=== PATIENT | female | born 1960 | race Caucasian/White ===

== ENCOUNTER 2016-09-16 19:42 | Observation (INO) | payer OTHER ==
[~2016-09-16] VITALS: Ht 162.6 cm; Wt 80.3 kg
[~2016-09-16 19:42] MED LIST: ADVIN25/60 INH; ALBUAER19 INH; FLUO40CA8 PO; MULT-506 PO; RANI150T3 PO; TEMA30CA4 PO
[2016-09-16] MEDS ORDERED: SODIUM CHLORIDE 0.9% 1000ML 1,000 ML IV STA (20:51)
[2016-09-16] MEDS ORDERED: NITROGLYCERIN OINT 2% 1GM PACKET EXT STA (20:51)
--- NOTE | 2016-09-16 21:02 | EMERGENCY ROOM VISIT NOTE ---
History Report prepared by Abdirashid: Dash Presley Under the Supervision of: Dr. Ronen Pablo M.D. First contact with patient: 20:46 Chief Complaint: CHEST PAIN Stated Complaint: CHEST PAIN Nursing Triage Summary: cp since this am seen at [facility] and sent here. History of Present Illness The patient is a 56 year old female with COPD who presents to the Emergency Room with complaints of constant chest pain beginning ten hours prior to arrival. She currently rates her discomfort as a 5/10 in severity. The patient associates shortness of breath, intermittent numbness in her arms and hands at night, and chest pain that radiates to her back and shoulder with today's symptoms. She states her shortness of breath worsens with exertion. The patient states she was seen at [facility] this morning and was referred to the ED for further evaluation. It is noted the patient had a stress test performed in 2007, but it was unrevealing and suboptimal. The patient states nothing makes her chest pain worse or better. She denies a history of a heart attack. The patient denies nausea and diaphoresis. 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 Review of Systems See HPI for pertinent positives & negatives. A total of 10 systems reviewed and were otherwise negative. Past Medical & Surgical Medical Problems: (1) Depression Family History FH: heart disease Social History Smoking Status: Current Every Day Smoker Marital Status: Occupation Status: unemployed Current/Historical Medications Scheduled Fluoxetine (Prozac), 40 MG PO QAM Fluticasone Prop/Salmeterol (Advair Diskus 250/50 60 Dose), 1 PUFF INH BID Multivitamin (Multivitamin), 1 TAB PO QAM Ranitidine Hcl (Zantac), 150 MG PO BID Temazepam (Restoril), 30 MG PO HS Scheduled PRN Albuterol (Ventolin Hfa), 2 PUFFS INH QID PRN for Wheezing Allergies Coded Allergies: No Known Allergies (Unverified , 09/16/16) Physical Exam Vital Signs Date Time Temp Pulse Resp B/P Pulse Ox O2 Delivery O2 Flow Rate FiO2 09/16/16 21:42 71 18 98 Room Air 09/16/16 21:40 71 09/16/16 21:00 Room Air 09/16/16 20:00 37.1 85 18 154/96 94 Room Air Physical Exam GENERAL: Patient is in no acute distress. HEENT: No acute trauma, normocephalic atraumatic, mucous membranes moist, no nasal congestion, no scleral icterus. NECK: No stridor, no adenopathy, no meningismus, trachea is midline. LUNGS: Decreased breath sounds bilaterally. No wheezing or rhonchi. HEART: Without murmurs gallops or rubs, regular rate and rhythm. CHEST: Nontender chest wall. ABDOMEN: Soft, nontender, bowel sounds positive, no hernias, no peritonitis. EXTREMITIES: No cyanosis or edema, full range of motion of all the joints without pain or difficulty, no signs for acute trauma. NEUROLOGIC: Oriented x 3, no acute motor or sensory deficits, no focal weakness. SKIN: No rash, no jaundice, no diaphoresis. Medical Decision & Procedures ER Provider Diagnostic Interpretation: X-ray results as stated below per interpretation by me and the radiologist: CHEST ONE VIEW PORTABLE CLINICAL HISTORY: Chest pain. COMPARISON STUDY: Chest radiograph May 02, 2016. FINDINGS: No pneumothorax or pleural effusion is identified. Cardiac size is normal. Mediastinal contours are normal. There is no evidence of pulmonary edema. No consolidation is identified. IMPRESSION: No acute cardiopulmonary findings. Electronically signed by: Tevin Kimble M.D. 09/16/2016 9:02 PM Laboratory Results 09/16/16 20:57 09/16/16 20:57 Test 09/16/16 20:57 Red Blood Count 5.06 M/uL (4.2-5.4) Mean Corpuscular Volume 88.9 fL (80-100) Mean Corpuscular Hemoglobin 31.4 pg (25-34) Mean Corpuscular Hemoglobin Concent 35.3 g/dl (32-36) RDW Standard Deviation 40.7 fL (36.4-46.3) RDW Coefficient of Variation 12.6 % (11.5-14.5) Mean Platelet Volume 8.9 fL (7.4-10.4) Prothrombin Time 10.5 SECONDS (9.0-12.0) Prothromb Time International Ratio 1.0 (0.9-1.1) Activated Partial Thromboplast Time 25.4 SECONDS (21.0-31.0) Partial Thromboplastin Ratio 1.0 Anion Gap 10.0 mmol/L (3-11) Est Creatinine Clear Calc Drug Dose 67.9 ml/min Estimated GFR () 77.2 Estimated GFR (Non- 66.6 BUN/Creatinine Ratio 20.1 (10-20) Calcium Level 8.4 mg/dl (8.5-10.1) Total Bilirubin 0.6 mg/dl (0.2-1) Aspartate Amino Transf (AST/SGOT) 22 U/L (15-37) Alanine Aminotransferase (ALT/SGPT) 21 U/L (12-78) Alkaline Phosphatase 94 U/L (45-117) Total Creatine Kinase 131 U/L (26-192) Creatine Kinase MB 1.2 ng/ml (0.5-3.6) Creatine Kinase MB Ratio 0.9 (0-3.0) Troponin I < 0.015 ng/ml (0-0.045) Total Protein 6.9 gm/dl (6.4-8.2) Albumin 3.5 gm/dl (3.4-5.0) Globulin 3.4 gm/dl (2.5-4.0) Albumin/Globulin Ratio 1.0 (0.9-2) Laboratory results reviewed by me. Medications Administered Medications (Trade) Dose Ordered Sig/Samson Route Start Time Stop Time Status Last Admin Dose Admin Sodium Chloride (Nss 1000ml) 1,000 ml @ 200 mls/hr Q5H STAT IV 09/16/16 20:51 09/17/16 01:50 09/16/16 20:51 200 MLS/HR Nitroglycerin (Nitroglycerin 2% Oint) 1 inch NOW STAT EXT 09/16/16 20:51 09/16/16 20:52 DC 09/16/16 20:51 1 INCH ECG Indication: chest pain Rate (beats per minute): 69 Rhythm: normal sinus Findings: nonspecific-ST abn, no acute ischemic change, other (old septal infarct) ED Course 2047: The patient was evaluated in room C1B. A complete history and physical exam was performed. 2050: Ordered Nitroglycerin 1 inch EXT, Sodium Chloride 1,000 ml @ 200 mls/hr IV. 2132: Reevaluated the patient and updated her at this time. 2139: I spoke to Scott Jones (Hospitalist) about the patient's case, and he will follow the patient for further evaluation. 2144: Reevaluated the patient at this time and updated her on the results. Medical Decision The differential diagnoses include but are not limited to: angina, CO, cardiac ischemia, PE, pneumonia, pneumothorax, aortic dissection, musculoskeletal pain. There is no leukocytosis or worrisome anemia. No significant electrolyte abnormality, kidney failure or hepatitis. There is no coagulopathy. Chest film shows no pneumonia, mediastinal widening or pneumothorax. EKG shows a normal sinus rhythm with an old septal infarct, no acute ischemia. Cardiac enzyme testing times one is not suggestive of acute cardiac injury. The patient had already received oral aspirin prior to arrival. Here, she received nitroglycerin paste. She feels markedly improved. The patient has multiple cardiac risk factors. She presents with chest pain and shortness of breath with radiation of pain to her left shoulder. She has had improvement with nitroglycerin. Further cardiac workup is warranted. I spoke with the patient and case management. The on-call hospitalist was consulted. Consults Time Called: 2134 Consulting Physician: Scott Jones (Hospitalist) Returned Call: 2139 I spoke to Scott Jones (Hospitalist) about the patient's case, and he will follow the patient for further evaluation. Impression Primary Impression: Precordial chest pain Additional Impression: SOB (shortness of breath) Scribe Attestation The scribe's documentation has been prepared under my direction and personally reviewed by me in its entirety. I confirm that the note above accurately reflects all work, treatment, procedures, and medical decision making performed by me. Departure Information Dispostion Being Evaluated By Hospitalist (Scott Jones (Hospitalist)) Referrals David Allen M.D. (PCP) Problem Qualifiers
[2016-09-16] MEDS ORDERED: PRVHFAIN INH (21:09)
[2016-09-16 21:15] LABS: MEAN CELL VOLUME 88.9 fL (80-100); MEAN CORPUSCULAR HEMOGLOBIN 31.4 pg (25-34); MEAN CORPUSCULAR HGB CONC 35.3 g/dl (32-36); MEAN PLATELET VOLUME 8.9 fL (7.4-10.4); PLATELET COUNT 207 K/uL (130-400); RED BLOOD COUNT 5.06 M/uL (4.2-5.4)
[2016-09-16 21:26] LABS: ALT/SGPT 21 U/L (12-78); BLOOD UREA NITROGEN 19 mg/dl (7-18); BUN/CREATININE RATIO 20.1 (10-20); CALCIUM 8.4 mg/dl (8.5-10.1); CARBON DIOXIDE 26 mmol/L (21-32); CHLORIDE 107 mmol/L (98-107); CREATININE 0.96 mg/dl (0.60-1.20); GLUCOSE 82 mg/dl (70-99); POTASSIUM 3.6 mmol/L (3.5-5.1); SODIUM 143 mmol/L (136-145)
[2016-09-16 21:30] LABS: PROTHROMBIN TIME (PATIENT) 10.5 SECONDS (9.0-12.0)
[2016-09-16 21:31] LABS: ALKALINE PHOSPHATASE 94 U/L (45-117); AST/SGOT 22 U/L (15-37); CKMB/CK RATIO 0.9 (0-3.0)
[2016-09-16] MEDS ORDERED: ACETAMINOPHEN 325 MG TAB PO PRN (22:00)
[2016-09-16] MEDS ORDERED: ALBUTEROL HFA 8 GM INHALER INH PRN (22:00)
[2016-09-16] MEDS ORDERED: ALUMINUM/MAGNESIUM/SIMETH (MAALOX MAX) 30 ML UDC PO PRN (22:00)
[2016-09-16] MEDS ORDERED: TEMAZEPAM 15 MG CAP PO SCH (22:00)
[2016-09-16] MEDS ORDERED: ONDANSETRON INJ 2 MG/ML 2 ML VIAL IV PRN (22:00)
[2016-09-16] MEDS ORDERED: MAGNESIUM HYDROXIDE SUSP 30 ML UDC PO PRN (22:00)
[2016-09-16] MEDS ORDERED: NITROGLYCERIN 0.4 MG SL PER TAB CHARGE SL PRN (22:00)
[2016-09-16] MEDS ORDERED: OPTIRAY 320 IV PRN (22:15)
--- NOTE | 2016-09-16 23:48 | HISTORY & PHYSICAL EXAMINATION ---
DATE OF ADMISSION: 09/16/2016 CHIEF COMPLAINT: Chest pain. HISTORY OF PRESENT ILLNESS: This is a 56-year-old female with past medical history significant for COPD, depression and history of tobacco abuse who presents with chest pain. The patient says since several weeks, she is having tinglings in her both the hands and legs and she generally does not follow with her family doctor regularly, but she has an appointment next Thursday, for her tingliness, but today in the morning, she developed chest pain, 6/10 in severity, radiating to the back , sharp pains associated with some shortness of breath, dizziness and nausea, no sweating. She went to the urgent care and she was sent to the ER. She is on nitro patch. The pain is better, but she still has some mild pain. Hemodynamically stable. Denies any abdominal pain. Appetite is okay. Normal bowel and bladder movements. FAMILY HISTORY: The patient does not know any family history of blood clots. Significant for father had CAD and CABG and diabetes. Mother had diabetes. Father had throat cancer. ALLERGIES: No known drug allergies. PAST MEDICAL HISTORY: As mentioned above. PAST SURGICAL HISTORY: For kidney stones, cholecystectomy. MEDICATIONS: The patient is on albuterol 2 puffs inhalation q.i.d. p.r.n., fluoxetine 40 mg p.o. q.a.m., Advair Diskus 250/50 one puff inhalation b.i.d., multivitamin 1 tablet p.o. daily, Zantac 150 mg p.o. b.i.d., temazepam 30 mg p.o. at bedtime. SOCIAL HISTORY: Smokes half pack a day for several years. REVIEW OF SYMPTOMS: As per HPI. Rest of the review of symptoms negative. PHYSICAL EXAMINATION: GENERAL: The patient is of moderate build, not in distress. VITAL SIGNS: Temperature 37.1, pulse 71, respiratory rate 18, blood pressure 154/96, oxygen 94% room air. HEENT: No pallor, no icterus. Pupils equal, round, and reactive to light. NECK: No JVD, no neck masses, no carotid bruits. CARDIOVASCULAR: S1, S2 heard, regular rate and rhythm, no murmur, no gallop. RESPIRATORY: Clear to auscultation bilaterally. No wheezing, no crackles. ABDOMEN: Soft, bowel sounds present, nontender, no distention. CENTRAL NERVOUS SYSTEM: Cranial nerves II-XII grossly intact. Nonfocal. EXTREMITIES: No edema, no erythema. LABORATORIES: Sodium 143, potassium 3.6, chloride 107, bicarb 26, BUN 19, creatinine 0.9, serum glucose 82, calcium 8.4, total bilirubin 0.6, AST 22, ALT 21, alkaline phosphatase 94, total creatine kinase 131, troponin I less than 0.015. WBC 6.3, hemoglobin 15.9, hematocrit 45, platelets 207. PT 10.5, INR 1, PTT 25.4. Chest x-ray: No acute cardiopulmonary findings seen. EKG: Normal sinus rhythm with rate of 69, no acute ST changes seen. ASSESSMENT AND PLAN: This is a 56-year-old female who presents with chest pain. 1. Chest pain. Risk factors age and family history and smoking history. Initial workup is negative. We will observe on the tele floor. Serial cardiac enzymes, echocardiogram. We will check a fasting lipid profile and consult cardiology in a.m. for possible stress test. 2. History of bilateral hand tenderness and lower extremity numbness. We will follow hemoglobin A1c levels and vitamin B12 levels. The patient has outpatient followup with her family doctor consider cervical x-ray. 3. Chronic obstructive pulmonary disease. Continue home inhalers, currently stable. 4. Tobacco abuse. Continue counseling. 5. Deep vein thrombosis prophylaxis, SCDs and TEDs. 6. Disposition: Observation on tele floor. Expect to discharge home and follow up with family doctor. JOANN
[2016-09-17] MEDS ORDERED: IV FLUIDS COMPLETED PRN (00:15)
[2016-09-17 06:07] LABS: BASO % 0.6 %; BASO ABS # 0.03 K/uL (0-0.2); COMPLETE YES; EOS % 3.6 %; HEMATOCRIT 41.9 % (37-47); IG% 0.2 %; LYMPH % 32.6 %; LYMPH ABS # 1.53 K/uL (1.2-3.4); MEAN CELL VOLUME 92.3 fL (80-100); MEAN CORPUSCULAR HEMOGLOBIN 31.3 pg (25-34); MEAN CORPUSCULAR HGB CONC 33.9 g/dl (32-36); MEAN PLATELET VOLUME 9.4 fL (7.4-10.4); MONO % 8.1 %; NEUT % 54.9 %; PLATELET COUNT 180 K/uL (130-400); RED BLOOD COUNT 4.54 M/uL (4.2-5.4)
[2016-09-17 06:38] LABS: BLOOD UREA NITROGEN 18 mg/dl (7-18); BUN/CREATININE RATIO 19.9 (10-20); CARBON DIOXIDE 27 mmol/L (21-32); CHLORIDE 109 mmol/L (98-107); GLUCOSE 88 mg/dl (70-99); MAGNESIUM 1.8 mg/dl (1.8-2.4); POTASSIUM 3.4 mmol/L (3.5-5.1); SODIUM 144 mmol/L (136-145)
[2016-09-17 06:44] LABS: CHOLESTEROL 181 mg/dl (0-200); CHOLESTEROL/HDL RATIO 4.2; CKMB/CK RATIO 2.3 (0-3.0); HDL CHOLESTEROL 43 mg/dl; LDL CHOLESTEROL CALCULATED 99 mg/dl; TRIGLYCERIDES 197 mg/dl (0-150); VERY LOW DENSITY LIPOPROT CALC 39 mg/dl
[2016-09-17 07:17] VITALS: BP 117/71; PULSE 76; TEMP 36.5; O2SAT 94; Ht 162.6 cm; Wt 80.3 kg
[2016-09-17 07:19] LABS: ESTIMATED AVERAGE GLUCOSE 105 mg/dl; HA1C FLAG Normal (Normal)
--- NOTE | 2016-09-17 07:46 | DIAGNOSTIC IMAGING REPORT ---
CT ANGIOGRAM OF THE CHEST CLINICAL HISTORY: Atypical chest pain. COMPARISON STUDY: Chest x-ray dated 09/16/16. TECHNIQUE: Following the IV administration of 100 cc of Optiray 320, CT angiogram of the chest was performed from the upper abdomen to the thoracic inlet utilizing the pulmonary embolus protocol. Images are reviewed in the axial, sagittal, and coronal planes. 3-D MIPS images are created and assessed. IV contrast was administered without complication. The examination is degraded by respiratory motion artifact. CT DOSE: 395.22 mGy.cm FINDINGS: Thyroid: Imaged portions of the thyroid gland are normal in size and attenuation. Thoracic aorta: The thoracic aorta is normal in caliber and demonstrates standard 3-vessel arch anatomy. Pulmonary vasculature: The pulmonary trunk is normal in caliber. There are no filling defects identified in main, lobar, or segmental pulmonary branches to suggest pulmonary embolus. Heart: The heart is normal in size and configuration, and without pericardial effusion. There are scattered coronary artery calcifications. Lungs and pleural spaces: Evaluation of the lung parenchyma is degraded by respiratory motion artifact. There is advanced emphysema. No airspace consolidation or pleural effusion is identified. A fat-containing Bochdalek hernia is noted at the right lung base. There is an 8 mm irregular nodule in the right upper lobe seen on image #[id number]. A 7 mm irregular nodule stent the right apex on image #[id number]. Foci of linear scarring versus atelectasis are present at the lung bases. The trachea and central airways are clear. Mediastinum: There is no mediastinal lymphadenopathy. Antonieta: Clear. Axillae: There is no axillary lymphadenopathy. Upper abdomen: There is a tiny hiatal hernia. Partially visualized upper abdominal viscera is otherwise within normal limits. Skeletal structures: The skeletal structures appear osteopenic. No lytic or blastic bony lesions are seen. IMPRESSION: 1. There is no evidence of pulmonary embolus in the main, lobar, or segmental pulmonary arteries. 2. Advanced emphysema. 3. There is no airspace consolidation or pleural effusion. 4. There are 2 irregular pulmonary nodules in the right upper lobe measuring up to 8 mm. These are pathologically indeterminant but concerning based on the irregular morphology. A 3 month follow-up examination is recommended. Electronically signed by: Ronen Conway M.D. 09/17/2016 7:44 AM Dictated Date/Time: 09/17/2016 7:38 AM
[2016-09-17] MEDS ORDERED: RANITIDINE HCL 150 MG TAB PO SCH (09:00)
[2016-09-17] MEDS ORDERED: INFLUENZA ADMINISTRATION CHARGE ONE (09:00)
[2016-09-17] MEDS ORDERED: MULTIVITAMIN TAB PO SCH (09:00)
[2016-09-17] MEDS ORDERED: FLUTICASONE/SALMETEROL 250/50 (ADVAIR) 14 PUFF/1 INHALER INH SCH (09:00)
[2016-09-17] MEDS ORDERED: FLUOXETINE HCL 20 MG CAP PO SCH (09:00)
[2016-09-17] MEDS ORDERED: INFLUENZA VIRUS QUAD VACCINE 0.5 ML SYR IM. ONE (09:00)
[2016-09-17 10:42] VITALS: BP 104/66; PULSE 72; TEMP 36.4; O2SAT 93
[2016-09-17] MEDS ORDERED: POTASSIUM CHLR 10 MEQ / WTR 10 MEQ in PREMIXED WATER 100 ML IV ONE (12:00)
--- NOTE | 2016-09-17 13:42 | CARDIOLOGY CONSULTATION ---
DATE OF CONSULTATION: 09/17/2016 HISTORY OF PRESENT ILLNESS: Monisha Hammond is a 56-year-old female seen in cardiology consultation per the request of Dr. Clark for the evaluation of chest discomfort. The patient states that she has a history of mild COPD. She is a long time cigarette smoker and smokes 1 pack of cigarettes per day. She notes that she has had recent tingling in her hands and feet over the last few weeks. Recently, she has noted increased shortness of breath perhaps over the last 5 days that she figured that this was due to her COPD. Yesterday while watching television, she developed 6/10 left-sided chest discomfort that radiated to her back at rest. The pain persisted for hours and then she ultimately presented to the Emergency Department. She had an EKG on arrival and again this morning both of which revealed normal sinus rhythm with no significant ST changes. Currently, she is seen on the telemetry unit and was in no acute distress. PAST MEDICAL HISTORY: 1. COPD. 2. Depression. 3. Ongoing cigarette smoking. PAST SURGICAL HISTORY: Notable for intervention for kidney stones and cholecystectomy. FAMILY HISTORY: Father had multiple prior myocardial infarctions as well as coronary artery bypass grafting and in his 70s. She has a brother who had a myocardial infarction at age 62. SOCIAL HISTORY: She continues to smoke 1 pack of cigarettes per day for which she told me. COMPREHENSIVE REVIEW OF SYSTEMS: A 10-point review of systems was reviewed and is negative with the exception of that noted above. HOME MEDICATIONS: 1. Albuterol. 2. Fluoxetine. 3. Advair. 4. Multivitamin. 5. Zantac. 6. Temazepam at bedtime. PHYSICAL EXAMINATION: VITAL SIGNS: Temperature 36.4, heart rate 72, blood pressure 104/66. GENERAL APPEARANCE: Awake and oriented x3, in no acute distress. HEENT: Extraocular muscles were intact. Pupils are equal and reactive to light. NECK: No bruits or cervical lymphadenopathy. CARDIOVASCULAR: Regular rate and rhythm. No murmurs, rubs or gallops. ABDOMEN: Positive bowel sounds. Soft, nontender, nondistended. EXTREMITIES: No clubbing, cyanosis or edema. NEUROLOGIC: No focal deficits. PSYCHIATRIC: Appropriate affect and insight. DIAGNOSTIC DATA: EKG performed on 09/16/2016 at 2003 hours revealed normal sinus rhythm at 69 beats per minute, possible age undetermined septal infarction based on poor R-wave progression in leads V1 and V2 with no significant ST changes. Repeat tracing this morning was negative. Troponin was negative with 2 negative troponins noted on the chart 1 at 2056 last night and again at 5:27 a.m. CPK and MB measurements were also negative. Cholesterol panel: Triglycerides mildly elevated at 197, LDL 99 mg/dL. FINAL IMPRESSION: A 56-year-old female: 1. Chest discomfort somewhat atypical for angina having occurred over several hours at rest. A CT of the chest has been performed in the Emergency Department revealed no evidence of pulmonary embolism in the visualized portions of the pulmonary arteries. Scattered coronary artery calcifications were noted on the CT with no pericardial effusion. The thoracic aorta was normal in caliber and demonstrates standard 3-vessel arch anatomy. Two incidental irregular pulmonary nodules in the right upper lobe were noted measuring up to 8 mm. DISCUSSION AND RECOMMENDATIONS: Although the patient's symptoms are atypical, she certainly has cardiac risk factors including a strong family history of ischemic heart disease and she is an ongoing cigarette smoker. The patient is not able to exercise sufficiently on the treadmill and therefore she will undergo dobutamine stress echocardiogram. Further recommendations will be forthcoming after the test. JOANN
[2016-09-17 14:22] LABS: CKMB/CK RATIO 1.5 (0-3.0)
[2016-09-17] MEDS ORDERED: DOBUTamine HCL 12.5 MG/ML 20 ML VIAL ONE (14:31)
[2016-09-17] MEDS ORDERED: METOPROLOL TARTRATE 1 MG/ML VIAL ONE (14:31)
[2016-09-17] MEDS ORDERED: ATROPINE SULFATE 0.1 MG/ML 5ML SYR ONE (14:31)
[2016-09-17] MEDS ORDERED: PERFLUTREN LIPID MICROSPHERE (DEFINITY) IV ONE (15:35)
[2016-09-17 16:08] VITALS: BP 125/88; PULSE 83; TEMP 36.7; O2SAT 91
--- NOTE | 2016-09-17 17:12 | DOBUTAMINE ECHO ---
*NOTICE TO RECEIVING DEMOCRAT AGENCY This information is strictly Confidential and protected under [place] law. [place] law prohibits you from making any further disclosure of this information unless further disclosure is expressly permitted by the written consent of the person to whom it pertains or is authorized by law. A general authorization for the release of medical or other information is not sufficient for this purpose. Hospital accepts no responsibility if the information is made available to any other person, INCLUDING THE PATIENT. Interpretation Summary * Name: JAZMYN FONTANEZ Study Date: 09/17/2016 02:19 PM BP: 124/85 mmHg * Patient Location: [facility]\S\N278\S\1 HR: 72 * : 1960 (M/d/yyyy) Gender: Female Height: 64 in * Age: 56 yrs Ethnicity: CA Weight: 177 lb * Ordering Physician: Torsten Mobley * Referring Physician: Self, Referred * Performed By: Radha Davalos RDCS * * Reason For Study: CHEST PAIN * BSA: 1.9 m2 * History: CHEST PAIN * STRESS STUDY: Normal pharmacologic stress echocardiogram. No echocardiographic or ECG evidence of myocardial ischemia having achieved heart rate adequate for diagnostic purposes. * -- Conclusions -- * STRESS STUDY: Normal pharmacologic stress echocardiogram. No echocardiographic or ECG evidence of myocardial ischemia having achieved heart rate adequate for diagnostic purposes. Procedure Details * DOBUTAMINE ECHO, CPT#39662 * A contrast injection of Definity was performed to improve assessment of LV function. * Contrast was injected into an intravenous site in the left arm. * One vial of Definity ultrasound contrast was diluted in normal saline to a total volume of 10 ml. A total of '4' ml of solution was administered during imaging. * Lot # [id number] of Definity utilized for procedure. * Expiration date 1 SEP 20. * The attending nurse who injected the contrast agent was JOSH CONNORS RN. Left Ventricle * The left ventricle is normal in size. * There is normal left ventricular wall thickness. * Ejection Fraction = 55-60%. * Left ventricular systolic function is normal. * The left ventricular wall motion is normal at rest. * The left ventricular ejection fraction increases normally with stress. The left ventricular end-systolic cavity size reduces post-stress (normal response). The left ventricular wall motion with stress is normal. Right Ventricle * The right ventricle is normal in size and function. Atria * The left atrial size is normal. * Right atrial size is normal. * No ASD detected; PFO is not assessed. Mitral Valve * The mitral valve is normal. * There is no mitral valve stenosis. * Significant mitral regurgitation is absent. Tricuspid Valve * The tricuspid valve is normal. * There is no tricuspid stenosis. * Significant tricuspid regurgitation is absent. Aortic Valve * The aortic valve is trileaflet. * Aortic stenosis is absent. * There is no significant aortic regurgitation. Pulmonic Valve * The pulmonary valve is not well seen, but the Doppler examination is normal without significant regurgitation or stenosis. Great Vessels * The aortic root and proximal ascending aorta are normal sized. Pericardium * There is no pericardial effusion. Stress Parameters * Baseline ECG was essentially normal. No symptoms were noted. * The stress ECG response was normal * Stress ECG: No ST changes. No arrhythmias. * The stress portion of this study was personally supervised by the undersigned interpreting physician. * Rest heart rate was '72' BPM. * Rest blood pressure was '124/85' * Maximum heart rate achieved was 150 bpm. * Maximum heart rate was 90 % of maximum age-predicted heart rate. * Maximum blood pressure was '162/71' * Maximum Dobutamine infusion rate was '40' mcg/kg/min. * A total of .5 mg of intravenous Atropine was used to supplement Dobutamine for heart rate response. * Dobutamine infusion was terminated due to achieving target heart rate * A total of 10 mg of IV Metoprolol was administered to reverse Dobutamine-induced tachycardia. MMode 2D Measurements and Calculations IVSd 0.93 cm IVSs 1.3 cm LVIDd 4.6 cm LVIDs 3.3 cm LVPWd 0.75 cm LVPWs 1.3 cm IVS/LVPW 1.2 FS 27.9 % EDV(Teich) 95.8 ml ESV(Teich) 43.9 ml EF(Teich) 54.2 % EDV(cubed) 95.4 ml ESV(cubed) 35.7 ml EF(cubed) 62.5 % % IVS thick 35.4 % % LVPW thick 73.5 % LV mass(C)d 124.3 grams LV mass(C)dI 66.9 grams/m\S\2 LV mass(C)s 137.8 grams LV mass(C)sI 74.2 grams/m\S\2 SV(Teich) 51.9 ml SI(Teich) 27.9 ml/m\S\2 SV(cubed) 59.7 ml SI(cubed) 32.1 ml/m\S\2 Ao root diam 3.2 cm Ao root area 7.8 cm\S\2 LA dimension 2.1 cm LA/Ao 0.67 LVAd ap4 23.6 cm\S\2 LVLd ap4 7.0 cm EDV(MOD-sp4) 65.0 ml EDV(sp4-el) 67.9 ml LVAs ap4 14.7 cm\S\2 LVLs ap4 6.2 cm ESV(MOD-sp4) 30.2 ml ESV(sp4-el) 29.7 ml EF(MOD-sp4) 53.5 % EF(sp4-el) 56.2 % LVAd ap2 25.2 cm\S\2 LVLd ap2 7.8 cm EDV(MOD-sp2) 67.1 ml EDV(sp2-el) 69.0 ml LVAs ap2 14.2 cm\S\2 LVLs ap2 6.3 cm ESV(MOD-sp2) 27.5 ml ESV(sp2-el) 26.9 ml EF(MOD-sp2) 59.0 % EF(sp2-el) 60.9 % LVLd %diff 10.8 % EDV(MOD-bp) 70.2 ml LVLs %diff 1.9 % ESV(MOD-bp) 29.0 ml EF(MOD-bp) 58.7 % SV(MOD-sp4) 34.8 ml SI(MOD-sp4) 18.7 ml/m\S\2 SV(MOD-sp2) 39.5 ml SI(MOD-sp2) 21.3 ml/m\S\2 SV(MOD-bp) 41.2 ml SI(MOD-bp) 22.2 ml/m\S\2 SV(sp4-el) 38.2 ml SI(sp4-el) 20.5 ml/m\S\2 SV(sp2-el) 42.0 ml SI(sp2-el) 22.6 ml/m\S\2 Doppler Measurements and Calculations MV E max suzan 52.4 cm/sec MV A max suzan 68.4 cm/sec MV E/A 0.77 MV dec time 0.30 sec Ao V2 max 112.9 cm/sec Ao max PG 5.1 mmHg Ao max PG (full) 0.38 mmHg LV V1 max PG 4.7 mmHg LV V1 max 108.7 cm/sec
--- NOTE | 2016-09-17 18:41 | Progress Note ---
Subjective Date of Service: Sep 17, 2016. Subjective Pt evaluation today including: conversation w/ patient, physical exam, lab review, review of studies, review of inpatient medication list Saw/examined the patient in room 278 States that her pain was around the left chest wall Pain has since subsided No shortness of breath Review of Systems Respiratory: No cough, No dyspnea at rest, No dyspnea on exertion, No hemoptysis, No shortness of breath, No sputum, No wheezing Cardiac: No PND, No chest pain (resolved), No edema, No orthopnea, No palpitations Abdomen: No diarrhea, No nausea, No pain, No vomiting Musculoskeletal: No joint pain Female : No dysuria, No urinary frequency Heme: No abnormal bleeding/bruising Medications Current Inpatient Medications Medications (Trade) Dose Ordered Sig/Samson Route Start Time Stop Time Status Last Admin Dose Admin Acetaminophen (Tylenol Tab) 650 mg Q4H PRN PO 09/16/16 22:00 10/16/16 21:59 Al Hydrox/Mg Hydrox/Simethicone (Maalox Max Susp) 15 ml Q4H PRN PO 09/16/16 22:00 10/16/16 21:59 Magnesium Hydroxide (Milk Of Magnesia Susp) 30 ml Q12H PRN PO 09/16/16 22:00 10/16/16 21:59 Ondansetron HCl (Zofran Inj) 4 mg Q6H PRN IV 09/16/16 22:00 10/16/16 21:59 Nitroglycerin (Nitrostat Tab) 0.4 mg UD PRN SL 09/16/16 22:00 10/16/16 21:59 Albuterol (Ventolin Hfa Inhaler) 2 puffs QID PRN INH 09/16/16 22:00 10/16/16 21:59 Fluoxetine HCl (Prozac Cap) 40 mg QAM PO 09/17/16 09:00 10/17/16 08:59 09/17/16 07:44 40 MG Salmeterol Xinafoate/ Fluticasone (Advair Diskus 250/50 Inh) 1 puff BID INH 09/17/16 09:00 10/17/16 08:59 09/17/16 07:43 1 PUFF Multivitamins (Multivitamin Tab) 1 tab QAM PO 09/17/16 09:00 10/17/16 08:59 2/15/17 07:43 1 TAB Ranitidine HCl (zANTac TAB) 150 mg BID PO 09/17/16 09:00 10/17/16 08:59 09/17/16 07:43 150 MG Temazepam (Restoril Cap) 30 mg HS PO 09/16/16 22:00 10/16/16 21:59 09/16/16 22:00 30 MG Ioversol (Optiray 320) 100 ml UD PRN IV 09/16/16 22:15 09/20/16 22:14 Miscellaneous (Iv Fluids Completed) 1 ea PRN PRN N/A 09/17/16 00:15 09/17/17 00:14 Objective Vital Signs Date Time Temp Pulse Resp B/P Pulse Ox O2 Delivery O2 Flow Rate FiO2 09/17/16 16:08 36.7 83 18 125/88 91 Room Air 09/17/16 16:00 Room Air 09/17/16 12:00 Room Air 09/17/16 10:42 36.4 72 18 104/66 93 Room Air 09/17/16 07:17 36.5 76 16 117/71 94 Room Air 09/17/16 07:12 75 09/17/16 04:56 78 16 104/76 90 Room Air 09/17/16 02:39 79 16 99/64 92 Room Air 09/17/16 00:47 79 18 141/78 99 Room Air 09/17/16 00:17 76 24 09/16/16 22:47 77 17 09/16/16 22:17 69 23 147/81 99 Room Air 09/16/16 21:47 75 12 09/16/16 21:42 71 18 98 Room Air 09/16/16 21:40 71 09/16/16 21:00 Room Air 09/16/16 20:00 37.1 85 18 154/96 94 Room Air Physical Exam General Appearance: no apparent distress Respiratory/Chest: chest non-tender, lungs clear, normal breath sounds, no respiratory distress, no accessory muscle use Cardiovascular: regular rate, rhythm, no edema, no gallop, no JVD, no murmur Abdomen: normal bowel sounds, non tender, soft, no organomegaly, no pulsatile mass Extremities: normal range of motion, non-tender, normal inspection, no pedal edema, no calf tenderness 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, no motor/sensory deficits, alert, normal mood/affect, oriented x 3 Skin: normal color Lymphatic: no adenopathy Laboratory Results Last 24 Hours Test 09/16/16 20:57 09/17/16 05:26 09/17/16 13:46 White Blood Count 6.30 K/uL 4.70 K/uL Red Blood Count 5.06 M/uL 4.54 M/uL Hemoglobin 15.9 g/dL 14.2 g/dL Hematocrit 45.0 % 41.9 % Mean Corpuscular Volume 88.9 fL 92.3 fL Mean Corpuscular Hemoglobin 31.4 pg 31.3 pg Mean Corpuscular Hemoglobin Concent 35.3 g/dl 33.9 g/dl RDW Standard Deviation 40.7 fL 43.5 fL RDW Coefficient of Variation 12.6 % 12.9 % Platelet Count 207 K/uL 180 K/uL Mean Platelet Volume 8.9 fL 9.4 fL Prothrombin Time 10.5 SECONDS Prothromb Time International Ratio 1.0 Activated Partial Thromboplast Time 25.4 SECONDS Partial Thromboplastin Ratio 1.0 Sodium Level 143 mmol/L 144 mmol/L Potassium Level 3.6 mmol/L 3.4 mmol/L Chloride Level 107 mmol/L 109 mmol/L Carbon Dioxide Level 26 mmol/L 27 mmol/L Anion Gap 10.0 mmol/L 8.0 mmol/L Blood Urea Nitrogen 19 mg/dl 18 mg/dl Creatinine 0.96 mg/dl 0.90 mg/dl Est Creatinine Clear Calc Drug Dose 67.9 ml/min 72.4 ml/min Estimated GFR () 77.2 83.4 Estimated GFR (Non- 66.6 72.0 BUN/Creatinine Ratio 20.1 19.9 Random Glucose 82 mg/dl 88 mg/dl Calcium Level 8.4 mg/dl 8.0 mg/dl Total Bilirubin 0.6 mg/dl Aspartate Amino Transf (AST/SGOT) 22 U/L Alanine Aminotransferase (ALT/SGPT) 21 U/L Alkaline Phosphatase 94 U/L Total Creatine Kinase 131 U/L 90 U/L 94 U/L Creatine Kinase MB 1.2 ng/ml 2.1 ng/ml 1.4 ng/ml Creatine Kinase MB Ratio 0.9 2.3 1.5 Troponin I < 0.015 ng/ml < 0.015 ng/ml < 0.015 ng/ml Total Protein 6.9 gm/dl Albumin 3.5 gm/dl Globulin 3.4 gm/dl Albumin/Globulin Ratio 1.0 Neutrophils (%) (Auto) 54.9 % Lymphocytes (%) (Auto) 32.6 % Monocytes (%) (Auto) 8.1 % Eosinophils (%) (Auto) 3.6 % Basophils (%) (Auto) 0.6 % Neutrophils # (Auto) 2.58 K/uL Lymphocytes # (Auto) 1.53 K/uL Monocytes # (Auto) 0.38 K/uL Eosinophils # (Auto) 0.17 K/uL Basophils # (Auto) 0.03 K/uL Immature Granulocyte % (Auto) 0.2 % Immature Granulocyte # (Auto) 0.01 K/uL Estimated Average Glucose 105 mg/dl Hemoglobin A1c 5.3 % Magnesium Level 1.8 mg/dl Triglycerides Level 197 mg/dl Cholesterol Level 181 mg/dl HDL Cholesterol 43 mg/dl LDL Cholesterol, Calculated 99 mg/dl VLDL Cholesterol, Calculated 39 mg/dl Cholesterol/HDL Ratio 4.2 Vitamin B12 Level 283 pg/mL Hepatitis C Antibody Screen NEG Assessment and Plan This is a 56 year old female with PMH of tobacco use disorder, COPD, depression , GERD presented with atypical chest pain Atypical Chest Pain, r/o ACS patient presented with left chest wall pain risk factors include family history and tobacco use disorder EKG with no significant ST-T wave changes cardiac enzymes negative thus far plan for dobutamine stress echo today Tobacco Use Disorder counseled patient on smoking cessation smokes about 1PPD She will speak with primary care physician about methods to stop smoking Depression controlled continue home medications DVT ppx SCDs FULL CODE
[2016-09-17] MEDS ORDERED: OMEP20TA PO (18:43)
[2016-09-17] MEDS ORDERED: VTMB12 PO (18:43)
--- NOTE | 2016-09-17 18:46 | Discharge Instructions ---
Discharge Instructions Admission Reason for Admission: Precordial Chest Pain Discharge Discharge Diagnosis / Problem: Atypical Chest Pain, ACS ruled out Discharge Goals Goal(s): Decrease discomfort, Improve function Activity Recommendations Activity Limitations: resume your previous activity . Instructions / Follow-Up Instructions / Follow-Up Please follow-up with your primary care physician You will be started on vitamin B12 tabs - PCP should recheck B12 levels Take Prilosec over the counter for reflux symptoms Current Hospital Diet Patient's current hospital diet: Regular Diet Discharge Diet Recommended Diet: Regular Diet Pending Studies Studies pending at discharge: no Laboratory Results Hemoglobin A1c Test 09/17/16 05:26 Range/Units Estimated Average Glucose 105 mg/dl Hemoglobin A1c 5.3 4.5-5.6 % Lipid Panel Test 09/17/16 05:26 Range/Units Triglycerides Level 197 H 0-150 mg/dl Cholesterol Level 181 0-200 mg/dl HDL Cholesterol 43 mg/dl Cholesterol/HDL Ratio 4.2 LDL Cholesterol, Calculated 99 mg/dl Medical Emergencies . Who to Call and When: Medical Emergencies: If at any time you feel your situation is an emergency, please call 911 immediately. . Non-Emergent Contact Non-Emergency issues call your: Primary Care Provider . . "Provider Documentation" section prepared by Kandace Stanford. VTE Core Measure Inpt VTE Proph given/why not?: SCD's
--- NOTE | 2016-09-17 18:48 | Discharge Summary ---
Discharge Summary Admission Date: Sep 16, 2016 at 22:10 Discharge Date: Sep 17, 2016 Discharge Disposition: Home Principal Diagnosis: Atypical Chest Pain, negative stress test, likely GERD Medication Reconciliation New Medications: Omeprazole (Omeprazole) 20 Mg Tab 1 TAB PO DAILY for 90 Days, #90 TAB 1 Refill Cyanocobalamin (Vitamin B-12) 500 Mcg Tab 1000 MCG PO QAM for 30 Days, #60 TAB Continued Medications: Albuterol (Ventolin Hfa) 60 Puffs/5400 Mcg Aers 2 PUFFS INH QID PRN for Wheezing Fluoxetine (Prozac) 40 Mg Cap 40 MG PO QAM, CAP Fluticasone Prop/Salmeterol (Advair Diskus 250/50 60 Dose) 1 Ea Aerp 1 PUFF INH BID, INHALER Multivitamin (Multivitamin) Tab 1 TAB PO QAM, TAB Ranitidine Hcl (Zantac) 150 Mg Tab 150 MG PO BID, TAB Temazepam (Restoril) 30 Mg Cap 30 MG PO HS, CAP Admission Information HPI (per Admitting provider): DATE OF ADMISSION: 09/16/2016 CHIEF COMPLAINT: Chest pain. HISTORY OF PRESENT ILLNESS: This is a 56-year-old female with past medical history significant for COPD, depression and history of tobacco abuse who presents with chest pain. The patient says since several weeks, she is having tinglings in her both the hands and legs and she generally does not follow with her family doctor regularly, but she has an appointment next Thursday, for her tingliness, but today in the morning, she developed chest pain, 6/10 in severity, radiating to the back , sharp pains associated with some shortness of breath, dizziness and nausea, no sweating. She went to the urgent care and she was sent to the ER. She is on nitro patch. The pain is better, but she still has some mild pain. Hemodynamically stable. Denies any abdominal pain. Appetite is okay. Normal bowel and bladder movements. FAMILY HISTORY: The patient does not know any family history of blood clots. Significant for father had CAD and CABG and diabetes. Mother had diabetes. Father had throat cancer. ALLERGIES: No known drug allergies. PAST MEDICAL HISTORY: As mentioned above. PAST SURGICAL HISTORY: For kidney stones, cholecystectomy. MEDICATIONS: The patient is on albuterol 2 puffs inhalation q.i.d. p.r.n., fluoxetine 40 mg p.o. q.a.m., Advair Diskus 250/50 one puff inhalation b.i.d., multivitamin 1 tablet p.o. daily, Zantac 150 mg p.o. b.i.d., temazepam 30 mg p.o. at bedtime. SOCIAL HISTORY: Smokes half pack a day for several years. REVIEW OF SYMPTOMS: As per HPI. Rest of the review of symptoms negative. PHYSICAL EXAMINATION: GENERAL: The patient is of moderate build, not in distress. VITAL SIGNS: Temperature 37.1, pulse 71, respiratory rate 18, blood pressure 154/96, oxygen 94% room air. HEENT: No pallor, no icterus. Pupils equal, round, and reactive to light. NECK: No JVD, no neck masses, no carotid bruits. CARDIOVASCULAR: S1, S2 heard, regular rate and rhythm, no murmur, no gallop. RESPIRATORY: Clear to auscultation bilaterally. No wheezing, no crackles. ABDOMEN: Soft, bowel sounds present, nontender, no distention. CENTRAL NERVOUS SYSTEM: Cranial nerves II-XII grossly intact. Nonfocal. EXTREMITIES: No edema, no erythema. LABORATORIES: Sodium 143, potassium 3.6, chloride 107, bicarb 26, BUN 19, creatinine 0.9, serum glucose 82, calcium 8.4, total bilirubin 0.6, AST 22, ALT 21, alkaline phosphatase 94, total creatine kinase 131, troponin I less than 0.015. WBC 6.3, hemoglobin 15.9, hematocrit 45, platelets 207. PT 10.5, INR 1, PTT 25.4. Chest x-ray: No acute cardiopulmonary findings seen. EKG: Normal sinus rhythm with rate of 69, no acute ST changes seen. ASSESSMENT AND PLAN: This is a 56-year-old female who presents with chest pain. 1. Chest pain. Risk factors age and family history and smoking history. Initial workup is negative. We will observe on the tele floor. Serial cardiac enzymes, echocardiogram. We will check a fasting lipid profile and consult cardiology in a.m. for possible stress test. 2. History of bilateral hand tenderness and lower extremity numbness. We will follow hemoglobin A1c levels and vitamin B12 levels. The patient has outpatient followup with her family doctor consider cervical x-ray. 3. Chronic obstructive pulmonary disease. Continue home inhalers, currently stable. 4. Tobacco abuse. Continue counseling. 5. Deep vein thrombosis prophylaxis, SCDs and TEDs. 6. Disposition: Observation on tele floor. Expect to discharge home and follow up with family doctor. Hospital Course This is a 56 year old female with PMH of tobacco use disorder, COPD, depression , GERD presented with atypical chest pain Atypical Chest Pain, r/o ACS patient presented with left chest wall pain risk factors include family history and tobacco use disorder EKG with no significant ST-T wave changes cardiac enzymes negative thus far plan for dobutamine stress echo today Tobacco Use Disorder counseled patient on smoking cessation smokes about 1PPD She will speak with primary care physician about methods to stop smoking Depression controlled continue home medications DVT ppx SCDs FULL CODE Total time spent on discharge = 25 minutes This includes examination of the patient, discharge planning, medication reconciliation, and communication with other providers. Discharge Instructions Please follow-up with your primary care physician You will be started on vitamin B12 tabs - PCP should recheck B12 levels Take Prilosec over the counter for reflux symptoms
[2016-09-17 19:24] VITALS: BP 125/88; PULSE 83; TEMP 36.7; O2SAT 91
[2016-09-18] MEDS ORDERED: CYANOCOBALAMIN 500 MCG TAB (VIT B-12) PO SCH (09:00)
== END 2016-09-17 19:51 | disposition home or self-care (01) ==
LOC: ENRESERVDT → ENRESERVTM → C.EDB 19:44 → C.EDINP 22:10 → C.MED 09-17 10:24
PROVIDERS: ADMIT Internal Medicine; ATTEND Family Medicine
DX: R07.2 Precordial pain (principal); R06.02 Shortness of breath; F32.9 Major depressive disorder, single episode, unspecified; F17.210 Nicotine dependence, cigarettes, uncomplicated; J44.9 Chronic obstructive pulmonary disease, unspecified; K21.9 Gastro-esophageal reflux disease without esophagitis; Z82.49 Family history of ischemic heart disease and other diseases of the circulatory system

== ENCOUNTER → 2016-10-03 | Outpatient (CLI) | payer OTHER ==
[~2016-10-03] MED LIST changes: -ALBUAER19 INH; +OMEP20TA PO; +PRVHFAIN INH; +VTMB12 PO
--- NOTE | 2016-10-03 13:47 | DIAGNOSTIC IMAGING REPORT ---
C-SPINE ROUTINE 4 OR 5 VIEWS CLINICAL HISTORY: Neck pain COMPARISON STUDY: No previous studies for comparison. FINDINGS: There is reversal the normal cervical lordosis. There are multilevel degenerative changes present with disc space narrowing and anterior osteophyte formation. No fractures are visualized. No destructive lesions are evident on conventional radiographic imaging IMPRESSION: Slight reversal of the normal cervical lordosis. Multilevel degenerative change. No fractures or destructive lesions are visualized Electronically signed by: Aguila Carbajal M.D. 10/03/2016 1:46 PM Dictated Date/Time: 10/03/2016 1:46 PM
== END | disposition home or self-care (01) ==
LOC: C.RAD 12:54
DX: M54.9 Dorsalgia, unspecified (principal)

== ENCOUNTER → 2016-10-08 | Outpatient (CLI) | payer OTHER | END | disposition home or self-care (01) | LOC: C.PAPS 08:48 | PROVIDERS: ATTEND Obstetrics & Gynecology | DX: Z12.4 Encounter for screening for malignant neoplasm of cervix (principal); Z87.42 Personal history of other diseases of the female genital tract ==

== ENCOUNTER → 2017-01-07 | Outpatient (CLI) | payer OTHER ==
--- NOTE | 2017-01-07 13:14 | MAMMOGRAPHY REPORT ---
BILATERAL DIGITAL SCREENING MAMMOGRAM TOMOSYNTHESIS WITH CAD: 01/07/2017 CLINICAL HISTORY: Routine screening. Patient has no complaints. TECHNIQUE: Breast tomosynthesis in addition to standard 2D mammography was performed. Current study was also evaluated with a Computer Aided Detection (CAD) system. COMPARISON: Comparison is made to exams dated: 12/30/2013 mammogram, 12/29/2012 mammogram, 09/02/2011 m ammogram - [facility], 12/02/2007, and 08/15/2002 mammogram - [facility] nter. BREAST COMPOSITION: There are scattered areas of fibroglandular density in both breasts. FINDINGS: No suspicious masses, calcifications, or areas of architectural distortion are noted in ei ther breast. There has been no significant interval change compared to prior exams. IMPRESSION: ACR BI-RADS CATEGORY 1: NEGATIVE There is no mammographic evidence of malignancy. A 1 year screening mammogram is recommended. The pa tient will receive written notification of the results. Approximately 10% of breast cancers are not detected with mammography. A negative mammographic report should not delay biopsy if a clinically suggestive mass is present. Kanchan Ling M.D. /:01/07/2017 12:08:38 Logistics Clerk: María CAMP,Senia, M, [facility] letter sent: Normal 1/2 BI-RADS Code: ACR BI-RADS Category 1: Negative
== END | disposition home or self-care (01) ==
LOC: C.MAMM 10:17
DX: Z12.31 Encounter for screening mammogram for malignant neoplasm of breast (principal)

== ENCOUNTER → 2017-03-17 | Outpatient (CLI) | payer OTHER ==
--- NOTE | 2017-03-17 10:31 | DIAGNOSTIC IMAGING REPORT ---
CT SCAN OF THE CHEST WITHOUT IV CONTRAST CLINICAL HISTORY: Pulmonary nodule. COMPARISON STUDY: Chest CT dated 09/16/2016. TECHNIQUE: CT scan of the thorax was performed from the thoracic inlet to the upper abdomen. Images are reviewed in the axial, sagittal, and coronal planes. IV contrast was not administered for this examination. A dose lowering technique was utilized adhering to the principles of ALARA. CT DOSE: 439.30 mGycm FINDINGS: Thyroid: Imaged portions of the thyroid gland are normal in size and attenuation. Thoracic aorta: The thoracic aorta is normal in caliber and demonstrates standard 3-vessel arch anatomy. Heart: The heart is normal in size and without pericardial effusion. There are coronary artery calcifications. Lungs and pleural spaces: There is advanced emphysema. No airspace consolidation or pleural effusion is identified. A fat-containing Bochdalek hernia is noted at the right lung base. There is an 8 mm irregular nodule in the right upper lobe seen on image #104 . A 7 mm irregular nodule is seen at the right apex on image #56. No new pulmonary lesions are identified. A calcification in the right lower lobe seen on image were #153 is new from previous. Foci of linear scarring versus atelectasis are present at the lung bases. The trachea and central airways are clear. Mediastinum: There is no mediastinal lymphadenopathy. Antonieta: Not well assessed without IV contrast. Axillae: There is no axillary lymphadenopathy. Upper abdomen: There is a tiny hiatal hernia. Cholecystectomy clips are noted. A punctate nonobstructing calculus is noted in the right kidney. Skeletal structures: The skeletal structures are osteopenic. Arthritic change is present in the thoracic spine and shoulders. No lytic or blastic bony lesions are seen. IMPRESSION: 1. Advanced emphysema. 2. There is no airspace consolidation or pleural effusion. 3. There is unchanged appearance of 2 irregular pulmonary nodules in the right upper lobe as compared to 09/16/2016. These measure up to 8 mm and are pathologically indeterminant. Continued follow-up is recommended. 4. No new pulmonary nodule is seen. Please refer to below summary of Fleischner criteria recommendations for follow-up of incidental CT nodules (Deidre Fischer, Guidelines for management of small pulmonary nodules detected on CT scans: A statement from the Fleischner Society, Radiology 237: [phone].) SOLID NODULES Solitary nodule size: <6 mm * low risk patients: no follow-up needed * high risk patients: optional CT at 12 months Solitary nodule size: 6-8 mm * low risk patients: follow-up at 6-12 months, then consider further follow-up at 18-24 months * high risk patients: initial follow-up CT at 6-12 months and then at 18-24 months if no change Solitary nodule size: >8 mm * either low or high risk patients - consider follow-up CT at 3 months, and/or CT-PET, and/or biopsy Multiple nodules size: <6 mm * low risk patients: no routine follow-up * high risk patients: optional CT at 12 months Multiple nodules size: 6-8 mm * low risk patients: follow-up at 3-6 months, then consider further follow-up at 18-24 months * high risk patients: follow-up at 3-6 months, then at 18-24 months if no change Multiple nodules size: >8 mm * low risk patients: follow-up at 3-6 months, then consider further follow-up at 18-24 months * high risk patients: follow-up at 3-6 months, then at 18-24 months if no change Note: newly detected indeterminate nodule in persons 35 years of age or older. * low risk patients: minimal or absent history of smoking and/or other known risk factors * high risk patients: history of smoking or of other known risk factors (e.g. first degree relative with lung cancer, or exposure to asbestos, radon, uranium) * if a nodule up to 8 mm is partly solid or is ground glass further follow-up is required after 24 months to exclude possible slow growing adenocarcinoma (MICHELLE) SUBSOLID NODULES Solitary pure ground-glass nodule * nodule size <6 mm - no CT follow-up required * nodule size >=6 mm - follow-up CT at 6-12 months, then every 2 years until 5 years Solitary part-solid nodule * nodule size <6 mm - no CT follow-up required * nodule size >=6 mm - follow-up CT at 3-6 months. If unchanged, and solid component remains <6 mm, then annual follow-up for 5 years Multiple subsolid nodules * nodule size <6 mm - follow-up CT at 3-6 months, consider further follow-up at 2 and 4 years if stable * nodule size >=6 mm - follow-up CT at 3-6 months, subsequent management based on the most suspicious nodule(s) Electronically signed by: Ronen Conway M.D. 03/17/2017 10:30 AM Dictated Date/Time: 03/17/2017 10:12 AM
== END | disposition home or self-care (01) ==
LOC: C.CTS 09:42
PROVIDERS: ATTEND Internal Medicine Pulmonary Disease
DX: R91.1 Solitary pulmonary nodule (principal); J43.9 Emphysema, unspecified; R91.8 Other nonspecific abnormal finding of lung field

== ENCOUNTER → 2017-09-07 | Outpatient (CLI) | payer OTHER | END | disposition home or self-care (01) | LOC: C.PAPS 09:44 | PROVIDERS: ATTEND Obstetrics & Gynecology | DX: Z87.898 Personal history of other specified conditions (principal) ==

== ENCOUNTER → 2017-12-03 | Outpatient (CLI) | payer OTHER ==
[~2017-12-03] MED LIST changes: +CLON0.5T3 PO; +FLUT115A INH; +FLUT50SP45 NAE; +LEVO25TA5 PO; +NICO14DI9 TOP; +RANI300C PO; +SPRIN/30 INH
--- NOTE | 2017-12-03 11:05 | DIAGNOSTIC IMAGING REPORT ---
CT OF THE CHEST WITHOUT IV CONTRAST CLINICAL HISTORY: Follow-up right lung nodule. COMPARISON STUDY: Chest CTs September 16, 2016 and March 17, 2017. CT DOSE: 290.11 mGy.cm TECHNIQUE: Axial images of the chest were obtained without IV contrast. Images were reviewed in the axial, sagittal, and coronal planes. IV contrast was not administered for this examination. A dose lowering technique was utilized adhering to the principles of ALARA. FINDINGS: No enlarged axillary, mediastinal or hilar lymph nodes are present. The size the heart is normal. There is no pericardial effusion. Moderate coronary artery calcification is noted. There is moderate emphysema. No consolidation to suggest pneumonia is present. A tubular subpleural calcified density within the right lower lobe is benign. An 8 mm irregular nodule within the right upper lobe on image 103 of 326 is unchanged since initial chest CT of September 18, 2016. This remains indeterminate. A 7 mm irregular nodule within the right upper lobe shown on image 51 is also unchanged. No new nodules are present. No pneumothorax or pleural effusion is present. Central airways are patent. The gallbladder surgically absent. Upper abdomen is unremarkable on this unenhanced exam. IMPRESSION: 1. No change in 2 irregular pulmonary nodules within right upper lobe since initial chest CT of September 16, 2016. These nodules remain indeterminate. A chest CT in 6 months to ensure stability is recommended. 2. Moderate emphysema. 3. Moderate coronary artery calcification. Electronically signed by: Tevin Kimble M.D. 12/03/2017 11:03 AM Dictated Date/Time: 12/03/2017 10:53 AM
== END | disposition home or self-care (01) ==
LOC: C.CTS 10:36
PROVIDERS: ATTEND Internal Medicine Pulmonary Disease
DX: R91.1 Solitary pulmonary nodule (principal); J43.9 Emphysema, unspecified; I25.10 Atherosclerotic heart disease of native coronary artery without angina pectoris

== ENCOUNTER → 2017-12-17 | Day surgery (SDC) | payer OTHER ==
[2017-12-03 13:26] VITALS: BMI 27.0
[~2017-12-17] VITALS: Ht 160 cm; Wt 70.5 kg
[~2017-12-17] MED LIST changes: -ADVIN25/60 INH; +LIDOCAINE HCL 2% 2 ML VIAL (20MG/ML) ONE; -MULT-506 PO; +PROPOFOL IV EMULSION 10 MG/ML 20 ML VIAL ONE; -RANI150T3 PO; +SODIUM CHLORIDE 0.9% 500ML 500 ML IV ONE; -TEMA30CA4 PO; -VTMB12 PO
--- NOTE | 2017-12-17 12:44 | Endo History and Physical ---
History & Physical Date of Service: December 17, 2017. Chief Complaint: Screening Referring Physician: Kelly Wilson History of Present Illness 57 yo CF who presents for screening colonoscopy. Past Surgical History Hx Cardiac Surgery: No Hx Internal Defibrillator: No Hx Pacemaker: No Hx Abdominal Surgery: Yes (Cholesystectomy) Hx Post-Op Nausea and Vomiting: No Hx Cancer Surgery: No Hx Thoracic Surgery: No Hx Orthopedic: No Hx Urinary Tract Surgery: Yes (Kidney Stones ) Family History Esophogeal CA Social History Smoking Status: Current Every Day Smoker Hx Substance Use: No Hx Alcohol Use: No Allergies Coded Allergies: No Known Allergies (Unverified , 12/03/17) Current Medications Reported Home Medications Medications Dose Route/Sig Max Daily Dose Days Date Category Spiriva Handihaler (Tiotropium [place]) 30 Puff/540 Mcg Aerp 1 Cap INH DAILY 30 12/03/17 Reported Levothyroxine Sodium 25 Mcg Tab 1 Tab PO DAILY 30 12/03/17 Reported Allergy Nasal [place] 24 Ho (Fluticasone Propionate (Nasal)) 50 Mcg/Act Spr 2 [place] IRA DAILY 12/03/17 Reported Nicotine 14 Mg/24 Hr Dis 1 Patch TOP DAILY 28 12/03/17 Reported Advair Hfa 115/21 Mcg (Fluticasone-Salmeterol 115/21 Mcg) 1 Aer Aer 2 Puff INH BID 12/03/17 Reported Klonopin (Clonazepam) 0.5 Mg Tab 1 Tab PO BID PRN 30 12/03/17 Reported Ranitidine Hcl 300 Mg Cap 1 Cap PO DAILY 30 12/03/17 Reported Omeprazole 20 Mg Tab 1 Tab PO DAILY 90 09/17/16 Rx Ventolin Hfa (Albuterol) 60 Puffs/5400 Mcg Aers 2 Puffs INH QID PRN 09/16/16 Reported Prozac (Fluoxetine HCl) 40 Mg Cap 40 Mg PO QAM 12/17/15 Reported Vital Signs Weight (Kilograms): 70.45 Height (Feet): 5 Height (Inches): 3 Physical Exam General Appearance: WD/WN, no apparent distress Respiratory/Chest: Auscultation: breath sounds normal Cardiovascular: Heart Auscultation: RRR Abdomen: Bowel Sounds: normal Inspection & Palpation: soft, non-distended, no tenderness, guarding & rebound Assessment and Plan Assessment: 57 yo CF who presents for screening colonoscopy. Plan: Proceed with colonoscopy.
[2017-12-17 12:47] VITALS: Ht 160 cm; Wt 70.5 kg
--- NOTE | 2017-12-17 13:56 | Discharge Instructions ---
Endoscopy Patient Instructions Date / Procedure(s) Performed December 17, 2017. Colonoscopy Allergy Information Coded Allergies: No Known Allergies (Verified , 12/17/17) Discharge Date / Findings December 17, 2017. Ascending colon polyp Diverticulosis Internal hemorrhoids Medication Instructions OK to resume all medications today as prescribed Reported Home Medications Medications Dose Route/Sig Max Daily Dose Days Date Category Spiriva Handihaler (Tiotropium [place]) 30 Puff/540 Mcg Aerp 1 Cap INH DAILY 30 12/03/17 Reported Levothyroxine Sodium 25 Mcg Tab 1 Tab PO DAILY 30 12/03/17 Reported Allergy Nasal [place] 24 Ho (Fluticasone Propionate (Nasal)) 50 Mcg/Act Spr 2 [place] IRA DAILY 12/03/17 Reported Nicotine 14 Mg/24 Hr Dis 1 Patch TOP DAILY 28 12/03/17 Reported Advair Hfa 115/21 Mcg (Fluticasone-Salmeterol 115/21 Mcg) 1 Aer Aer 2 Puff INH BID 12/03/17 Reported Klonopin (Clonazepam) 0.5 Mg Tab 1 Tab PO BID PRN 30 12/03/17 Reported Ranitidine Hcl 300 Mg Cap 1 Cap PO DAILY 30 12/03/17 Reported Omeprazole 20 Mg Tab 1 Tab PO DAILY 90 09/17/16 Rx Ventolin Hfa (Albuterol) 60 Puffs/5400 Mcg Aers 2 Puffs INH QID PRN 09/16/16 Reported Prozac (Fluoxetine HCl) 40 Mg Cap 40 Mg PO QAM 12/17/15 Reported Provider Instructions Activity Restrictions - No exercising or heavy lifting for 24 hours. - Do not drink alcohol the day of the procedure. - Do not drive a car or operate machinery until the day after the procedure. - Do not make any important decisions or sign important papers in 24 hours after the procedure. Following Day: - Return to full activity which may include returning to work/school. Diet Start your diet with liquids and light foods (jello, soup, juice, toast). Then eat your usual diet if not nauseated. Treatment For Common After Affects For mild abdominal pain, bloating, or excessive gas: - Rest - Eat lightly - Lie on right side Follow-Up Information Follow-up with [facility] as scheduled Anesthesia Information What You Should Know You have had a procedure that required some medicine to reduce anxiety and discomfort. This treatment is called moderate sedation. After receiving the treatment, you may be sleepy, but you will be able to breathe on your own. The effects of the treatment may last for several hours. Follow these instructions along with Activity/Diet recommendations noted above: * Do NOT do anything where dizziness or clumsiness would be dangerous. * Rest quietly at home today, then you can be up and about tomorrow. * Have a responsible person stay with you the rest of today. * You may have had an I.V. today. If so, you may take the dressing off later today. Recommendations Call your doctor if: * Trouble breathing * Continuous vomiting for more than 24 hours * Temperature above 101 degrees * Severe abdominal pain or bloating * Pain not relieved by pain medicine ordered * There is increased drainage or redness from any incision * A large amount of rectal bleeding greater than 2-3 tablespoons. (If you had a polyp/s removed or have hemorrhoids, a small amount of blood - from the rectum is to be expected.) * You have any unanswered questions or concerns. IN THE EVENT OF A SERIOUS EMERGENCY, GO TO THE NEAREST EMERGENCY ROOM Your discharge instructions were prepared by provider Juan Villasenor. Patient Instructions Signature Page Monisha Hammond Patient (or Guardian) Signature/Date: I have read and understand the instructions given to me by my caregivers. Caregiver/RN/Doctor Signature/Date: The above-named patient and/or guardian has received patient instructions on this date. + Original Patient Signature Page (only) stays with chart. Please make copy for patient.
--- NOTE | 2017-12-17 14:01 | GI REPORT ---
Patient Name: Monisha Hammond Procedure Date: 12/17/2017 1:15 PM Date of : 1960 Admit Type: Outpatient Age: 57 Gender: Female Attending MD: Juan Villasenor DO Procedure: Colonoscopy Providers: Juan Villasenor DO Referring MD: MAYA Kelin Indications: Screening for colorectal malignant neoplasm Medicines: Monitored Anesthesia Care Complications: No immediate complications. Estimated Blood Loss: Estimated blood loss: none. Procedure: Pre-Anesthesia Assessment: - Prior to the procedure, a History and Physical was performed, and patient medications and allergies were reviewed. The patient's tolerance of previous anesthesia was also reviewed. The risks and benefits of the procedure and the sedation options and risks were discussed with the patient. All questions were answered, and informed consent was obtained. Prior Anticoagulants: The patient has taken no previous anticoagulant or antiplatelet agents. ASA Grade Assessment: III - A patient with severe systemic disease. After reviewing the risks and benefits, the patient was deemed in satisfactory condition to undergo the procedure. After I obtained informed consent, the scope was passed under direct vision. Throughout the procedure, the patient's blood pressure, pulse, and oxygen saturations were monitored continuously. The Scope was introduced through the anus and advanced to the terminal ileum. The colonoscopy was performed without difficulty. The patient tolerated the procedure well. The quality of the bowel preparation was good. The terminal ileum, ileocecal valve, appendiceal orifice, and rectum were photographed. Findings: The perianal and digital rectal examinations were normal. A 8 mm polyp was found in the ascending colon. The polyp was sessile. The polyp was removed with a hot snare. Resection and retrieval were complete. Multiple small-mouthed diverticula were found in the sigmoid colon. Non-bleeding internal hemorrhoids were found during retroflexion. The hemorrhoids were small. Impression: - One 8 mm polyp in the ascending colon, removed with a hot snare. Resected and retrieved. - Diverticulosis in the sigmoid colon. - Non-bleeding internal hemorrhoids. Recommendation: - Resume previous diet. - Continue present medications. - Repeat colonoscopy for surveillance based on pathology results. - Return to primary care physician as previously scheduled. Juan Villasenor DO 12/17/2017 2:01:36 PM This report has been signed electronically. Note Initiated On: 12/17/2017 1:15 PM Number of Addenda: 0 I attest to the content of the Intraoperative Record and orders documented therein, exceptions below {[id number]}
--- NOTE | 2017-12-17 14:05 | Anesthesiology Progress Note ---
Anesthesia Post Op Note Date & Time December 17, 2017 at 14:05 Vital Signs Pain Intensity: 0 Vital Signs Past 12 Hours Date Time Temp Pulse Resp B/P (MAP) Pulse Ox O2 Delivery O2 Flow Rate FiO2 12/17/17 13:57 88 18 112/77 (89) 96 Room Air 12/17/17 12:54 37.0 80 18 124/88 (100) 92 Room Air Notes Mental Status: alert / awake / arousable, participated in evaluation Pt Amnestic to Procedure: Yes Nausea / Vomiting: adequately controlled Pain: adequately controlled Airway Patency, RR, SpO2: stable & adequate BP & HR: stable & adequate Hydration State: stable & adequate Anesthetic Complications: no major complications apparent
[2017-12-17 14:27] VITALS: BP 122/86; PULSE 76; O2SAT 94
== END | disposition home or self-care (01) ==
LOC: C.GI 12:19
PROVIDERS: ATTEND Internal Medicine
DX: Z12.11 Encounter for screening for malignant neoplasm of colon (principal); D12.2 Benign neoplasm of ascending colon; K57.30 Diverticulosis of large intestine without perforation or abscess without bleeding; K64.8 Other hemorrhoids; F17.200 Nicotine dependence, unspecified, uncomplicated; J44.9 Chronic obstructive pulmonary disease, unspecified; E78.5 Hyperlipidemia, unspecified; K21.9 Gastro-esophageal reflux disease without esophagitis; M19.90 Unspecified osteoarthritis, unspecified site; E03.9 Hypothyroidism, unspecified; N18.9 Chronic kidney disease, unspecified; F41.9 Anxiety disorder, unspecified; F32.9 Major depressive disorder, single episode, unspecified; Z90.49 Acquired absence of other specified parts of digestive tract; Z87.442 Personal history of urinary calculi

== ENCOUNTER 2022-03-21 04:27 | Inpatient (IN) ==
[2022-03-21] MEDS ORDERED: ONDANSETRON INJ 2 MG/ML 2 ML VIAL ONE (04:56)
[2022-03-21] MEDS ORDERED: ALBUT/IPRATROP 3MG/0.5MG NEB 3 ML VIAL INH STA (05:02)
[2022-03-21 05:11] LABS: Basophils # (auto) 0.06 K/uL (0-0.2); Basophils % (auto) 0.4 %; Eosinophils # (auto) 0.08 K/uL (0-0.50); Eosinophils % (auto) 0.6 %; Hematocrit (blood only) 54.5 % (34.1-44.9); Hemoglobin 17.8 g/dl (12.0-16.0); Immature Granulocytes # (auto) 0.09 K/uL (0.00-0.02); Immature Granulocytes % (auto) 0.6 %; Lymphocytes # (auto) 1.78 K/uL (1.2-3.4); Lymphocytes % (auto) 12.7 %; Mean Corpuscular Hemoglobin 31.2 pg (25.0-34.0); Mean Corpuscular Hgb Conc 32.7 g/dL (32.0-36.0); Mean Corpuscular Volume 95.4 fL (80.0-100.0); Mean Platelet Volume 8.8 fL (9.4-12.3); Monocytes # (auto) 1.27 K/uL (0.24-0.82); Monocytes % (auto) 9.1 %; Neutrophils # (auto) 10.75 K/uL (1.4-6.5); Neutrophils % (auto) 76.6 %; Platelet Count 230 K/uL (130-400); RDW Coefficient of Variation 13.5 % (11.5-14.5); RDW Standard Deviation 47.7 fL (36.4-46.3); Red Blood Count 5.71 M/uL (3.93-5.22); White Blood Count 14.03 K/ul (4.8-10.8)
[2022-03-21 05:37] LABS: Alanine Aminotransferase 51 U/L (7-52); Albumin Globulin Ratio 1.5 (0.9-2); Albumin Level 4.2 gm/dl (3.4-5.0); Alkaline Phosphatase 79 U/L (34-104); Anion Gap 10 (3-11); Aspartate Aminotransferase 29 U/L (13-39); BUN Creatinine Ratio 37.7 (10-20); Bilirubin,Total 1.1 mg/dl (0.2-1.0); Blood Urea Nitrogen 29 mg/dl (6-23); Calcium 8.6 mg/dl (8.5-10.1); Carbon Dioxide 25 mmol/L (21-32); Chloride 106 mmol/L (98-107); Est GFR (African American) 97.3 ml/min; Est GFR (Non-African American) 83.9 ml/min; Globulin 2.8 gm/dl (2.5-4.0); Glucose 159 mg/dl (70-99(Fasting)); Potassium 4.1 mmol/L (3.5-5.1); Sodium 141 mmol/L (136-145)
[2022-03-21 05:38] LABS: Troponin I High Sensitivity 3.9 pg/ml (0-14)
--- NOTE | 2022-03-21 06:20 | History & Physical Report ---
Date of Service March 21, 2022 Assessment & Plan (1) Acute on chronic respiratory failure with hypoxia and hypercapnia: Plan: Being placed on BiPAP in the ED ABG ordered and pending Give methylprednisolone 125 mg IV now, then 40 mg IV every 8 hours Guaifenesin extended release 1200 mg p.o. twice daily Duonebs every 4 hours while awake and every 2 hours when necessary. Azithromycin 500 mg IV daily Famotidine 20 mg IV every 12 hours Zofran 4 mg IV every 6 hours as needed COVID-19 testing pending (2) Smokes less than 1/2 pack per day: Plan: Cessation counseling (3) COPD (chronic obstructive pulmonary disease) with chronic bronchitis: Plan: Exacerbation is main cause of acute respiratory failure (4) Personal history of nicotine dependence: Plan: Cessation counseling (5) Hypothyroidism: Plan: Continue levothyroxine 25 mcg daily (6) GERD (gastroesophageal reflux disease): Plan: Change omeprazole to famotidine IV (7) Depression: Plan: Continue fluoxetine (8) Dyslipidemia: Plan: Check a fasting lipid panel On no treatment at this time (9) Hyperglycemia: Plan: Glucose 159 on admission, and will be expected to worsen on IV methylprednisolone Check hemoglobin A1c Placed on Accu-Cheks before meals and at bedtime with NovoLog coverage per scale History of Present Illness Chief Complaint: The patient presents to the emergency department with complaint of waking up acutely short of breath. She has had her chronic cough, which has become more productive, and has worsened over the past few days. Primary Care Provider: Kelly Wilson The patient is a 61-year-old female with a past medical history including severe COPD, aspiration, nicotine dependence, multiple pulmonary nodules, kidney stones, anxiety, hypothyroidism, GERD, diverticulosis, internal hemorrhoids, dyslipidemia and depression. Patient presents to the emergency department after waking up from sleep acutely short of breath, and with a worsening of her usual cough. She denies any recent travels or sick exposures. She has had the COVID- 19 vaccine, and has not had COVID-19 infection. She does continue to smoke 1/2 pack/day Allergies Allergy/AdvReac Type Severity Reaction Status Date / Time No Known Allergies Allergy Verified 10/11/21 13:20 Home Medications Medication Instructions Recorded Confirmed Type fluoxetine 40 mg capsule 40 mg PO QAM #0 caps 12/17/15 10/11/21 History fluticasone propionate 50 2 spray intranasal DAILY PRN 12/03/17 10/11/21 History mcg/actuation nasal Allergy Symptoms ##0 spray,suspension (24 Hour Allergy Relief) levothyroxine 25 mcg tablet 25 mcg PO QAM 30 days #30 tabs 12/03/17 10/11/21 History clonazepam 0.5 mg tablet 0.5 mg PO BID PRN Anxiety 09/25/18 10/11/21 History oxybutynin chloride 5 mg 5 mg PO QPM 09/25/18 10/11/21 History tablet,extended release 24 hr mecobalamin (vitamin B12) 10,000 mcg IM 04/17/20 10/11/21 History mcg solution for injection nystatin 100,000 unit/mL oral 100,000 unit PO TID 2 weeks #42 mL 06/15/20 10/11/21 Rx suspension Flutter Valve #1 ea 02/21/21 10/11/21 Rx albuterol sulfate 2.5 mg/3 mL 2.5 mg (3 mL) inhalation QID PRN 06/24/21 10/11/21 Rx (0.083 %) solution for nebulization SHORT OF BREATH #360 mL omeprazole 20 mg capsule,delayed 20 mg PO BID #180 caps 07/09/21 10/11/21 Rx release fluticasone fur. 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 COPD, severe Depression Diverticulosis Dyslipidemia Encounter for pre-operative examination Encounter for routine gynecological examination with Papanicolaou smear of cervix GERD (gastroesophageal reflux disease) History of peptic ulcer History of varicella Hx of juvenile rheumatoid arthritis Hypothyroidism Internal hemorrhoids Kidney stone on left side Kidney stones Left ureteral calculus Multiple pulmonary nodules Oral candidiasis Osteoarthritis Personal history of nicotine dependence Personal history of nicotine dependence Pulmonary emphysema Pulmonary nodule, right Smokes less than 1/2 pack per day Tubular adenoma of colon Surgical History H/O tubal ligation History of colonoscopy History of cystoscopy History of dilatation and curettage History of lithotripsy History of tonsillectomy and adenoidectomy History of tooth extraction Hx of cholecystectomy S/P tooth extraction Status post cystoscopy with ureteral stent placement Family History Mother Family history of diabetes mellitus Alzheimer disease Diabetes Father Family history of diabetes mellitus Family history of esophageal cancer Brother Family history of diabetes mellitus Sister Family history of diabetes mellitus Family/Other Family history of diabetes mellitus nephew Other No family history of adverse response to anesthesia Social History Smoking Status: Current every day smoker Second Hand Exposure: No; Hx Alcohol Use: No Hx Substance Use: No Preferred Language: Uzbek Communication Ability: Effective Visual Impairment: No Limitations Ham Doctor Required: No Beliefs That Will Affect Care: None Current Living Situation: Spouse Current Living Situation Comment: Lives with daughter and her family Feels Safe at Home: Yes Assistive Devices: Denture - Upper, Glasses and Nebulizer Review of Systems Review of Systems: The patient denies chest pain, palpitations, lower extremity swelling, sore throat, fevers, chills, sweats, nausea, vomiting, diarrhea , constipation, abdominal pain, pelvic pain, blood in urine or stool, dysuria, urinary frequency or urgency, lightheadedness, dizziness, headache, memory loss, loss of consciousness, rash, abnormal bruising or bleeding, imbalance, focal or generalized weakness, numbness or tingling in arms or legs, generalized arthralgias or myalgias, back or neck pain, or night sweats. The review of systems is otherwise negative other than for that already noted above, and at least 10 systems have been reviewed. Physical Exam Physical Exam: The patient is awake, alert and oriented 3, well developed and well nourished, normocephalic and atraumatic, lying in bed and in mild acute respiratory distress, improving as BiPAP is adjusted in the ED HEENT--PERRL, EOMI, mucous membranes and oropharynx dry. Neck--supple. No JVD. No bruits. Thyroid normal, trachea midline, no adenopathy. Heart--normal S1 and S2. No murmurs, rubs or gallops. Lungs--wheezes bilaterally. Mild respiratory distress. No accessory muscle use. Abdomen--normal bowel sounds and soft. Nontender. Nondistended. Extremities--no cyanosis or clubbing. No edema. Dermatologic--normal skin turgor, normal color, no abnormal lymph nodes, no rash. Neurologic--cranial nerves II through XII grossly intact. Rheumatologic--normal range of motion. Psychiatric--normal affect. Results & Data Results & Data ([facility]) Vital Signs (Past 12 Hours) Vital Signs Temp Pulse Pulse Resp BP Pulse Ox O2 Del Method 03/21/22 05:03 91 BiPAP 03/21/22 05:02 92 BiPAP 03/21/22 05:15 91 H 21 91 BiPAP 03/21/22 05:11 95 H 21 91 03/21/22 04:33 90 26 H 93 03/21/22 04:31 37.0 C 90 30 H 175/100 H 93 BiPAP FiO2 03/21/22 05:03 03/21/22 05:02 03/21/22 05:15 24 03/21/22 05:11 24 03/21/22 04:33 24 03/21/22 04:31 Laboratory Results Laboratory Results WBC 14.03 K/ul (4.8-10.8) H 03/21/22 04:50 RBC 5.71 M/uL (3.93-5.22) H 03/21/22 04:50 Hgb 17.8 g/dl (12.0-16.0) H 03/21/22 04:50 Hct 54.5 % (34.1-44.9) H 03/21/22 04:50 MCV 95.4 fL (80.0-100.0) 03/21/22 04:50 MCH 31.2 pg (25.0-34.0) 03/21/22 04:50 MCHC 32.7 g/dL (32.0-36.0) 03/21/22 04:50 RDW Std Deviation 47.7 fL (36.4-46.3) H 03/21/22 04:50 RDW Coeff of Nona 13.5 % (11.5-14.5) 03/21/22 04:50 Plt Count 230 K/uL (130-400) 03/21/22 04:50 MPV 8.8 fL (9.4-12.3) L 03/21/22 04:50 Immature Gran % (Auto) 0.6 % 03/21/22 04:50 Neut % (Auto) 76.6 % 03/21/22 04:50 Lymph % (Auto) 12.7 % 03/21/22 04:50 Gray % (Auto) 9.1 % 03/21/22 04:50 Eos % (Auto) 0.6 % 03/21/22 04:50 Baso % (Auto) 0.4 % 03/21/22 04:50 Neut # (Auto) 10.75 K/uL (1.4-6.5) H 03/21/22 04:50 Lymph # (Auto) 1.78 K/uL (1.2-3.4) 03/21/22 04:50 Gray # (Auto) 1.27 K/uL (0.24-0.82) H 03/21/22 04:50 Eos # (Auto) 0.08 K/uL (0-0.50) 03/21/22 04:50 Baso # (Auto) 0.06 K/uL (0-0.2) 03/21/22 04:50 Immature Gran # (Auto) 0.09 K/uL (0.00-0.02) H 03/21/22 04:50 ABG pH 7.28 (7.35-7.45) L 03/21/22 06:02 ABG pCO2 68 mmHg (35-46) H 03/21/22 06:02 ABG pO2 152 mmHg (80-95) H 03/21/22 06:02 ABG HCO3 32 mmol/L (19-24) H 03/21/22 06:02 ABG O2 Saturation > 100.0 % (90-95) H 03/21/22 06:02 ABG Base Excess 3.2 mEq/L (-9-1.8) H 03/21/22 06:02 Tae Test Pos (Pos) 03/21/22 06:02 Oxygen Given 24% FI02 03/21/22 06:02 Sodium 141 mmol/L (136-145) 03/21/22 04:50 Potassium 4.1 mmol/L (3.5-5.1) 03/21/22 04:50 Chloride 106 mmol/L (98-107) 03/21/22 04:50 Carbon Dioxide 25 mmol/L (21-32) 03/21/22 04:50 Anion Gap 10 (3-11) 03/21/22 04:50 BUN 29 mg/dl (6-23) H 03/21/22 04:50 Creatinine 0.77 mg/dl (0.6-1.2) 03/21/22 04:50 Est Cr Clr Drug Dosing Not Reportable 03/21/22 04:50 Est GFR ( Amer) 97.3 ml/min 03/21/22 04:50 Est GFR (Non-Af Amer) 83.9 ml/min 03/21/22 04:50 BUN/Creatinine Ratio 37.7 (10-20) H 03/21/22 04:50 Glucose 159 mg/dl (70-99(Fasting)) H 03/21/22 04:50 Calcium 8.6 mg/dl (8.5-10.1) 03/21/22 04:50 Total Bilirubin 1.1 mg/dl (0.2-1.0) H 03/21/22 04:50 AST 29 U/L (13-39) 03/21/22 04:50 ALT 51 U/L (7-52) 03/21/22 04:50 Alkaline Phosphatase 79 U/L (34-104) 03/21/22 04:50 Troponin I High Sens 3.9 pg/ml (0-14) 03/21/22 04:50 Total Protein 7.0 gm/dl (6.0-8.3) 03/21/22 04:50 Albumin 4.2 gm/dl (3.4-5.0) 03/21/22 04:50 Globulin 2.8 gm/dl (2.5-4.0) 03/21/22 04:50 Albumin/Globulin Ratio 1.5 (0.9-2) 03/21/22 04:50 Code Status & VTE Plan Code Status Full code VTE Prophylaxis Plan VTE Prophylaxis will be ordered: Yes PG Care Time/CCT Total # of Minutes Spent Total Time Spent with Patient: Total time spent is greater than 50% in coordination of care (as documented) at patient's floor/unit and/or counseling patient: Coding Level of Care Code 73347 Initial Inpt Care Lvl 3 Diagnoses Acute on chronic respiratory failure with hypoxia and hypercapnia J96.21; J96.22 Smokes less than 1/2 pack per day F17.210 COPD (chronic obstructive pulmonary disease) with chronic bronchitis J44.9 Personal history of nicotine dependence Z87.891 Hypothyroidism E03.9 GERD (gastroesophageal reflux disease) K21.9 Depression F32.9 Dyslipidemia E78.5 Hyperglycemia R73.9
[2022-03-21 06:21] LABS: Base Excess ABG 3.2 mEq/L (-9-1.8); HCO3 ABG 32 mmol/L (19-24); Oxygen Saturation ABG > 100.0 % (90-95); PCO2 ABG 68 mmHg (35-46); PO2 ABG 152 mmHg (80-95); pH ABG 7.28 (7.35-7.45)
[2022-03-21 06:22] LABS: Allen Test Pos (Pos)
--- NOTE | 2022-03-21 06:41 | XRay Report ---
XR chest 1V portable HISTORY: 61 years-old Female Dyspnea acute shortness of breath COMPARISON: Chest CT 10/24/2021, chest radiograph 05/26/2018 TECHNIQUE: AP view of the chest FINDINGS: Cardiac silhouette is enlarged. Emphysema with chronic interstitial coarsening. Chronic blunting of t he costophrenic angles. No pneumothorax, large pleural effusion, overt pulmonary edema or lobar airsp alexia consolidation. Degenerative changes of the shoulders and spine. IMPRESSION: Emphysema without acute process. ACT 112: Negative or not required by law. The above report was generated using voice recognition software. It may contain grammatical, syntax o r spelling errors. Electronically signed by: Morales Medina M.D. 03/21/2022 6:40 AM
[2022-03-21] MEDS ORDERED: ACETAMINOPHEN 1000 MG/100 ML IV IV STA (08:53)
--- NOTE | 2022-03-21 08:59 | Emergency Department Note ---
Impression & Plan Acute exacerbation of chronic obstructive pulmonary [facility] Provider Note NAME: JAZMYN FONTANEZ AGE: 61 SEX: F ARRIVES VIA: Ambulance INFORMANT: Patient and EMS ED PROVIDER(S): Jaki Lay DO CHIEF COMPLAINT: Shortness of breath PLAN: [facility] Condition: Guarded MEDICAL DECISION MAKING: This is a 61-year-old female patient who presents to the emergency department from the [facility] with severe shortness of breath. EMS placed the patient on CPAP to maintain O2 saturations greater than 90%. She was switched over to BiPAP. In the emergency department and received an hour-long DuoNeb treatment. This did seem to improve her breathing. Chest x-ray showed no evidence of pulmonary infiltrate or consolidation. She received IV Solu-Medrol by EMS. COVID testing was negative. [facility] and [facility] will evaluate for further management. The patient complained of a headache and was given Toradol. Triage Nursing notes reviewed and agree with them. Additional history obtained from EMS Prior medical records reviewed Vital Signs: reviewed and remarkable for hypoxia and hypertension Differential diagnosis: Pneumonia Bronchitis COPD exacerbation ER treatment provided: BiPAP therapy IV Toradol Diagnostics interpreted by me: ECG: Normal sinus rhythm at a rate of [address] segment elevation or signs of ischemia. QTC is prolonged at 490 ms Cardiac Monitoring: Sinus tachycardia at 103 Laboratory studies: See below Imaging studies: As per my interpretation Portable chest x-ray: Emphysematous changes with no acute pulmonary infiltrate or consolidation HPI: 61/F arrives for evaluation of shortness of breath. Patient has a history of COPD and has been experiencing intermittent episodes of chest pain for the past 2 weeks. She has been at the [facility] all day today and was feeling hot and short of breath she described to EMS. Tonight while trying to sleep, her shortness of breath became much more severe. Her only complaint for me was nausea. ROS: See above HPI for pertinent positives & negatives. A total of 10 systems reviewed and were otherwise negative. PAST MEDICAL HISTORY:See Below PAST SURGICAL HISTORY:See Below FAMILY HISTORY:See Below SOCIAL HISTORY:See Below HOME MEDICATIONS:See list ALLERGIES:None VITALS:See Below PHYSICAL EXAMINATION: HEENT: Head - normocephalic and atraumatic. Pupils are equal, round, and reactive to light. Extraocular eye muscles are intact, and sclera are anicteric. Nose - moist nasal mucosa without discharge. Mouth - moist buccal mucosa. Oropharynx is nonerythematous and there is no tonsillar exudate or edema noted. Neck: Supple; no JVD or cervical lymphadenopathy Heart: Regular rate and rhythm. There is a normal S1 and S2 with no murmurs, clicks, or gallops appreciated. Lungs: Inspiratory and expiratory wheezing Abdomen: Soft, completely nontender, nondistended, with good bowel sounds. There are no palpable pulsatile masses or hepatosplenomegaly. There is no guarding, rigidity, or rebound noted. Extremities: No evidence of cyanosis, clubbing, or edema. There are easily palpable peripheral pulses. Skin: warm and dry with good turgor and no rashes. ED COURSE: Times/Reassessments: 0450: The patient was evaluated in room A 12. A complete history and physical was performed The patient was transitioned from CPAP to BiPAP upon arrival here in the emergency department. Laboratory studies were drawn as above. An order was placed for continuous cardiac monitoring. Patient was in a sinus tachycardia at a rate of 103. A portable chest x-ray was performed as described above. She was placed on an hour-long DuoNeb treatment for the significant wheezing. Patient complained of a headache and was given IV Toradol. I discussed the case with the [facility] Hospitalist and they will evaluate for further management. Jaki Lay DO Past Med/Surg History Medical History Abnormal Pap smear of cervix Acute UTI Anxiety Calculus of kidney and ureter COPD (chronic obstructive pulmonary disease) COPD (chronic obstructive pulmonary disease) with chronic bronchitis COPD (chronic obstructive pulmonary disease) with chronic bronchitis COPD, severe Depression Diverticulosis Dyslipidemia Encounter for pre-operative examination Encounter for routine gynecological examination with Papanicolaou smear of cervix GERD (gastroesophageal reflux disease) History of peptic ulcer History of varicella Hx of juvenile rheumatoid arthritis Hypothyroidism Internal hemorrhoids Kidney stone on left side Kidney stones Left ureteral calculus Multiple pulmonary nodules Oral candidiasis Osteoarthritis Personal history of nicotine dependence Personal history of nicotine dependence Pulmonary emphysema Pulmonary nodule, right Smokes less than 1/2 pack per day Tubular adenoma of colon Surgical History H/O tubal ligation History of colonoscopy History of cystoscopy History of dilatation and curettage History of lithotripsy History of tonsillectomy and adenoidectomy History of tooth extraction Hx of cholecystectomy S/P tooth extraction Status post cystoscopy with ureteral stent placement Family History Mother Family history of diabetes mellitus Alzheimer disease Diabetes Father Family history of diabetes mellitus Family history of esophageal cancer Brother Family history of diabetes mellitus Sister Family history of diabetes mellitus Family/Other Family history of diabetes mellitus nephew Other No family history of adverse response to anesthesia Social History Smoking Status: Current every day smoker Second Hand Exposure: Yes; Do You Dip or Chew Tobacco: No; Tobacco Cessation Education Requested by Patient: No Hx Alcohol Use: No Hx Substance Use: No Preferred Language: Romanian Communication Ability: Effective Visual Impairment: No 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 Beliefs That Will Affect Care: None Current Living Situation: Spouse Current Living Situation Comment: Lives with daughter and her family Other Information That Helps Us Care for You: No Feels Safe at Home: Yes Safety Concerns: Feels Safe At This Time Assistive Devices: Denture - Upper and Glasses Allergies Allergies Allergy/AdvReac Type Severity Reaction Status Date / Time No Known Allergies Allergy Verified 10/11/21 13:20 Home Meds Home Medications Medication Instructions Recorded Confirmed fluoxetine 40 mg capsule 40 mg PO QAM #0 caps 12/17/15 10/11/21 fluticasone propionate 50 2 spray intranasal DAILY PRN 12/03/17 10/11/21 mcg/actuation nasal Allergy Symptoms ##0 spray,suspension (24 Hour Allergy Relief) levothyroxine 25 mcg tablet 25 mcg PO QAM 30 days #30 tabs 12/03/17 10/11/21 clonazepam 0.5 mg tablet 0.5 mg PO BID PRN Anxiety 09/25/18 10/11/21 oxybutynin chloride 5 mg 5 mg PO QPM 09/25/18 10/11/21 tablet,extended release 24 hr mecobalamin (vitamin B12) 10,000 mcg IM 04/17/20 10/11/21 mcg solution for injection Previous Rx's Medication Instructions Recorded nystatin 100,000 unit/mL oral 100,000 unit PO TID 2 weeks #42 mL 06/15/20 suspension Flutter Valve #1 ea 02/21/21 albuterol sulfate 2.5 mg/3 mL 2.5 mg (3 mL) inhalation QID PRN 06/24/21 (0.083 %) solution for nebulization SHORT OF BREATH #360 mL omeprazole 20 mg capsule,delayed 20 mg PO BID #180 caps 07/09/21 release fluticasone fur. 100 mcg-umeclid 1 inh inhalation DAILY #60 ea 11/29/21 62.5 mcg-vilant 25 mcg inhalat.powder (Trelegy Ellipta) albuterol sulfate 90 mcg/actuation 2 puff inhalation Q4H PRN 01/21/22 aerosol inhaler (Ventolin HFA) Shortness Of Breath Or Wheezing #18 grams Results & Data (ED) Vital Signs Vital Signs - 24 hr 03/21/22 04:31 03/21/22 04:33 03/21/22 05:11 Temperature 37.0 C Temperature Source Oral Pulse Rate 90 90 95 H Pulse Rate [Apical] Pulse Rate from SpO2 Sensor Respiratory Rate 30 H 26 H 21 Respiratory Effort / Characteristics Spontaneous Short of Breath Spontaneous Short of Breath Respiratory Depth Deep Respiratory Pattern Tachypnea Regular Blood Pressure 175/100 H Blood Pressure Mean 125 Pulse Oximetry 93 93 91 Oxygen Delivery Method BiPAP Fraction of Inspired Oxygen 24 24 Sepsis Recent Fever Within 48 Hours No Sepsis New/Unexplained Change in Mental Status No Sepsis Action Taken by Nursing No Action Required 03/21/22 05:15 03/21/22 05:02 03/21/22 05:02 Temperature Temperature Source Pulse Rate Pulse Rate [Apical] 91 H Pulse Rate from SpO2 Sensor Respiratory Rate 21 Respiratory Effort / Characteristics Spontaneous Short of Breath Non-Labored Respiratory Depth Normal Respiratory Pattern Blood Pressure Blood Pressure Mean Pulse Oximetry 91 92 Oxygen Delivery Method BiPAP BiPAP Fraction of Inspired Oxygen 24 Sepsis Recent Fever Within 48 Hours Sepsis New/Unexplained Change in Mental Status Sepsis Action Taken by Nursing 03/21/22 05:03 03/21/22 04:39 03/21/22 04:40 Temperature Temperature Source Pulse Rate 93 H Pulse Rate [Apical] Pulse Rate from SpO2 Sensor 94 H Respiratory Rate 23 Respiratory Effort / Characteristics Respiratory Depth Respiratory Pattern Blood Pressure 175/100 H Blood Pressure Mean 125 Pulse Oximetry 91 91 Oxygen Delivery Method BiPAP Fraction of Inspired Oxygen Sepsis Recent Fever Within 48 Hours Sepsis New/Unexplained Change in Mental Status Sepsis Action Taken by Nursing 03/21/22 04:40 03/21/22 04:50 03/21/22 05:00 Temperature Temperature Source Pulse Rate 92 H 94 H 92 H Pulse Rate [Apical] Pulse Rate from SpO2 Sensor 93 H 94 H 92 H Respiratory Rate 20 20 24 Respiratory Effort / Characteristics Respiratory Depth Respiratory Pattern Blood Pressure Blood Pressure Mean Pulse Oximetry 90 91 92 Oxygen Delivery Method Fraction of Inspired Oxygen Sepsis Recent Fever Within 48 Hours Sepsis New/Unexplained Change in Mental Status Sepsis Action Taken by Nursing 03/21/22 05:10 03/21/22 05:20 03/21/22 05:30 Temperature Temperature Source Pulse Rate 95 H 90 97 H Pulse Rate [Apical] Pulse Rate from SpO2 Sensor 94 H 91 H 98 H Respiratory Rate 17 33 H 30 H Respiratory Effort / Characteristics Respiratory Depth Respiratory Pattern Blood Pressure Blood Pressure Mean Pulse Oximetry 91 98 98 Oxygen Delivery Method Fraction of Inspired Oxygen Sepsis Recent Fever Within 48 Hours Sepsis New/Unexplained Change in Mental Status Sepsis Action Taken by Nursing 03/21/22 05:40 03/21/22 05:50 03/21/22 06:00 Temperature Temperature Source Pulse Rate 104 H 101 H 105 H Pulse Rate [Apical] Pulse Rate from SpO2 Sensor 104 H 101 H 105 H Respiratory Rate 26 H 23 30 H Respiratory Effort / Characteristics Respiratory Depth Respiratory Pattern Blood Pressure Blood Pressure Mean Pulse Oximetry 97 96 98 Oxygen Delivery Method Fraction of Inspired Oxygen Sepsis Recent Fever Within 48 Hours Sepsis New/Unexplained Change in Mental Status Sepsis Action Taken by Nursing 03/21/22 06:10 Temperature Temperature Source Pulse Rate 105 H Pulse Rate [Apical] Pulse Rate from SpO2 Sensor 105 H Respiratory Rate 29 H Respiratory Effort / Characteristics Respiratory Depth Respiratory Pattern Blood Pressure Blood Pressure Mean Pulse Oximetry 93 Oxygen Delivery Method Fraction of Inspired Oxygen Sepsis Recent Fever Within 48 Hours Sepsis New/Unexplained Change in Mental Status Sepsis Action Taken by Nursing Laboratory Data Result diagrams: 03/21/22 04:50 03/21/22 04:50 Lab Results 03/21/22 03/21/22 03/21/22 Range/Units 04:50 04:50 05:43 WBC 14.03 H (4.8-10.8) K/ul RBC 5.71 H (3.93-5.22) M/uL Hgb 17.8 H (12.0-16.0) g/dl Hct 54.5 H (34.1-44.9) % MCV 95.4 (80.0-100.0) fL MCH 31.2 (25.0-34.0) pg MCHC 32.7 (32.0-36.0) g/dL RDW Std Deviation 47.7 H (36.4-46.3) fL RDW Coeff of Nona 13.5 (11.5-14.5) % Plt Count 230 (130-400) K/uL MPV 8.8 L (9.4-12.3) fL Immature Gran % (Auto) 0.6 % Neut % (Auto) 76.6 % Lymph % (Auto) 12.7 % Clarke % (Auto) 9.1 % Eos % (Auto) 0.6 % Baso % (Auto) 0.4 % Neut # (Auto) 10.75 H (1.4-6.5) K/uL Lymph # (Auto) 1.78 (1.2-3.4) K/uL Clarke # (Auto) 1.27 H (0.24-0.82) K/uL Eos # (Auto) 0.08 (0-0.50) K/uL Baso # (Auto) 0.06 (0-0.2) K/uL Immature Gran # (Auto) 0.09 H (0.00-0.02) K/uL ABG pH (7.35-7.45) ABG pCO2 (35-46) mmHg ABG pO2 (80-95) mmHg ABG HCO3 (19-24) mmol/L ABG O2 Saturation (90-95) % ABG Base Excess (-9-1.8) mEq/L Tae Test (Pos) Oxygen Given Sodium 141 (136-145) mmol/L Potassium 4.1 (3.5-5.1) mmol/L Chloride 106 (98-107) mmol/L Carbon Dioxide 25 (21-32) mmol/L Anion Gap 10 (3-11) BUN 29 H (6-23) mg/dl Creatinine 0.77 (0.6-1.2) mg/dl Est Cr Clr Drug Dosing Not Reportable Est GFR ( Amer) 97.3 ml/min Est GFR (Non-Af Amer) 83.9 ml/min BUN/Creatinine Ratio 37.7 H (10-20) Glucose 159 H (70-99(Fasting)) mg/dl Calcium 8.6 (8.5-10.1) mg/dl Total Bilirubin 1.1 H (0.2-1.0) mg/dl AST 29 (13-39) U/L ALT 51 (7-52) U/L Alkaline Phosphatase 79 (34-104) U/L Troponin I High Sens 3.9 (0-14) pg/ml Total Protein 7.0 (6.0-8.3) gm/dl Albumin 4.2 (3.4-5.0) gm/dl Globulin 2.8 (2.5-4.0) gm/dl Albumin/Globulin Ratio 1.5 (0.9-2) SARS-CoV-2 (PCR) NEGATIVE (Negative) 03/21/22 Range/Units 06:02 WBC (4.8-10.8) K/ul RBC (3.93-5.22) M/uL Hgb (12.0-16.0) g/dl Hct (34.1-44.9) % MCV (80.0-100.0) fL MCH (25.0-34.0) pg MCHC (32.0-36.0) g/dL RDW Std Deviation (36.4-46.3) fL RDW Coeff of Nona (11.5-14.5) % Plt Count (130-400) K/uL MPV (9.4-12.3) fL Immature Gran % (Auto) % Neut % (Auto) % Lymph % (Auto) % Clarke % (Auto) % Eos % (Auto) % Baso % (Auto) % Neut # (Auto) (1.4-6.5) K/uL Lymph # (Auto) (1.2-3.4) K/uL Clarke # (Auto) (0.24-0.82) K/uL Eos # (Auto) (0-0.50) K/uL Baso # (Auto) (0-0.2) K/uL Immature Gran # (Auto) (0.00-0.02) K/uL ABG pH 7.28 L (7.35-7.45) ABG pCO2 68 H (35-46) mmHg ABG pO2 152 H (80-95) mmHg ABG HCO3 32 H (19-24) mmol/L ABG O2 Saturation > 100.0 H (90-95) % ABG Base Excess 3.2 H (-9-1.8) mEq/L Tae Test Pos (Pos) Oxygen Given 24% FI02 Sodium (136-145) mmol/L Potassium (3.5-5.1) mmol/L Chloride (98-107) mmol/L Carbon Dioxide (21-32) mmol/L Anion Gap (3-11) BUN (6-23) mg/dl Creatinine (0.6-1.2) mg/dl Est Cr Clr Drug Dosing Est GFR ( Amer) ml/min Est GFR (Non-Af Amer) ml/min BUN/Creatinine Ratio (10-20) Glucose (70-99(Fasting)) mg/dl Calcium (8.5-10.1) mg/dl Total Bilirubin (0.2-1.0) mg/dl AST (13-39) U/L ALT (7-52) U/L Alkaline Phosphatase (34-104) U/L Troponin I High Sens (0-14) pg/ml Total Protein (6.0-8.3) gm/dl Albumin (3.4-5.0) gm/dl Globulin (2.5-4.0) gm/dl Albumin/Globulin Ratio (0.9-2) SARS-CoV-2 (PCR) (Negative) Administered Medications Acetaminophen (Acetaminophen 325 Mg Tab) 650 mg PO Q4H PRN PRN Reason: Pain or Fever Stop: 04/20/22 10:36 Last Admin: 03/21/22 14:34 Dose: 650 mg Documented By: JOSE Albuterol (Albut/Ipratrop 3mg/0.5mg Neb 3 Ml Vial) 3 ml NEB QIDR UBALDO; Protocol Stop: 04/20/22 10:36 Last Admin: 03/21/22 14:58 Dose: 3 ml Documented By: Admin: 03/21/22 11:37 Dose: Not Given Documented By: Admin: 03/21/22 11:37 Dose: 3 ml Documented By: MARTHA Enoxaparin Sodium (Enoxaparin Inj 40 Mg/0.4 Ml Syr) 40 mg SQ Q24H [facility] Stop: 04/20/22 10:36 Last Admin: 03/21/22 12:28 Dose: 40 mg Documented By: TODD Fluoxetine HCl (Fluoxetine Hcl 20 Mg Cap) 40 mg PO QAM UBALDO Stop: 04/20/22 10:36 Last Admin: 03/21/22 12:29 Dose: 40 mg Documented By: TODD Guaifenesin (Guaifenesin 600 Mg Tabcr) 1,200 mg PO Q12 UBALDO Stop: 04/20/22 10:36 Last Admin: 03/21/22 12:29 Dose: 1,200 mg Documented By: TODD Azithromycin 500 mg/ Dextrose 255 mls @ 125 mls/hr IV DAILY UBALDO Stop: 03/28/22 10:36 Last Infusion: 03/21/22 14:35 Dose: 0 mls/hr Documented By: Admin: 03/21/22 12:29 Dose: 125 mls/hr Documented By: TODD Insulin Aspart (Insulin Aspart Per Unit) 0 units SC ACHS UBALDO Stop: 04/20/22 10:36 Last Admin: 03/21/22 12:20 Dose: Not Given Documented By: Admin: 03/21/22 12:20 Dose: Not Given Documented By: TODD Discontinued Medications Acetaminophen (Acetaminophen 1000 Mg/100 Ml Iv) 1,000 mg IV NOW STA Stop: 03/21/22 08:54 Last Admin: 03/21/22 08:57 Dose: 1,000 mg Documented By: TODD Albuterol (Albut/Ipratrop 3mg/0.5mg Neb 3 Ml Vial) 12 ml INH ONE STA Stop: 03/21/22 05:03 Last Admin: 03/21/22 05:09 Dose: 12 ml Documented By: AB Methylprednisolone (Methylprednisolone 125 Mg/2 Ml Vial) 125 mg IV NOW STA Stop: 03/21/22 10:38 Last Admin: 03/21/22 12:29 Dose: 125 mg Documented By: TODD Ondansetron HCl (Ondansetron Inj 2 Mg/Ml 2 Ml Vial) Confirm Administered Dose 4 mg .ROUTE .STK-MED ONE Stop: 03/21/22 04:57 Last Admin: 03/21/22 04:59 Dose: 4 mg Documented By: RAFAT Imaging Data Radiologist's Impression: Chest X-Ray 03/21/22 05:02 XR chest 1V portable HISTORY: 61 years-old Female Dyspnea acute shortness of breath COMPARISON: Chest CT 10/24/2021, chest radiograph 05/26/2018 TECHNIQUE: AP view of the chest FINDINGS: Cardiac silhouette is enlarged. Emphysema with chronic interstitial coarsening. Chronic blunting of the costophrenic angles. No pneumothorax, large pleural effusion, overt pulmonary edema or lobar airspace consolidation. Degenerative changes of the shoulders and spine. IMPRESSION: Emphysema without acute process. ACT 112: Negative or not required by law. The above report was generated using voice recognition software. It may contain grammatical, syntax or spelling errors. Electronically signed by: Morales Medina M.D. 03/21/2022 6:40 AM Discharge Plan Visit Data Chief Complaint: Shortness of Breath/Dyspnea ED Provider: Jaki Lay Discharge Problem: Acute exacerbation of chronic obstructive pulmonary disease Patient Disposition: Admitted As Inpatient Discharge Instructions Interventions: ED Discharge Assessment Last Done: 03/21/22 10:37
--- NOTE | 2022-03-21 10:35 | Electrocardiogram Report ---
Test Reason : Blood Pressure : / mmHG Vent. Rate : 095 BPM Atrial Rate : 095 BPM P-R Int : 138 ms QRS Dur : 078 ms QT Int : 390 ms P-R-T Axes : 062 049 045 degrees QTc Int : 490 ms Poor data quality, interpretation may be adversely affected Normal sinus rhythm Low voltage QRS Prolonged QT Abnormal ECG When compared with ECG of 25-SEP-2018 20:30, Criteria for Septal infarct are no longer Present Confirmed by Asher Crockett ([id number]) on 03/21/2022 10:34:44 AM Referred By: REFERRED SELF Confirmed By:Asher Crockett
[2022-03-21] MEDS ORDERED: DEXTROSE 50% 50 ML SYRINGE IV PRN (10:37)
[2022-03-21] MEDS ORDERED: GLUCAGON FOR INJ 1 MG VIAL SQ PRN (10:37)
[2022-03-21] MEDS ORDERED: methylPREDNISolone 125 MG/2 ML VIAL IV STA (10:37)
[2022-03-21] MEDS ORDERED: GLUCOSE 10 TAB/TUBE PO PRN (10:37)
[2022-03-21] MEDS ORDERED: GLUCOSE 40% GEL 15 GM TUBE PO PRN (10:37)
[2022-03-21] MEDS ORDERED: CARBOHYDRATES FOR HYPOGLYCEMIA PO PRN (10:37)
[2022-03-21] MEDS: ALBUT/IPRATROP 3MG/0.5MG NEB 3 ML VIAL NEB SCH ×4 (11:37→19:32)
[2022-03-21] MEDS: INSULIN ASPART PER UNIT SC SCH ×3 (12:20→21:36)
[2022-03-21] MEDS: ENOXAPARIN INJ 40 MG/0.4 ML SYR SQ SCH (12:28)
[2022-03-21] MEDS: guaiFENesin 600 MG TABCR PO SCH ×2 (12:29→21:40)
[2022-03-21] MEDS: FLUoxetine HCL 20 MG CAP PO SCH (12:29)
[2022-03-21] MEDS: AZITHROMYCIN 500 MG in DEXTROSE 5% 250 ML IV SCH (12:29)
[2022-03-21] MEDS: ACETAMINOPHEN 325 MG TAB PO PRN ×2 (14:34→21:39)
[2022-03-21 14:57] LABS: Appearance Urine Clear (Clear); Bacteria Urine Automated Negative (Negative); Bilirubin Urine Negative (Negative); Blood Urine Negative (Negative); Color Urine Yellow; Epithelial Cell Urine Auto 20-30 /lpf (0-5); Glucose Urine UA Negative (Negative); Ketones Urine Negative (Negative); Leukocyte Esterase Urine Negative (Negative); Nitrite Urine Negative (Negative); Protein Urine 1+ (Negative); RBC Urine Automated 0-4 /hpf (0-4); Specific Gravity Urine 1.022 (1.000-1.030); Urobilinogen Urine Negative (Negative)
--- NOTE | 2022-03-21 18:55 | Communication Note ---
Date of Service: March 21, 2022 Seen in follow-up from early a.m. admission. Breathing much better. Off of BiPAP. Eating. On nasal cannula. She notes that she does not normally use oxygen. She does still smoke, but knows she really has to quit. She wonders if the heat and humidity got to hershe has been predominantly inside an air conditioning all summer (and notes whenever she does go outside she starts to feel wheezy) but, the last few days, she was staying at a tent at [facility]. Vitals noted, in general she is awake and alert pleasant no distress. HEENT normocephalic atraumatic mucous membranes moist. Lungs show diminished air entry throughout but better than expected, may be minimal wheezing no rhonchi no rales good effort. Osteopathic shows bilateral mid thoracic paraspinals high tone, decreased range of motionbalanced ligamentous tension and direct myofascialimproved some. COPD exacerbationsteroids, Zithromax, supportive care, timeshe is improving. Otherwise as per admission
[2022-03-21] MEDS: methylPREDNISolone 40 MG in SYRINGE 0 ML IV SCH (19:42)
[2022-03-21] MEDS: OXYBUTYNIN CHLORIDE XL 5 MG TABCR PO SCH (22:31)
[2022-03-22] MEDS: methylPREDNISolone 40 MG in SYRINGE 0 ML IV SCH ×3 (03:13→19:12)
[2022-03-22] MEDS: LEVOTHYROXINE SODIUM 25 MCG TABLET PO SCH (05:44)
[2022-03-22] MEDS: ALBUT/IPRATROP 3MG/0.5MG NEB 3 ML VIAL NEB SCH ×5 (07:16→19:17)
[2022-03-22 08:18] LABS: Estimated Average Glucose 114 mg/dl; Hemoglobin A1C 5.6 % (4.5-5.6)
[2022-03-22] MEDS: INSULIN ASPART PER UNIT SC SCH ×4 (08:52→20:58)
[2022-03-22] MEDS: ENOXAPARIN INJ 40 MG/0.4 ML SYR SQ SCH (08:53)
[2022-03-22] MEDS: FLUoxetine HCL 20 MG CAP PO SCH (08:53)
[2022-03-22] MEDS: guaiFENesin 600 MG TABCR PO SCH ×2 (08:53→20:57)
[2022-03-22] MEDS: AZITHROMYCIN 500 MG in DEXTROSE 5% 250 ML IV SCH (08:59)
[2022-03-22] MEDS: ONDANSETRON INJ 2 MG/ML 2 ML VIAL IV PRN (12:29)
[2022-03-22] MEDS ORDERED: FAMOTIDINE 40 MG TABLET PO ONE (12:33)
[2022-03-22] MEDS ORDERED: ALUMINUM/MAGNESIUM SUSP 30 ML UDC PO STA (12:33)
[2022-03-22] MEDS: ACETAMINOPHEN 325 MG TAB PO PRN (17:13)
--- NOTE | 2022-03-22 19:15 | Hospitalist Progress Note ---
Date of Service March 22, 2022 Assessment & Plan (1) Acute on chronic respiratory failure with hypoxia and hypercapnia: Plan: Due to COPD exacerbationcontinue steroids, azithromycin, nebulizers, supportive care. See yesterday's discussion almost certainly due to heat/humidity while camping at [facility]. Overall does seem to be improved, but her dyspnea on exertion is still intolerable. (2) Smokes less than 1/2 pack per day: Plan: Cessation counseling ongoing (3) COPD (chronic obstructive pulmonary disease) with chronic bronchitis: Plan: Manage as above, encourage smoke cessation, continue inhalers (4) Personal history of nicotine dependence: Plan: Cessation counseling (5) Hypothyroidism: Plan: Continue levothyroxine 25 mcg daily (6) GERD (gastroesophageal reflux disease): Plan: Change omeprazole to famotidine IV (7) Depression: Plan: Continue fluoxetine (8) Dyslipidemia: Plan: Outpatient follow-up (9) Hyperglycemia: Plan: Likely stress/steroid response, as her A1c is only 5.6% Plan DVT prophylaxisLovenox Dispositionanticipate home, she will probably need home O2 at discharge, but we need to see more improvement with her dyspnea on exertion first Admission and Anticipated Discharge Date Admission Date: March 21, 2022 Subjective Overall better than whenever she first came in, but whenever she got up to go to the bathroom she got extremely dyspneic and it took about a half an hour for her to recover. No change in her cough, no new fevers chills or sweats. No other new symptoms at alljust very severe dyspnea on exertion. Review of Systems Review of Systems: All systems reviewed & are unremarkable except as noted in HPI & below Physical Exam Physical Exam: In general she is awake and alert pleasant but very fatigued no distress. HEENT normocephalic atraumatic mucous membranes moist. Lungs are markedly diminished throughout even worse than yesterday. Maybe faint wheeze but she is not moving much air. Cardio is distant and regular. MSK/osteopathic structural exam shows her left greater than right T-spine paraspinals to be high tone decreased range of motiondirect myofascialimproved some. Neuro shows no focal deficits. Results & Data Results & Data ([facility]) Vital Signs (Past 12 Hours) Vital Signs Temp Pulse Pulse Resp BP Pulse Ox O2 Del Method 03/22/22 17:13 98.2 F 108 H 18 159/100 H 96 Nasal Cannula 03/22/22 15:33 107 H 03/22/22 14:23 97 H 18 95 Nasal Cannula 03/22/22 12:22 97.9 F 107 H 18 158/92 H 94 Nasal Cannula 03/22/22 10:37 103 H 18 96 Nasal Cannula 03/22/22 10:28 89 03/22/22 10:24 Nasal Cannula 03/22/22 08:38 101 H 18 95 Nasal Cannula 03/22/22 07:30 97.7 F 90 18 155/93 H 97 Nebulizer 03/22/22 07:16 91 H 18 95 Nasal Cannula O2 Flow Rate 03/22/22 17:13 03/22/22 15:33 03/22/22 14:23 3 03/22/22 12:22 3 03/22/22 10:37 4 03/22/22 10:28 03/22/22 10:24 4 03/22/22 08:38 4 03/22/22 07:30 03/22/22 07:16 2 PG Care Time/CCT Total # of Minutes Spent Total Time Spent with Patient: Total time spent is greater than 50% in coordination of care (as documented) at patient's floor/unit and/or counseling patient: Coding Level of Care Code 50360 Subseq Hosp Care Lvl 3 Diagnoses Acute on chronic respiratory failure with hypoxia and hypercapnia J96.21; J96.22 Smokes less than 1/2 pack per day F17.210 COPD (chronic obstructive pulmonary disease) with chronic bronchitis J44.9 Personal history of nicotine dependence Z87.891 Hypothyroidism E03.9 GERD (gastroesophageal reflux disease) K21.9 Depression F32.9 Dyslipidemia E78.5 Hyperglycemia R73.9
[2022-03-22] MEDS ORDERED: POLYETHYLENE (MIRALAX) 17 GM PACK PO PRN (19:58)
[2022-03-22] MEDS: OXYBUTYNIN CHLORIDE XL 5 MG TABCR PO SCH (20:57)
[2022-03-23] MEDS: methylPREDNISolone 40 MG in SYRINGE 0 ML IV SCH (03:13)
[2022-03-23] MEDS: LEVOTHYROXINE SODIUM 25 MCG TABLET PO SCH (05:31)
[2022-03-23] MEDS: ALBUT/IPRATROP 3MG/0.5MG NEB 3 ML VIAL NEB SCH ×4 (07:20→19:35)
--- NOTE | 2022-03-23 07:23 | Electrocardiogram Report ---
Test Reason : Blood Pressure : / mmHG Vent. Rate : 103 BPM Atrial Rate : 103 BPM P-R Int : 150 ms QRS Dur : 064 ms QT Int : 360 ms P-R-T Axes : 081 071 037 degrees QTc Int : 471 ms Poor data quality, interpretation may be adversely affected Sinus tachycardia Low voltage QRS Nonspecific ST and T wave abnormality Abnormal ECG When compared with ECG of 21-MAR-2022 04:53, No significant change was found Confirmed by Lamin Ryder ([id number]) on 03/23/2022 7:22:41 AM Referred By: REFERRED SELF Confirmed By:Lamin Ryder
[2022-03-23] MEDS: ENOXAPARIN INJ 40 MG/0.4 ML SYR SQ SCH (08:30)
[2022-03-23] MEDS: FLUoxetine HCL 20 MG CAP PO SCH (08:31)
[2022-03-23] MEDS: guaiFENesin 600 MG TABCR PO SCH ×2 (08:31→20:36)
[2022-03-23] MEDS: AZITHROMYCIN 500 MG in DEXTROSE 5% 250 ML IV SCH (08:32)
[2022-03-23] MEDS: INSULIN ASPART PER UNIT SC SCH ×4 (08:33→20:24)
[2022-03-23] MEDS: methylPREDNISolone 60 MG in SYRINGE 0 ML IV SCH ×2 (10:30→17:50)
--- NOTE | 2022-03-23 18:12 | Hospitalist Progress Note ---
Date of Service March 23, 2022 Assessment & Plan (1) Acute on chronic respiratory failure with hypoxia and hypercapnia: Plan: Due to COPD exacerbationcontinue steroids (increase to 60 since not really changing), azithromycin, nebulizers, supportive care. See 03/21 discussion almost certainly due to heat/humidity while camping at [facility]. waiting for further improvement in [place] - continue current care outside of small escalation in steroids (2) Smokes less than 1/2 pack per day: Plan: Cessation counseling ongoingshe notes she is quitting smoking (3) COPD (chronic obstructive pulmonary disease) with chronic bronchitis: Plan: Manage as above, encourage smoke cessation, continue inhalers (4) Personal history of nicotine dependence: Plan: Cessation counseling (5) Hypothyroidism: Plan: Continue levothyroxine 25 mcg daily (6) GERD (gastroesophageal reflux disease): (7) Depression: Plan: Continue fluoxetine (8) Dyslipidemia: Plan: Outpatient follow-up (9) Hyperglycemia: Plan: Likely stress/steroid response, as her A1c is only 5.6% Plan DVT prophylaxisLovenox Dispositionanticipate home once dyspnea on exertion is better, she will probably need home O2 at discharge, but we need to see more improvement with her dyspnea on exertion first Admission and Anticipated Discharge Date Admission Date: March 21, 2022 Subjective Still feeling about the same as yesterday. Notes that at rest she is feeling ok ay she slept generally okaynotes that cool air helps quite a bit. She notes however, whenever she gets up to go to the bathroom, she still feels pretty significant dyspnea on exertionand it takes about a half an hour to recover. No other new/different symptoms. Review of Systems Review of Systems: All systems reviewed & are unremarkable except as noted in HPI & below Physical Exam Physical Exam: In general she is awake and alert pleasant no distress. HEENT normocephalic atraumatic mucous membranes moist. Breathing unlabored lungs are diminished a little bit better air entry than yesterday no wheeze but still quite diminished no accessory muscle use good effort. Skin shows no rashes no pallor or icterus. Cardio somewhat distant no rubs murmurs or gallops. Neuro without focal deficits. Results & Data Results & Data ([facility]) Vital Signs (Past 12 Hours) Vital Signs Temp Pulse Pulse Resp BP BP Pulse Ox 03/23/22 16:29 109 H 03/23/22 15:47 98.4 F 104 H 18 135/85 87 L 03/23/22 14:21 92 H 20 90 03/23/22 11:29 68 18 94 03/23/22 11:26 98.1 F 83 16 136/87 94 03/23/22 07:37 98.2 F 85 16 154/92 H 90 03/23/22 07:29 83 03/23/22 07:25 03/23/22 07:20 88 22 94 O2 Del Method O2 Flow Rate 03/23/22 16:29 03/23/22 15:47 Nasal Cannula 1 03/23/22 14:21 Nasal Cannula 1 03/23/22 11:29 Nasal Cannula 1 03/23/22 11:26 Room Air 03/23/22 07:37 Room Air 03/23/22 07:29 03/23/22 07:25 Nasal Cannula 2 03/23/22 07:20 Nasal Cannula 2 PG Care Time/CCT Total # of Minutes Spent Total Time Spent with Patient: Total time spent is greater than 50% in coordination of care (as documented) at patient's floor/unit and/or counseling patient: Coding Level of Care Code 65437 Subseq Hosp Care Lvl 3 Diagnoses Acute on chronic respiratory failure with hypoxia and hypercapnia J96.21; J96.22 Smokes less than 1/2 pack per day F17.210 COPD (chronic obstructive pulmonary disease) with chronic bronchitis J44.9 Personal history of nicotine dependence Z87.891 Hypothyroidism E03.9 GERD (gastroesophageal reflux disease) K21.9 Depression F32.9 Dyslipidemia E78.5 Hyperglycemia R73.9
--- NOTE | 2022-03-23 18:12 | Billing Data ---
Date of Service March 23, 2022 Coding Level of Care Code 78482 Subseq Hosp Care Lvl 3
[2022-03-23] MEDS: ACETAMINOPHEN 325 MG TAB PO PRN (20:35)
[2022-03-23] MEDS: OXYBUTYNIN CHLORIDE XL 5 MG TABCR PO SCH (20:37)
[2022-03-24] MEDS: methylPREDNISolone 60 MG in SYRINGE 0 ML IV SCH ×2 (02:57→10:30)
[2022-03-24] MEDS: LEVOTHYROXINE SODIUM 25 MCG TABLET PO SCH (06:21)
[2022-03-24] MEDS: ALBUT/IPRATROP 3MG/0.5MG NEB 3 ML VIAL NEB SCH ×4 (06:56→19:19)
[2022-03-24] MEDS: INSULIN ASPART PER UNIT SC SCH ×4 (08:28→20:38)
[2022-03-24] MEDS: ENOXAPARIN INJ 40 MG/0.4 ML SYR SQ SCH (08:37)
[2022-03-24] MEDS: guaiFENesin 600 MG TABCR PO SCH ×2 (08:38→19:35)
[2022-03-24] MEDS: FLUoxetine HCL 20 MG CAP PO SCH (08:38)
[2022-03-24] MEDS: AZITHROMYCIN 500 MG in DEXTROSE 5% 250 ML IV SCH (08:40)
--- NOTE | 2022-03-24 11:21 | Hospitalist Progress Note ---
Date of Service March 24, 2022 Assessment & Plan (1) Acute on chronic respiratory failure with hypoxia and hypercapnia: Plan: Due to COPD exacerbation. Due to dust/heat/humidity while camping at [facility]. - Continue steroids - Continue standing and PRN DuoNebs - Continue azithromycin and guaifenacin - Consulted pulm today as she has had no improvement so far. Seen directly after a DuoNeb treatment, and she reports no improvement from this. (2) Smokes less than 1/2 pack per day: Plan: Cessation counseling ongoing she notes she is quitting smoking. (3) COPD (chronic obstructive pulmonary disease) with chronic bronchitis: Plan: Manage as above (4) Hypothyroidism: Plan: No TSH in system. - Continue levothyroxine 25 mcg daily - TSH in AM (5) GERD (gastroesophageal reflux disease): Plan: - Maalox and Tums PRN (6) Depression: Plan: - Continue fluoxetine (7) Hyperglycemia: Plan: Likely stress/steroid response, as her A1c is only 5.6%. - Sliding scale insulin Plan DVT prophylaxis Lovenox Admission and Anticipated Discharge Date Admission Date: March 21, 2022 Subjective No change today. No improvement in shortness of breath. Not coughing much and not producing any significant sputum. Reports no fevers/chills, chest pain, abdominal pain, nausea, or vomiting. Physical Exam Constitutional: WD/WN, vitals as above Eyes: EOM intact bilaterally; no conjunctival abnormality ENMT: external ear and nose normal, oropharynx normal Neck: trachea midline, no thyromegaly normal visual inspection Respiratory: + labored breathing, + uses accessory muscles, + tachypneic, + prolonged expiratory phase and + pursed lip breathing; no respiratory distress and + not able to speak in complete sentence Auscultation: + diminished lung sounds, + wheezes and + abnormal I/E ratio Cardiovascular: RRR, no murmur, no edema Gastrointestinal (Abdomen): Inspection/Auscultation: abdomen normal to inspection; abdomen not distended Musculoskeletal: no cyanosis or clubbing, extremities motor strength 5/5 Skin: no rashes, warm and dry Neurologic: moves all extremities and awake Psychiatric: Orientation: alert, oriented to person and cooperative Results & Data Results & Data ([facility]) Vital Signs (Past 12 Hours) Vital Signs Temp Pulse Pulse Pulse Resp BP BP 03/24/22 10:55 83 20 03/24/22 08:05 36.6 C 91 H 22 159/99 H 03/24/22 07:38 83 03/24/22 06:56 84 16 03/24/22 04:20 36.6 C 87 20 164/82 H 03/23/22 23:52 93 H Pulse Ox O2 Del Method O2 Flow Rate 03/24/22 10:55 95 Nasal Cannula 2 03/24/22 08:05 93 Nasal Cannula 4 03/24/22 07:38 03/24/22 06:56 95 Nasal Cannula 2 03/24/22 04:20 90 Nasal Cannula 3 03/23/22 23:52 PG Care Time/CCT Total # of Minutes Spent Total Time Spent with Patient: Total time spent is greater than 50% in coordination of care (as documented) at patient's floor/unit and/or counseling patient: Coding Level of Care Code 88234 Subseq Hosp Care Lvl 3 Diagnoses Acute on chronic respiratory failure with hypoxia and hypercapnia J96.21; J96.22 Smokes less than 1/2 pack per day F17.210 COPD (chronic obstructive pulmonary disease) with chronic bronchitis J44.9 Hypothyroidism E03.9 GERD (gastroesophageal reflux disease) K21.9 Depression F32.9 Hyperglycemia R73.9
[2022-03-24 11:34] LABS: Base Excess VBG 13.5 mEq/L; HCO3 VBG 42 mmol/L; Oxygen Saturation VBG 92.1 %; PCO2 VBG 67 mmHg (38-50); PO2 VBG 56 mmHg
[2022-03-24 11:35] LABS: Hematocrit (blood only) 54.3 % (34.1-44.9); Hemoglobin 17.5 g/dl (12.0-16.0); Mean Corpuscular Hemoglobin 30.9 pg (25.0-34.0); Mean Corpuscular Hgb Conc 32.2 g/dL (32.0-36.0); Mean Corpuscular Volume 95.8 fL (80.0-100.0); Mean Platelet Volume 8.7 fL (9.4-12.3); Platelet Count 214 K/uL (130-400); RDW Coefficient of Variation 13.1 % (11.5-14.5); RDW Standard Deviation 46.8 fL (36.4-46.3); Red Blood Count 5.67 M/uL (3.93-5.22); White Blood Count 17.72 K/ul (4.8-10.8)
[2022-03-24 11:59] LABS: BUN Creatinine Ratio 46.6 (10-20); Calcium 8.8 mg/dl (8.5-10.1); Est GFR (African American) 103.8 ml/min; Est GFR (Non-African American) 89.5 ml/min; Magnesium 2.1 mg/dl (1.7-2.4); Potassium 4.5 mmol/L (3.5-5.1)
--- NOTE | 2022-03-24 13:34 | Pulmonary Consultation ---
Date of Consultation March 24, 2022 Assessment & Plan (1) Acute exacerbation of chronic obstructive pulmonary disease: (2) Acute on chronic respiratory failure with hypoxia and hypercapnia: (3) COPD (chronic obstructive pulmonary disease) with chronic bronchitis: (4) Personal history of nicotine dependence: (5) Multiple pulmonary nodules: Plan Chest x-ray 03/21/2022 personally reviewed: Portable film, bilateral costophrenic angles are blunted, increased cardiac silhouette, no clear lung infiltrate appreciated CT chest 10/24/2021 personally reviewed: Severe centrilobular and paraseptal emphysema appreciated bilaterally Right upper lobe 6 mm pulmonary nodule along with 8 mm pulmonary nodule, right middle lobe peripheral opacity, right lower lobe peripheral granuloma No mediastinal lymphadenopathy PFT 02/27/2022 personally reviewed: Very severe COPD with emphysema, significant bronchodilator response, air trapping, very severe decrease in DLCO FVC 1.44 L 46%, FEV1 0.51 L 21%, FEV1/FVC 36%, RV to 40%, TLC 130%, RV/TLC 185%, DLCO 22% -- Acute COPD exacerbation Very severe COPD Procalcitonin negative COVID-19 PCR negative On Trelegy inhaler at home. Patient's QTC is 471. She would not be a good candidate for chronic azithromycin therapy Roflumilast could be added prior to discharge 250 MCG for 4 weeks followed by 500 MCG on a daily basis Consideration for endobronchial valve and lung transplant should be made if the patient is willing to quit I did go over regarding the same with the patient and she will try her best to quit. --Acute hypercapnic hypoxic respiratory failure Secondary to COPD exacerbation Plan as above -- Current smoker Importance of quitting explained the patient in depth Patient is willing to quit --Multiple pulmonary nodules Have been stable Continue with screening CAT scan Plan: Continue with steroids, add Anoro inhaler to be used on a daily basis. On discharge continue with Trelegy which she is at home Add Roflumilast prior to discharge I will start the patient on Mucomyst nebulized along with flutter valve. Okay to go down on Solu-Medrol to 40 mg every 8 Repeat ABG today. Patient might benefit from trilogy machine at home Case was discussed with CASSY Bocanegra Please note the above document was generated using voice recognition software. It may contain grammatical, syntax or spelling errors.Any formal questions or concerns about the content, text or information contained within the body of this dictation should be directly addressed to the provider for clarification. History of Present Illness Attending Physician: Tam Mijares MD History of Present Illness 61-year-old female presented to the hospital with shortness of breath Past medical history: COPD on chronic oxygen, multiple pulm nodules, anxiety, hypothyroidism Pulmonary consulted as patient was not responding to steroids. Patient was following up with Kun Hargrove as an outpatient. She was seen by Ronen Diaz on 10/11/2021. Previous records and images personally reviewed At the time of examination patient was saturating 97% with heart rate of 97 on 3 L nasal cannula. I went down to 1 L. Patient states she is feeling better compared to when she came to the hospital. She actually went to the [facility] on Thursday and stayed over there overnight since then she was having issues with breathing She did complain of cough and she was not able to bring up any phlegm. Denies any hemoptysis. No night sweats, no unintentional weight loss. No headache, no blurry vision. Denies any fever or chills. Social history: [id number] smoking history, active smoker Allergies Allergy/AdvReac Type Severity Reaction Status Date / Time No Known Allergies Allergy Verified 10/11/21 13:20 Home Medications Medication Instructions Recorded Confirmed Type fluoxetine 40 mg capsule 40 mg PO QAM #0 caps 12/17/15 10/11/21 History fluticasone propionate 50 2 spray intranasal DAILY PRN 12/03/17 10/11/21 History mcg/actuation nasal Allergy Symptoms ##0 spray,suspension (24 Hour Allergy Relief) levothyroxine 25 mcg tablet 25 mcg PO QAM 30 days #30 tabs 12/03/17 10/11/21 History clonazepam 0.5 mg tablet 0.5 mg PO BID PRN Anxiety 09/25/18 10/11/21 History oxybutynin chloride 5 mg 5 mg PO QPM 09/25/18 10/11/21 History tablet,extended release 24 hr mecobalamin (vitamin B12) 10,000 mcg IM 04/17/20 10/11/21 History mcg solution for injection nystatin 100,000 unit/mL oral 100,000 unit PO TID 2 weeks #42 mL 06/15/20 10/11/21 Rx suspension Flutter Valve #1 ea 02/21/21 10/11/21 Rx albuterol sulfate 2.5 mg/3 mL 2.5 mg (3 mL) inhalation QID PRN 06/24/21 10/11/21 Rx (0.083 %) solution for nebulization SHORT OF BREATH #360 mL omeprazole 20 mg capsule,delayed 20 mg PO BID #180 caps 07/09/21 10/11/21 Rx release fluticasone fur. 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 COPD, severe Depression Diverticulosis Dyslipidemia Encounter for pre-operative examination Encounter for routine gynecological examination with Papanicolaou smear of cervix GERD (gastroesophageal reflux disease) History of peptic ulcer History of varicella Hx of juvenile rheumatoid arthritis Hypothyroidism Internal hemorrhoids Kidney stone on left side Kidney stones Left ureteral calculus Multiple pulmonary nodules Oral candidiasis Osteoarthritis Personal history of nicotine dependence Personal history of nicotine dependence Pulmonary emphysema Pulmonary nodule, right Smokes less than 1/2 pack per day Tubular adenoma of colon Surgical History H/O tubal ligation History of colonoscopy History of cystoscopy History of dilatation and curettage History of lithotripsy History of tonsillectomy and adenoidectomy History of tooth extraction Hx of cholecystectomy S/P tooth extraction Status post cystoscopy with ureteral stent placement Family History Mother Family history of diabetes mellitus Alzheimer disease Diabetes Father Family history of diabetes mellitus Family history of esophageal cancer Brother Family history of diabetes mellitus Sister Family history of diabetes mellitus Family/Other Family history of diabetes mellitus nephew Other No family history of adverse response to anesthesia Social History Smoking Status: Current every day smoker Second Hand Exposure: Yes; Hx Alcohol Use: No Hx Substance Use: No Preferred Language: Kosovan Communication Ability: Effective Visual Impairment: No Limitations Glass Glazier Required: No Beliefs That Will Affect Care: None marital status: Current Living Situation: Spouse Current Living Situation Comment: Lives with daughter and her family How many Children do You have: 3 Feels Safe at Home: Yes Assistive Devices: Nebulizer Review of Systems Review of Systems: All systems reviewed & are unremarkable except as noted in HPI & below Physical Exam Physical Exam: Constitutional: No acute distress HEENT: EOMI, PERRLA Respiratory system: Decreased air entry bilaterally, no crackles, no rhonchi, mild expiratory wheeze bilaterally CVS: S1-S2 positive, no murmurs or gallops Abdomen: Soft, nontender, nondistended, positive bowel sounds x4 Extremities: +2 pulses bilaterally radialis/ dorsalis pedis, no cyanosis, no edema Neuro: Awake alert oriented x3 Psych: Normal mood and affect G/U: No Perez Skin: no rashes, warm and dry Lymphatic: no cervical or axillary lymphadenopathy Results & Data Results & Data ([facility]) Vital Signs (Past 12 Hours) Vital Signs Temp Pulse Pulse Pulse Resp BP BP 03/24/22 11:48 36.7 C 99 H 22 167/106 H 03/24/22 10:55 83 20 03/24/22 08:05 36.6 C 91 H 22 159/99 H 03/24/22 07:38 83 03/24/22 06:56 84 16 03/24/22 04:20 36.6 C 87 20 164/82 H Pulse Ox O2 Del Method O2 Flow Rate 03/24/22 11:48 93 Nasal Cannula 3 03/24/22 10:55 95 Nasal Cannula 2 03/24/22 08:05 93 Nasal Cannula 4 03/24/22 07:38 03/24/22 06:56 95 Nasal Cannula 2 03/24/22 04:20 90 Nasal Cannula 3 Laboratory Results 03/24/22 11:20 03/24/22 11:20 PG Care Time/CCT Total # of Minutes Spent Total Time Spent with Patient: Total time spent is greater than 50% in coordination of care (as documented) at patient's floor/unit and/or counseling patient: [place] [address] Inpt Consult Level 5 Patient Type New Diagnoses Acute exacerbation of chronic obstructive pulmonary disease J44.1 Acute on chronic respiratory failure with hypoxia and hypercapnia J96.21; J96.22 COPD (chronic obstructive pulmonary disease) with chronic bronchitis J44.9 Personal history of nicotine dependence Z87.891 Multiple pulmonary nodules R91.8
[2022-03-24] MEDS: UMECLIDINIUM/VILANTEROL 62.5/25MCG 7 PUFFS/INHALER INH SCH (14:33)
[2022-03-24] MEDS ORDERED: ACETYLCYSTEINE 20% INHAL SOLN 4ML ***DISPENSED BY RESP. INH SCH (16:00)
[2022-03-24 16:06] LABS: Base Excess ABG 10.8 mEq/L (-9-1.8); HCO3 ABG 38 mmol/L (19-24); Oxygen Saturation ABG 99.4 % (90-95); PCO2 ABG 58 mmHg (35-46); PO2 ABG 99 mmHg (80-95); pH ABG 7.42 (7.35-7.45)
[2022-03-24 16:07] LABS: Allen Test Pos (Pos)
[2022-03-24] MEDS: ONDANSETRON INJ 2 MG/ML 2 ML VIAL IV PRN (17:16)
[2022-03-24] MEDS: ALUMINUM/MAGNESIUM/SIMETH (MAALOX MAX) 30 ML UDC PO PRN (17:36)
[2022-03-24] MEDS: methylPREDNISolone 40 MG in SYRINGE 0 ML IV SCH (17:40)
[2022-03-24] MEDS: ACETYLCYSTEINE 20% INHAL SOLN 4ML ***DISPENSED BY RESP. INH SCH (19:19)
[2022-03-24] MEDS: clonazePAM 0.5 MG TAB PO PRN (19:35)
[2022-03-24] MEDS: OXYBUTYNIN CHLORIDE XL 5 MG TABCR PO SCH (19:35)
[2022-03-25] MEDS: methylPREDNISolone 40 MG in SYRINGE 0 ML IV SCH ×3 (01:37→20:11)
[2022-03-25] MEDS: ACETAMINOPHEN 325 MG TAB PO PRN (04:45)
[2022-03-25] MEDS: LEVOTHYROXINE SODIUM 25 MCG TABLET PO SCH (04:46)
[2022-03-25] MEDS: ACETYLCYSTEINE 20% INHAL SOLN 4ML ***DISPENSED BY RESP. INH SCH ×2 (07:21→19:26)
[2022-03-25] MEDS: ALBUT/IPRATROP 3MG/0.5MG NEB 3 ML VIAL NEB SCH ×4 (07:21→19:26)
[2022-03-25] MEDS: ALUMINUM/MAGNESIUM/SIMETH (MAALOX MAX) 30 ML UDC PO PRN (07:56)
[2022-03-25 07:57] LABS: Hematocrit (blood only) 53.1 % (34.1-44.9); Hemoglobin 17.3 g/dl (12.0-16.0); Mean Corpuscular Hemoglobin 31.4 pg (25.0-34.0); Mean Corpuscular Hgb Conc 32.6 g/dL (32.0-36.0); Mean Corpuscular Volume 96.4 fL (80.0-100.0); Mean Platelet Volume 9.3 fL (9.4-12.3); Platelet Count 222 K/uL (130-400); RDW Standard Deviation 46.6 fL (36.4-46.3); Red Blood Count 5.51 M/uL (3.93-5.22); White Blood Count 13.43 K/ul (4.8-10.8)
[2022-03-25 08:19] LABS: BUN Creatinine Ratio 51.9 (10-20); Calcium 8.8 mg/dl (8.5-10.1); Creatinine Clr Calc Pharmacy 67.1 ml/min; Est GFR (African American) 91.5 ml/min; Est GFR (Non-African American) 78.9 ml/min; Magnesium 2.4 mg/dl (1.7-2.4); Potassium 4.8 mmol/L (3.5-5.1)
[2022-03-25] MEDS: INSULIN ASPART PER UNIT SC SCH ×4 (08:29→20:12)
[2022-03-25] MEDS: AZITHROMYCIN 500 MG in DEXTROSE 5% 250 ML IV SCH (08:31)
[2022-03-25] MEDS: FLUoxetine HCL 20 MG CAP PO SCH (08:32)
[2022-03-25] MEDS: guaiFENesin 600 MG TABCR PO SCH ×2 (08:32→20:10)
[2022-03-25] MEDS: UMECLIDINIUM/VILANTEROL 62.5/25MCG 7 PUFFS/INHALER INH SCH (08:33)
--- NOTE | 2022-03-25 08:36 | Pulmonology Progress Note ---
Date of Service March 25, 2022 Assessment & Plan (1) Acute exacerbation of chronic obstructive pulmonary disease: (2) Acute on chronic respiratory failure with hypoxia and hypercapnia: (3) COPD (chronic obstructive pulmonary disease) with chronic bronchitis: (4) Personal history of nicotine dependence: (5) Multiple pulmonary nodules: Plan Chest x-ray 03/21/2022 personally reviewed: Portable film, bilateral costophrenic angles are blunted, increased cardiac silhouette, no clear lung infiltrate appreciated CT chest 10/24/2021 personally reviewed: Severe centrilobular and paraseptal emphysema appreciated bilaterally Right upper lobe 6 mm pulmonary nodule along with 8 mm pulmonary nodule, right middle lobe peripheral opacity, right lower lobe peripheral granuloma No mediastinal lymphadenopathy PFT 02/27/2022 personally reviewed: Very severe COPD with emphysema, significant bronchodilator response, air trapping, very severe decrease in DLCO FVC 1.44 L 46%, FEV1 0.51 L 21%, FEV1/FVC 36%, RV to 40%, TLC 130%, RV/TLC 185%, DLCO 22% ABG 03/21/2022: 7.28/68/152 on 24% FiO2 --> 03/24/2022: 7.42/58/99 on 1 L oxygen -- Acute COPD exacerbation Very severe COPD Procalcitonin negative COVID-19 PCR negative On Trelegy inhaler at home. Patient's QTC is 471. She would not be a good candidate for chronic azithromycin therapy Roflumilast could be added prior to discharge 250 MCG for 4 weeks followed by 500 MCG on a daily basis Consideration for endobronchial valve and lung transplant should be made if the patient is willing to quit I did go over regarding the same with the patient and she will try her best to quit. --Acute hypercapnic hypoxic respiratory failure Secondary to COPD exacerbation Plan as above -- Current smoker Importance of quitting explained the patient in depth Patient is willing to quit --Multiple pulmonary nodules Have been stable Continue with screening CAT scan Plan: Patient does not qualify for trilogy machine. However outpatient polysomnography would be recommended for the patient Decree Solu-Medrol to 40 mg every 12. Starting tomorrow can transition to p.o. prednisone 40 mg for 3 days followed by 20 mg for 3 days and then stop. Add Roflumilast prior to discharge Please note the above document was generated using voice recognition software. It may contain grammatical, syntax or spelling errors.Any formal questions or concerns about the content, text or information contained within the body of this dictation should be directly addressed to the provider for clarification. Admission and Anticipated Discharge Date Admission Date: March 21, 2022 Subjective Patient seen and examined at bedside. No acute distress, no depressions overnight. Patient states she is feeling better compared to yesterday. She is able to cough up phlegm with the help of the flutter valve Denies any chest pain Chest tightness is improved No hemoptysis Fair appetite No nausea or vomiting Patient was saturating 97% on 3 L nasal cannula. I went down to 1 L. Review of Systems Review of Systems: All systems reviewed & are unremarkable except as noted in Subjective Physical Exam Physical Exam: Constitutional: No acute distress HEENT: EOMI, PERRLA Respiratory system: Decreased air entry bilaterally, no crackles, no rhonchi, no wheeze CVS: S1-S2 positive, no murmurs or gallops Abdomen: Soft, nontender, nondistended, positive bowel sounds x4 Extremities: +2 pulses bilaterally radialis/ dorsalis pedis, no cyanosis, no edema Neuro: Awake alert oriented x3 Psych: Normal mood and affect G/U: No Perez Skin: no rashes, warm and dry Lymphatic: no cervical or axillary lymphadenopathy Results & Data Results & Data ([facility]) Vital Signs (Past 12 Hours) Vital Signs Temp Pulse Pulse Pulse Resp BP Pulse Ox 03/25/22 07:22 98 H 14 97 03/25/22 07:16 36.5 C 86 19 145/90 H 95 03/25/22 07:05 88 03/24/22 23:00 93 H 03/25/22 01:45 36.8 C 88 22 138/82 96 03/24/22 23:00 94 H 16 95 O2 Del Method O2 Flow Rate 03/25/22 07:22 Nasal Cannula 3 03/25/22 07:16 Nasal Cannula 3 03/25/22 07:05 03/24/22 23:00 03/25/22 01:45 Nasal Cannula 2 03/24/22 23:00 Nasal Cannula 3 Laboratory Results 03/25/22 07:22 03/25/22 07:22 PG Care Time/CCT Total # of Minutes Spent Total Time Spent with Patient: Total time spent is greater than 50% in coordination of care (as documented) at patient's floor/unit and/or counseling patient: Coding Level of Care Code 41088 Subseq Hosp Care Lvl 2 Diagnoses Acute exacerbation of chronic obstructive pulmonary disease J44.1 Acute on chronic respiratory failure with hypoxia and hypercapnia J96.21; J96.22 COPD (chronic obstructive pulmonary disease) with chronic bronchitis J44.9 Personal history of nicotine dependence Z87.891 Multiple pulmonary nodules R91.8
[2022-03-25] MEDS: ENOXAPARIN INJ 40 MG/0.4 ML SYR SQ SCH (09:43)
--- NOTE | 2022-03-25 11:56 | Hospitalist Progress Note ---
Date of Service March 25, 2022 Assessment & Plan (1) Acute on chronic respiratory failure with hypoxia and hypercapnia: Plan: Due to COPD exacerbation. Due to dust/heat/humidity while camping at [facility]. - Continue steroids - Continue standing and PRN DuoNebs - Continue azithromycin and guaifenesin - Consulted pulm on 03/24 for continued poor air movement. Added Anoro and Mucomyst. Improving today. (2) Smokes less than 1/2 pack per day: Plan: Cessation counseling ongoing she notes she is quitting smoking. (3) COPD (chronic obstructive pulmonary disease) with chronic bronchitis: Plan: Manage as above (4) Hypothyroidism: Plan: TSH was 1.345 this admission. - Continue levothyroxine 25 mcg daily (5) GERD (gastroesophageal reflux disease): Plan: - Maalox and Tums PRN (6) Depression: Plan: - Continue fluoxetine (7) Hyperglycemia: Plan: Likely stress/steroid response, as her A1c is only 5.6%. - Sliding scale insulin - BSs have been 140-170 in last 24 hours. Plan DVT prophylaxis Lovenox Admission and Anticipated Discharge Date Admission Date: March 21, 2022 Subjective Some improvement today. Better air movement. With adjustments, she feels that she is bringing up a bit more sputum which is making her breath easier. Reports no fevers/chills, chest pain, abdominal pain, nausea, or vomiting. Physical Exam Constitutional: WD/WN, vitals as above Eyes: EOM intact bilaterally; no conjunctival abnormality ENMT: external ear and nose normal, oropharynx normal Neck: trachea midline, no thyromegaly normal visual inspection Respiratory: + labored breathing, + uses accessory muscles, + tachypneic, + prolonged expiratory phase and + pursed lip breathing; no respiratory distress and + not able to speak in complete sentence Auscultation: + diminished lung sounds, + wheezes and + abnormal I/E ratio Cardiovascular: RRR, no murmur, no edema Gastrointestinal (Abdomen): Inspection/Auscultation: abdomen normal to inspection; abdomen not distended Musculoskeletal: no cyanosis or clubbing, extremities motor strength 5/5 Skin: no rashes, warm and dry Neurologic: moves all extremities and awake Psychiatric: Orientation: alert, oriented to person and cooperative Results & Data Results & Data ([facility]) Vital Signs (Past 12 Hours) Vital Signs Temp Pulse Pulse Pulse Resp BP BP 03/25/22 11:13 96 H 15 03/25/22 10:56 36.8 C 94 H 19 149/94 H 03/25/22 08:00 03/25/22 07:22 98 H 14 03/25/22 07:16 36.5 C 86 19 145/90 H 03/25/22 07:05 88 03/25/22 01:45 36.8 C 88 22 138/82 Pulse Ox O2 Del Method O2 Flow Rate FiO2 03/25/22 11:13 92 Nasal Cannula 3 03/25/22 10:56 94 Nasal Cannula 3 03/25/22 08:00 Nasal Cannula 2.5 03/25/22 07:22 97 Nasal Cannula 3 03/25/22 07:16 95 Nasal Cannula 3 03/25/22 07:05 03/25/22 01:45 96 Nasal Cannula 2 PG Care Time/CCT Total # of Minutes Spent Total Time Spent with Patient: Total time spent is greater than 50% in coordination of care (as documented) at patient's floor/unit and/or counseling patient: Coding Level of Care Code 45614 Subseq Hosp Care Lvl 2 Diagnoses Acute on chronic respiratory failure with hypoxia and hypercapnia J96.21; J96.22 Smokes less than 1/2 pack per day F17.210 COPD (chronic obstructive pulmonary disease) with chronic bronchitis J44.9 Hypothyroidism E03.9 GERD (gastroesophageal reflux disease) K21.9 Depression F32.9 Hyperglycemia R73.9
[2022-03-25] MEDS: FAMOTIDINE 20 MG TAB PO PRN (13:48)
[2022-03-25] MEDS: OXYBUTYNIN CHLORIDE XL 5 MG TABCR PO SCH (20:11)
[2022-03-25] MEDS: clonazePAM 0.5 MG TAB PO PRN (20:12)
[2022-03-26] MEDS: LEVOTHYROXINE SODIUM 25 MCG TABLET PO SCH (06:24)
[2022-03-26] MEDS: ALBUT/IPRATROP 3MG/0.5MG NEB 3 ML VIAL NEB SCH ×3 (07:06→22:15)
[2022-03-26] MEDS: ACETYLCYSTEINE 20% INHAL SOLN 4ML ***DISPENSED BY RESP. INH SCH (07:06)
[2022-03-26] MEDS: INSULIN ASPART PER UNIT SC SCH ×4 (07:53→23:51)
[2022-03-26] MEDS: FLUoxetine HCL 20 MG CAP PO SCH (08:08)
[2022-03-26] MEDS: guaiFENesin 600 MG TABCR PO SCH ×2 (08:08→21:02)
[2022-03-26] MEDS: UMECLIDINIUM/VILANTEROL 62.5/25MCG 7 PUFFS/INHALER INH SCH (08:09)
[2022-03-26] MEDS: methylPREDNISolone 40 MG in SYRINGE 0 ML IV SCH (08:09)
[2022-03-26] MEDS: FAMOTIDINE 20 MG TAB PO PRN ×2 (08:09→22:09)
[2022-03-26] MEDS: AZITHROMYCIN 500 MG in DEXTROSE 5% 250 ML IV SCH (08:12)
--- NOTE | 2022-03-26 08:29 | Pulmonology Progress Note ---
Date of Service March 26, 2022 Assessment & Plan (1) Acute exacerbation of chronic obstructive pulmonary disease: (2) Acute on chronic respiratory failure with hypoxia and hypercapnia: (3) COPD (chronic obstructive pulmonary disease) with chronic bronchitis: (4) Personal history of nicotine dependence: (5) Multiple pulmonary nodules: Plan Chest x-ray 03/21/2022 personally reviewed: Portable film, bilateral costophrenic angles are blunted, increased cardiac silhouette, no clear lung infiltrate appreciated CT chest 10/24/2021 personally reviewed: Severe centrilobular and paraseptal emphysema appreciated bilaterally Right upper lobe 6 mm pulmonary nodule along with 8 mm pulmonary nodule, right middle lobe peripheral opacity, right lower lobe peripheral granuloma No mediastinal lymphadenopathy PFT 02/27/2022 personally reviewed: Very severe COPD with emphysema, significant bronchodilator response, air trapping, very severe decrease in DLCO FVC 1.44 L 46%, FEV1 0.51 L 21%, FEV1/FVC 36%, RV to 40%, TLC 130%, RV/TLC 185%, DLCO 22% ABG 03/21/2022: 7.28/68/152 on 24% FiO2 --> 03/24/2022: 7.42/58/99 on 1 L oxygen -- Acute COPD exacerbation Very severe COPD On Trelegy At home Procalcitonin negative COVID-19 PCR negative On Trelegy inhaler at home. Patient's QTC is 471. She would not be a good candidate for chronic azithromycin therapy Roflumilast could be added prior to discharge 250 MCG for 4 weeks followed by 500 MCG on a daily basis Consideration for endobronchial valve and lung transplant should be made if the patient is willing to quit I did go over regarding the same with the patient and she will try her best to quit. --Acute hypercapnic hypoxic respiratory failure Secondary to COPD exacerbation Plan as above -- Current smoker Importance of quitting explained the patient in depth Patient is willing to quit --Multiple pulmonary nodules Have been stable Continue with screening CAT scan Plan: Okay to transition Solu-Medrol to prednisone. Continue with Mucomyst and flutter valve Add Roflumilast prior to discharge Changing inhaler back to Trelegy on discharge Please note the above document was generated using voice recognition software. It may contain grammatical, syntax or spelling errors.Any formal questions or concerns about the content, text or information contained within the body of this dictation should be directly addressed to the provider for clarification. Admission and Anticipated Discharge Date Admission Date: March 21, 2022 Subjective Patient seen and examined at bedside. No acute distress, no adverse events overnight. Overall she is feeling better Shortness of breath is improved Still complains of mild chest tightness. Has been using the flutter valve No chest pain. No nausea vomiting Fair appetite Review of Systems Review of Systems: All systems reviewed & are unremarkable except as noted in Subjective Physical Exam Physical Exam: Constitutional: No acute distress HEENT: EOMI, PERRLA Respiratory system: Decreased air entry bilaterally, no crackles, no rhonchi, no wheeze CVS: S1-S2 positive, no murmurs or gallops Abdomen: Soft, nontender, nondistended, positive bowel sounds x4 Extremities: +2 pulses bilaterally radialis/ dorsalis pedis, no cyanosis, no edema Neuro: Awake alert oriented x3 Psych: Normal mood and affect G/U: No Perez Skin: no rashes, warm and dry Lymphatic: no cervical or axillary lymphadenopathy Results & Data Results & Data ([facility]) Vital Signs (Past 12 Hours) Vital Signs Temp Pulse Pulse Resp BP BP Pulse Ox 03/26/22 07:32 03/26/22 06:06 88 03/26/22 07:12 36.7 C 90 20 155/99 H 94 03/26/22 07:06 94 H 20 80 L 03/26/22 03:30 36.5 C 82 18 132/79 93 03/25/22 23:00 93 H 03/25/22 23:49 36.8 C 88 18 136/80 92 O2 Del Method O2 Flow Rate 03/26/22 07:32 Nasal Cannula 2 03/26/22 06:06 03/26/22 07:12 Nasal Cannula 03/26/22 07:06 Room Air 03/26/22 03:30 Nasal Cannula 2 03/25/22 23:00 03/25/22 23:49 Nasal Cannula 2 Laboratory Results 03/25/22 07:22 03/25/22 07:22 PG Care Time/CCT Total # of Minutes Spent Total Time Spent with Patient: Total time spent is greater than 50% in coordination of care (as documented) at patient's floor/unit and/or counseling patient: Coding Level of Care Code 00785 Subseq Hosp Care Lvl 2 Diagnoses Acute exacerbation of chronic obstructive pulmonary disease J44.1 Acute on chronic respiratory failure with hypoxia and hypercapnia J96.21; J96.22 COPD (chronic obstructive pulmonary disease) with chronic bronchitis J44.9 Personal history of nicotine dependence Z87.891 Multiple pulmonary nodules R91.8
[2022-03-26] MEDS: ENOXAPARIN INJ 40 MG/0.4 ML SYR SQ SCH (10:24)
--- NOTE | 2022-03-26 13:09 | Hospitalist Progress Note ---
Date of Service March 26, 2022 Assessment & Plan (1) Acute on chronic respiratory failure with hypoxia and hypercapnia: Plan: Due to COPD exacerbation. Due to dust/heat/humidity while camping at [facility]. - Continue steroids - Continue standing and PRN DuoNebs - Continue azithromycin and guaifenesin - Consulted pulm on 03/24 for continued poor air movement. Added Anoro and Mucomyst, but does not want Mucomyst. Will add roflumilast. Transition to prednisone. (2) Smokes less than 1/2 pack per day: Plan: Cessation counseling ongoing she notes she is quitting smoking. (3) COPD (chronic obstructive pulmonary disease) with chronic bronchitis: Plan: Manage as above (4) Hypothyroidism: Plan: TSH was 1.345 this admission. - Continue levothyroxine 25 mcg daily (5) GERD (gastroesophageal reflux disease): Plan: - Maalox and famotidine PRN (6) Depression: Plan: - Continue fluoxetine (7) Hyperglycemia: Plan: Likely stress/steroid response, as her A1c is only 5.6%. - Sliding scale insulin - BSs have been 140-170 in last 24 hours. Plan DVT prophylaxis Lovenox Admission and Anticipated Discharge Date Admission Date: March 21, 2022 Subjective Doing better today. Slept well. Shortness of breath is improving. No wheezing. Exercise capacity has improved though. Physical Exam Constitutional: WD/WN, vitals as above Eyes: EOM intact bilaterally; no conjunctival abnormality ENMT: external ear and nose normal, oropharynx normal Neck: trachea midline, no thyromegaly normal visual inspection Respiratory: + labored breathing, able to speak in complete sentences, + prolonged expiratory phase and + pursed lip breathing; no respiratory distress Auscultation: + diminished lung sounds; no wheezes Cardiovascular: RRR, no murmur, no edema Gastrointestinal (Abdomen): Inspection/Auscultation: abdomen normal to inspection; abdomen not distended Musculoskeletal: no cyanosis or clubbing, extremities motor strength 5/5 Skin: no rashes, warm and dry Neurologic: moves all extremities and awake Psychiatric: Orientation: alert, oriented to person and cooperative Results & Data Results & Data ([facility]) Vital Signs (Past 12 Hours) Vital Signs Temp Pulse Pulse Resp BP BP Pulse Ox 03/26/22 11:18 36.7 C 97 H 18 144/91 H 90 03/26/22 07:32 03/26/22 06:06 88 03/26/22 07:12 36.7 C 90 20 155/99 H 94 03/26/22 07:06 94 H 20 80 L 03/26/22 03:30 36.5 C 82 18 132/79 93 O2 Del Method O2 Flow Rate 03/26/22 11:18 Nasal Cannula 4 03/26/22 07:32 Nasal Cannula 2 03/26/22 06:06 03/26/22 07:12 Nasal Cannula 03/26/22 07:06 Room Air 03/26/22 03:30 Nasal Cannula 2 PG Care Time/CCT Total # of Minutes Spent Total Time Spent with Patient: Total time spent is greater than 50% in coordination of care (as documented) at patient's floor/unit and/or counseling patient: Coding Level of Care Code 75842 Subseq Hosp Care Lvl 2 Diagnoses Acute on chronic respiratory failure with hypoxia and hypercapnia J96.21; J96.22 Smokes less than 1/2 pack per day F17.210 COPD (chronic obstructive pulmonary disease) with chronic bronchitis J44.9 Hypothyroidism E03.9 GERD (gastroesophageal reflux disease) K21.9 Depression F32.9 Hyperglycemia R73.9
[2022-03-26] MEDS: ALUMINUM/MAGNESIUM/SIMETH (MAALOX MAX) 30 ML UDC PO PRN (21:02)
[2022-03-26] MEDS: OXYBUTYNIN CHLORIDE XL 5 MG TABCR PO SCH (21:02)
[2022-03-26] MEDS: clonazePAM 0.5 MG TAB PO PRN (21:03)
[2022-03-27] MEDS: FAMOTIDINE 20 MG TAB PO PRN (06:21)
[2022-03-27] MEDS: LEVOTHYROXINE SODIUM 25 MCG TABLET PO SCH (06:21)
[2022-03-27] MEDS: ALBUT/IPRATROP 3MG/0.5MG NEB 3 ML VIAL NEB SCH ×3 (07:12→22:23)
[2022-03-27 07:43] LABS: Hematocrit (blood only) 54.9 % (34.1-44.9); Hemoglobin 17.9 g/dl (12.0-16.0); Mean Corpuscular Hemoglobin 31.3 pg (25.0-34.0); Mean Corpuscular Hgb Conc 32.6 g/dL (32.0-36.0); Mean Platelet Volume 9.1 fL (9.4-12.3); Platelet Count 199 K/uL (130-400); RDW Coefficient of Variation 12.8 % (11.5-14.5); Red Blood Count 5.72 M/uL (3.93-5.22); White Blood Count 14.98 K/ul (4.8-10.8)
--- NOTE | 2022-03-27 07:48 | Pulmonology Progress Note ---
Date of Service March 27, 2022 Assessment & Plan (1) Acute exacerbation of chronic obstructive pulmonary disease: (2) Acute on chronic respiratory failure with hypoxia and hypercapnia: (3) COPD (chronic obstructive pulmonary disease) with chronic bronchitis: (4) Personal history of nicotine dependence: (5) Multiple pulmonary nodules: Plan Chest x-ray 03/21/2022 personally reviewed: Portable film, bilateral costophrenic angles are blunted, increased cardiac silhouette, no clear lung infiltrate appreciated CT chest 10/24/2021 personally reviewed: Severe centrilobular and paraseptal emphysema appreciated bilaterally Right upper lobe 6 mm pulmonary nodule along with 8 mm pulmonary nodule, right middle lobe peripheral opacity, right lower lobe peripheral granuloma No mediastinal lymphadenopathy PFT 02/27/2022 personally reviewed: Very severe COPD with emphysema, significant bronchodilator response, air trapping, very severe decrease in DLCO FVC 1.44 L 46%, FEV1 0.51 L 21%, FEV1/FVC 36%, RV to 40%, TLC 130%, RV/TLC 185%, DLCO 22% ABG 03/21/2022: 7.28/68/152 on 24% FiO2 --> 03/24/2022: 7.42/58/99 on 1 L oxygen -- Acute COPD exacerbation Very severe COPD On Trelegy At home Procalcitonin negative COVID-19 PCR negative On Trelegy inhaler at home. Patient's QTC is 471. She would not be a good candidate for chronic azithromycin therapy Roflumilast could be added prior to discharge 250 MCG for 4 weeks followed by 500 MCG on a daily basis Consideration for endobronchial valve and lung transplant should be made if the patient is willing to quit I did go over regarding the same with the patient and she will try her best to quit. --Acute hypercapnic hypoxic respiratory failure Secondary to COPD exacerbation Plan as above -- Current smoker Importance of quitting explained the patient in depth Patient is willing to quit --Multiple pulmonary nodules Have been stable Continue with screening CAT scan Plan: Given that the patient feels worse today and will order an ABG and give another 40 mg of Solu-Medrol on top of prednisone which she is getting Continue with flutter valve. Patient unable to tolerate Mucomyst if the ABG shows more hypercapnia then she might be a candidate for trilogy machine. Patient was started on Roflumilast 500 MCG. I will change to 250 MCG as some people are not able to tolerated causing severe nausea and vomiting. If they are able to tolerated for 4 weeks then it can be increased to 400 MCG Changing inhaler back to Trelegy on discharge Again reiterate keep the O2 saturation between 88-92%, do not over oxygenate the patient Case was discussed with RN Please note the above document was generated using voice recognition software. It may contain grammatical, syntax or spelling errors.Any formal questions or concerns about the content, text or information contained within the body of this dictation should be directly addressed to the provider for clarification. Admission and Anticipated Discharge Date Admission Date: March 21, 2022 Subjective Patient seen and examined at bedside. Patient was complaining of more shortness of breath since late last night. She was saturating 99% on 3 L nasal cannula at time of examination Heart rate was in the 100. Denies any chest pain. Has been using flutter valve and is able to bring up the phlegm Mild nausea, no vomiting Poor appetite Review of Systems Review of Systems: All systems reviewed & are unremarkable except as noted in Subjective Physical Exam Physical Exam: Constitutional: No acute distress HEENT: EOMI, PERRLA Respiratory system: Decreased air entry bilaterally, no crackles, no rhonchi, no wheeze CVS: S1-S2 positive, no murmurs or gallops Abdomen: Soft, nontender, nondistended, positive bowel sounds x4 Extremities: +2 pulses bilaterally radialis/ dorsalis pedis, no cyanosis, no edema Neuro: Awake alert oriented x3 Psych: Normal mood and affect G/U: No Perez Skin: no rashes, warm and dry Lymphatic: no cervical or axillary lymphadenopathy Results & Data Results & Data ([facility]) Vital Signs (Past 12 Hours) Vital Signs Temp Pulse Pulse Resp BP BP Pulse Ox 03/27/22 07:28 03/27/22 07:16 36.6 C 88 21 150/92 H 90 03/27/22 07:12 90 18 90 03/27/22 02:59 36.8 C 87 20 135/86 91 03/27/22 00:03 03/26/22 22:48 36.2 C L 91 H 18 131/94 94 03/26/22 22:15 94 H 18 92 08/24/22 19:54 36.3 C L 95 H 20 149/101 H 90 O2 Del Method O2 Flow Rate 03/27/22 07:28 Nasal Cannula 2 03/27/22 07:16 Nasal Cannula 2 03/27/22 07:12 Nasal Cannula 2 03/27/22 02:59 Nasal Cannula 2.0 03/27/22 00:03 Nasal Cannula 03/26/22 22:48 Nasal Cannula 2 03/26/22 22:15 Nasal Cannula 2 03/26/22 19:54 Nasal Cannula 2 Laboratory Results 03/27/22 07:01 PG Care Time/CCT Total # of Minutes Spent Total Time Spent with Patient: Total time spent is greater than 50% in coordination of care (as documented) at patient's floor/unit and/or counseling patient: Coding Level of Care Code 88154 Subseq Hosp Care Lvl 3 Diagnoses Acute exacerbation of chronic obstructive pulmonary disease J44.1 Acute on chronic respiratory failure with hypoxia and hypercapnia J96.21; J96.22 COPD (chronic obstructive pulmonary disease) with chronic bronchitis J44.9 Personal history of nicotine dependence Z87.891 Multiple pulmonary nodules R91.8
[2022-03-27] MEDS: FLUoxetine HCL 20 MG CAP PO SCH (08:03)
[2022-03-27] MEDS: guaiFENesin 600 MG TABCR PO SCH ×2 (08:03→21:05)
[2022-03-27] MEDS: UMECLIDINIUM/VILANTEROL 62.5/25MCG 7 PUFFS/INHALER INH SCH (08:04)
[2022-03-27] MEDS: ENOXAPARIN INJ 40 MG/0.4 ML SYR SQ SCH (08:04)
[2022-03-27 08:09] LABS: BUN Creatinine Ratio 48.7 (10-20); Calcium 8.7 mg/dl (8.5-10.1); Creatinine Clr Calc Pharmacy 70.6 ml/min; Est GFR (African American) 98.8 ml/min; Est GFR (Non-African American) 85.3 ml/min; Magnesium 2.2 mg/dl (1.7-2.4); Potassium 4.1 mmol/L (3.5-5.1)
[2022-03-27] MEDS ORDERED: ROFLUMILAST 500 MCG TAB PO SCH (09:00)
[2022-03-27] MEDS ORDERED: predniSONE 10 MG TABLET PO SCH (09:00)
[2022-03-27] MEDS: INSULIN ASPART PER UNIT SC SCH ×4 (09:18→23:25)
[2022-03-27 09:29] LABS: Base Excess ABG 13.9 mEq/L (-9-1.8); HCO3 ABG 41 mmol/L (19-24); Oxygen Saturation ABG 85.1 % (90-95); PCO2 ABG 62 mmHg (35-46); PO2 ABG 51 mmHg (80-95); pH ABG 7.43 (7.35-7.45)
[2022-03-27] MEDS ORDERED: methylPREDNISolone 40 MG in SYRINGE 0 ML IV ONE (09:30)
[2022-03-27 09:53] LABS: Allen Test Pos (Pos)
[2022-03-27] MEDS ORDERED: SODIUM CHLORIDE 0.9% 500 ML IV SCH (13:30)
[2022-03-27] MEDS ORDERED: OPTIRAY 300 500mL IV ONE (14:00)
--- NOTE | 2022-03-27 14:22 | CT Scan Report ---
CT angio chest PE protocol CLINICAL HISTORY: PE TECHNIQUE: Multidetector row helical CT of the chest was performed with angiographic protocol. Schaefer l and sagittal reformations were obtained. Coronal and sagittal MIPS were obtained from the axial evaristo a set and were submitted for review. Automated dose lowering techniques and/or adjustment according to patient size were utilized for this exam. CT DOSE: 674.10 mGy.cm Comparison: Comparison is made to low-dose CT chest 10/24/2021 FINDINGS: Exam is highly limited by patient motion. Radiodensity in the peripheral right lower lobe superior se gment is favored to represent postsurgical changes. Lungs and pleura: Diffuse centrilobular emphysema is seen most prominent in the upper lobes. Minimal atelectasis versus scarring is noted in the lung bases. A few pulmonary nodules are stable from prior exam measuring up to 8 right upper lobe (series 4 image 239). Heart and pericardium: Heart size is normal. No pericardial effusion. Vessels: Evaluation for pulmonary embolism is limited due to patient motion. No evidence of central, lobar, or segmental embolus. Mediastinum and monica: Unremarkable. Chest wall and lower neck: Unremarkable. Abdomen: Patient is status post cholecystectomy. Bones: Degenerative changes in the thoracic spine. IMPRESSION: No evidence of pulmonary embolism or other acute abnormality. ACT 112: Negative or not required by law. Electronically signed by: Vinnie Mcduffie M.D. 03/27/2022 2:21 PM
[2022-03-27] MEDS ORDERED: ALBUT/IPRATROP 3MG/0.5MG NEB 3 ML VIAL NEB PRN (15:09)
--- NOTE | 2022-03-27 16:40 | Hospitalist Progress Note ---
Date of Service March 27, 2022 Assessment & Plan (1) Acute on chronic respiratory failure with hypoxia and hypercapnia: Plan: Due to COPD exacerbation. Due to dust/heat/humidity while camping at [facility]. - Continue steroids - Continue standing and PRN DuoNebs - Continue azithromycin and guaifenesin - Consulted pulm on 03/24 for continued poor air movement. Added Anoro and Mucomyst, but does not want Mucomyst. Added roflumilast on 03/26. Transitioned to prednisone on 03/27, but she had significant respiratory distress and required BiPap. -> CTA chest negative for PE and pneumonia. Seen by pulm and returned to Solu- Medrol BID. (2) Smokes less than 1/2 pack per day: Plan: Cessation counseling ongoing she notes she is quitting smoking. (3) COPD (chronic obstructive pulmonary disease) with chronic bronchitis: Plan: Manage as above (4) Hypothyroidism: Plan: TSH was 1.345 this admission. - Continue levothyroxine 25 mcg daily (5) GERD (gastroesophageal reflux disease): Plan: - Maalox and famotidine PRN (6) Depression: Plan: - Continue fluoxetine (7) Hyperglycemia: Plan: Likely stress/steroid response, as her A1c is only 5.6%. - Sliding scale insulin - BSs have been 80-180 in last 24 hours. Plan DVT prophylaxis Lovenox Admission and Anticipated Discharge Date Admission Date: March 21, 2022 Subjective Seen in afternoon and substantially worse today. On BiPap per RT for work of breathing. She does not answer many questions due to her BiPap and respiratory distress. Review of Systems Review of Systems: Other (Unable to obtain due to BiPap and respiratory distress) Physical Exam Constitutional: WD/WN, vitals as above + acute distress Eyes: EOM intact bilaterally; no conjunctival abnormality ENMT: external ear and nose normal, oropharynx normal Neck: trachea midline, no thyromegaly normal visual inspection Respiratory: + uses accessory muscles, + tachypneic, + prolonged expiratory phase and + pursed lip breathing; no respiratory distress and + not able to speak in complete sentence Auscultation: + diminished lung sounds, + wheezes and + abnormal I/E ratio Cardiovascular: RRR, no murmur, no edema Gastrointestinal (Abdomen): Inspection/Auscultation: abdomen normal to inspection; abdomen not distended Musculoskeletal: no cyanosis or clubbing, extremities motor strength 5/5 Skin: no rashes, warm and dry Neurologic: moves all extremities and awake Psychiatric: Orientation: alert, oriented to person and cooperative Results & Data Results & Data ([facility]) Vital Signs (Past 12 Hours) Vital Signs Temp Pulse Pulse Pulse Resp BP BP 03/27/22 15:49 113 H 03/27/22 15:37 36.3 C L 72 24 156/110 H 03/27/22 14:13 90 22 03/27/22 14:13 90 22 03/27/22 12:39 22 03/27/22 11:12 36.8 C 99 H 22 136/88 03/27/22 07:28 03/27/22 07:16 36.6 C 88 21 150/92 H 03/27/22 07:12 90 18 Pulse Ox O2 Del Method O2 Flow Rate FiO2 03/27/22 15:49 03/27/22 15:37 93 BiPAP 03/27/22 14:13 92 30 03/27/22 14:13 92 BiPAP 30 03/27/22 12:39 94 2 03/27/22 11:12 91 Nasal Cannula 1 03/27/22 07:28 Nasal Cannula 2 03/27/22 07:16 90 Nasal Cannula 2 03/27/22 07:12 90 Nasal Cannula 2 PG Care Time/CCT Total # of Minutes Spent Total Time Spent with Patient: Total time spent is greater than 50% in coordination of care (as documented) at patient's floor/unit and/or counseling patient: Coding Level of Care Code 62657 Subseq Hosp Care Lvl 3 Diagnoses Acute on chronic respiratory failure with hypoxia and hypercapnia J96.21; J96.22 Smokes less than 1/2 pack per day F17.210 COPD (chronic obstructive pulmonary disease) with chronic bronchitis J44.9 Hypothyroidism E03.9 GERD (gastroesophageal reflux disease) K21.9 Depression F32.9 Hyperglycemia R73.9
[2022-03-27 17:54] LABS: iSTAT Allen Test Pass; iSTAT Art Bld Gas pCO2 Correct 63 mmHg (35-46); iSTAT Art Bld Gas pH Corrected 7.347 (7.35-7.45); iSTAT Arterial Blood Gas HCO3 35 meg/L (19-24); iSTAT Arterial Blood Gas pCO2 63 mmHg (35-46); iSTAT Arterial Blood Gas pH 7.35 (7.35-7.45); iSTAT Arterial Blood Gas pO2 61 mmHg (80-95); iSTAT Arterial Blood Gas pO2 C 61; iSTAT Carbon Dioxide 37 mmol/L (24-31); iSTAT FiO2 30 %; iSTAT Hematocrit 55 % (37-47); iSTAT Hemoglobin 18.7 g/dl (12.0-16.0); iSTAT Potassium 4.9 mmol/L (3.3-5.0); iSTAT Site R Radial; iSTAT Sodium 139 mmol/L (135-144)
[2022-03-27] MEDS ORDERED: ETOMIDATE 2 MG/ML 20 ML VIAL IV ONE (18:20)
[2022-03-27] MEDS ORDERED: ROCURONIUM BROMIDE 10 MG/ML 5 ML VIAL IV ONE (18:20)
[2022-03-27] MEDS ORDERED: LIDOCAINE 2% 20 MG/ML 5 ML SYR IV ONE (18:21)
[2022-03-27] MEDS ORDERED: PROPOFOL IV EMULSION 10 MG/ML 100 ML VIAL IV ONE (18:30)
[2022-03-27] MEDS ORDERED: fentaNYL citrate 2,500 MCG/250 ML BAG IV ONE (18:32)
--- NOTE | 2022-03-27 18:44 | Communication Note ---
Date of Service: March 27, 2022 Pulmonary addendum: During the day patient started to complain of worsening shortness of breath. Patient was put on BiPAP but because of her issues with anxiety she was not able to tolerate well. She did get clonazepam multiple times that did help her with BiPAP Initial ABG in the morning showed a pH of 7.43 with PCO2 of 62 ABG was repeated in the evening which showed a pH of 7.35 and PCO2 of 63. Patient did have a CTA chest done today but did not show any pulmonary embolism. No consolidation, no mucous plugging Patient respiratory was in the low 30s. She was getting diaphoretic. She was made aware that she might need intubation she was agreeable to the plan. Patient was intubated for ventilatory failure Patient was intubated and connected to a ventilator We will repeat ABG in 30 minutes CBC, CMP as well as lactate has been ordered. I think patient pH of 7.35 will probably be from lactic acidosis from her being very tachypneic. Follow-up chest x-ray. Dr. Mijares was at bedside. He is going to help call the family and make them aware. I have personally spent 40 minutes of critical care time in the direct management of this patient. This is a life/limb threatening event. This includes time spent evaluating patient, direct bedside care, chart review, placing orders, interpretation of diagnostic studies, discussion with consultants, patient, and family members, as well as other required patient management activities. This time is exclusive of all separately billable procedures, and teaching time and separate from and in addition to any other critical care service time. Please note the above document was generated using voice recognition software. It may contain grammatical, syntax or spelling errors. Coding Level of Care Code Critical Care 1st 30-74 mins Time Spent (min) 40
[2022-03-27] MEDS: propofoL 1,000 MG/100 ML VIAL IV SCH (18:45)
--- NOTE | 2022-03-27 18:51 | Procedure Note ---
Procedure Note Date of Service March 27, 2022 Note INTUBATION PROCEDURE NOTE: Attending: Dr Emy Webster MD Patient was evaluated and plan to intubate was made for ventilatory failure. Sedative agent used: Etomidate 20 mg, 100 mg lidocaine Paralysis agent used: 30 mg rocuronium Emergent consent was implied given patients rapidly declining clinical status and need for airway protection. Patient did verbally give consent to intubation The patient was prepared in the appropriate fashion. The patient was easily pre-oxygenated by using [id number] ventilation. With help of CMAC grade 2 vocal cords were visualized and 7.5 [place] ETT was introduced on first attempt to 23 cm at the lip. The stylette was removed and balloon was inflated with 10mL of air. Appropriate Colorimetric change was appreciated for at least 10 breaths. Bilateral chest rise and breath sounds were appreciated without air sounds in the epigastrium. Patient tolerated the procedure well and there were no immediate complications. Chest Xray to follow for confirming placement. Coding CPT Codes Resuscitation - Resuscitation: [id number] Endotracheal Intubation, emergency ([id number]) [facility] Procedure Codes (Charges) Resuscitation Resuscitation: 06678 Endotracheal Intubation, emergency
[2022-03-27] MEDS ORDERED: ALBUT/IPRATROP 3MG/0.5MG NEB 3 ML VIAL NEB SCH (19:00)
[2022-03-27] MEDS ORDERED: Nursing to Pharmacy Communication SCH ×2 (19:15→20:45)
--- NOTE | 2022-03-27 19:20 | XRay Report ---
SINGLE VIEW CHEST CLINICAL HISTORY: Intubation. FINDINGS: 3 AP, portable, upright chest radiographs are compared to study dated 03/21/2022 and correla luis with chest CT dated 03/27/2022. The examination is degraded by portable technique and patient rota tion. An enteric tube has been placed. The tip projects below the diaphragm and is not visualized. An endotracheal tube has been placed. The tip projects approximately 4.5 cm above the deidra. The cardi omediastinal silhouette is unremarkable noting atherosclerotic calcification of the thoracic aorta. E mphysema and chronic interstitial thickening is similar to previous. There are scattered calcified gr anulomas. Scarring/atelectasis is noted at the lung bases. No airspace consolidation or large pleural effusion is identified. No pneumothorax is seen. The skeletal structures are osteopenic. The bony th orax is grossly intact. IMPRESSION: 1. Endotracheal and enteric tubes have been placed as above. 2. Emphysematous change with no acute cardiopulmonary abnormality identified. ACT 112: Negative or not required by law. Electronically signed by: Ronen Conway M.D. 03/27/2022 7:19 PM
[2022-03-27 19:30] LABS: Hematocrit (blood only) 52.9 % (34.1-44.9); Mean Corpuscular Hgb Conc 32.1 g/dL (32.0-36.0); Mean Corpuscular Volume 96.5 fL (80.0-100.0); Mean Platelet Volume 9.1 fL (9.4-12.3); Platelet Count 198 K/uL (130-400); RDW Coefficient of Variation 12.7 % (11.5-14.5); RDW Standard Deviation 45.7 fL (36.4-46.3); Red Blood Count 5.48 M/uL (3.93-5.22); White Blood Count 14.37 K/ul (4.8-10.8)
[2022-03-27] MEDS ORDERED: STAT IV Infusion **Titration per Protocol STA (19:33)
[2022-03-27] MEDS ORDERED: PROPOFOL BOLUS FROM BAG IV PRN (19:33)
[2022-03-27] MEDS ORDERED: fentaNYL citrate 2,500 MCG/250 ML BAG IV SCH (19:45)
[2022-03-27 19:50] LABS: Albumin Globulin Ratio 1.8 (0.9-2); Albumin Level 3.8 gm/dl (3.4-5.0); BUN Creatinine Ratio 51.9 (10-20); Basophils # (auto) 0.01 K/uL (0-0.2); Basophils % (auto) 0.1 %; Bilirubin,Total 1.5 mg/dl (0.2-1.0); Creatinine Clr Calc Pharmacy 69.7 ml/min; Est GFR (African American) 97.3 ml/min; Est GFR (Non-African American) 83.9 ml/min; Globulin 2.1 gm/dl (2.5-4.0); Immature Granulocytes # (auto) 0.04 K/uL (0.00-0.02); Immature Granulocytes % (auto) 0.3 %; Lymphocytes # (auto) 0.29 K/uL (1.2-3.4); Magnesium 2.1 mg/dl (1.7-2.4); Monocytes # (auto) 0.44 K/uL (0.24-0.82); Monocytes % (auto) 3.1 %; Neutrophils # (auto) 13.59 K/uL (1.4-6.5); Neutrophils % (auto) 94.5 %; Phosphorus 4.5 mg/dl (2.5-4.9); Potassium 4.7 mmol/L (3.5-5.1); Total Protein 5.9 gm/dl (6.0-8.3)
[2022-03-27 19:52] LABS: iSTAT Allen Test Pass; iSTAT Art Bld Gas pCO2 Correct 63 mmHg (35-46); iSTAT Art Bld Gas pH Corrected 7.343 (7.35-7.45); iSTAT Arterial Blood Gas HCO3 34 meg/L (19-24); iSTAT Arterial Blood Gas pCO2 64 mmHg (35-46); iSTAT Arterial Blood Gas pH 7.34 (7.35-7.45); iSTAT Arterial Blood Gas pO2 128 mmHg (80-95); iSTAT Arterial Blood Gas pO2 C 126; iSTAT Carbon Dioxide 36 mmol/L (24-31); iSTAT FiO2 50 %; iSTAT Hematocrit 52 % (37-47); iSTAT Hemoglobin 17.7 g/dl (12.0-16.0); iSTAT Potassium 4.8 mmol/L (3.3-5.0); iSTAT Site L Radial; iSTAT Sodium 140 mmol/L (135-144)
[2022-03-27] MEDS: methylPREDNISolone 40 MG in SYRINGE 0 ML IV SCH (21:07)
[2022-03-28] MEDS: propofoL 1,000 MG/100 ML VIAL IV SCH ×5 (00:36→18:11)
[2022-03-28] MEDS ORDERED: NORMOSOL-R 250 ML IV ONE (01:37)
[2022-03-28] MEDS ORDERED: NORMOSOL-R 1,000 ML IV SCH ×3 (01:45→17:15)
[2022-03-28] MEDS: ALBUT/IPRATROP 3MG/0.5MG NEB 3 ML VIAL NEB SCH ×6 (03:31→22:50)
[2022-03-28 05:09] LABS: iSTAT Art Bld Gas pCO2 Correct 59 mmHg (35-46); iSTAT Art Bld Gas pH Corrected 7.366 (7.35-7.45); iSTAT Arterial Blood Gas HCO3 33 meg/L (19-24); iSTAT Arterial Blood Gas pCO2 58 mmHg (35-46); iSTAT Arterial Blood Gas pH 7.37 (7.35-7.45); iSTAT Arterial Blood Gas pO2 64 mmHg (80-95); iSTAT Arterial Blood Gas pO2 C 66; iSTAT Carbon Dioxide 35 mmol/L (24-31); iSTAT FiO2 40 %; iSTAT Hematocrit 50 % (37-47); iSTAT Potassium 4.9 mmol/L (3.3-5.0); iSTAT Site R Brachial; iSTAT Sodium 138 mmol/L (135-144)
[2022-03-28 05:15] LABS: Hematocrit (blood only) 51.5 % (34.1-44.9); Hemoglobin 16.9 g/dl (12.0-16.0); Mean Corpuscular Hemoglobin 31.5 pg (25.0-34.0); Mean Corpuscular Hgb Conc 32.8 g/dL (32.0-36.0); Mean Corpuscular Volume 95.9 fL (80.0-100.0); Mean Platelet Volume 9.3 fL (9.4-12.3); Platelet Count 192 K/uL (130-400); RDW Coefficient of Variation 12.8 % (11.5-14.5); RDW Standard Deviation 45.7 fL (36.4-46.3); Red Blood Count 5.37 M/uL (3.93-5.22); White Blood Count 15.55 K/ul (4.8-10.8)
[2022-03-28 05:38] LABS: Calcium 8.5 mg/dl (8.5-10.1); Creatinine Clr Calc Pharmacy 76.1 ml/min; Est GFR (African American) 107.3 ml/min; Est GFR (Non-African American) 92.6 ml/min; Magnesium 2.3 mg/dl (1.7-2.4); Phosphorus 4.1 mg/dl (2.5-4.9); Potassium 4.8 mmol/L (3.5-5.1)
[2022-03-28] MEDS: INSULIN ASPART PER UNIT SC SCH ×3 (06:10→18:08)
[2022-03-28] MEDS: LEVOTHYROXINE SODIUM 25 MCG TABLET PO SCH (06:11)
--- NOTE | 2022-03-28 07:52 | Critical Care Progress Note ---
Date of Service March 28, 2022 Assessment & Plan (1) Acute exacerbation of chronic obstructive pulmonary disease: (2) Acute on chronic respiratory failure with hypoxia and hypercapnia: (3) COPD (chronic obstructive pulmonary disease) with chronic bronchitis: (4) Personal history of nicotine dependence: (5) Multiple pulmonary nodules: Plan Chest x-ray 03/21/2022 personally reviewed: Portable film, bilateral costophrenic angles are blunted, increased cardiac silhouette, no clear lung infiltrate appreciated CT chest 10/24/2021 personally reviewed: Severe centrilobular and paraseptal emphysema appreciated bilaterally Right upper lobe 6 mm pulmonary nodule along with 8 mm pulmonary nodule, right middle lobe peripheral opacity, right lower lobe peripheral granuloma No mediastinal lymphadenopathy PFT 02/27/2022 personally reviewed: Very severe COPD with emphysema, significant bronchodilator response, air trapping, very severe decrease in DLCO FVC 1.44 L 46%, FEV1 0.51 L 21%, FEV1/FVC 36%, RV to 40%, TLC 130%, RV/TLC 185%, DLCO 22% ABG 03/21/2022: 7.28/68/152 on 24% FiO2 --> 03/24/2022: 7.42/58/99 on 1 L oxygen -- VDRF Likely secondary to acute COPD exacerbation Intubated 03/27/2022 Continue with ventilatory support Keep RASS -1 Daily sedation holidays and SBT's Very severe COPD On Trelegy At home Procalcitonin negative COVID-19 PCR negative On Trelegy inhaler at home. Patient's QTC is 471. She would not be a good candidate for chronic azithromycin therapy Roflumilast could be added prior to discharge 250 MCG for 4 weeks followed by 500 MCG on a daily basis Consideration for endobronchial valve and lung transplant should be made if the patient is willing to quit I did go over regarding the same with the patient and she will try her best to quit. --Acute hypercapnic hypoxic respiratory failure Secondary to COPD exacerbation Plan as above -- Current smoker Importance of quitting explained the patient in depth Patient is willing to quit --Multiple pulmonary nodules Have been stable Continue with screening CAT scan --Prophylaxis VTE: Lovenox GI: Protonix Lines: Peripheral Diet: Tube feeds Plan: In/out: -204, urine output 1435 ABG 7.37/58/64 on PEEP of 5, 40% Chest x-ray does not show any pulmonary infiltrate. I went down on the fentanyl and propofol. Continue with intubation for another 24 hours. Will give 125 mill per hour of Normosol for 1 bag Start tube feeds I have personally spent 36 minutes of critical care time in the direct management of this patient. This is a life/limb threatening event. This includes time spent evaluating patient, direct bedside care, chart review, placing orders, interpretation of diagnostic studies, discussion with consultants, patient, and family members, as well as other required patient management activities. This time is exclusive of all separately billable procedures, and teaching time and separate from and in addition to any other critical care service time. Please note the above document was generated using voice recognition software. It may contain grammatical, syntax or spelling errors. Admission and Anticipated Discharge Date Admission Date: March 21, 2022 Subjective Patient seen and examined at bedside. No acute distress, no adverse events overnight. Patient was on 30 of propofol 100 of fentanyl at the time of examination RASS was -2, she did open her eyes, followed simple commands Denied any headache, no chest pain Review of Systems Review of Systems: All systems reviewed & are unremarkable except as noted in Subjective and Unobtainable due to endotracheal tube Physical Exam Physical Exam: Constitutional: No acute distress HEENT: EOMI, positive ETT Respiratory system: Decreased air entry bilaterally, no crackles, no rhonchi, no wheeze CVS: S1-S2 positive, no murmurs or gallops Abdomen: Soft, nontender, nondistended, positive bowel sounds x4 Extremities: +2 pulses bilaterally radialis/ dorsalis pedis, no cyanosis, no edema Neuro: Sedated, following simple commands Psych: Unable to assess G/U: Positive Perez Skin: no rashes, warm and dry Lymphatic: no cervical or axillary lymphadenopathy Results & Data Results & [facility] ([facility]) Vital Signs (Past 12 Hours) Vital Signs Temp Pulse Pulse Pulse Resp BP Pulse Ox 03/28/22 04:15 37.4 C 107 H 19 03/28/22 04:15 106/87 03/28/22 04:00 37.4 C 107 H 22 93 03/28/22 04:00 104/86 03/28/22 03:45 37.3 C 102 H 19 93 03/28/22 03:45 101/83 03/28/22 03:30 37.3 C 97 H 19 92 03/28/22 03:30 107/82 03/28/22 03:15 37.3 C 96 H 19 92 03/28/22 03:15 108/79 03/28/22 03:00 37.3 C 98 H 19 93 03/28/22 03:00 102/77 03/28/22 02:45 37.3 C 97 H 19 93 03/28/22 02:45 108/82 03/28/22 02:30 37.3 C 98 H 19 93 03/28/22 02:30 96/75 L 03/28/22 02:15 37.3 C 97 H 19 93 03/28/22 02:15 102/80 03/28/22 02:00 37.3 C 98 H 19 93 03/28/22 02:00 104/78 03/28/22 01:45 99/76 L 03/28/22 01:45 37.3 C 97 H 19 93 03/28/22 01:45 99/76 L 03/28/22 01:30 37.3 C 100 H 19 03/28/22 01:30 100/78 03/28/22 01:15 37.3 C 101 H 19 03/28/22 01:15 103/80 03/28/22 01:00 37.3 C 100 H 19 03/28/22 01:00 103/79 03/28/22 00:45 37.3 C 102 H 19 03/28/22 00:45 108/81 03/28/22 04:00 03/28/22 03:31 99 H 94 03/28/22 03:02 97 H 22 94 03/28/22 00:30 37.3 C 101 H 19 03/28/22 00:30 97/78 L 03/28/22 00:15 103/79 03/28/22 00:15 37.2 C 100 H 19 03/28/22 00:00 37.2 C 102 H 19 03/28/22 00:00 108/77 03/27/22 23:45 37.2 C 101 H 19 03/27/22 23:45 105/75 03/27/22 23:30 37.2 C 102 H 19 03/27/22 23:30 101/76 03/27/22 23:15 37.2 C 102 H 19 03/27/22 23:15 105/81 03/27/22 23:00 37.2 C 103 H 19 03/27/22 23:00 105/81 03/27/22 22:45 104/83 03/27/22 22:45 37.2 C 103 H 19 03/27/22 22:30 37.1 C 102 H 19 03/27/22 22:30 110/89 03/27/22 22:15 115/88 03/27/22 22:15 37.2 C 100 H 19 03/27/22 22:00 37.2 C 100 H 18 03/27/22 22:00 119/89 03/27/22 21:45 116/93 03/27/22 21:45 37.2 C 100 H 18 03/27/22 21:30 37.2 C 100 H 18 03/27/22 21:30 128/95 03/27/22 21:15 134/97 03/27/22 21:15 37.3 C 101 H 18 03/28/22 00:00 03/27/22 23:29 103 H 03/27/22 22:38 101 H 22 96 03/27/22 22:38 101 H 22 44 L 03/27/22 22:07 03/27/22 21:00 37.3 C 102 H 18 03/27/22 21:00 142/98 H 03/27/22 20:45 153/109 H 03/27/22 20:45 37.3 C 103 H 22 03/27/22 20:30 37.3 C 105 H 22 03/27/22 20:30 157/118 H 03/27/22 20:15 153/115 H 03/27/22 20:15 37.4 C 103 H 22 03/27/22 20:00 37.4 C 101 H 22 03/27/22 20:00 165/116 H 03/27/22 19:57 37.4 C 104 H 22 92 03/27/22 19:57 170/120 H 03/27/22 21:26 121 H 03/27/22 20:00 O2 Del Method FiO2 03/28/22 04:15 03/28/22 04:15 03/28/22 04:00 03/28/22 04:00 03/28/22 03:45 03/28/22 03:45 03/28/22 03:30 03/28/22 03:30 03/28/22 03:15 03/28/22 03:15 03/28/22 03:00 03/28/22 03:00 03/28/22 02:45 03/28/22 02:45 03/28/22 02:30 03/28/22 02:30 03/28/22 02:15 03/28/22 02:15 03/28/22 02:00 03/28/22 02:00 03/28/22 01:45 03/28/22 01:45 03/28/22 01:45 03/28/22 01:30 03/28/22 01:30 03/28/22 01:15 03/28/22 01:15 03/28/22 01:00 03/28/22 01:00 03/28/22 00:45 03/28/22 00:45 03/28/22 04:00 40 03/28/22 03:31 Mechanical Vent 40 03/28/22 03:02 40 03/28/22 00:30 03/28/22 00:30 03/28/22 00:15 03/28/22 00:15 03/28/22 00:00 03/28/22 00:00 03/27/22 23:45 03/27/22 23:45 03/27/22 23:30 03/27/22 23:30 03/27/22 23:15 03/27/22 23:15 03/27/22 23:00 03/27/22 23:00 03/27/22 22:45 03/27/22 22:45 03/27/22 22:30 03/27/22 22:30 03/27/22 22:15 03/27/22 22:15 03/27/22 22:00 03/27/22 22:00 03/27/22 21:45 03/27/22 21:45 03/27/22 21:30 03/27/22 21:30 03/27/22 21:15 03/27/22 21:15 03/28/22 00:00 40 03/27/22 23:29 03/27/22 22:38 40 03/27/22 22:38 Mechanical Vent 08/25/22 22:07 Mechanical Vent 40 03/27/22 21:00 03/27/22 21:00 03/27/22 20:45 03/27/22 20:45 03/27/22 20:30 03/27/22 20:30 03/27/22 20:15 03/27/22 20:15 03/27/22 20:00 03/27/22 20:00 03/27/22 19:57 03/27/22 19:57 03/27/22 21:26 03/27/22 20:00 40 Laboratory Results 03/28/22 04:36 03/28/22 04:36 Coding Level of Care Code Critical Care 1st 30-74 mins Diagnoses Acute exacerbation of chronic obstructive pulmonary disease J44.1 Acute on chronic respiratory failure with hypoxia and hypercapnia J96.21; J96.22 COPD (chronic obstructive pulmonary disease) with chronic bronchitis J44.9 Personal history of nicotine dependence Z87.891 Multiple pulmonary nodules R91.8 Time Spent (min) 36
--- NOTE | 2022-03-28 08:55 | XRay Report ---
XR chest 1V portable HISTORY: Resp failure COMPARISON: Chest 03/27/2022. FINDINGS: Endotracheal tube terminates 2 cm from the deidra. The nasogastric tube terminates below th e diaphragm. The tip is not included on this study. No pneumothorax. No significant pleural effusions . A few bibasilar linear densities favor subsegmental atelectasis. Otherwise, no new focal lung conso lidations to suggest pneumonia. Emphysema. The heart is normal in size. Calcified granuloma within th e right midlung zone. IMPRESSION: 1. Satisfactory support line placement. 2. Emphysema and bibasilar subsegmental atelectasis again noted. ACT 112: Negative or not required by law. Electronically signed by: Gerson Toth M.D. 03/28/2022 8:54 AM
[2022-03-28] MEDS ORDERED: ROFLUMILAST 500 MCG TAB PO SCH (09:00)
[2022-03-28] MEDS: UMECLIDINIUM/VILANTEROL 62.5/25MCG 7 PUFFS/INHALER INH SCH (09:21)
[2022-03-28] MEDS: FLUoxetine HCL 20 MG CAP PO SCH (10:38)
[2022-03-28] MEDS: methylPREDNISolone 40 MG in SYRINGE 0 ML IV SCH ×2 (10:44→19:53)
[2022-03-28] MEDS: PANTOprazole 40 MG in SYRINGE 0 ML IV SCH (10:45)
[2022-03-28] MEDS ORDERED: IMPACT LIQD 1.0 CAL 1,000 ML BAG OG SCH (10:45)
[2022-03-28] MEDS: ENOXAPARIN INJ 40 MG/0.4 ML SYR SQ SCH (10:45)
[2022-03-28] MEDS: TUBE FEEDING WATER FLUSH OG SCH ×3 (12:31→19:53)
--- NOTE | 2022-03-28 17:22 | Hospitalist Progress Note ---
Date of Service March 28, 2022 Assessment & Plan (1) Acute on chronic respiratory failure with hypoxia and hypercapnia: Plan: Due to COPD exacerbation. Due to dust/heat/humidity while camping at [facility]. - Continue steroids - Continue standing and PRN DuoNebs - Continue azithromycin and guaifenesin - Consulted pulm on 03/24 for continued poor air movement. Added Anoro and Mucomyst, but does not want Mucomyst. Added roflumilast on 03/26. Transitioned to prednisone on 03/27, but she had significant respiratory distress and required BiPap. -> CTA chest negative for PE and pneumonia. Seen by pulm and returned to Solu- Medrol BID. Patient is currently intubated 03/28. (2) Smokes less than 1/2 pack per day: Plan: Cessation counseling ongoing she notes she is quitting smoking. (3) COPD (chronic obstructive pulmonary disease) with chronic bronchitis: Plan: Manage as above (4) Hypothyroidism: Plan: TSH was 1.345 this admission. - Continue levothyroxine 25 mcg daily (5) GERD (gastroesophageal reflux disease): Plan: - Maalox and famotidine PRN (6) Depression: Plan: - Continue fluoxetine (7) Hyperglycemia: Plan: Likely stress/steroid response, as her A1c is only 5.6%. - Sliding scale insulin - BSs have been 80-180 in last 24 hours. Plan DVT prophylaxis Lovenox Admission and Anticipated Discharge Date Admission Date: March 21, 2022 Subjective Patient is intubated and sedated. Review of Systems Review of Systems: Unobtainable due to cognitive status Physical Exam Physical Exam: Constitutional: intubated and sedated HEENT: EET placed Lung: decreased breathsounds Heart: Normal S1, S2 Abd: soft, nontender, nondistended Extremity: normal pulses. Psych: unable to assess Results & Data Results & Data ([facility]) Vital Signs (Past 12 Hours) Vital Signs Temp Pulse Resp BP Pulse Ox FiO2 03/28/22 15:41 105 H 18 92 35 03/28/22 13:45 37.6 C H 106 H 12 92 03/28/22 13:45 129/99 03/28/22 13:30 37.5 C 106 H 18 92 03/28/22 13:30 120/88 03/28/22 13:15 37.6 C H 107 H 18 92 03/28/22 13:15 127/86 03/28/22 13:00 37.5 C 107 H 18 92 03/28/22 13:00 125/93 03/28/22 12:45 37.5 C 105 H 18 92 03/28/22 12:45 119/88 03/28/22 12:30 37.5 C 106 H 18 92 03/28/22 12:30 136/87 03/28/22 12:21 37.4 C 107 H 18 92 03/28/22 12:21 141/101 H 03/28/22 12:15 140/110 H 03/28/22 12:15 37.4 C 108 H 18 91 03/28/22 12:00 37.4 C 107 H 20 90 03/28/22 12:00 146/106 H 03/28/22 11:45 37.4 C 110 H 19 91 03/28/22 11:45 163/114 H 03/28/22 11:30 151/106 H 03/28/22 11:30 37.5 C 108 H 18 91 03/28/22 11:30 151/106 H 03/28/22 11:15 37.4 C 109 H 18 92 03/28/22 11:15 152/111 H 03/28/22 11:00 37.4 C 108 H 18 91 03/28/22 11:00 150/103 H 03/28/22 10:45 37.4 C 109 H 18 91 03/28/22 10:45 154/113 H 03/28/22 10:30 37.4 C 109 H 18 91 03/28/22 10:30 148/109 H 03/28/22 10:15 37.3 C 107 H 18 91 03/28/22 10:15 152/108 H 03/28/22 10:00 37.4 C 107 H 18 03/28/22 10:00 148/99 H 03/28/22 09:45 168/103 H 03/28/22 09:45 37.4 C 108 H 18 91 03/28/22 09:30 37.3 C 107 H 18 90 03/28/22 09:30 133/98 03/28/22 09:27 142/107 H 03/28/22 09:27 37.3 C 106 H 18 03/28/22 09:17 37.4 C 110 H 19 03/28/22 09:17 160/106 H 03/28/22 09:15 37.4 C 110 H 18 91 03/28/22 09:15 151/109 H 03/28/22 09:00 37.5 C 110 H 18 89 L 03/28/22 09:00 147/98 H 03/28/22 08:45 37.5 C 110 H 18 90 03/28/22 08:45 131/94 03/28/22 08:30 37.5 C 108 H 18 91 03/28/22 12:00 35 03/28/22 13:49 105 H 18 92 35 03/28/22 10:00 108 H 18 91 35 03/28/22 07:05 107 H 22 94 40 03/28/22 08:00 40 03/28/22 08:00 107 H PG Care Time/CCT Total # of Minutes Spent Total Time Spent with Patient: Total time spent is greater than 50% in coordination of care (as documented) at patient's floor/unit and/or counseling patient: Coding Level of Care Code 23098 Subseq Hosp Care Lvl 2 Diagnoses Acute on chronic respiratory failure with hypoxia and hypercapnia J96.21; J96.22 Smokes less than 1/2 pack per day F17.210 COPD (chronic obstructive pulmonary disease) with chronic bronchitis J44.9 Hypothyroidism E03.9 GERD (gastroesophageal reflux disease) K21.9 Depression F32.9 Hyperglycemia R73.9
[2022-03-28] MEDS: ACETAMINOPHEN 325 MG TAB PO PRN (17:24)
[2022-03-28] MEDS: SENNOSIDES 8.8 MG/5 ML UDC PO SCH (19:52)
[2022-03-28] MEDS: DOCUSATE SODIUM SYRUP 100 MG/10 ML UDC GT SCH (19:52)
[2022-03-28] MEDS: NYSTATIN SUSP 500,000 U/5 ML UDC PO SCH (22:15)
[2022-03-29] MEDS: INSULIN ASPART PER UNIT SC SCH ×4 (00:05→17:09)
[2022-03-29] MEDS: TUBE FEEDING WATER FLUSH OG SCH ×5 (00:21→12:17)
[2022-03-29] MEDS: ALBUT/IPRATROP 3MG/0.5MG NEB 3 ML VIAL NEB SCH ×5 (03:10→22:50)
[2022-03-29 03:28] LABS: iSTAT Allen Test Pass; iSTAT Arterial Blood Gas HCO3 37 meg/L (19-24); iSTAT Arterial Blood Gas pCO2 61 mmHg (35-46); iSTAT Arterial Blood Gas pH 7.39 (7.35-7.45); iSTAT Arterial Blood Gas pO2 61 mmHg (80-95); iSTAT Carbon Dioxide 38 mmol/L (24-31); iSTAT FiO2 35 %; iSTAT Site R Radial
[2022-03-29 05:26] LABS: Magnesium 2.1 mg/dl (1.7-2.4); Phosphorus 2.4 mg/dl (2.5-4.9)
[2022-03-29] MEDS: LEVOTHYROXINE SODIUM 25 MCG TABLET PO SCH (06:26)
[2022-03-29] MEDS: MULTI VIT W/MINERALS LIQUID 15 ML UDP PO SCH (07:25)
[2022-03-29] MEDS: SENNOSIDES 8.8 MG/5 ML UDC PO SCH ×2 (07:25→20:34)
[2022-03-29] MEDS: FLUoxetine HCL 20 MG/5 ML 120ML BTL GT SCH (07:25)
[2022-03-29] MEDS: methylPREDNISolone 40 MG in SYRINGE 0 ML IV SCH ×2 (07:26→20:34)
[2022-03-29] MEDS: DOCUSATE SODIUM SYRUP 100 MG/10 ML UDC GT SCH ×2 (07:26→20:34)
[2022-03-29 07:46] LABS: Basophils # (auto) 0.01 K/uL (0-0.2); Basophils % (auto) 0.1 %; Eosinophils # (auto) 0.01 K/uL (0-0.50); Eosinophils % (auto) 0.1 %; Hematocrit (blood only) 47.6 % (34.1-44.9); Hemoglobin 15.5 g/dl (12.0-16.0); Immature Granulocytes % (auto) 6.1 %; Lymphocytes # (auto) 0.31 K/uL (1.2-3.4); Lymphocytes % (auto) 1.9 %; Mean Corpuscular Hemoglobin 31.6 pg (25.0-34.0); Mean Corpuscular Hgb Conc 32.6 g/dL (32.0-36.0); Mean Corpuscular Volume 96.9 fL (80.0-100.0); Mean Platelet Volume 10.1 fL (9.4-12.3); Monocytes # (auto) 0.83 K/uL (0.24-0.82); Neutrophils # (auto) 14.29 K/uL (1.4-6.5); Neutrophils % (auto) 86.8 %; Platelet Count 176 K/uL (130-400); RDW Standard Deviation 46.9 fL (36.4-46.3); Red Blood Count 4.91 M/uL (3.93-5.22); White Blood Count 16.45 K/ul (4.8-10.8)
[2022-03-29 07:57] LABS: Anion Gap 8 (3-11); BUN Creatinine Ratio 55.2 (10-20); Blood Urea Nitrogen 37 mg/dl (6-23); Calcium 8.1 mg/dl (8.5-10.1); Carbon Dioxide 31 mmol/L (21-32); Chloride 101 mmol/L (98-107); Creatinine Clr Calc Pharmacy 80.1 ml/min; Est GFR (African American) 110.7 ml/min; Est GFR (Non-African American) 95.5 ml/min; Glucose 193 mg/dl (70-99(Fasting)); Sodium 140 mmol/L (136-145)
--- NOTE | 2022-03-29 08:09 | Critical Care Progress Note ---
Date of Service March 29, 2022 Assessment & Plan (1) Acute exacerbation of chronic obstructive pulmonary disease: (2) Acute on chronic respiratory failure with hypoxia and hypercapnia: (3) COPD (chronic obstructive pulmonary disease) with chronic bronchitis: (4) Personal history of nicotine dependence: (5) Multiple pulmonary nodules: Plan Chest x-ray 03/21/2022 personally reviewed: Portable film, bilateral costophrenic angles are blunted, increased cardiac silhouette, no clear lung infiltrate appreciated CT chest 10/24/2021 personally reviewed: Severe centrilobular and paraseptal emphysema appreciated bilaterally Right upper lobe 6 mm pulmonary nodule along with 8 mm pulmonary nodule, right middle lobe peripheral opacity, right lower lobe peripheral granuloma No mediastinal lymphadenopathy PFT 02/27/2022 personally reviewed: Very severe COPD with emphysema, significant bronchodilator response, air trapping, very severe decrease in DLCO FVC 1.44 L 46%, FEV1 0.51 L 21%, FEV1/FVC 36%, RV to 40%, TLC 130%, RV/TLC 185%, DLCO 22% ABG 03/21/2022: 7.28/68/152 on 24% FiO2 --> 03/24/2022: 7.42/58/99 on 1 L oxygen -- VDRF Likely secondary to acute COPD exacerbation Intubated 03/27/2022 Continue with ventilatory support Keep RASS -1 Daily sedation holidays and SBT's Very severe COPD On Trelegy At home Procalcitonin negative COVID-19 PCR negative On Trelegy inhaler at home. Patient's QTC is 471. She would not be a good candidate for chronic azithromycin therapy Roflumilast could be added prior to discharge 250 MCG for 4 weeks followed by 500 MCG on a daily basis Consideration for endobronchial valve and lung transplant should be made if the patient is willing to quit I did go over regarding the same with the patient and she will try her best to quit. --Acute hypercapnic hypoxic respiratory failure Secondary to COPD exacerbation Plan as above --Hypertension Blood pressure medication on hold --Hypothyroidism On levothyroxine --Anxiety/depression On fluoxetine and clonazepam as needed -- Current smoker Importance of quitting explained the patient in depth Patient is willing to quit --Multiple pulmonary nodules Have been stable Continue with screening CAT scan --Prophylaxis VTE: Lovenox GI: Protonix Lines: Peripheral Diet: Tube feeds Plan: In/out: +1.9 L, urine output 1400 mL ABG 7.39/61/61 on PEEP of 5, 35% Trial of extubation today Replace phosphorus with sodium phosphate. I have personally spent 37 minutes of critical care time in the direct management of this patient. This is a life/limb threatening event. This includes time spent evaluating patient, direct bedside care, chart review, placing orders, interpretation of diagnostic studies, discussion with consultants, patient, and family members, as well as other required patient management activities. This time is exclusive of all separately billable procedures, and teaching time and separate from and in addition to any other critical care service time. Please note the above document was generated using voice recognition software. It may contain grammatical, syntax or spelling errors. Admission and Anticipated Discharge Date Admission Date: March 21, 2022 Subjective Patient seen and examined at bedside. No acute distress, no dressings overnight Patient was on pressure support 3/5 at the time of examination She was getting tidal volumes of 500 respiratory rate of 16 She was off sedation Denies any headache, no nausea vomiting No chest pain Review of Systems Review of Systems: All systems reviewed & are unremarkable except as noted in Subjective Physical Exam Physical Exam: Constitutional: No acute distress HEENT: EOMI, positive ETT Respiratory system: Decreased air entry bilaterally, no crackles, no rhonchi, no wheeze CVS: S1-S2 positive, no murmurs or gallops Abdomen: Soft, nontender, nondistended, positive bowel sounds x4 Extremities: +2 pulses bilaterally radialis/ dorsalis pedis, no cyanosis, no edema Neuro: Awake alert, following simple commands Psych: Normal mood and affect G/U: Positive Perez Skin: no rashes, warm and dry Lymphatic: no cervical or axillary lymphadenopathy Results & Data Results & Data ([facility]) Vital Signs (Past 12 Hours) Vital Signs Temp Pulse Pulse Resp BP Pulse Ox O2 Del Method 03/29/22 07:42 107 H 26 H 93 03/29/22 07:02 98 H 19 94 Mechanical Vent 03/29/22 07:00 98 H 19 94 03/29/22 06:15 37.4 C 97 H 18 94 03/29/22 06:15 148/97 H 03/29/22 06:00 37.4 C 99 H 18 96 03/29/22 06:00 121/81 03/29/22 05:45 130/81 03/29/22 05:45 37.4 C 98 H 18 96 03/29/22 05:30 37.4 C 100 H 18 96 03/29/22 05:30 109/80 03/29/22 05:15 121/82 03/29/22 05:15 37.4 C 101 H 18 96 03/29/22 05:00 37.5 C 101 H 18 95 03/29/22 05:00 120/78 03/29/22 04:45 37.5 C 104 H 18 95 03/29/22 04:45 108/85 03/29/22 04:30 37.5 C 103 H 18 93 03/29/22 04:30 126/79 03/29/22 04:15 37.5 C 104 H 18 93 03/29/22 04:15 118/79 03/29/22 04:00 37.5 C 104 H 16 93 03/29/22 04:00 118/78 03/29/22 03:45 120/84 03/29/22 03:45 37.5 C 104 H 18 93 03/29/22 03:30 37.6 C H 103 H 18 94 03/29/22 03:30 110/82 03/29/22 03:15 37.6 C H 105 H 18 97 03/29/22 03:15 130/82 03/29/22 03:00 37.5 C 100 H 17 93 03/29/22 03:00 116/76 03/29/22 02:45 101/81 03/29/22 02:45 37.6 C H 100 H 18 93 03/29/22 02:30 110/72 03/29/22 02:30 37.6 C H 101 H 18 93 03/29/22 02:15 37.6 C H 105 H 17 93 03/29/22 02:15 116/78 03/29/22 02:00 37.6 C H 105 H 17 94 03/29/22 02:00 122/80 03/29/22 01:45 37.6 C H 107 H 17 93 03/29/22 01:45 118/74 03/29/22 01:30 37.6 C H 108 H 18 93 03/29/22 01:30 127/77 08/27/22 01:15 37.6 C H 110 H 17 93 03/29/22 01:15 117/95 03/29/22 01:00 37.6 C H 111 H 18 93 03/29/22 01:00 129/89 03/29/22 00:45 37.6 C H 112 H 17 92 03/29/22 00:45 125/88 03/29/22 00:30 37.6 C H 113 H 17 93 03/29/22 00:30 129/88 03/29/22 00:15 37.6 C H 112 H 17 93 03/29/22 00:15 129/88 03/29/22 04:00 03/29/22 03:48 101 H 18 94 03/29/22 03:48 101 H 18 94 Mechanical Vent 03/28/22 23:45 150/95 H 03/28/22 23:45 37.6 C H 112 H 18 93 03/28/22 23:30 37.6 C H 112 H 18 92 03/28/22 23:30 143/100 H 03/28/22 23:15 37.6 C H 109 H 18 93 03/28/22 23:15 147/99 H 03/28/22 23:00 37.6 C H 102 H 18 92 03/28/22 23:00 143/115 H 03/28/22 22:45 37.6 C H 99 H 18 93 03/28/22 22:45 120/89 03/28/22 22:30 37.6 C H 98 H 18 93 03/28/22 22:30 132/90 03/28/22 22:15 37.6 C H 98 H 18 93 03/28/22 22:15 130/90 03/28/22 22:00 37.5 C 98 H 18 93 03/28/22 22:00 131/93 03/28/22 21:45 37.5 C 99 H 18 93 03/28/22 21:45 126/90 03/28/22 21:30 37.5 C 100 H 18 93 03/28/22 21:30 127/91 03/28/22 21:15 124/91 03/28/22 21:15 37.5 C 100 H 18 93 03/28/22 21:00 37.5 C 100 H 18 93 03/28/22 21:00 139/100 03/28/22 20:45 37.5 C 101 H 18 92 03/28/22 20:45 131/99 03/28/22 20:30 136/97 03/28/22 20:30 37.5 C 100 H 18 93 03/28/22 20:15 137/99 03/28/22 20:15 37.5 C 101 H 18 93 03/29/22 00:00 03/29/22 00:00 113 H 03/28/22 23:18 99 H 18 93 03/28/22 23:18 99 H 18 93 Mechanical Vent FiO2 03/29/22 07:42 35 03/29/22 07:02 35 03/29/22 07:00 35 03/29/22 06:15 03/29/22 06:15 03/29/22 06:00 03/29/22 06:00 03/29/22 05:45 03/29/22 05:45 03/29/22 05:30 03/29/22 05:30 03/29/22 05:15 03/29/22 05:15 03/29/22 05:00 03/29/22 05:00 03/29/22 04:45 03/29/22 04:45 03/29/22 04:30 03/29/22 04:30 03/29/22 04:15 03/29/22 04:15 03/29/22 04:00 03/29/22 04:00 03/29/22 03:45 03/29/22 03:45 03/29/22 03:30 03/29/22 03:30 03/29/22 03:15 03/29/22 03:15 03/29/22 03:00 03/29/22 03:00 03/29/22 02:45 03/29/22 02:45 03/29/22 02:30 03/29/22 02:30 03/29/22 02:15 03/29/22 02:15 03/29/22 02:00 03/29/22 02:00 03/29/22 01:45 03/29/22 01:45 03/29/22 01:30 03/29/22 01:30 03/29/22 01:15 03/29/22 01:15 03/29/22 01:00 03/29/22 01:00 03/29/22 00:45 03/29/22 00:45 03/29/22 00:30 03/29/22 00:30 03/29/22 00:15 03/29/22 00:15 03/29/22 04:00 35 03/29/22 03:48 35 03/29/22 03:48 03/28/22 23:45 03/28/22 23:45 03/28/22 23:30 03/28/22 23:30 03/28/22 23:15 03/28/22 23:15 03/28/22 23:00 03/28/22 23:00 03/28/22 22:45 03/28/22 22:45 03/28/22 22:30 03/28/22 22:30 03/28/22 22:15 03/28/22 22:15 03/28/22 22:00 03/28/22 22:00 03/28/22 21:45 03/28/22 21:45 03/28/22 21:30 03/28/22 21:30 03/28/22 21:15 03/28/22 21:15 03/28/22 21:00 03/28/22 21:00 03/28/22 20:45 03/28/22 20:45 03/28/22 20:30 03/28/22 20:30 03/28/22 20:15 03/28/22 20:15 03/29/22 00:00 35 03/29/22 00:00 03/28/22 23:18 35 03/28/22 23:18 35 Laboratory Results 03/29/22 04:40 03/29/22 04:37 Coding Level of Care Code Critical Care 1st 30-74 mins Diagnoses Acute exacerbation of chronic obstructive pulmonary disease J44.1 Acute on chronic respiratory failure with hypoxia and hypercapnia J96.21; J96.22 COPD (chronic obstructive pulmonary disease) with chronic bronchitis J44.9 Personal history of nicotine dependence Z87.891 Multiple pulmonary nodules R91.8 Time Spent (min) 37
[2022-03-29] MEDS ORDERED: SODIUM PHOSPHATE 3 MMOL/1 ML INFUSION IV STA (09:43)
[2022-03-29] MEDS: ENOXAPARIN INJ 40 MG/0.4 ML SYR SQ SCH (10:11)
[2022-03-29] MEDS: PANTOprazole 40 MG in SYRINGE 0 ML IV SCH (10:11)
[2022-03-29] MEDS ORDERED: SODIUM PHOSPHATE 15 MMOL in SODIUM CHLORIDE 0.9% 250 ML IV ONE (10:15)
[2022-03-29] MEDS: propofoL 1,000 MG/100 ML VIAL IV SCH (12:16)
[2022-03-29] MEDS ORDERED: ACETAMINOPHEN 1,000 MG/100 ML VIAL IV PRN (12:38)
[2022-03-29] MEDS: NYSTATIN SUSP 500,000 U/5 ML UDC PO SCH ×2 (13:52→20:34)
[2022-03-29] MEDS: FAMOTIDINE 20 MG TAB PO PRN (18:38)
--- NOTE | 2022-03-29 21:34 | Hospitalist Progress Note ---
Date of Service March 29, 2022 Assessment & Plan (1) Acute on chronic respiratory failure with hypoxia and hypercapnia: Plan: Due to COPD exacerbation. Due to dust/heat/humidity while camping at [facility]. - Continue steroids - Continue standing and PRN DuoNebs - Continue azithromycin and guaifenesin - Consulted pulm on 03/24 for continued poor air movement. Added Anoro and Mucomyst, but does not want Mucomyst. Added roflumilast on 03/26. Transitioned to prednisone on 03/27, but she had significant respiratory distress and required BiPap. -> CTA chest negative for PE and pneumonia. Seen by pulm and returned to Solu- Medrol BID. Patient is currently intubated 03/28. Plan is to do weaning trial and extubate this AM 03/29 continue IV steroids. (2) Smokes less than 1/2 pack per day: Plan: Cessation counseling ongoing she notes she is quitting smoking. (3) COPD (chronic obstructive pulmonary disease) with chronic bronchitis: Plan: Manage as above (4) Hypothyroidism: Plan: TSH was 1.345 this admission. - Continue levothyroxine 25 mcg daily (5) GERD (gastroesophageal reflux disease): Plan: - Maalox and famotidine PRN (6) Depression: Plan: - Continue fluoxetine (7) Hyperglycemia: Plan: Likely stress/steroid response, as her A1c is only 5.6%. - Sliding scale insulin - BSs have been 80-180 in last 24 hours. Plan DVT prophylaxis Lovenox Admission and Anticipated Discharge Date Admission Date: March 21, 2022 Subjective 61 yo female remains intubated. Review of Systems Review of Systems: Unobtainable due to endotracheal tube Physical Exam Physical Exam: Constitutional: intubated and sedated HEENT: EET placed Lung: decreased breathsounds Heart: Normal S1, S2 Abd: soft, nontender, nondistended Extremity: normal pulses. Psych: unable to assess Results & Data Results & Data ([facility]) Vital Signs (Past 12 Hours) Vital Signs Temp Pulse Pulse Resp BP Pulse Ox O2 Del Method 03/29/22 20:00 37.6 C H 88 18 95 03/29/22 20:00 129/78 03/29/22 19:30 37.6 C H 88 14 94 03/29/22 19:30 114/85 03/29/22 19:00 37.6 C H 90 14 94 03/29/22 19:00 128/77 03/29/22 20:00 Nasal Cannula 03/29/22 19:14 89 18 96 Nasal Cannula 03/29/22 18:00 37.6 C H 90 15 93 03/29/22 18:00 133/81 03/29/22 17:30 37.6 C H 85 14 94 03/29/22 17:30 110/71 03/29/22 17:00 37.6 C H 92 H 12 94 03/29/22 17:00 120/78 03/29/22 16:30 37.6 C H 90 12 94 03/29/22 16:30 108/69 03/29/22 16:00 37.6 C H 97 H 16 93 03/29/22 16:00 105/71 03/29/22 15:31 37.6 C H 93 H 16 93 03/29/22 15:31 102/79 03/29/22 15:00 37.5 C 94 H 11 L 93 03/29/22 15:00 105/67 03/29/22 14:30 37.5 C 97 H 11 L 92 03/29/22 14:30 101/70 03/29/22 16:00 101 H 03/29/22 15:14 97 H 17 92 Nasal Cannula 03/29/22 14:00 37.5 C 101 H 13 93 03/29/22 14:00 112/72 03/29/22 13:30 37.5 C 102 H 19 95 03/29/22 13:30 127/84 03/29/22 13:00 37.5 C 104 H 17 94 03/29/22 13:00 128/92 03/29/22 12:30 37.4 C 108 H 15 93 03/29/22 12:30 152/94 H 03/29/22 12:00 37.4 C 109 H 16 94 03/29/22 12:00 149/106 H 03/29/22 11:30 37.4 C 107 H 17 93 03/29/22 11:30 129/104 H 03/29/22 11:00 37.4 C 102 H 14 94 03/29/22 11:00 133/95 03/29/22 10:30 37.4 C 100 H 15 93 03/29/22 10:30 131/95 03/29/22 10:00 37.4 C 100 H 16 93 03/29/22 10:00 138/99 03/29/22 14:25 94 Nasal Cannula 03/29/22 11:05 102 H 24 94 03/29/22 11:04 102 H 24 94 BiPAP O2 Flow Rate FiO2 03/29/22 20:00 03/29/22 20:00 03/29/22 19:30 03/29/22 19:30 03/29/22 19:00 03/29/22 19:00 03/29/22 20:00 2 03/29/22 19:14 2 03/29/22 18:00 03/29/22 18:00 03/29/22 17:30 03/29/22 17:30 03/29/22 17:00 03/29/22 17:00 03/29/22 16:30 03/29/22 16:30 03/29/22 16:00 03/29/22 16:00 03/29/22 15:31 03/29/22 15:31 03/29/22 15:00 03/29/22 15:00 03/29/22 14:30 03/29/22 14:30 03/29/22 16:00 03/29/22 15:14 2 03/29/22 14:00 03/29/22 14:00 03/29/22 13:30 03/29/22 13:30 03/29/22 13:00 03/29/22 13:00 03/29/22 12:30 03/29/22 12:30 03/29/22 12:00 03/29/22 12:00 03/29/22 11:30 03/29/22 11:30 03/29/22 11:00 03/29/22 11:00 03/29/22 10:30 03/29/22 10:30 03/29/22 10:00 03/29/22 10:00 03/29/22 14:25 3 03/29/22 11:05 35 03/29/22 11:04 35 PG Care Time/CCT Total # of Minutes Spent Total Time Spent with Patient: Total time spent is greater than 50% in coordination of care (as documented) at patient's floor/unit and/or counseling patient: Coding Level of Care Code 68629 Subseq Hosp Care Lvl 2 Diagnoses Acute on chronic respiratory failure with hypoxia and hypercapnia J96.21; J96.22 Smokes less than 1/2 pack per day F17.210 COPD (chronic obstructive pulmonary disease) with chronic bronchitis J44.9 Hypothyroidism E03.9 GERD (gastroesophageal reflux disease) K21.9 Depression F32.9 Hyperglycemia R73.9
[2022-03-29] MEDS: clonazePAM 0.5 MG TAB PO PRN (22:08)
[2022-03-30] MEDS: INSULIN ASPART PER UNIT SC SCH ×4 (00:27→17:13)
[2022-03-30] MEDS: propofoL 1,000 MG/100 ML VIAL IV SCH (01:05)
[2022-03-30 05:36] LABS: BUN Creatinine Ratio 47.2 (10-20); Calcium 8.1 mg/dl (8.5-10.1); Creatinine Clr Calc Pharmacy 101.3 ml/min; Est GFR (African American) 119.6 ml/min; Est GFR (Non-African American) 103.2 ml/min; Magnesium 1.8 mg/dl (1.7-2.4); Phosphorus 2.7 mg/dl (2.5-4.9); Potassium 4.2 mmol/L (3.5-5.1)
[2022-03-30 05:38] LABS: Hematocrit (blood only) 42.9 % (34.1-44.9); Hemoglobin 14.3 g/dl (12.0-16.0); Mean Corpuscular Hemoglobin 31.8 pg (25.0-34.0); Mean Corpuscular Hgb Conc 33.3 g/dL (32.0-36.0); Mean Corpuscular Volume 95.3 fL (80.0-100.0); Mean Platelet Volume 9.6 fL (9.4-12.3); Platelet Count 149 K/uL (130-400); RDW Coefficient of Variation 12.9 % (11.5-14.5); RDW Standard Deviation 45.3 fL (36.4-46.3); White Blood Count 12.39 K/ul (4.8-10.8)
[2022-03-30 06:24] LABS: Basophils # (auto) 0.01 K/uL (0-0.2); Basophils % (auto) 0.1 %; Immature Granulocytes # (auto) 0.08 K/uL (0.00-0.02); Immature Granulocytes % (auto) 0.6 %; Lymphocytes # (auto) 0.37 K/uL (1.2-3.4); Monocytes # (auto) 0.53 K/uL (0.24-0.82); Monocytes % (auto) 4.3 %
[2022-03-30] MEDS: FAMOTIDINE 20 MG TAB PO PRN ×2 (06:34→16:22)
[2022-03-30] MEDS: LEVOTHYROXINE SODIUM 25 MCG TABLET PO SCH (06:34)
[2022-03-30] MEDS: ALBUT/IPRATROP 3MG/0.5MG NEB 3 ML VIAL NEB SCH ×5 (06:55→19:38)
[2022-03-30] MEDS ORDERED: MAGNESIUM SULFATE / D5W 1 GM/100 ML BAG IV ONE (07:05)
--- NOTE | 2022-03-30 08:25 | Pulmonology Progress Note ---
Date of Service March 30, 2022 Assessment & Plan (1) Acute exacerbation of chronic obstructive pulmonary disease: (2) Acute on chronic respiratory failure with hypoxia and hypercapnia: (3) COPD (chronic obstructive pulmonary disease) with chronic bronchitis: (4) Personal history of nicotine dependence: (5) Multiple pulmonary nodules: Plan Chest x-ray 03/21/2022 personally reviewed: Portable film, bilateral costophrenic angles are blunted, increased cardiac silhouette, no clear lung infiltrate appreciated CT chest 10/24/2021 personally reviewed: Severe centrilobular and paraseptal emphysema appreciated bilaterally Right upper lobe 6 mm pulmonary nodule along with 8 mm pulmonary nodule, right middle lobe peripheral opacity, right lower lobe peripheral granuloma No mediastinal lymphadenopathy PFT 02/27/2022 personally reviewed: Very severe COPD with emphysema, significant bronchodilator response, air trapping, very severe decrease in DLCO FVC 1.44 L 46%, FEV1 0.51 L 21%, FEV1/FVC 36%, RV to 40%, TLC 130%, RV/TLC 185%, DLCO 22% ABG 03/21/2022: 7.28/68/152 on 24% FiO2 --> 03/24/2022: 7.42/58/99 on 1 L oxygen -- S/p VDRF Likely secondary to acute COPD exacerbation Intubated 03/27/2022, extubated 03/29/2020 Very severe COPD On Trelegy At home Procalcitonin negative COVID-19 PCR negative On Trelegy inhaler at home. Patient's QTC is 471. She would not be a good candidate for chronic azithromycin therapy Roflumilast could be added prior to discharge 250 MCG for 4 weeks followed by 500 MCG on a daily basis Consideration for endobronchial valve and lung transplant should be made if the patient is willing to quit I did go over regarding the same with the patient and she will try her best to quit. --Acute hypercapnic hypoxic respiratory failure Secondary to COPD exacerbation Plan as above -- Current smoker Importance of quitting explained the patient in depth Patient is willing to quit --Multiple pulmonary nodules Have been stable Continue with screening CAT scan --Prophylaxis VTE: Lovenox GI: Protonix Lines: Peripheral Diet: Cardiac Plan: In/out: -2.9 L, urine output 3475 Patient will benefit from a trilogy machine at home. We will get social work involved Decreased Solu-Medrol 40 mg once a day Due to chronic respiratory failure consequent to COPD, patient now requires a noninvasive home ventilator. Bilevel therapy with and without a rate would be ineffective as patient requires a volume targeted mode. Ventilation is required to decrease work of breathing and improve pulmonary status. Interruption of ventilator support would lead to decline of health status. NIMV settings should be AVAPS-AE; Breath rate: auto; Inspiratory time:auto; Sigh: off; Tidal Volume: 350-450, PS min: 4-10 PS max: 12-20; EPAP min: 6-10; EPAP max: 10-16; AVAPS rate: 14 during sleep and as needed Case discussed with Dr Santana Please note the above document was generated using voice recognition software. It may contain grammatical, syntax or spelling errors.Any formal questions or concerns about the content, text or information contained within the body of this dictation should be directly addressed to the provider for clarification. Admission and Anticipated Discharge Date Admission Date: March 21, 2022 Subjective Patient seen and examined at bedside. No acute distress, no adverse events overnight. Patient is BiPAP overnight Denies any chest pain, shortness of breath is improved No headache, no nausea, no vomiting Fair appetite. Review of Systems Review of Systems: All systems reviewed & are unremarkable except as noted in Subjective Physical Exam Physical Exam: Constitutional: No acute distress HEENT: EOMI, PERRLA Respiratory system: Decreased air entry bilaterally, no crackles, no rhonchi, no wheeze CVS: S1-S2 positive, no murmurs or gallops Abdomen: Soft, nontender, nondistended, positive bowel sounds x4 Extremities: +2 pulses bilaterally radialis/ dorsalis pedis, no cyanosis, no edema Neuro: Awake alert oriented x3 Psych: Normal mood and affect G/U: Positive Perez Skin: no rashes, warm and dry Lymphatic: no cervical or axillary lymphadenopathy Results & Data Results & [facility] ([facility]) Vital Signs (Past 12 Hours) Vital Signs Temp Pulse Pulse Resp BP Pulse Ox O2 Del Method 03/30/22 07:55 89 03/30/22 07:16 Room Air 03/30/22 06:57 83 18 98 Nasal Cannula 03/30/22 06:30 132/81 03/30/22 06:30 37.2 C 83 19 96 03/30/22 06:00 37.3 C 80 13 91 03/30/22 06:00 104/76 03/30/22 05:30 37.3 C 85 14 91 03/30/22 05:30 129/75 03/30/22 05:00 37.3 C 82 16 92 03/30/22 05:00 137/82 03/30/22 04:30 37.3 C 82 14 92 03/30/22 04:30 121/77 03/30/22 04:00 37.3 C 83 20 92 03/30/22 04:00 106/73 03/30/22 03:30 123/84 03/30/22 03:30 37.3 C 83 23 93 03/30/22 03:00 37.4 C 81 16 93 03/30/22 03:00 114/84 03/30/22 02:30 116/73 03/30/22 02:30 37.5 C 82 19 94 03/30/22 02:00 37.5 C 86 18 93 03/30/22 02:00 118/77 03/30/22 01:30 37.5 C 81 14 92 03/30/22 01:30 98/69 L 03/30/22 01:00 37.5 C 84 28 H 92 03/30/22 01:00 96/73 L 03/30/22 00:30 127/76 03/30/22 00:30 37.4 C 89 18 94 03/30/22 00:00 37.5 C 88 18 93 03/30/22 00:00 109/74 03/29/22 23:30 37.5 C 89 15 95 03/29/22 23:30 105/79 03/29/22 23:00 37.5 C 89 17 98 03/29/22 23:00 148/92 H 03/29/22 22:30 37.5 C 87 18 94 03/29/22 22:30 130/79 03/29/22 22:00 37.7 C H 88 13 95 03/29/22 22:00 130/75 03/29/22 21:30 37.6 C H 87 16 94 03/29/22 21:30 131/76 03/29/22 21:00 37.6 C H 88 15 93 03/29/22 21:00 135/80 03/29/22 20:30 37.5 C 89 13 94 03/29/22 20:30 116/78 03/30/22 00:00 85 03/29/22 23:36 87 18 96 BiPAP 03/29/22 23:33 87 26 H 96 O2 Flow Rate FiO2 03/30/22 07:55 03/30/22 07:16 03/30/22 06:57 2 03/30/22 06:30 03/30/22 06:30 03/30/22 06:00 03/30/22 06:00 03/30/22 05:30 03/30/22 05:30 03/30/22 05:00 03/30/22 05:00 03/30/22 04:30 03/30/22 04:30 03/30/22 04:00 03/30/22 04:00 03/30/22 03:30 03/30/22 03:30 03/30/22 03:00 03/30/22 03:00 03/30/22 02:30 03/30/22 02:30 03/30/22 02:00 03/30/22 02:00 03/30/22 01:30 03/30/22 01:30 03/30/22 01:00 03/30/22 01:00 03/30/22 00:30 03/30/22 00:30 03/30/22 00:00 03/30/22 00:00 03/29/22 23:30 03/29/22 23:30 03/29/22 23:00 03/29/22 23:00 03/29/22 22:30 03/29/22 22:30 03/29/22 22:00 03/29/22 22:00 03/29/22 21:30 03/29/22 21:30 03/29/22 21:00 03/29/22 21:00 03/29/22 20:30 03/29/22 20:30 03/30/22 00:00 03/29/22 23:36 35 03/29/22 23:33 35 Laboratory Results 03/30/22 04:46 03/30/22 04:46 PG Care Time/CCT Total # of Minutes Spent Total Time Spent with Patient: Total time spent is greater than 50% in coordination of care (as documented) at patient's floor/unit and/or counseling patient: Coding Level of Care Code 92449 Subseq Hosp Care Lvl 3 Diagnoses Acute exacerbation of chronic obstructive pulmonary disease J44.1 Acute on chronic respiratory failure with hypoxia and hypercapnia J96.21; J96.22 COPD (chronic obstructive pulmonary disease) with chronic bronchitis J44.9 Personal history of nicotine dependence Z87.891 Multiple pulmonary nodules R91.8
[2022-03-30] MEDS: NYSTATIN SUSP 500,000 U/5 ML UDC PO SCH ×3 (08:53→20:40)
[2022-03-30] MEDS: FLUoxetine HCL 20 MG/5 ML 120ML BTL GT SCH (08:53)
[2022-03-30] MEDS: methylPREDNISolone 40 MG in SYRINGE 0 ML IV SCH (08:53)
[2022-03-30] MEDS: MULTI VIT W/MINERALS LIQUID 15 ML UDP PO SCH (09:07)
[2022-03-30] MEDS: DOCUSATE SODIUM SYRUP 100 MG/10 ML UDC GT SCH ×2 (09:08→20:40)
[2022-03-30] MEDS: SENNOSIDES 8.8 MG/5 ML UDC PO SCH ×2 (09:08→20:40)
[2022-03-30] MEDS: PANTOprazole 40 MG in SYRINGE 0 ML IV SCH (11:00)
[2022-03-30] MEDS: ENOXAPARIN INJ 40 MG/0.4 ML SYR SQ SCH (11:20)
[2022-03-30] MEDS: clonazePAM 0.5 MG TAB PO PRN (18:23)
[2022-03-30] MEDS: guaiFENesin 600 MG TABCR PO SCH (20:38)
--- NOTE | 2022-03-30 21:27 | Hospitalist Progress Note ---
Date of Service March 30, 2022 Assessment & Plan (1) Acute on chronic respiratory failure with hypoxia and hypercapnia: Plan: Due to COPD exacerbation. Due to dust/heat/humidity while camping at [facility]. - Continue steroids - Continue standing and PRN DuoNebs - Continue azithromycin and guaifenesin - Consulted pulm on 03/24 for continued poor air movement. Added Anoro and Mucomyst, but does not want Mucomyst. Added roflumilast on 03/26. Transitioned to prednisone on 03/27, but she had significant respiratory distress and required BiPap. -> CTA chest negative for PE and pneumonia. Seen by pulm and returned to Solu- Medrol BID. Patient is currently intubated 03/28. Plan is to do weaning trial and extubate this AM 03/29 continue IV steroids. On 03/30 Patient is comfortobale on nasal cannula. will be downgraded out of the unit. will need trelergy machine. will monitor. (2) Smokes less than 1/2 pack per day: Plan: Cessation counseling ongoing she notes she is quitting smoking. (3) COPD (chronic obstructive pulmonary disease) with chronic bronchitis: Plan: Manage as above (4) Hypothyroidism: Plan: TSH was 1.345 this admission. - Continue levothyroxine 25 mcg daily (5) GERD (gastroesophageal reflux disease): Plan: - Maalox and famotidine PRN (6) Depression: Plan: - Continue fluoxetine (7) Hyperglycemia: Plan: Likely stress/steroid response, as her A1c is only 5.6%. - Sliding scale insulin - BSs have been 80-180 in last 24 hours. Plan DVT prophylaxis Lovenox Admission and Anticipated Discharge Date Admission Date: March 21, 2022 Subjective 61 yo female reports feeling better. Patient reports breathing well. She has no new complaints. Review of Systems Review of Systems: All systems reviewed & are unremarkable except as noted in HPI & below Physical Exam Physical Exam: Constitutional: WD/WN, vitals as above Eyes: EOM intact bilaterally; no conjunctival abnormality ENMT: external ear and nose normal, oropharynx normal Neck: trachea midline, no thyromegaly normal visual inspection Respiratory: + labored breathing, + uses accessory muscles, + tachypneic, + prolonged expiratory phase and + pursed lip breathing; no respiratory distress and + not able to speak in complete sentence Auscultation: + diminished lung sounds, + wheezes and + abnormal I/E ratio Cardiovascular: RRR, no murmur, no edema Gastrointestinal (Abdomen): Inspection/Auscultation: abdomen normal to inspection; abdomen not distended Musculoskeletal: no cyanosis or clubbing, extremities motor strength 5/5 Skin: no rashes, warm and dry Neurologic: moves all extremities and awake Psychiatric: Orientation: alert, oriented to person and cooperative Results & Data Results & Data ([facility]) Vital Signs (Past 12 Hours) Vital Signs Temp Pulse Pulse Resp BP BP Pulse Ox 03/30/22 19:26 36.4 C L 78 20 116/79 97 03/30/22 19:42 70 14 93 03/30/22 19:17 81 03/30/22 19:04 82 3 L 03/30/22 18:50 37.0 C 03/30/22 18:40 37.0 C 81 15 99 03/30/22 18:30 37.0 C 85 14 98 03/30/22 18:30 124/80 03/30/22 18:20 37.1 C 88 15 98 03/30/22 18:10 37.1 C 93 H 18 95 03/30/22 18:00 37.1 C 90 12 97 03/30/22 18:00 139/79 03/30/22 17:50 37.1 C 88 11 L 97 03/30/22 17:40 37.1 C 89 13 96 03/30/22 17:30 37.1 C 87 18 97 03/30/22 17:30 109/74 03/30/22 17:20 37.0 C 85 13 97 03/30/22 17:10 37.1 C 91 H 13 96 03/30/22 17:00 37.1 C 97 H 14 98 03/30/22 17:00 101/73 03/30/22 16:50 37.1 C 95 H 18 97 03/30/22 16:40 37.1 C 97 H 21 97 03/30/22 16:30 37.1 C 99 H 22 95 03/30/22 16:30 142/90 H 03/30/22 16:20 37.1 C 84 14 95 03/30/22 16:10 37.2 C 101 H 14 98 03/30/22 16:00 37.2 C 91 H 25 H 97 03/30/22 16:00 129/82 03/30/22 15:50 37.3 C 94 H 18 97 03/30/22 15:40 37.3 C 93 H 19 98 03/30/22 15:30 37.3 C 92 H 16 100 03/30/22 15:30 126/85 03/30/22 15:20 37.3 C 94 H 22 80 L 03/30/22 15:10 37.3 C 83 15 97 03/30/22 15:00 37.3 C 85 21 98 03/30/22 15:00 123/89 03/30/22 14:50 37.3 C 83 12 98 03/30/22 14:40 37.2 C 86 13 99 03/30/22 14:30 37.2 C 86 15 98 03/30/22 14:30 119/82 03/30/22 14:20 37.2 C 85 15 100 03/30/22 14:10 37.2 C 91 H 23 97 03/30/22 14:00 37.2 C 90 26 H 99 03/30/22 14:00 125/87 03/30/22 13:50 37.2 C 89 18 90 03/30/22 16:00 91 H 03/30/22 15:27 95 H 20 93 03/30/22 13:40 37.1 C 93 H 21 85 L 03/30/22 13:30 37.2 C 91 H 18 92 03/30/22 13:30 143/95 H 03/30/22 13:20 37.2 C 95 H 20 92 03/30/22 13:10 37.2 C 88 22 93 03/30/22 13:00 37.2 C 90 21 93 03/30/22 13:00 123/82 03/30/22 12:50 37.2 C 89 17 96 03/30/22 12:40 37.2 C 93 H 22 81 L 03/30/22 12:30 37.2 C 97 H 23 81 L 03/30/22 12:30 122/80 03/30/22 12:20 37.2 C 95 H 21 03/30/22 12:10 37.2 C 94 H 15 98 03/30/22 12:01 37.2 C 92 H 24 95 03/30/22 12:01 139/55 L 03/30/22 12:00 37.2 C 92 H 17 95 03/30/22 11:50 37.2 C 101 H 17 96 03/30/22 11:40 37.2 C 106 H 25 H 97 03/30/22 11:31 37.2 C 101 H 20 96 03/30/22 11:31 143/117 H 03/30/22 11:30 37.2 C 99 H 19 97 03/30/22 11:20 37.3 C 89 17 03/30/22 11:10 37.3 C 83 16 03/30/22 11:00 37.2 C 86 16 95 03/30/22 11:00 117/95 03/30/22 12:35 03/30/22 11:11 88 18 95 03/30/22 10:50 37.2 C 93 H 28 H 03/30/22 10:40 37.1 C 90 14 95 03/30/22 10:30 37.1 C 89 17 87 L 03/30/22 10:30 157/98 H 03/30/22 10:20 37.1 C 83 16 92 03/30/22 10:10 37.0 C 83 19 90 03/30/22 10:00 37.0 C 84 14 89 L 03/30/22 10:00 141/111 H 03/30/22 09:50 36.9 C 82 16 91 03/30/22 09:40 37.0 C 83 14 88 L 03/30/22 09:30 37.0 C 85 12 90 03/30/22 09:30 149/88 H Pulse Ox Pulse Ox Pulse Ox O2 Del Method O2 Flow Rate O2 Flow Rate O2 Flow Rate 03/30/22 19:26 Nasal Cannula 2 03/30/22 19:42 Nasal Cannula 2 03/30/22 19:17 03/30/22 19:04 03/30/22 18:50 03/30/22 18:40 03/30/22 18:30 03/30/22 18:30 03/30/22 18:20 03/30/22 18:10 03/30/22 18:00 03/30/22 18:00 03/30/22 17:50 03/30/22 17:40 03/30/22 17:30 03/30/22 17:30 03/30/22 17:20 03/30/22 17:10 03/30/22 17:00 03/30/22 17:00 03/30/22 16:50 03/30/22 16:40 03/30/22 16:30 03/30/22 16:30 03/30/22 16:20 03/30/22 16:10 03/30/22 16:00 03/30/22 16:00 03/30/22 15:50 03/30/22 15:40 03/30/22 15:30 03/30/22 15:30 03/30/22 15:20 03/30/22 15:10 03/30/22 15:00 03/30/22 15:00 03/30/22 14:50 03/30/22 14:40 03/30/22 14:30 03/30/22 14:30 03/30/22 14:20 03/30/22 14:10 03/30/22 14:00 03/30/22 14:00 03/30/22 13:50 03/30/22 16:00 03/30/22 15:27 Nasal Cannula 3 03/30/22 13:40 03/30/22 13:30 03/30/22 13:30 03/30/22 13:20 03/30/22 13:10 03/30/22 13:00 03/30/22 13:00 03/30/22 12:50 03/30/22 12:40 03/30/22 12:30 03/30/22 12:30 03/30/22 12:20 03/30/22 12:10 03/30/22 12:01 03/30/22 12:01 03/30/22 12:00 03/30/22 11:50 03/30/22 11:40 03/30/22 11:31 03/30/22 11:31 03/30/22 11:30 03/30/22 11:20 03/30/22 11:10 03/30/22 11:00 03/30/22 11:00 03/30/22 12:35 86 L 90 89 L 2.5 2.5 03/30/22 11:11 Nasal Cannula 2 03/30/22 10:50 03/30/22 10:40 03/30/22 10:30 03/30/22 10:30 03/30/22 10:20 03/30/22 10:10 03/30/22 10:00 03/30/22 10:00 03/30/22 09:50 03/30/22 09:40 03/30/22 09:30 03/30/22 09:30 O2 Flow Rate 03/30/22 19:26 03/30/22 19:42 03/30/22 19:17 03/30/22 19:04 03/30/22 18:50 03/30/22 18:40 03/30/22 18:30 03/30/22 18:30 03/30/22 18:20 03/30/22 18:10 03/30/22 18:00 03/30/22 18:00 03/30/22 17:50 03/30/22 17:40 03/30/22 17:30 03/30/22 17:30 03/30/22 17:20 03/30/22 17:10 03/30/22 17:00 03/30/22 17:00 03/30/22 16:50 03/30/22 16:40 03/30/22 16:30 03/30/22 16:30 03/30/22 16:20 03/30/22 16:10 03/30/22 16:00 03/30/22 16:00 03/30/22 15:50 03/30/22 15:40 03/30/22 15:30 03/30/22 15:30 03/30/22 15:20 03/30/22 15:10 03/30/22 15:00 03/30/22 15:00 03/30/22 14:50 03/30/22 14:40 03/30/22 14:30 03/30/22 14:30 03/30/22 14:20 03/30/22 14:10 03/30/22 14:00 03/30/22 14:00 03/30/22 13:50 03/30/22 16:00 03/30/22 15:27 03/30/22 13:40 03/30/22 13:30 03/30/22 13:30 03/30/22 13:20 03/30/22 13:10 03/30/22 13:00 03/30/22 13:00 03/30/22 12:50 03/30/22 12:40 03/30/22 12:30 03/30/22 12:30 03/30/22 12:20 03/30/22 12:10 03/30/22 12:01 03/30/22 12:01 03/30/22 12:00 03/30/22 11:50 03/30/22 11:40 03/30/22 11:31 03/30/22 11:31 03/30/22 11:30 03/30/22 11:20 03/30/22 11:10 03/30/22 11:00 03/30/22 11:00 03/30/22 12:35 2.5 03/30/22 11:11 03/30/22 10:50 03/30/22 10:40 03/30/22 10:30 03/30/22 10:30 03/30/22 10:20 03/30/22 10:10 03/30/22 10:00 03/30/22 10:00 03/30/22 09:50 03/30/22 09:40 03/30/22 09:30 03/30/22 09:30 PG Care Time/CCT Total # of Minutes Spent Total Time Spent with Patient: Total time spent is greater than 50% in coordination of care (as documented) at patient's floor/unit and/or counseling patient: Coding Level of Care Code 21635 Subseq Hosp Care Lvl 3 Diagnoses Acute on chronic respiratory failure with hypoxia and hypercapnia J96.21; J96.22 Smokes less than 1/2 pack per day F17.210 COPD (chronic obstructive pulmonary disease) with chronic bronchitis J44.9 Hypothyroidism E03.9 GERD (gastroesophageal reflux disease) K21.9 Depression F32.9 Hyperglycemia R73.9
[2022-03-31] MEDS: LEVOTHYROXINE SODIUM 25 MCG TABLET PO SCH (05:30)
[2022-03-31] MEDS: MULTI VIT W/MINERALS LIQUID 15 ML UDP PO SCH (08:14)
[2022-03-31] MEDS: NYSTATIN SUSP 500,000 U/5 ML UDC PO SCH ×3 (08:14→20:06)
[2022-03-31] MEDS: UMECLIDINIUM/VILANTEROL 62.5/25MCG 7 PUFFS/INHALER INH SCH ×2 (08:14→11:37)
[2022-03-31] MEDS: FLUoxetine HCL 20 MG/5 ML 120ML BTL GT SCH (08:14)
[2022-03-31] MEDS: SENNOSIDES 8.8 MG/5 ML UDC PO SCH (08:15)
[2022-03-31] MEDS: FAMOTIDINE 20 MG TAB PO PRN ×2 (08:15→17:30)
[2022-03-31] MEDS: DOCUSATE SODIUM SYRUP 100 MG/10 ML UDC GT SCH (08:15)
[2022-03-31] MEDS: guaiFENesin 600 MG TABCR PO SCH ×2 (08:15→20:06)
[2022-03-31] MEDS ORDERED: methylPREDNISolone 40 MG in SYRINGE 0 ML IV SCH (09:00)
[2022-03-31] MEDS ORDERED: Nursing to Pharmacy Communication SCH (09:45)
[2022-03-31 10:01] LABS: Hematocrit (blood only) 45.9 % (34.1-44.9); Hemoglobin 15.2 g/dl (12.0-16.0); Mean Corpuscular Hemoglobin 31.5 pg (25.0-34.0); Mean Corpuscular Hgb Conc 33.1 g/dL (32.0-36.0); Mean Corpuscular Volume 95.2 fL (80.0-100.0); Mean Platelet Volume 9.8 fL (9.4-12.3); Platelet Count 166 K/uL (130-400); RDW Coefficient of Variation 12.9 % (11.5-14.5); RDW Standard Deviation 45.9 fL (36.4-46.3); Red Blood Count 4.82 M/uL (3.93-5.22); White Blood Count 12.02 K/ul (4.8-10.8)
--- NOTE | 2022-03-31 10:20 | Pulmonology Progress Note ---
Date of Service March 31, 2022 Assessment & Plan (1) Acute exacerbation of chronic obstructive pulmonary disease: (2) Acute on chronic respiratory failure with hypoxia and hypercapnia: (3) COPD (chronic obstructive pulmonary disease) with chronic bronchitis: (4) Personal history of nicotine dependence: (5) Multiple pulmonary nodules: Plan Impression: 61-year-old female with advanced COPD intubated due to hypoxemic and hypercarbic respiratory failure. She is now been extubated and transferred to the floor and is progressing clinically. Recommendations: 1. COPD with chronic hypercarbic respiratory failure: Not bronchospastic currently. Can transition off of parenteral steroids to p.o. prednisone 20 mg a day for 4 days and then discontinue. Continue as needed DuoNebs. Currently on Incruse. Was on Trelegy as an outpatient. We will transition her to Anoro plus Arnuity, the patient can go back on her Trelegy when she goes home. 2. Tobacco abuse: Smoking cessation recommended. 3. Hypoxemic respiratory failure: Secondary to above. Continue to wean oxygen as tolerated. Patient will likely need to be assessed for supplemental oxygen prior to discharge. Would target oxygen saturation 88% or greater. Out of bed to chair as tolerated. Increase activity as tolerated. 4. Pulmonary nodules: These can be followed up in the outpatient setting. Been stable over 3 months of time and measure less than 8 mm. Will continue to follow with you. Admission and Anticipated Discharge Date Admission Date: March 21, 2022 Subjective Patient seen and examined. EMR reviewed. Discussed with off going pulmonologi . The patient is seen sitting up eating breakfast. She states her breathing is better. She is coughing a little bit. She is not exposed back draining much phlegm. She does not report any wheezing or chest tightness. She overall feels improved. She does not use oxygen at home at baseline Review of Systems Review of Systems: All systems reviewed & are unremarkable except as noted in Subjective Physical Exam Constitutional: WD/WN, vitals as above Neck: trachea midline, no thyromegaly Respiratory: normal respiratory effort, lungs clear to auscultation Cardiovascular: RRR, no murmur, no edema Gastrointestinal (Abdomen): normal bowel sounds, soft, nontender, no hepatosplenomegaly Musculoskeletal: Extremities: extremities normal to inspection Skin: no rashes, warm and dry Neurologic: Nonfocal exam Lymphatic: no cervical lymphadenopathy Results & Data Results & Data ([facility]) Vital Signs (Past 12 Hours) Vital Signs Temp Pulse Pulse Resp BP BP Pulse Ox 03/31/22 09:47 03/31/22 08:00 78 03/31/22 07:55 36.4 C L 75 19 138/86 93 03/31/22 05:32 03/31/22 03:51 36.4 C L 80 20 132/79 96 03/30/22 22:17 79 03/30/22 23:48 36.6 C 80 20 114/78 94 03/30/22 23:39 O2 Del Method O2 Flow Rate 03/31/22 09:47 Nasal Cannula, BiPAP 2 03/31/22 08:00 03/31/22 07:55 Nasal Cannula 2 03/31/22 05:32 Nasal Cannula 2 03/31/22 03:51 2 03/30/22 22:17 03/30/22 23:48 03/30/22 23:39 Nasal Cannula 2 Laboratory Results 03/31/22 09:39 Diagnostic Findings No new imaging PG Care Time/CCT Total # of Minutes Spent Total Time Spent with Patient: Total time spent is greater than 50% in coordination of care (as documented) at patient's floor/unit and/or counseling patient: Coding Level of Care Code 34278 Subseq Hosp Care Lvl 3 Diagnoses Acute exacerbation of chronic obstructive pulmonary disease J44.1 Acute on chronic respiratory failure with hypoxia and hypercapnia J96.21; J96.22 COPD (chronic obstructive pulmonary disease) with chronic bronchitis J44.9 Personal history of nicotine dependence Z87.891 Multiple pulmonary nodules R91.8
[2022-03-31 10:22] LABS: BUN Creatinine Ratio 40.6 (10-20); Calcium 8.6 mg/dl (8.5-10.1); Est GFR (African American) 112.4 ml/min; Potassium 3.8 mmol/L (3.5-5.1)
[2022-03-31] MEDS: ENOXAPARIN INJ 40 MG/0.4 ML SYR SQ SCH (11:37)
[2022-03-31] MEDS: FLUTICASONE FUROATE 100MCG 14 PUFFS/INHALER INH SCH (11:37)
[2022-03-31] MEDS: PANTOprazole 40 MG TAB PO SCH (11:37)
[2022-03-31] MEDS: predniSONE 20 MG TAB PO SCH (11:37)
[2022-03-31] MEDS: clonazePAM 0.5 MG TAB PO PRN (16:26)
[2022-03-31] MEDS: DOCUSATE SODIUM 100 MG CAP PO SCH (20:05)
[2022-03-31] MEDS: SENNA 8.6 MG TAB PO SCH (20:06)
[2022-03-31] MEDS ORDERED: SENNA 8.6 MG TAB PO SCH (21:00)
--- NOTE | 2022-03-31 21:14 | Hospitalist Progress Note ---
Date of Service March 31, 2022 Assessment & Plan (1) Acute on chronic respiratory failure with hypoxia and hypercapnia: Plan: Due to COPD exacerbation. Due to dust/heat/humidity while camping at [facility]. - Continue steroids - Continue standing and PRN DuoNebs - Continue azithromycin and guaifenesin - Consulted pulm on 03/24 for continued poor air movement. Added Anoro and Mucomyst, but does not want Mucomyst. Added roflumilast on 03/26. Transitioned to prednisone on 03/27, but she had significant respiratory distress and required BiPap. -> CTA chest negative for PE and pneumonia. Seen by pulm and returned to Solu- Medrol BID. Patient is currently intubated 03/28. Plan is to do weaning trial and extubate this AM 03/29 continue IV steroids. On 03/30 Patient is comfortable on nasal cannula. will be downgraded out of the unit. may need trilogy machine. will monitor. On 03/31 Patient reports doing better, continue on current meds. appreciate input from pul (2) Smokes less than 1/2 pack per day: Plan: Cessation counseling ongoing she notes she is quitting smoking. (3) COPD (chronic obstructive pulmonary disease) with chronic bronchitis: Plan: Manage as above (4) Hypothyroidism: Plan: TSH was 1.345 this admission. - Continue levothyroxine 25 mcg daily (5) GERD (gastroesophageal reflux disease): Plan: - Maalox and famotidine PRN (6) Depression: Plan: - Continue fluoxetine (7) Hyperglycemia: Plan: Likely stress/steroid response, as her A1c is only 5.6%. - Sliding scale insulin - BSs have been 80-180 in last 24 hours. Plan DVT prophylaxis Lovenox Admission and Anticipated Discharge Date Admission Date: March 21, 2022 Subjective 61 yo female reports feeling better. She continues to require nasal cannula supplementation. She reports not being at her baseline but she is getting closer. Review of Systems Review of Systems: All systems reviewed & are unremarkable except as noted in HPI & below Physical Exam Physical Exam: Constitutional: WD/WN, vitals as above Eyes: EOM intact bilaterally; no conjunctival abnormality ENMT: external ear and nose normal, oropharynx normal Neck: trachea midline, no thyromegaly normal visual inspection Respiratory: no longer using accessory muscles to breath, decreased breath sounds. Cardiovascular: RRR, no murmur, no edema Gastrointestinal (Abdomen): Inspection/Auscultation: abdomen normal to inspection; abdomen not distended Musculoskeletal: no cyanosis or clubbing, extremities motor strength 5/5 Skin: no rashes, warm and dry Neurologic: moves all extremities and awake Psychiatric: Orientation: alert, oriented to person and cooperative Results & Data Results & Data ([facility]) Vital Signs (Past 12 Hours) Vital Signs Temp Pulse Pulse Resp BP Pulse Ox O2 Del Method 03/31/22 18:48 36.6 C 82 18 124/82 95 Nasal Cannula 03/31/22 16:00 80 03/31/22 15:20 36.8 C 89 18 110/78 94 Nasal Cannula 03/31/22 11:43 36.5 C 81 19 136/87 93 Nasal Cannula 03/31/22 09:47 Nasal Cannula, BiPAP O2 Flow Rate 03/31/22 18:48 2 03/31/22 16:00 03/31/22 15:20 2 03/31/22 11:43 2 03/31/22 09:47 2 PG Care Time/CCT Total # of Minutes Spent Total Time Spent with Patient: Total time spent is greater than 50% in coordination of care (as documented) at patient's floor/unit and/or counseling patient: Coding Level of Care Code 71498 Subseq Hosp Care Lvl 2 Diagnoses Acute on chronic respiratory failure with hypoxia and hypercapnia J96.21; J96.22 Smokes less than 1/2 pack per day F17.210 COPD (chronic obstructive pulmonary disease) with chronic bronchitis J44.9 Hypothyroidism E03.9 GERD (gastroesophageal reflux disease) K21.9 Depression F32.9 Hyperglycemia R73.9
[2022-04-01] MEDS: clonazePAM 0.5 MG TAB PO PRN ×3 (00:02→20:31)
[2022-04-01] MEDS: LEVOTHYROXINE SODIUM 25 MCG TABLET PO SCH (05:57)
--- NOTE | 2022-04-01 07:59 | Pulmonology Progress Note ---
Date of Service April 01, 2022 Assessment & Plan (1) Acute exacerbation of chronic obstructive pulmonary disease: (2) Acute on chronic respiratory failure with hypoxia and hypercapnia: (3) COPD (chronic obstructive pulmonary disease) with chronic bronchitis: (4) Personal history of nicotine dependence: (5) Multiple pulmonary nodules: Plan Impression: 61-year-old female with advanced COPD intubated due to hypoxemic and hypercarbic respiratory failure. She is responding appropriately and appears to to be significantly clinically improved. Recommendations: 1. COPD with chronic hypercarbic respiratory failure: Not bronchospastic currently. Complete 3 more days of prednisone twice daily 20 mg then discontinue. Continue as needed DuoNebs. Currently on Incruse. Was on Trelegy as an outpatient. We will continue her on Anoro plus Arnuity, the patient can go back on her Trelegy when she goes home. Pulmonary rehab might be a consideration as an outpatient. I advised the patient that given her hypercarbic respiratory failure, nightly noninvasive positive pressure v entilation may offer her a significant clinical benefit. She expressed understanding and is willing to try to use it on a nightly basis. Form has been signed with case management to get the patient set up at home. 2. Tobacco abuse: Smoking cessation recommended. 3. Hypoxemic respiratory failure: Secondary to above. Continue to wean oxygen as tolerated. Patient will likely need to be assessed for supplemental oxygen prior to discharge. Would target oxygen saturation 88% or greater. Out of bed to chair as tolerated. Increase activity as tolerated. 4. Pulmonary nodules: These can be followed up in the outpatient setting. Been stable over 3 months of time and measure less than 8 mm. Patient appears to be approaching discharge. Once her oxygen prescription is finalized, she may be dismissed from the hospital and follow-up in the outpatient setting with Dr. Webster. Please call if ?s Admission and Anticipated Discharge Date Admission Date: March 21, 2022 Subjective Patient seen and examined. She is awake and alert. She is conversant. No respiratory distress. Oxygen has been weaned down to 2 L nasal cannula. She is coughing less. She feels markedly better. She declined positive airway pressure last night as she felt her breathing had improved to the point that she no longer required it Review of Systems Review of Systems: All systems reviewed & are unremarkable except as noted in Subjective Physical Exam Constitutional: WD/WN, vitals as above Neck: trachea midline, no thyromegaly Respiratory: normal respiratory effort, lungs clear to auscultation Cardiovascular: RRR, no murmur, no edema Gastrointestinal (Abdomen): normal bowel sounds, soft, nontender, no hepatosplenomegaly Musculoskeletal: Extremities: extremities normal to inspection Skin: no rashes, warm and dry Lymphatic: no cervical lymphadenopathy Results & Data Results & Data ([facility]) Vital Signs (Past 12 Hours) Vital Signs Temp Pulse Pulse Resp BP BP Pulse Ox 04/01/22 06:31 36.4 C L 80 20 124/80 95 04/01/22 04:15 36.3 C L 74 18 115/78 96 04/01/22 00:05 79 03/31/22 23:48 36.3 C L 84 20 101/76 97 03/31/22 22:55 O2 Del Method O2 Flow Rate 04/01/22 06:31 2 04/01/22 04:15 2 04/01/22 00:05 03/31/22 23:48 2 03/31/22 22:55 Nasal Cannula 2 Laboratory Results 03/31/22 09:39 03/31/22 09:39 Diagnostic Findings No new imaging PG Care Time/CCT Total # of Minutes Spent Total Time Spent with Patient: Total time spent is greater than 50% in coordination of care (as documented) at patient's floor/unit and/or counseling patient: Coding Level of Care Code 38450 Subseq Hosp Care Lvl 2 Diagnoses Acute exacerbation of chronic obstructive pulmonary disease J44.1 Acute on chronic respiratory failure with hypoxia and hypercapnia J96.21; J96.22 COPD (chronic obstructive pulmonary disease) with chronic bronchitis J44.9 Personal history of nicotine dependence Z87.891 Multiple pulmonary nodules R91.8
[2022-04-01] MEDS: NYSTATIN SUSP 500,000 U/5 ML UDC PO SCH ×3 (08:21→20:30)
[2022-04-01] MEDS: FAMOTIDINE 20 MG TAB PO PRN (08:21)
[2022-04-01] MEDS: FLUTICASONE FUROATE 100MCG 14 PUFFS/INHALER INH SCH (08:22)
[2022-04-01] MEDS: CEROVITE ADV FORMULA TAB PO SCH (08:22)
[2022-04-01] MEDS: guaiFENesin 600 MG TABCR PO SCH ×2 (08:22→20:30)
[2022-04-01] MEDS: UMECLIDINIUM/VILANTEROL 62.5/25MCG 7 PUFFS/INHALER INH SCH (08:22)
[2022-04-01] MEDS: DOCUSATE SODIUM 100 MG CAP PO SCH ×2 (08:22→20:29)
[2022-04-01] MEDS: predniSONE 20 MG TAB PO SCH (08:22)
[2022-04-01] MEDS: FLUoxetine HCL 20 MG CAP PO SCH (08:23)
[2022-04-01] MEDS: SENNA 8.6 MG TAB PO SCH ×2 (08:23→20:29)
[2022-04-01] MEDS: ENOXAPARIN INJ 40 MG/0.4 ML SYR SQ SCH (11:16)
[2022-04-01] MEDS: PANTOprazole 40 MG TAB PO SCH (11:16)
--- NOTE | 2022-04-01 18:35 | Hospitalist Progress Note ---
Date of Service April 01, 2022 Assessment & Plan (1) Acute on chronic respiratory failure with hypoxia and hypercapnia: Plan: Due to COPD exacerbation. Due to dust/heat/humidity while camping at [facility]. - Continue steroids - Continue standing and PRN DuoNebs - Continue azithromycin and guaifenesin - Consulted pulm on 03/24 for continued poor air movement. Added Anoro and Mucomyst, but does not want Mucomyst. Added roflumilast on 03/26. Transitioned to prednisone on 03/27, but she had significant respiratory distress and required BiPap. -> CTA chest negative for PE and pneumonia. Seen by pulm and returned to Solu- Medrol BID. Patient is currently intubated 03/28. Plan is to do weaning trial and extubate this AM 03/29 continue IV steroids. On 03/30 Patient is comfortable on nasal cannula. will be downgraded out of the unit. may need trilogy machine. will monitor. On 03/31 Patient reports doing better, continue on current meds. appreciate input from pul 04/01 Patient is getting close to discharge, will continue current meds awaiting trilogy machine. Anticipate discharge on 04/01 (2) Smokes less than 1/2 pack per day: Plan: Cessation counseling ongoing she notes she is quitting smoking. (3) COPD (chronic obstructive pulmonary disease) with chronic bronchitis: Plan: Manage as above (4) Hypothyroidism: Plan: TSH was 1.345 this admission. - Continue levothyroxine 25 mcg daily (5) GERD (gastroesophageal reflux disease): Plan: - Maalox and famotidine PRN (6) Depression: Plan: - Continue fluoxetine (7) Hyperglycemia: Plan: Likely stress/steroid response, as her A1c is only 5.6%. - Sliding scale insulin - BSs have been 80-180 in last 24 hours. Plan DVT prophylaxis Lovenox Admission and Anticipated Discharge Date Admission Date: March 21, 2022 Subjective Patient reports breathing better. She states she is comfortable, coughing less, able to have a conversation. Review of Systems Review of Systems: All systems reviewed & are unremarkable except as noted in HPI & below Physical Exam Physical Exam: Constitutional: WD/WN, vitals as above Eyes: EOM intact bilaterally; no conjunctival abnormality ENMT: external ear and nose normal, oropharynx normal Neck: trachea midline, no thyromegaly normal visual inspection Respiratory: no longer using accessory muscles to breath, decreased breath sounds. Cardiovascular: RRR, no murmur, no edema Gastrointestinal (Abdomen): Inspection/Auscultation: abdomen normal to inspection; abdomen not distended Musculoskeletal: no cyanosis or clubbing, extremities motor strength 5/5 Skin: no rashes, warm and dry Neurologic: moves all extremities and awake Psychiatric: Orientation: alert, oriented to person and cooperative Results & Data Results & Data ([facility]) Vital Signs (Past 12 Hours) Vital Signs Temp Pulse Pulse Resp BP Pulse Ox O2 Del Method 04/01/22 16:00 75 04/01/22 15:24 36.5 C 80 16 116/79 98 Nasal Cannula 04/01/22 11:46 93 Nasal Cannula 04/01/22 11:46 86 L Room Air 04/01/22 11:46 92 Room Air 04/01/22 11:23 Nasal Cannula, BiPAP 04/01/22 11:12 36.3 C L 73 18 122/77 96 Nasal Cannula 04/01/22 08:00 75 04/01/22 06:31 36.4 C L 80 20 124/80 95 O2 Flow Rate 04/01/22 16:00 04/01/22 15:24 2 04/01/22 11:46 2 04/01/22 11:46 04/01/22 11:46 04/01/22 11:23 2 04/01/22 11:12 2 04/01/22 08:00 04/01/22 06:31 2 PG Care Time/CCT Total # of Minutes Spent Total Time Spent with Patient: Total time spent is greater than 50% in coordination of care (as documented) at patient's floor/unit and/or counseling patient: Coding Level of Care Code 40089 Subseq Hosp Care Lvl 2 Diagnoses Acute on chronic respiratory failure with hypoxia and hypercapnia J96.21; J96.22 Smokes less than 1/2 pack per day F17.210 COPD (chronic obstructive pulmonary disease) with chronic bronchitis J44.9 Hypothyroidism E03.9 GERD (gastroesophageal reflux disease) K21.9 Depression F32.9 Hyperglycemia R73.9
[2022-04-02] MEDS: LEVOTHYROXINE SODIUM 25 MCG TABLET PO SCH (05:54)
[2022-04-02 06:49] LABS: Hemoglobin 14.9 g/dl (12.0-16.0); Mean Corpuscular Hemoglobin 31.4 pg (25.0-34.0); Mean Corpuscular Hgb Conc 33.9 g/dL (32.0-36.0); Mean Corpuscular Volume 92.6 fL (80.0-100.0); Mean Platelet Volume 9.2 fL (9.4-12.3); Platelet Count 166 K/uL (130-400); RDW Coefficient of Variation 12.6 % (11.5-14.5); Red Blood Count 4.75 M/uL (3.93-5.22); White Blood Count 9.77 K/ul (4.8-10.8)
[2022-04-02 07:35] LABS: BUN Creatinine Ratio 32.3 (10-20); Calcium 8.1 mg/dl (8.5-10.1); Creatinine Clr Calc Pharmacy 87.1 ml/min; Est GFR (African American) 113.6 ml/min; Potassium 3.2 mmol/L (3.5-5.1)
[2022-04-02] MEDS: guaiFENesin 600 MG TABCR PO SCH ×2 (08:15→20:52)
[2022-04-02] MEDS: NYSTATIN SUSP 500,000 U/5 ML UDC PO SCH ×3 (08:15→20:53)
[2022-04-02] MEDS: FLUTICASONE FUROATE 100MCG 14 PUFFS/INHALER INH SCH (08:15)
[2022-04-02] MEDS: UMECLIDINIUM/VILANTEROL 62.5/25MCG 7 PUFFS/INHALER INH SCH (08:15)
[2022-04-02] MEDS: SENNA 8.6 MG TAB PO SCH ×2 (08:15→20:52)
[2022-04-02] MEDS: CEROVITE ADV FORMULA TAB PO SCH (08:15)
[2022-04-02] MEDS: predniSONE 20 MG TAB PO SCH (08:15)
[2022-04-02] MEDS: DOCUSATE SODIUM 100 MG CAP PO SCH ×2 (08:16→20:51)
[2022-04-02] MEDS: FLUoxetine HCL 20 MG CAP PO SCH (08:16)
[2022-04-02] MEDS: ENOXAPARIN INJ 40 MG/0.4 ML SYR SQ SCH (10:10)
[2022-04-02] MEDS: PANTOprazole 40 MG TAB PO SCH (10:10)
[2022-04-02] MEDS: clonazePAM 0.5 MG TAB PO PRN (16:32)
--- NOTE | 2022-04-02 22:46 | Hospitalist Progress Note ---
Date of Service April 02, 2022 Assessment & Plan (1) Acute on chronic respiratory failure with hypoxia and hypercapnia: Plan: Due to COPD exacerbation. Due to dust/heat/humidity while camping at [facility]. - Continue steroids - Continue standing and PRN DuoNebs - Continue azithromycin and guaifenesin - Consulted pulm on 03/24 for continued poor air movement. Added Anoro and Mucomyst, but does not want Mucomyst. Added roflumilast on 03/26. Transitioned to prednisone on 03/27, but she had significant respiratory distress and required BiPap. -> CTA chest negative for PE and pneumonia. Seen by pulm and returned to Solu- Medrol BID. Patient is currently intubated 03/28. Plan is to do weaning trial and extubate this AM 03/29 continue IV steroids. On 03/30 Patient is comfortable on nasal cannula. will be downgraded out of the unit. may need trilogy machine. will monitor. On 03/31 Patient reports doing better, continue on current meds. appreciate input from pul 04/01 Patient is getting close to discharge, will continue current meds awaiting trilogy machine. 04/02 trilogy machine approved. will titrate machine and see how patient tolerates it overnight will need to be discharged on trelegy. 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 (2) Smokes less than 1/2 pack per day: Plan: Cessation counseling ongoing she notes she is quitting smoking. (3) COPD (chronic obstructive pulmonary disease) with chronic bronchitis: Plan: Manage as above (4) Hypothyroidism: Plan: TSH was 1.345 this admission. - Continue levothyroxine 25 mcg daily (5) GERD (gastroesophageal reflux disease): Plan: - Maalox and famotidine PRN (6) Depression: Plan: - Continue fluoxetine (7) Hyperglycemia: Plan: Likely stress/steroid response, as her A1c is only 5.6%. - Sliding scale insulin - BSs have been 80-180 in last 24 hours. Plan DVT prophylaxis Lovenox Admission and Anticipated Discharge Date Admission Date: March 21, 2022 Subjective Patient reports doing well. Review of Systems Review of Systems: All systems reviewed & are unremarkable except as noted in HPI & below Physical Exam Physical Exam: Constitutional: WD/WN, vitals as above Eyes: EOM intact bilaterally; no conjunctival abnormality ENMT: external ear and nose normal, oropharynx normal Neck: trachea midline, no thyromegaly normal visual inspection Respiratory: no longer using accessory muscles to breath, decreased breath sounds. Cardiovascular: RRR, no murmur, no edema Gastrointestinal (Abdomen): Inspection/Auscultation: abdomen normal to inspection; abdomen not distended Musculoskeletal: no cyanosis or clubbing, extremities motor strength 5/5 Skin: no rashes, warm and dry Neurologic: moves all extremities and awake Psychiatric: Orientation: alert, oriented to person and cooperative Results & Data Results & Data ([facility]) Vital Signs (Past 12 Hours) Vital Signs Temp Pulse Resp BP BP Pulse Ox O2 Del Method 04/02/22 20:46 Nasal Cannula 04/02/22 20:09 96 Room Air 04/02/22 19:24 36.3 C L 86 20 99/67 L 96 Nasal Cannula 04/02/22 15:45 Nasal Cannula 04/02/22 15:32 36.7 C 79 18 102/70 96 Nasal Cannula O2 Flow Rate 04/02/22 20:46 2 04/02/22 20:09 04/02/22 19:24 2 04/02/22 15:45 2 04/02/22 15:32 2 PG Care Time/CCT Total # of Minutes Spent Total Time Spent with Patient: Total time spent is greater than 50% in coordination of care (as documented) at patient's floor/unit and/or counseling patient: Coding Level of Care Code 54623 Subseq Hosp Care Lvl 2 Diagnoses Acute on chronic respiratory failure with hypoxia and hypercapnia J96.21; J96.22 Smokes less than 1/2 pack per day F17.210 COPD (chronic obstructive pulmonary disease) with chronic bronchitis J44.9 Hypothyroidism E03.9 GERD (gastroesophageal reflux disease) K21.9 Depression F32.9 Hyperglycemia R73.9 Time Spent (min) 25
[2022-04-03] MEDS: LEVOTHYROXINE SODIUM 25 MCG TABLET PO SCH (05:35)
[2022-04-03 06:50] LABS: Hematocrit (blood only) 43.5 % (34.1-44.9); Hemoglobin 14.8 g/dl (12.0-16.0); Mean Corpuscular Hemoglobin 31.1 pg (25.0-34.0); Mean Corpuscular Volume 91.4 fL (80.0-100.0); Mean Platelet Volume 9.2 fL (9.4-12.3); Platelet Count 182 K/uL (130-400); RDW Coefficient of Variation 12.5 % (11.5-14.5); RDW Standard Deviation 41.9 fL (36.4-46.3); Red Blood Count 4.76 M/uL (3.93-5.22); White Blood Count 9.71 K/ul (4.8-10.8)
[2022-04-03 07:21] LABS: BUN Creatinine Ratio 28.3 (10-20); Calcium 8.1 mg/dl (8.5-10.1); Creatinine Clr Calc Pharmacy 88.1 ml/min; Est GFR (African American) 114.8 ml/min; Est GFR (Non-African American) 99.1 ml/min; Potassium 3.4 mmol/L (3.5-5.1)
[2022-04-03] MEDS ORDERED: POTASSIUM CHLORIDE CRTAB 20 MEQ TABCR PO STA (08:27)
[2022-04-03] MEDS: DOCUSATE SODIUM 100 MG CAP PO SCH ×2 (08:53→09:09)
[2022-04-03] MEDS: UMECLIDINIUM/VILANTEROL 62.5/25MCG 7 PUFFS/INHALER INH SCH (08:54)
[2022-04-03] MEDS: FLUoxetine HCL 20 MG CAP PO SCH (08:54)
[2022-04-03] MEDS: CEROVITE ADV FORMULA TAB PO SCH (08:55)
[2022-04-03] MEDS: predniSONE 20 MG TAB PO SCH (08:56)
[2022-04-03] MEDS: NYSTATIN SUSP 500,000 U/5 ML UDC PO SCH ×2 (08:56→13:08)
[2022-04-03] MEDS: FLUTICASONE FUROATE 100MCG 14 PUFFS/INHALER INH SCH (08:56)
[2022-04-03] MEDS: guaiFENesin 600 MG TABCR PO SCH (08:56)
[2022-04-03] MEDS: SENNA 8.6 MG TAB PO SCH (09:09)
[2022-04-03] MEDS: ENOXAPARIN INJ 40 MG/0.4 ML SYR SQ SCH (09:14)
[2022-04-03] MEDS: PANTOprazole 40 MG TAB PO SCH (13:08)
--- NOTE | 2022-04-03 13:53 | Discharge Summary ---
Date of Service April 03, 2022 Admission HPI Per Admitting Provider The patient is a 61-year-old female with a past medical history including severe COPD, aspiration, nicotine dependence, multiple pulmonary nodules, kidney stones, anxiety, hypothyroidism, GERD, diverticulosis, internal hemorrhoids, dyslipidemia and depression. Patient presents to the emergency department after waking up from sleep acutely short of breath, and with a worsening of her usual cough. She denies any recent travels or sick exposures. She has had the COVID- 19 vaccine, and has not had COVID-19 infection. She does continue to smoke 1/2 pack/day Principal Diagnosis 1. Acute on chronic hypercapnic respiratory failure 2. AECOPD 3. Pulmonary nodules-stable Discharge Exam GENERAL: 61 yo Well-developed, well-nourished WF. NAD. LUNGS: Clear to auscultation bilaterally. No accessory muscle use. No W/R/R. CARDIOVASCULAR: Regular rate and rhythm. No M/G/R. No JVD. ABDOMEN: Soft, non-tender and non-distended. BS normoactive x 4 quad. EXTREMITIES: No edema. Non-tender. Peripheral pulses +2/4. NEUROLOGIC: A&O x3. Nonfocal PSYCHIATRIC: Cooperative. Appropriate mood and affect. SKIN: Warm, dry, intact. No rashes or lesions. Discharge Data Allergies Allergy/AdvReac Type Severity Reaction Status Date / Time No Known Allergies Allergy Verified 10/11/21 13:20 Consultations 03/21/22 05:46 ED Decision to Admit Stat 03/24/22 11:13 Consult Pulmonology Routine 03/27/22 18:04 Consult Field Marketing Director Routine Ordered Studies Chest X-Ray 03/21/22 05:02 XR chest 1V portable HISTORY: 61 years-old Female Dyspnea acute shortness of breath COMPARISON: Chest CT 10/24/2021, chest radiograph 05/26/2018 TECHNIQUE: AP view of the chest FINDINGS: Cardiac silhouette is enlarged. Emphysema with chronic interstitial coarsening. Chronic blunting of the costophrenic angles. No pneumothorax, large pleural effusion, overt pulmonary edema or lobar airspace consolidation. Degenerative changes of the shoulders and spine. IMPRESSION: Emphysema without acute process. ACT 112: Negative or not required by law. The above report was generated using voice recognition software. It may contain grammatical, syntax or spelling errors. Electronically signed by: Morales Medina M.D. 03/21/2022 6:40 AM Chest CTA 03/27/22 13:22 CT angio chest PE protocol CLINICAL HISTORY: PE TECHNIQUE: Multidetector row helical CT of the chest was performed with angiographic protocol. Coronal and sagittal reformations were obtained. Coronal and sagittal MIPS were obtained from the axial data set and were submitted for review. Automated dose lowering techniques and/or adjustment according to patient size were utilized for this exam. CT DOSE: 674.10 mGy.cm Comparison: Comparison is made to low-dose CT chest 10/24/2021 FINDINGS: Exam is highly limited by patient motion. Radiodensity in the peripheral right lower lobe superior segment is favored to represent postsurgical changes. Lungs and pleura: Diffuse centrilobular emphysema is seen most prominent in the upper lobes. Minimal atelectasis versus scarring is noted in the lung bases. A few pulmonary nodules are stable from prior exam measuring up to 8 right upper lobe (series 4 image 239). Heart and pericardium: Heart size is normal. No pericardial effusion. Vessels: Evaluation for pulmonary embolism is limited due to patient motion. No evidence of central, lobar, or segmental embolus. Mediastinum and monica: Unremarkable. Chest wall and lower neck: Unremarkable. Abdomen: Patient is status post cholecystectomy. Bones: Degenerative changes in the thoracic spine. IMPRESSION: No evidence of pulmonary embolism or other acute abnormality. ACT 112: Negative or not required by law. Electronically signed by: Vinnie Mcduffie M.D. 03/27/2022 2:21 PM Chest X-Ray 03/27/22 18:33 SINGLE VIEW CHEST CLINICAL HISTORY: Intubation. FINDINGS: 3 AP, portable, upright chest radiographs are compared to study dated 03/21/2022 and correlated with chest CT dated 03/27/2022. The examination is degraded by portable technique and patient rotation. An enteric tube has been placed. The tip projects below the diaphragm and is not visualized. An endotracheal tube has been placed. The tip projects approximately 4.5 cm above the deidra. The cardiomediastinal silhouette is unremarkable noting atherosclerotic calcification of the thoracic aorta. Emphysema and chronic interstitial thickening is similar to previous. There are scattered calcified granulomas. Scarring/atelectasis is noted at the lung bases. No airspace consolidation or large pleural effusion is identified. No pneumothorax is seen. The skeletal structures are osteopenic. The bony thorax is grossly intact. IMPRESSION: 1. Endotracheal and enteric tubes have been placed as above. 2. Emphysematous change with no acute cardiopulmonary abnormality identified. ACT 112: Negative or not required by law. Electronically signed by: Ronen Conway M.D. 03/27/2022 7:19 PM Chest X-Ray 03/28/22 07:00 XR chest 1V portable HISTORY: Resp failure COMPARISON: Chest 03/27/2022. FINDINGS: Endotracheal tube terminates 2 cm from the deidra. The nasogastric tube terminates below the diaphragm. The tip is not included on this study. No pneumothorax. No significant pleural effusions. A few bibasilar linear densities favor subsegmental atelectasis. Otherwise, no new focal lung consolidations to suggest pneumonia. Emphysema. The heart is normal in size. Calcified granuloma within the right midlung zone. IMPRESSION: 1. Satisfactory support line placement. 2. Emphysema and bibasilar subsegmental atelectasis again noted. ACT 112: Negative or not required by law. Electronically signed by: Gerson Toth M.D. 03/28/2022 8:54 AM Hospital Course (1) Acute on chronic respiratory failure with hypoxia and hypercapnia: Due to COPD exacerbation. Due to dust/heat/humidity while camping at [facility]. - Continue steroids - Continue standing and PRN DuoNebs - Continue azithromycin and guaifenesin - Consulted pulm on 03/24 for continued poor air movement. * Added Anoro and Mucomyst, but does not want Mucomyst. Added roflumilast on 03/26. Transitioned to prednisone on 03/27, but she had significant respiratory distress and required BiPAP. -> CTA chest negative for PE and pneumonia. Seen by pulm and returned to Solu- Medrol BID. Patient is currently intubated 03/28. Plan is to do weaning trial and extubate this AM 03/29 continue IV steroids. On 03/30 Patient is comfortable on nasal cannula. will be downgraded out of the unit. may need trilogy machine. will monitor. On 03/31 Patient reports doing better, continue on current meds. appreciate input from pul 04/01 Patient is getting close to discharge, will continue current meds awaiting trilogy machine. 04/02 trilogy machine approved. will titrate machine and see how patient tolerates it overnight will need to be discharged on trelegy. will need 2 step prior to discharge will pickle water pump operator patient. - patient doing well this morning, no complaints/concerns - apparently she fell asleep early last night and nursing did not apply the trilogy device, however, pt will take it home with her and use it - two step demonstrates need for 2L of NC O2 WITH AMBULATION ONLY, not needed at rest - advise f/u with pulmonology group - appt being set up prior to d/c - stop smoking - one more dose of Prednisone 20mg due on 04/04, rx sent to preferred pharmacy (2) Smokes less than 1/2 pack per day: Cessation counseling ongoing she notes she is quitting smoking. (3) COPD (chronic obstructive pulmonary disease) with chronic bronchitis: - Manage as above (4) Hypothyroidism: TSH was 1.345 this admission. - Continue levothyroxine 25 mcg daily (5) GERD (gastroesophageal reflux disease): - Maalox and famotidine PRN (6) Depression: - Continue fluoxetine (7) Hyperglycemia: Likely stress/steroid response, as her A1c is only 5.6%. - Sliding scale insulin - BSs have been 80-180 in last 24 hours. Plan Patient is medically and hemodynamically stable for discharge home. Home O2/portable O2 has been arranged by CM. Trilogy device to be used as directed. F/u with pulmonology and pcp. Above plan of care has been d/w Dr. Gipson who has also seen and evaluated and agrees with aforementioned. Total Time Total Time Spent Total Time Spent (In Minutes): >30 minutes Discharge Plan Discharge Items Patient Disposition: Home - Self-Care Reason For Visit: ACUTE RESP FAILURE W/ HYPOXIA AND HYPERCAPNEA Discharge Diagnosis: low oxygen levels/respiratory failure secondary to advanced lung disease Activity: Resume your previous activity Non-emergency contact: Primary Care Provider and Metal Treater Call non-emergency contact if: you have any medication questions and your symptoms worsen Follow-up/Referrals: Emy Webster MD [Physician] - 04/11/22 10:45 am Kelly Wilson CRNP [Primary Care Provider] - (PLEASE CALL YOUR PRIMARY CARE PROVIDER TO SCHEDULE A DISCHARGE FOLLOW-UP APPOINTMENT WITHIN 7-10 DAYS.) Diet: Regular Addtl Attending Provider Instructions: You were hospitalized due to an exacerbation of your chronic lung disease which required you to be on a ventilator for a few days. You have responded well to therapy including oxygen, steroids, and breathing treatments. You were transitioned to oral steroids and your last dose is due to be taken on 04/04/22. Prednisone has been sent to your pharmacy, 20mg strength. Please take this last dose tomorrow morning with food. Pulmonology has arranged for you to get the trilogy device that you will need to use at home at night while you are sleeping. It has been delivered to the hospital and you will take this device home with you. It is strongly advised that you stop smoking. You will need to follow up with pulmonology upon discharge from the hospital. An appointment is being made on your behalf. It is recommended that you follow up with your family doctor upon discharge from the hospital, please do so within 1 week. If you have any questions/concerns after you are discharged, you may call the nonemergency number listed on your discharge paperwork. In the event of a medical emergency, call 911. Pending Studies at Discharge: No Stand-Alone Forms: My [facility] Advanced Circulatory, Smoking Cessation Medications and DC Order Prescriptions: New prednisone 20 mg tablet 20 mg PO DAILY Qty: 1 0RF Rx Instructions: last dose on 04/04/22-take in morning with food Continued fluoxetine 40 mg Capsule 40 mg PO QAM Qty: 0 levothyroxine 25 mcg Tablet 25 mcg PO QAM 30 Days Qty: 30 fluticasone propionate [24 Hour Allergy Relief] 50 mcg/actuation [place],Suspension 2 spray INTRANASAL DAILY PRN (Reason: Allergy Symptoms) Qty: 0 nystatin 100,000 unit/mL suspension 100,000 unit PO TID 14 Days Qty: 42 0RF Rx Instructions: swish and spit albuterol sulfate 2.5 mg /3 mL (0.083 %) solution for nebulization 2.5 mg INHALATION QID PRN (Reason: SHORT OF BREATH) Qty: 360 5RF omeprazole 20 mg capsule,delayed release(DR/EC) 20 mg PO BID Qty: 180 3RF Trelegy Ellipta 100-62.5-25 mcg blister with device 1 inh inhalation DAILY Qty: 60 3RF albuterol sulfate [Ventolin HFA] 90 mcg/actuation HFA aerosol inhaler 2 puff INHALATION Q4H PRN (Reason: Shortness Of Breath Or Wheezing) Qty: 18 5RF (DME) Flutter Valve Device See Rx Instructions .Route Qty: 1 0RF Rx Instructions: Use multiple times a day. Lifetime need. [id number] [Trelegy Ellipta] 100-62.5-25 mcg blister with device 0RF mecobalamin (vitamin B12) 10,000 mcg recon soln IM clonazepam 0.5 mg tablet 0.5 mg PO BID PRN (Reason: Anxiety) oxybutynin chloride 5 mg tablet extended release 24hr 5 mg PO QPM Discharge Orders: Discharge Order (Routine); Ordered 04/03/22 Ordered By: Rita Becerril Admission Data Admit Date/Time: 03/21/22 06:19 Attending Provider: Epifanio Gipson Admit Provider: Jordan Lei Primary Care Provider: Kelly Wilson Other Providers: Emy Webster ; Jordan Lei Other Interventions: Discharge Summary Assessment (RN) Last Done: 04/03/22 13:48 Supervising Physician Co-Signing Physician Notes I personally examined the patient and verified all thurston points of history and exam, discussed case, and agree with decision making with Natan Becerril PAC Feeling better feeling up to home Vitals noted breathing unlabored COPD exacerbationfinally stable for home, things are set upas above. Coding Level of Care Code D/C DAY MANAGEMENT >30 MINS Diagnoses Acute on chronic respiratory failure with hypoxia and hypercapnia J96.21; J96.22 Smokes less than 1/2 pack per day F17.210 COPD (chronic obstructive pulmonary disease) with chronic bronchitis J44.9 Hypothyroidism E03.9 GERD (gastroesophageal reflux disease) K21.9 Depression F32.9 Hyperglycemia R73.9
== END 2022-04-03 17:57 | disposition home or self-care (01) | DRG 208 ==
LOC: ED 04:27 → EDINP 06:19 → SUATTDRO 06:19 → 2S 10:37 → 1E 03-27 17:58 → 2N 03-30 15:34

== ENCOUNTER 2023-07-29 03:06 | Inpatient (IN) ==
--- OUTSIDE RECORDS SUMMARY | 2023-07-29 03:12 | External Medical Summary | Summary of Care ---
Author Name Unknown Organization [facility] Address [address] [place] [address] Phone [phone] Care Team Providers Care Producer Name Role Phone Ritu Duenas MD Primary Care Provid er Reason for Visit * Reason Onset Date Comments Order Request 07/15/2023 EKG Encounter Details Date Type Department Care Team (Late st Contact Info) Description 07/15/2023 Telephone [facility] [address] [place] [address] Ritu Duenas MD [address] [place] [address] Order Request (EKG) Allergies No known active allergiesdocumented as of this encounter (statuses as of 07/16/2023) Medications Medication Sig Dispensed Refills Start Date End Date Status ALBUTEROL SULFATE HFA 108 MCG/ACT IN AERSIndications:COPD , severity to be determined (HCC) Use two puffs four times a day as needed 1 11 09/16/2007 Active FLUoxetine HCl 40 MG Capsule Take 1 Capsule by mouth in the morning. 0 04/18/2016 Active Trelegy Ellipta 100-62.5-25 MCG/ACT Aerosol Powder Breath Activated TAKE 1 PUFF BY MOUTH EVERY DAY 0 08/07/2022 Active Ipratropium-Albutero l 0.5-2.5 (3) MG/3ML Inhalation Solution (Duoneb) USE 1 VIAL VIA NUBULIZER EVERY 8 HOURS NEEDED FOR SHORTNESS OF BREATH OR WHEEZING 0 07/03/2022 Active Mirtazapine 15 MG Oral Tablet (Remeron) Take 1 Tablet by mouth at bedtime. 0 06/28/2022 Active clonazePAM 0.5 MG Oral Tablet (KlonoPIN) Take 1 Tablet by mouth 2 times a day as needed. 0 07/31/2022 Active Oxybutynin Chloride ER 10 MG Oral Tablet Extended Release 24 Hour (Ditropan XL)Indications:Urge incontinence of urine Take 1 Tablet by mouth in the morning. 90 Tablet 3 08/29/2022 Active Levothyroxine Sodium 25 MCG Oral Tablet (Levoxyl) Take 1 Tablet by mouth in the morning. 90 Tablet 3 09/19/2022 Active Cyanocobalamin 1000 MCG/ML Injection Solution (Cyanocobalamin)Tina cations:H/O non anemic vitamin B12 deficiency Inject 1,000 mcg as directed every 30 days. 3 mL 3 12/05/2022 Active Famotidine 40 MG Oral Tablet (Pepcid) TAKE 1 TABLET BY MOUTH EVERYDAY AT BEDTIME 90 Tablet 3 05/09/2023 Active Vitamin D (Ergocalciferol) 1.25 MG (11433 UT) Oral Capsule (Drisdol)Indications :Hypovitaminosis D TAKE 1 CAPSULE BY MOUTH ONE TIME PER WEEK 12 Capsule 1 06/08/2023 Active Magnesium 200 MG Oral Tablet Take 1 Tablet by mouth in the morning. 90 Tablet 3 06/30/2023 Active Rosuvastatin Calcium 5 MG Oral Tablet (Crestor) TAKE 1 TABLET BY MOUTH EVERYDAY AT BEDTIME 90 Tablet 3 07/13/2023 Active documented as of this encounter (statuses as of 07/16/2023) Active Problems Problem Noted Date Diagnosed Date H/O non anemic vitamin B12 deficiency 12/05/2022 Chronic hypoxemic respiratory failure 08/29/2022 Former smoker 08/29/2022 Acquired hypothyroidism 08/29/2022 H/O abnormal cervical Papanicolaou smear 023 H/O colonoscopy with polypectomy 08/29/2022 HTN, goal below 140/90 08/29/2022 Dyslipidemia, goal to be determined 11/03/2007 Calculus of kidney 05/30/2002 COPD, severity to be determined 05/30/2002 Tobacco use disorder 06/01/2000 Major depressive disorder 06/01/2000 Overview: ICD-10 update of inactive term DYSFUNCT EUSTACHIAN TUBE 06/01/2000 documented as of this encounter (statuses as of 07/16/2023) Immunizations Name Administration Dates Next Due Pneumococcal Conjugate Vaccine, 20-valent (Prevn ar20) 08/29/2022 Seasonal Influenza, PF, 6 M & above, IM , (FluLaval or Fluzone) 08/29/2022 TDAP (age 11 and older)(Adacel) 02/02/2008 documented as of this encounter Social History Tobacco Use Types Packs/Day Years Used Date Smoking Tobacco: Every Day Cigarettes 0.5 Alcohol Use Standard Drinks/Week Comments Yes 0 (1 standard drink = 0.6 oz pur e alcohol) rare Sex and Gender Information Value Date Recorded Sex Assigned at Not on file Gender Identity Not on file Sexual Orientation Not on file Job Start Date Occupation Industry Not on file Not on file Not on file documented as of this encounter Miscellaneous Notes * Telephone Encounter - Ritu Duenas MD - 07/16/2023 3:27 PM EST Please call to schedule, and then FAX EKG RESULT once completed to patient's regional trainer office for him to review. AG * Telephone Encounter - Meena Mercedes, BRIGITTE - 07/15/2023 2:43 PM EST An order was requested for this patient. Name of Requesting Provider: Ritu Duenas Order Requested: EKG Diagnosis/Reason for Request: today at pulmonary appt her oxygen level was down and asked if she ever had chest pain and her reply was yes. Consulting Sme would like her to have an EKG to make sure her heart is ok If order request is for Mammogram: Is the patient having any breast symptoms? N/A Is there a chance of ? N/A Has the patient had any breast problems in the past? NA What location AND department does the patient wish to have their order completed at? [facility] Fax Number, if applicable: Nancie ARELLANO Call Back Number: [phone] If the caller is not a current patient, please advise the patient to call their current PCP to havethe order's prior to being seen in our office. The patient was informed that our providers would not order anything (medication, labs, etc.) prior to being seen. documented in this encounter Plan of Treatment Upcoming Encounters Date Type Department Care Team (Late st Contact Info) Description 07/30/2023 9:30 AM EST Procedure Only Endoscopy, [facility] [address] [place] [address] Lisandra Prado DO [address] [place] [address] Scheduled Orders Name Type Priority Associated Diagnoses Orde r Schedule EKG EKG Routine Atypical chest pain Expected: 07/16/2023 (Approximate), Expi res: 08/16/2024 Health Maintenance Due Date Last Done Comments DISCUSS TOBACCO CESSATION (REFER TO SMARTSET #9491) 1960 COVID-19 Vaccine (#1) 1961 Depression Screening 1973 HIV Screening 1976 Alpha-1 Antitrypsin 1979 Hepatitis C Screening 1979 HPV/Co-Test 1991 Mammogram 08/19/2003 08/19/2002 Cologuard 2006 Fecal Occult Blood Test 2006 Sigmoidoscopy 2006 Cervical Cancer Screening 09/16/2010 Pap Smear 09/16/2010 09/16/2007, 09/03, 05/30/2002, Additional history exists Zoster Vaccines (1 of 2) 2011 DTaP,Tdap,and Td Vaccines (2 - Td or Tdap) 02/01/2018 02/02/2008 Influenza Vaccine (FLU shot) (#1) 2023 08/29/2022, 05/30/2002 GFR 08/29/2023 08/29/2022, 09/03, 05/30/2002, Additional history exists O2 ASSESSMENT COMPLETED IN PAST YEAR FOR COPD 08/29/2023 08/29/2022 TSH 08/29/2023 08/29/2022, 05/30/2002 Albumin/Creatinine Ratio 08/29/2025 08/29/2022 Diabetes Screening 08/29/2025 08/29/2022, 0 09/16/2007, 05/30/2002, Additional history exists Lipid Panel 08/29/2027 08/29/2022, 06/02/2008, 09/16/2007, Additional history exists Colonoscopy 12/18/2027 12/17/2017 Colorectal Cancer Screening 12/18/2027 Pneumococcal Vaccine: Pediatrics (0 to 5 Years) and At-Risk Patients (6 to 64 Years) Completed 08/29/2022, 09/26/2018, 05/30/2002 GARDASIL-HPV IMMUNIZATION SERIES Aged Out No longer eligible based on patient's age to complete this topic Hepatitis B Aged Out No longer eligi ble based on patient's age to complete this topic MENINGOCOCCAL (MENACTRA/MENVEO) Aged Out No longer eligible based on patient's age to complete this topic documented as of this encounter Medical Devices Not on filedocumented as of this encounter Visit Diagnoses Diagnosis Atypical chest pain- Primary Other chest pain documented in this encounter Care Teams Producer Relationship Specialty Start Date End Date Ritu Duenas MD [address] [place] [address] PCP - General Family Medicine 08/29/22 documented as of this encounter
--- OUTSIDE RECORDS SUMMARY | 2023-07-29 03:12 | External Medical Summary | Summary of Care ---
Author Name Unknown Organization [facility] Address [address] [place] [address] Phone [phone] Care Team Providers Care Erp Project Manager Name Role Phone Ritu Duenas MD Primary Care Provid er Reason for Visit * Reason Onset Date Comments Order Request 07/15/2023 EKG Encounter Details Date Type Department Care Team (Late st Contact Info) Description 07/15/2023 Telephone [facility] [address] [place] [address] Ritu Duenas MD [address] [place] [address] Order Request (EKG) Allergies No known active allergiesdocumented as of this encounter (statuses as of 07/17/2023) Medications Medication Sig Dispensed Refills Start Date [...] 05/09/2023 Active Vitamin D (Ergocalciferol) 1.25 MG (12049 UT) Oral Capsule (Drisdol)Indications :Hypovitaminosis D TAKE [...] as of this encounter (statuses as of 07/17/2023) Active Problems Problem Noted Date Diagnosed Date [...] as of this encounter (statuses as of 07/17/2023) Immunizations Name Administration Dates Next Due Pneumococcal Conjugate Vaccine, 20-valent (Prevn ar20) 08/29/2022 Pneumococcal Polysaccharide PPV23 (Pneumovax) Seasonal Influenza, PF, 6 M & above, IM , (FluLaval or Fluzone) 08/29/2022 Seasonal Influenza, Split, IIV3, With Preserve, Inj 05/30/2002 TDAP (age 11 and older)(Adacel) 02/02/2008 documented [...] encounter Miscellaneous Notes * Telephone Encounter - Paige Lindo LPN - 07/17/2023 12:18 PM EST Please assist pt with scheduling NV for EKG * Telephone Encounter - Ritu Duenas MD - 07/16/2023 3:27 PM EST Please call to schedule, and then FAX EKG RESULT once completed to patient's internal combustion engine assembler office for him to review. AG * Telephone Encounter - Meena Mercedes OSA - 07/15/2023 2:43 PM EST An order was requested for this patient. Name of Requesting Provider: Ritu Duenas Order Requested: EKG Diagnosis/Reason for Request: today at pulmonary appt her oxygen level was down and asked if she ever had chest pain and her reply was yes. Server Support Technician would like her to have an EKG [...] if applicable: Nancie ARELLANO Call Back Number: [phone] If the caller is not a current [...] 07/30/2023 9:30 AM EST Procedure Only Endoscopy, [facility] [address] [place] [place] [address] Lisandra Prado DO [address] [place] [address] Scheduled Orders Name Type Priority Associated Diagnoses Orde r Schedule EKG EKG Routine Atypical chest pain Expected: 07/16/2023 (Approximate), Expi res: 08/16/2024 Health Maintenance Due Date Last Done Comments DISCUSS TOBACCO CESSATION (REFER TO SMARTSET #3291) 1960 COVID-19 Vaccine (#1) 1961 Depression Screening [...] pain documented in this encounter Care Teams Erp Project Manager Relationship Specialty Start Date End Date Ritu uDenas MD [address] [place] [address] PCP - General Family Medicine 08/29/22 documented as of this encounter
[2023-07-29] MEDS ORDERED: SODIUM CHLORIDE 0.9% 500 ML IV STA (03:21)
[2023-07-29] MEDS ORDERED: ONDANSETRON INJ 2 MG/ML 2 ML VIAL IV STA (03:21)
[2023-07-29] MEDS ORDERED: KETOROLAC TROMETHAMINE 15 MG/ML VIAL IV STA (03:21)
[2023-07-29 03:57] LABS: Basophils # (auto) 0.03 K/uL (0.00-0.20); Basophils % (auto) 0.3 %; Eosinophils # (auto) 0.06 K/uL (0.00-0.50); Eosinophils % (auto) 0.6 %; Hematocrit (blood only) 47.9 % (37.0-47.0); Hemoglobin 15.3 g/dl (12.0-16.0); Immature Granulocytes # (auto) 0.04 K/uL (0.01-0.20); Immature Granulocytes % (auto) 0.4 %; Lymphocytes # (auto) 0.99 K/uL (1.20-3.40); Lymphocytes % (auto) 10.3 %; Mean Corpuscular Hemoglobin 30.2 pg (25.0-34.0); Mean Corpuscular Hgb Conc 31.9 g/dL (32.0-36.0); Mean Corpuscular Volume 94.5 fL (80.0-100.0); Mean Platelet Volume 8.9 fL (9.4-12.4); Monocytes # (auto) 0.44 K/uL (0.11-0.59); Monocytes % (auto) 4.6 %; Neutrophils # (auto) 8.06 K/uL (1.40-6.50); Neutrophils % (auto) 83.8 %; Platelet Count 185 K/uL (130-400); RDW Coefficient of Variation 12.3 % (11.5-14.5); RDW Standard Deviation 42.7 fL (36.4-46.3); Red Blood Count 5.07 M/uL (4.20-5.40); White Blood Count 9.62 K/ul (4.8-10.8)
[2023-07-29 04:12] LABS: Albumin Globulin Ratio 1.6 (0.9-2); Albumin Level 4.1 gm/dl (3.4-5.0); BUN Creatinine Ratio 13.7 (10-20); Bilirubin,Total 0.8 mg/dl (0.2-1.0); Calcium 8.8 mg/dl (8.6-10.3); Creatinine Clr Calc Pharmacy 47.8 ml/min; Est GFR (African American) 53.9 ml/min; Est GFR (Non-African American) 46.5 ml/min; Globulin 2.6 gm/dl (2.5-4.0); Potassium 4.2 mmol/L (3.5-5.1); Total Protein 6.7 gm/dl (6.0-8.3)
[2023-07-29 04:17] LABS: Troponin I High Sensitivity 4.2 pg/ml (0-14)
--- NOTE | 2023-07-29 04:33 | Emergency Department Note ---
Impression & Plan Hydronephrosis with renal and ureteral calculus obstruction, UTI (urinary tract infection) Admit to the [facility] ED Provider Note NAME: JAZMYN FONTANEZ AGE: 63 SEX: Female INFORMANT: Patient ED PROVIDER(S): Jaki Lay DO CHIEF COMPLAINT: Right flank pain PLAN: Disposition: Admit to the [facility] MEDICAL DECISION MAKING: This is a 63-year-old female patient who presents to the emergency department with a fairly sudden onset of right flank pain around 9 PM this evening. She took ibuprofen with only minimal relief. She then went on to develop a headache, nausea and dry heaves. Patient does have a history of kidney stones. Laboratory studies here in the ER revealed no leukocytosis or evidence of anemia. Renal function noted BUN of 17 and creatinine of 1.24. Glucose was 159. Upon arrival here in the ER, patient sat up describing significant nausea some chest discomfort and then vomited. A twelve-lead EKG was obtained and was normal. Troponin was negative. Patient went for CT scan of the abdomen/pelvis to evaluate for possible right- sided kidney stone. Care/management discussed with: systems project manager and [facility] Triage Nursing notes: Reviewed and agree with them. Vital Signs: reviewed and remarkable for hypertension Chronic Medical/Social Conditions affecting care: Longstanding history of kidney stones which have required surgical intervention Differential Diagnosis: Pyelonephritis, ureteral colic, obstructive uropathy, diverticulitis, appendicitis Diagnostics, independently interpreted by me: ECG: Normal sinus rhythm at a rate of [address] segment elevation or signs of ischemia. There is no ectopy. Cardiac Monitoring: Normal sinus rhythm at a rate of 74 Imaging studies: CT scan of the abdomen/pelvis: As per stat rad HPI: 63 year old Female arrives for evaluation of right flank pain. Patient developed right flank pain around 9 PM this evening and took some ibuprofen with only minimal relief of her discomfort. She then went on to develop a headache, nausea and dry heaves. The patient does have a history of kidney stones. PAST MEDICAL HISTORY: See Below, PAST SURGICAL HISTORY: See Below, SOCIAL HISTORY: See Below, HOME MEDICATIONS: See list ALLERGIES: None VITALS: See Below PHYSICAL EXAMINATION: HEENT: Head - normocephalic and atraumatic. Pupils are equal, round, and reactive to light. Extraocular eye muscles are intact, and sclera are anicteric. Nose - moist nasal mucosa without discharge. Mouth - moist buccal mucosa. Oropharynx is nonerythematous and there is no tonsillar exudate or edema noted. Neck: Supple; no cervical lymphadenopathy Heart: Regular rate and rhythm. There is a normal S1 and S2 with no murmurs, clicks, or gallops appreciated. Lungs: Clear to auscultation bilaterally with no wheezes, rales, or rhonchi. Abdomen: Soft, completely nontender, nondistended, with good bowel sounds. There are no palpable pulsatile masses or hepatosplenomegaly. There is no guarding, rigidity, or rebound noted. Extremities: No evidence of cyanosis, clubbing, or edema. There are easily palpable peripheral pulses. Skin: Pale warm and dry with good turgor and no rashes. Back: Mild right CVA tenderness Emergency department treatment: cardiac monitor, IV normal saline, IV Toradol, IV Zofran, IV morphine, IV Rocephin Emergency department course: The patient was evaluated in room B-5. A complete history and physical was performed. A urine specimen was obtained. An IV lock was initiated and labs were drawn as above. An order was placed for continuous cardiac monitoring. The patient was in a normal sinus rhythm at a rate of 74. Patient had an episode of increased right flank pain and associated chest pain. She sat up and became quite nauseated and vomited when she initially presented to the emergency department. A twelve-lead EKG was obtained as described above. Patient was medicated with IV Toradol and IV Zofran which gave her some relief of the discomfort in her right flank. Urinalysis revealed evidence of possible UTI with white blood cells, red blood cells and positive leukocyte esterase. The patient was treated with IV Rocephin. She went for CT scan of the abdomen/pelvis. Upon returning from radiology, the patient was having increased right flank pain. She was given a dose of IV morphine. I reviewed the results of the CT scan with the patient. I discussed the case with the [facility] Hospitalist. Past Med/Surg History Medical History MOULTON (dyspnea on exertion) Chest pain on exertion pt reports chest pain/sob on exertion x few weeks. pt reported this to pulmonology. per pt, pulm instructed pt to reach out to PCP for EKG. pt awaiting return call from PCP. Former smoker quit in 03/2022 On home oxygen therapy 2L O2 continuously COPD (chronic obstructive pulmonary disease) with chronic bronchitis daily and prn inh. Personal history of nicotine dependence Multiple pulmonary nodules COPD, severe Diverticulosis hx Internal hemorrhoids Pulmonary emphysema f/u dr. godinez, [facility] Tubular adenoma of colon hx History of varicella History of peptic ulcer Hx of juvenile rheumatoid arthritis Abnormal Pap smear of cervix ALEJANDRO favor dysplasia, HGSIL Osteoarthritis GERD (gastroesophageal reflux disease) Hypothyroidism Anxiety Kidney stones had them since she was 13 yrs old Dyslipidemia Depression with anxiety Surgical History S/P tooth extraction History of lithotripsy History of dilatation and curettage History of cystoscopy multiple History of colonoscopy History of tooth extraction full upper History of tonsillectomy and adenoidectomy Status post cystoscopy with ureteral stent placement 09/26/18 Hx of cholecystectomy H/O tubal ligation Family History Mother Family history of diabetes mellitus Alzheimer disease Diabetes Father Family history of diabetes mellitus Family history of esophageal cancer Brother Family history of diabetes mellitus Sister Family history of diabetes mellitus Family/Other Family history of diabetes mellitus nephew Other No family history of adverse response to anesthesia Social History Smoking Status: Never smoker Second Hand Exposure: Yes; Do You Dip or Chew Tobacco: No; Hx Alcohol Use: No Hx Substance Use: No Preferred Language: Venezuelan Communication Ability: Effective Visual Impairment: No Limitations Branch Administrator Required: No Beliefs That Will Affect Care: None marital status: Current Living Situation: Spouse Current Living Situation Comment: Lives with daughter and her family How many Children do You have: 3 Feels Safe at Home: Yes Assistive Devices: Denture - Upper, Denture - Lower and Oxygen - Continuous Allergies Allergies Allergy/AdvReac Type Severity Reaction Status Date / Time No Known Allergies Allergy Verified 07/20/23 15:21 Home Meds Home Medications Medication Instructions Recorded Confirmed fluoxetine 40 mg capsule 40 mg PO QAM #0 caps 12/17/15 07/20/23 fluticasone propionate 50 2 spray intranasal DAILY PRN 12/03/17 07/20/23 mcg/actuation nasal Allergy Symptoms ##0 spray,suspension (24 Hour Allergy Relief) levothyroxine 25 mcg tablet 25 mcg PO QAM 30 days #30 tabs 12/03/17 07/20/23 clonazepam 0.5 mg tablet 0.5 mg PO BID PRN Anxiety 09/25/18 07/20/23 mecobalamin (vitamin B12) 10,000 10,000 mcg IM Q30D 04/17/20 07/20/23 mcg solution for injection ergocalciferol (vitamin D2) 1,250 1,250 mcg PO Q7D 02/25/23 07/20/23 mcg (50,000 unit) capsule (Vitamin D2) famotidine 40 mg tablet 40 mg PO HS 02/25/23 07/20/23 magnesium 200 mg tablet 200 mg PO QAM 02/25/23 07/20/23 mirtazapine 30 mg tablet 30 mg PO HS 02/25/23 07/20/23 omeprazole 20 mg capsule,delayed 20 mg PO BID PRN gerd 02/25/23 07/20/23 release oxybutynin chloride 10 mg 10 mg PO QAM 02/25/23 07/20/23 tablet,extended release 24 hr rosuvastatin 5 mg tablet 5 mg PO HS 02/25/23 07/20/23 Previous Rx's Medication Instructions Recorded Flutter Valve #1 ea 02/21/21 Portable Oxygen #1 ea 04/11/22 ipratropium 0.5 mg-albuterol 3 mg 3 ml inhalation Q8H PRN shortness 11/05/22 (2.5 mg base)/3 mL nebulization of breath or wheezing #180 mL soln albuterol sulfate 90 mcg/actuation 2 puff inhalation Q4H PRN 07/15/23 aerosol inhaler (Ventolin HFA) Shortness Of Breath Or Wheezing #3 Inhalers fluticasone fur. 100 mcg-umeclid 1 inh inhalation QAM #60 ea 07/15/23 62.5 mcg-vilant 25 mcg inhalat.powder (Trelegy Ellipta) Results & Data (ED) Vital Signs Vital Signs - 24 hr 07/29/23 03:12 07/29/23 03:55 07/29/23 03:55 Pulse Rate 67 74 Pulse Rate [Right Finger] 74 Respiratory Rate 20 20 Blood Pressure 166/92 H Blood Pressure Mean 116 Blood Pressure Position Sitting Blood Pressure Position [Left Arm] Pulse Oximetry 97 97 Oxygen Delivery Method Nasal Cannula Nasal Cannula Oxygen Flow Rate 4 4 Sepsis Recent Fever Within 48 Hours No Sepsis New/Unexplained Change in Mental Status No Sepsis Action Taken by Nursing No Action Required 07/29/23 03:55 07/29/23 05:49 Pulse Rate 74 Pulse Rate [Right Finger] 73 Respiratory Rate 20 16 Blood Pressure Blood Pressure Mean Blood Pressure Position Blood Pressure Position [Left Arm] Lying Pulse Oximetry 97 4 L Oxygen Delivery Method Nasal Cannula Nasal Cannula Oxygen Flow Rate 4 Sepsis Recent Fever Within 48 Hours Sepsis New/Unexplained Change in Mental Status Sepsis Action Taken by Nursing Laboratory Data 07/29/23 03:30 07/29/23 03:30 Lab Results 07/29/23 07/29/23 Range/Units 03:30 04:46 WBC 9.62 (4.8-10.8) K/ul RBC 5.07 (4.20-5.40) M/uL Hgb 15.3 (12.0-16.0) g/dl Hct 47.9 H (37.0-47.0) % MCV 94.5 (80.0-100.0) fL MCH 30.2 (25.0-34.0) pg MCHC 31.9 L (32.0-36.0) g/dL RDW Std Deviation 42.7 (36.4-46.3) fL RDW Coeff of Nona 12.3 (11.5-14.5) % Plt Count 185 (130-400) K/uL MPV 8.9 L (9.4-12.4) fL Immature Gran % (Auto) 0.4 % Neut % (Auto) 83.8 % Lymph % (Auto) 10.3 % [place] % (Auto) 4.6 % Eos % (Auto) 0.6 % Baso % (Auto) 0.3 % Neut # (Auto) 8.06 H (1.40-6.50) K/uL Lymph # (Auto) 0.99 L (1.20-3.40) K/uL [place] # (Auto) 0.44 (0.11-0.59) K/uL Eos # (Auto) 0.06 (0.00-0.50) K/uL Baso # (Auto) 0.03 (0.00-0.20) K/uL Immature Gran # (Auto) 0.04 (0.01-0.20) K/uL Sodium 143 (136-145) mmol/L Potassium 4.2 (3.5-5.1) mmol/L Chloride 105 (98-107) mmol/L Carbon Dioxide 32 (21-32) mmol/L Anion Gap 6 (3-11) BUN 17 (6-23) mg/dl Creatinine 1.24 H (0.6-1.2) mg/dl Est Cr Clr Drug Dosing 47.8 ml/min Est GFR ( Amer) 53.9 ml/min Est GFR (Non-Af Amer) 46.5 ml/min BUN/Creatinine Ratio 13.7 (10-20) Glucose 159 H (70-99(Fasting)) mg/dl Calcium 8.8 (8.6-10.3) mg/dl Total Bilirubin 0.8 (0.2-1.0) mg/dl AST 23 (13-39) U/L ALT 20 (7-52) U/L Alkaline Phosphatase 104 (34-104) U/L Troponin I High Sens 4.2 (0-14) pg/ml Total Protein 6.7 (6.0-8.3) gm/dl Albumin 4.1 (3.4-5.0) gm/dl Globulin 2.6 (2.5-4.0) gm/dl Albumin/Globulin Ratio 1.6 (0.9-2) Lipase 11 (11-82) U/L Urine Color Yellow Urine Appearance Cloudy A (Clear) Urine pH 6.5 (4.5-7.5) Ur Specific [place] 1.018 (1.000-1.030) Urine Protein 1+ H (Negative) Urine Glucose (UA) Negative (Negative) Urine Ketones Negative (Negative) Urine Blood 3+ H (Negative) Urine Nitrite Negative (Negative) Urine Bilirubin Negative (Negative) Urine Urobilinogen Negative (Negative) Ur Leukocyte Esterase 2+ H (Negative) Urine WBC (Auto) 5-10 H (0-5) /hpf Urine RBC (Auto) >30 H (0-4) /hpf U Hyaline Cast (Auto) 1-5 (0-5) /lpf U Epithel Cells (Auto) 20-30 H (0-5) /lpf Urine Bacteria (Auto) Negative (Negative) Administered Medications Discontinued Medications Sodium Chloride (Nss) 500 mls @ 999 mls/hr IV .Q31M STA Stop: 07/29/23 03:51 Last Infusion: 07/29/23 04:37 Dose: Infused Documented By: Admin: 07/29/23 03:44 Dose: 999 mls/hr Documented By: ANSELMO Ceftriaxone Sodium (Rocephin) 1,000 mg in 50 mls @ 100 mls/hr IV NOW STA Stop: 07/29/23 05:52 Last Admin: 07/29/23 05:43 Dose: 100 mls/hr Documented By: ANSELMO Ketorolac Tromethamine (Ketorolac Tromethamine 15 Mg/Ml Vial) 30 mg IV NOW STA Stop: 07/29/23 03:22 Last Admin: 07/29/23 03:35 Dose: 30 mg Documented By: ANSELMO Morphine Sulfate (Morphine Sulfate 4 Mg/Ml 1 Ml Carp\Vial) 4 mg IV NOW STA Stop: 07/29/23 05:22 Last Admin: 07/29/23 05:31 Dose: 4 mg Documented By: ANSELMO Ondansetron HCl (Ondansetron Inj 2 Mg/Ml 2 Ml Vial) 4 mg IV NOW STA Stop: 07/29/23 03:22 Last Admin: 07/29/23 03:36 Dose: 4 mg Documented By: ANSELMO Imaging Data Radiologist's Impression: Abdomen/Pelvis CT 07/29/23 03:22 Exam(s): CT ABDOMEN + PELVIS Without Contrast EXAM: CT Abdomen and Pelvis Without Intravenous Contrast CLINICAL HISTORY: Reason for exam: eval right sided stone. TECHNIQUE: Axial computed tomography images of the abdomen and pelvis without intravenous contrast. CTDI is 26.58 mGy and DLP is 1123.93 mGy-cm. Automated exposure control was utilized for the study. A dose lowering technique was utilized adhering to the principles of ALARA. COMPARISON: No relevant prior studies available. FINDINGS: Limitations: Evaluation of the solid and hollow viscera limited due to lack of oral and IV contrast. Within this constraint: Lung bases: Emphysematous changes in the lower lobes of the lungs. No consolidation. Mediastinum: 2 cm hiatal hernia. ABDOMEN: Liver: Unremarkable. Gallbladder and bile ducts: Cholecystectomy. No ductal dilation. Pancreas: Unremarkable. No ductal dilation. Spleen: Unremarkable. No splenomegaly. Adrenals: Unremarkable. No mass. Kidneys and ureters: 8 mm stone in the proximal right ureter with severe associated hydronephrosis and prominent perinephric stranding. Stomach and bowel: Diverticulosis without evidence of diverticulitis. No obstruction. PELVIS: Appendix: No findings to suggest acute appendicitis. Bladder: Unremarkable. No stones. Reproductive: Unremarkable as visualized. ABDOMEN and PELVIS: Intraperitoneal space: No free air. No significant fluid collection. Bones/joints: Degenerative change at the L4 superior endplate. Alignment maintained. No acute fracture. Soft tissues: Small fat-containing umbilical hernia. Vasculature: Mild atherosclerosis. No abdominal aortic aneurysm. Lymph nodes: No enlarged lymph nodes. IMPRESSION: Evaluation of the solid and hollow viscera limited due to lack of oral and IV contrast. Within this constraint: 8 mm stone in the proximal right ureter with severe associated hydronephrosis and prominent perinephric stranding. Diverticulosis without evidence of diverticulitis. Electronically signed by: Fco Donahue M.D. 07/29/23 05:34 AM Discharge Plan Visit Data Chief Complaint: Flank Pain Stated Complaint: R Flank Pain, Back Pain ED Provider: Jaki Lay Discharge Problem: Hydronephrosis with renal and ureteral calculus obstruction, UTI (urinary tract infection) Forms Stand Alone Forms: Jovie Prescriptions Prescriptions: No Action fluoxetine 40 mg Capsule 40 mg PO QAM Qty: 0 levothyroxine 25 mcg Tablet 25 mcg PO QAM 30 Days Qty: 30 fluticasone propionate [24 Hour Allergy Relief] 50 mcg/actuation [employer],Suspension 2 spray INTRANASAL DAILY PRN (Reason: Allergy Symptoms) Qty: 0 ipratropium-albuterol 0.5 mg-3 mg(2.5 mg base)/3 mL solution for nebulization 3 ml inhalation Q8H PRN (Reason: shortness of breath or wheezing) Qty: 180 5RF (DME) Flutter Valve Device See Rx Instructions .Route Qty: 1 0RF Rx Instructions: Use multiple times a day. Lifetime need. (DME) Portable Oxygen Misc See Rx Instructions .MEDSUPPLY Qty: 1 0RF Rx Instructions: Oxygen 2 liters continuous via nasal cannula on exertion with portable concentrator. LIZZIE 99 mecobalamin (vitamin B12) 10,000 mcg recon soln 10,000 mcg IM Q30D albuterol sulfate [Ventolin HFA] 90 mcg/actuation HFA aerosol inhaler 2 puff INHALATION Q4H PRN (Reason: Shortness Of Breath Or Wheezing) Qty: 3 3RF Trelegy Ellipta 100-62.5-25 mcg blister with device 1 inh inhalation QAM Qty: 60 12RF clonazepam 0.5 mg tablet 0.5 mg PO BID PRN (Reason: Anxiety) oxybutynin chloride 10 mg tablet extended release 24hr 10 mg PO QAM famotidine 40 mg tablet 40 mg PO HS ergocalciferol (vitamin D2) [Vitamin D2] 1,250 mcg (50,000 unit) Capsule 1,250 mcg PO Q7D magnesium 200 mg Tablet 200 mg PO QAM rosuvastatin 5 mg Tablet 5 mg PO HS omeprazole 20 mg capsule,delayed release(DR/EC) 20 mg PO BID PRN (Reason: gerd) mirtazapine 30 mg tablet 30 mg PO HS Referrals Referrals: Ritu Duenas MD [Primary Care Provider] -
[2023-07-29 05:17] LABS: Appearance Urine Cloudy (Clear); Bacteria Urine Automated Negative (Negative); Bilirubin Urine Negative (Negative); Blood Urine 3+ (Negative); Color Urine Yellow; Epithelial Cell Urine Auto 20-30 /lpf (0-5); Glucose Urine UA Negative (Negative); Ketones Urine Negative (Negative); Leukocyte Esterase Urine 2+ (Negative); Nitrite Urine Negative (Negative); Protein Urine 1+ (Negative); RBC Urine Automated >30 /hpf (0-4); Specific Gravity Urine 1.018 (1.000-1.030); Urobilinogen Urine Negative (Negative); pH Urine 6.5 (4.5-7.5)
[2023-07-29] MEDS ORDERED: MoRPHine SULFATE 4 MG/ML 1 ML CARP\\VIAL IV STA (05:21)
[2023-07-29] MEDS ORDERED: cefTRIAXone SODIUM 1,000 MG/50 ML BAG IV STA (05:23)
--- NOTE | 2023-07-29 05:35 | CT Scan Report ---
Exam(s): CT ABDOMEN + PELVIS Without Contrast EXAM: CT Abdomen and Pelvis Without Intravenous Contrast CLINICAL HISTORY: Reason for exam: eval right sided stone. TECHNIQUE: Axial computed tomography images of the abdomen and pelvis without intravenous contrast. CTDI is 26.58 mGy and DLP is 1123.93 mGy-cm. Automated exposure control was utilized for the study. A dose lowering technique was utilized adhering to the principles of ALARA. COMPARISON: No relevant prior studies available. FINDINGS: Limitations: Evaluation of the solid and hollow viscera limited due to lack of oral and IV contrast. Within this constraint: Lung bases: Emphysematous changes in the lower lobes of the lungs. No consolidation. Mediastinum: 2 cm hiatal hernia. ABDOMEN: Liver: Unremarkable. Gallbladder and bile ducts: Cholecystectomy. No ductal dilation. Pancreas: Unremarkable. No ductal dilation. Spleen: Unremarkable. No splenomegaly. Adrenals: Unremarkable. No mass. Kidneys and ureters: 8 mm stone in the proximal right ureter with severe associated hydronephrosis and prominent perinephric stranding. Stomach and bowel: Diverticulosis without evidence of diverticulitis. No obstruction. PELVIS: Appendix: No findings to suggest acute appendicitis. Bladder: Unremarkable. No stones. Reproductive: Unremarkable as visualized. ABDOMEN and PELVIS: Intraperitoneal space: No free air. No significant fluid collection. Bones/joints: Degenerative change at the L4 superior endplate. Alignment maintained. No acute fracture. Soft tissues: Small fat-containing umbilical hernia. Vasculature: Mild atherosclerosis. No abdominal aortic aneurysm. Lymph nodes: No enlarged lymph nodes. IMPRESSION: Evaluation of the solid and hollow viscera limited due to lack of oral and IV contrast. Within this constraint: 8 mm stone in the proximal right ureter with severe associated hydronephrosis and prominent perinephric stranding. Diverticulosis without evidence of diverticulitis. Electronically signed by: Fco Donahue M.D. 07/29/23 05:34 AM
--- NOTE | 2023-07-29 06:20 | History & Physical Report ---
Date of Service July 29, 2023 Assessment & Plan (1) Renal colic on right side: Plan: 63-year-old female with past med history significant for chronic hypoxic respiratory failure on home oxygen hyperlipidemia, hypothyroidism, COPD, hypertension, history of calculus of kidney, history of depression, former smoker, presents with right flank pain. Associated with nausea and dry heaving. No burning micturition. No fevers. No headaches. Because of dry heaves he has some chest discomfort. Denies any shortness of breath. Currently resting comfortable and hemodynamically stable. Renal colic on right side 8 mm stone in the proximal right ureter with severe associated hydronephrosis and prominent perinephric stranding. N.p.o. IV fluids Pain control IV antibiotics. Rocephin Urology consult UTI [place] we will follow cultures Chronic hypoxic respiratory failure on home oxygen History of COPD Continue home inhalers depression and anxiety continue home meds DVTpx scds Disposition med/surg Full codse History of Present Illness Chief Complaint: Right renal colic Primary Care Provider: Ritu Duenas MD 63-year-old female with past med history significant for chronic hypoxic respiratory failure on home oxygen hyperlipidemia, hypothyroidism, COPD, hypertension, history of calculus of kidney, history of depression, former smoker, presents with right flank pain. Associated with nausea and dry heaving. No burning micturition. No fevers. No headaches. Because of dry heaves states she has some chest discomfort. Denies any shortness of breath. Currently resting comfortable and hemodynamically stable. Past medical history. As mentioned above Past surgical history. Ligation of oviducts. Laparoscopic cholecystectomy. Open removal of kidney stones left side at age 13 Social history. . As per epic smokes 0.5 packs a day. Alcohol rarely. Family history. Father had COPD. Paternal grandmother had breast cancer. Allergies Allergy/AdvReac Type Severity Reaction Status Date / Time No Known Allergies Allergy Verified 07/20/23 15:21 Home Medications Medication Instructions Recorded Confirmed Type fluoxetine 40 mg capsule (Prozac) 40 mg PO QAM #0 caps 12/17/15 07/29/23 History fluticasone propionate 50 2 spray intranasal DAILY PRN 12/03/17 07/29/23 History mcg/actuation nasal Allergy Symptoms ##0 spray,suspension (24 Hour Allergy Relief) levothyroxine 25 mcg tablet 25 mcg PO QAM 30 days #30 tabs 12/03/17 07/29/23 History (Synthroid) clonazepam 0.5 mg tablet (Klonopin) 0.5 mg PO BID PRN Anxiety 09/25/18 07/29/23 History mecobalamin (vitamin B12) 10,000 10,000 mcg IM Q30D 04/17/20 07/29/23 History mcg solution for injection Flutter Valve #1 ea 02/21/21 07/29/23 Rx Portable Oxygen #1 ea 04/11/22 07/29/23 Rx ipratropium 0.5 mg-albuterol 3 mg 3 ml inhalation Q8H PRN shortness 11/05/22 07/29/23 Rx (2.5 mg base)/3 mL nebulization of breath or wheezing #180 mL soln ergocalciferol (vitamin D2) 1,250 1,250 mcg PO Q7D 02/25/23 07/29/23 History mcg (50,000 unit) capsule (Vitamin D2) famotidine 40 mg tablet (Pepcid) 40 mg PO HS 02/25/23 07/29/23 History magnesium 200 mg tablet 200 mg PO QAM 02/25/23 07/29/23 History mirtazapine 30 mg tablet (Remeron) 30 mg PO HS 02/25/23 07/29/23 History omeprazole 20 mg capsule,delayed 20 mg PO BID PRN gerd 02/25/23 07/29/23 History release oxybutynin chloride 10 mg 10 mg PO QAM 02/25/23 07/29/23 History tablet,extended release 24 hr rosuvastatin 5 mg tablet (Crestor) 5 mg PO HS 02/25/23 07/29/23 History albuterol sulfate 90 mcg/actuation 2 puff inhalation Q4H PRN 07/15/23 07/29/23 Rx aerosol inhaler (Ventolin HFA) Shortness Of Breath Or Wheezing #3 Inhalers fluticasone fur. 100 mcg-umeclid 1 inh inhalation QAM #60 ea 07/15/23 07/29/23 Rx 62.5 mcg-vilant 25 mcg inhalat.powder (Trelegy Ellipta) Past Med/Surg History Medical History MOULTON (dyspnea on exertion) Chest pain on exertion pt reports chest pain/sob on exertion x few weeks. pt reported this to pulmonology. per pt, pulm instructed pt to reach out to PCP for EKG. pt awaiting return call from PCP. Former smoker quit in 03/2022 On home oxygen therapy 2L O2 continuously COPD (chronic obstructive pulmonary disease) with chronic bronchitis daily and prn inh. Personal history of nicotine dependence Multiple pulmonary nodules COPD, severe Diverticulosis hx Internal hemorrhoids Pulmonary emphyse[place] f/[place] dr[place] [facility] [place] adenoma of colon hx History of varicella History of peptic ulcer Hx of juvenile rheumatoid arthritis Abnormal Pap smear of cervix ALEJANDRO favor dysplasia, HGSIL Osteoarthritis GERD (gastroesophageal reflux disease) Hypothyroidism Anxiety Kidney stones had them since she was 13 yrs old Dyslipidemia Depression with anxiety Surgical History S/P tooth extraction History of lithotripsy History of dilatation and curettage History of cystoscopy multiple History of colonoscopy History of tooth extraction full upper History of tonsillectomy and adenoidectomy Status post cystoscopy with ureteral stent placement 09/26/18 Hx of cholecystectomy H/O tubal ligation Family History Mother Family history of diabetes mellitus Alzheimer disease Diabetes Father Family history of diabetes mellitus Family history of esophageal cancer Brother Family history of diabetes mellitus Sister Family history of diabetes mellitus Family/Other Family history of diabetes mellitus nephew Other No family history of adverse response to anesthesia Social History Smoking Status: Never smoker Smoking End Date: 2021; Second Hand Exposure: No; Do You Dip or Chew Tobacco: No; Tobacco Cessation Education Requested by Patient: No Hx Alcohol Use: No Hx Substance Use: No Preferred Language: Maori Communication Ability: Effective Visual Impairment: No Limitations 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 ENT- oropharynx clear Neck- supple, no JVD. Lungs- clear to auscultation no wheezing or crackles. Heart- regular rhythm; no murmur, no gallop. Abdomen- normal bowel sounds, soft, nontender, no distension Extremities- no pretibial edema, no erythema seen Neuro- alert, oriented x 3;, EOMI; no facial palsy; no dysarthria; moves extremities. Skin- warm & dry Results & Data Results & Data Vital Signs (Past 12 Hours) Vital Signs Pulse Pulse Resp BP Pulse Ox O2 Del Method O2 Flow Rate 07/29/23 05:49 73 16 4 L Nasal Cannula 07/29/23 03:55 74 20 97 Nasal Cannula 4 07/29/23 03:55 74 20 97 Nasal Cannula 4 07/29/23 03:55 74 20 166/92 H 97 Nasal Cannula 4 07/29/23 03:12 67 Diagnostic Findings Laboratory Results WBC 9.62 K/ul (4.8-10.8) 07/29/23 03:30 RBC 5.07 M/uL (4.20-5.40) 07/29/23 03:30 Hgb 15.3 g/dl (12.0-16.0) 07/29/23 03:30 Hct 47.9 % (37.0-47.0) H 07/29/23 03:30 MCV 94.5 fL (80.0-100.0) 07/29/23 03:30 MCH 30.2 pg (25.0-34.0) 07/29/23 03:30 MCHC 31.9 g/dL (32.0-36.0) L 07/29/23 03:30 RDW Std Deviation 42.7 fL (36.4-46.3) 07/29/23 03:30 RDW Coeff of Nona 12.3 % (11.5-14.5) 07/29/23 03:30 Plt Count 185 K/uL (130-400) 07/29/23 03:30 MPV 8.9 fL (9.4-12.4) L 07/29/23 03:30 Immature Gran % (Auto) 0.4 % 07/29/23 03:30 Neut % (Auto) 83.8 % 07/29/23 03:30 Lymph % (Auto) 10.3 % 07/29/23 03:30 Wells % (Auto) 4.6 % 07/29/23 03:30 Eos % (Auto) 0.6 % 07/29/23 03:30 Baso % (Auto) 0.3 % 07/29/23 03:30 Neut # (Auto) 8.06 K/uL (1.40-6.50) H 07/29/23 03:30 Lymph # (Auto) 0.99 K/uL (1.20-3.40) L 07/29/23 03:30 Wells # (Auto) 0.44 K/uL (0.11-0.59) 07/29/23 03:30 Eos # (Auto) 0.06 K/uL (0.00-0.50) 07/29/23 03:30 Baso # (Auto) 0.03 K/uL (0.00-0.20) 07/29/23 03:30 Immature Gran # (Auto) 0.04 K/uL (0.01-0.20) 07/29/23 03:30 Sodium 143 mmol/L (136-145) 07/29/23 03:30 Potassium 4.2 mmol/L (3.5-5.1) 07/29/23 03:30 Chloride 105 mmol/L (98-107) 07/29/23 03:30 Carbon Dioxide 32 mmol/L (21-32) 07/29/23 03:30 Anion Gap 6 (3-11) 07/29/23 03:30 BUN 17 mg/dl (6-23) 07/29/23 03:30 Creatinine 1.24 mg/dl (0.6-1.2) H 07/29/23 03:30 Est Cr Clr Drug Dosing 47.8 ml/min 07/29/23 03:30 Est GFR ( Amer) 53.9 ml/min 07/29/23 03:30 Est GFR (Non-Af Amer) 46.5 ml/min 07/29/23 03:30 BUN/Creatinine Ratio 13.7 (10-20) 07/29/23 03:30 Glucose 159 mg/dl (70-99(Fasting)) H 07/29/23 03:30 Calcium 8.8 mg/dl (8.6-10.3) 07/29/23 03:30 Total Bilirubin 0.8 mg/dl (0.2-1.0) 07/29/23 03:30 AST 23 U/L (13-39) 07/29/23 03:30 ALT 20 U/L (7-52) 07/29/23 03:30 Alkaline Phosphatase 104 U/L (34-104) 07/29/23 03:30 Troponin I High Sens 4.2 pg/ml (0-14) 07/29/23 03:30 Total Protein 6.7 gm/dl (6.0-8.3) 07/29/23 03:30 Albumin 4.1 gm/dl (3.4-5.0) 07/29/23 03:30 Globulin 2.6 gm/dl (2.5-4.0) 07/29/23 03:30 Albumin/Globulin Ratio 1.6 (0.9-2) 07/29/23 03:30 Lipase 11 U/L (11-82) 07/29/23 03:30 Urine Color Yellow 07/29/23 04:46 Urine Appearance Cloudy (Clear) A 07/29/23 04:46 Urine pH 6.5 (4.5-7.5) 07/29/23 04:46 Ur Specific [place] 1.018 (1.000-1.030) 07/29/23 04:46 Urine Protein 1+ (Negative) H 07/29/23 04:46 Urine Glucose (UA) Negative (Negative) 07/29/23 04:46 Urine Ketones Negative (Negative) 07/29/23 04:46 Urine Blood 3+ (Negative) H 07/29/23 04:46 Urine Nitrite Negative (Negative) 07/29/23 04:46 Urine Bilirubin Negative (Negative) 07/29/23 04:46 Urine Urobilinogen Negative (Negative) 07/29/23 04:46 Ur Leukocyte Esterase 2+ (Negative) H 07/29/23 04:46 Urine WBC (Auto) 5-10 /hpf (0-5) H 07/29/23 04:46 Urine RBC (Auto) >30 /hpf (0-4) H 07/29/23 04:46 U Hyaline Cast (Auto) 1-5 /lpf (0-5) 07/29/23 04:46 U Epithel Cells (Auto) 20-30 /lpf (0-5) H 07/29/23 04:46 Urine Bacteria (Auto) Negative (Negative) 07/29/23 04:46 Impressions Abdomen/Pelvis CT 07/29/23 03:22 Exam(s): CT ABDOMEN + PELVIS Without Contrast EXAM: CT Abdomen and Pelvis Without Intravenous Contrast CLINICAL HISTORY: Reason for exam: eval right sided stone. TECHNIQUE: Axial computed tomography images of the abdomen and pelvis without intravenous contrast. CTDI is 26.58 mGy and DLP is 1123.93 mGy-cm. Automated exposure control was utilized for the study. A dose lowering technique was utilized adhering to the principles of ALARA. COMPARISON: No relevant prior studies available. FINDINGS: Limitations: Evaluation of the solid and hollow viscera limited due to lack of oral and IV contrast. Within this constraint: Lung bases: Emphysematous changes in the lower lobes of the lungs. No consolidation. Mediastinum: 2 cm hiatal hernia. ABDOMEN: Liver: Unremarkable. Gallbladder and bile ducts: Cholecystectomy. No ductal dilation. Pancreas: Unremarkable. No ductal dilation. Spleen: Unremarkable. No splenomegaly. Adrenals: Unremarkable. No mass. Kidneys and ureters: 8 mm stone in the proximal right ureter with severe associated hydronephrosis and prominent perinephric stranding. Stomach and bowel: Diverticulosis without evidence of diverticulitis. No obstruction. PELVIS: Appendix: No findings to suggest acute appendicitis. Bladder: Unremarkable. No stones. Reproductive: Unremarkable as visualized. ABDOMEN and PELVIS: Intraperitoneal space: No free air. No significant fluid collection. Bones/joints: Degenerative change at the L4 superior endplate. Alignment maintained. No acute fracture. Soft tissues: Small fat-containing umbilical hernia. Vasculature: Mild atherosclerosis. No abdominal aortic aneurysm. Lymph nodes: No enlarged lymph nodes. IMPRESSION: Evaluation of the solid and hollow viscera limited due to lack of oral and IV contrast. Within this constraint: 8 mm stone in the proximal right ureter with severe associated hydronephrosis and prominent perinephric stranding. Diverticulosis without evidence of diverticulitis. Electronically signed by: Fco Donahue M.D. 07/29/23 05:34 AM ECG Additional Comments: ECG. Normal sinus rhythm rate of 62. No acute ST changes seen. Code Status & VTE Plan VTE Prophylaxis Plan VTE Prophylaxis will be ordered: Yes
[2023-07-29] MEDS ORDERED: POLYETHYLENE (MIRALAX) 17 GM PACK PO PRN (07:30)
[2023-07-29] MEDS: SODIUM CHLORIDE 0.9% 1,000 ML IV SCH ×2 (08:16→16:31)
--- NOTE | 2023-07-29 08:48 | Electrocardiogram Report ---
Test Reason : Blood Pressure : / mmHG Vent. Rate : 062 BPM Atrial Rate : 062 BPM P-R Int : 174 ms QRS Dur : 076 ms QT Int : 456 ms P-R-T Axes : 087 063 041 degrees QTc Int : 462 ms Normal sinus rhythm When compared with ECG of 22-MAR-2022 08:18, Vent. rate has decreased BY 41 BPM Confirmed by Chan Mcginnis ([id number]) on 07/29/2023 8:48:23 AM Referred By: REFERRED SELF Confirmed By:Chava Mcginnis
[2023-07-29] MEDS ORDERED: ALBUTEROL HFA 8 GM INHALER INH PRN (09:08)
[2023-07-29] MEDS ORDERED: FLUTICASONE PROPIONATE NA SPR 16 GM BTL PRN (09:08)
[2023-07-29] MEDS ORDERED: clonazePAM 0.5 MG TAB PO PRN (09:08)
[2023-07-29] MEDS ORDERED: PANTOprazole 40 MG TAB PO PRN (09:08)
[2023-07-29] MEDS ORDERED: ALBUT/IPRATROP 3MG/0.5MG NEB 3 ML VIAL INH PRN (09:08)
[2023-07-29] MEDS ORDERED: NON-FORMULARY MEDICATION (Fluticasone-Umeclidin-Vilanter [Trelegy Ellipta] 100-62.5-25 mcg INH SCH (09:15)
--- NOTE | 2023-07-29 09:20 | Anesthesiology Consultation ---
Date of Service July 29, 2023 Assessment & Plan Chart Review Chart Review: data entry associate initiated History Surgery Operation Date: 07/29/23 07:50 Proposed Procedures p Cystoscopy Retrograde Pyelogram, Right Stent Placement - Deuce Chambers MD Height/Weight Height: 5 ft 2 in Weight: 82 kg Allergies Allergy/AdvReac Type Severity Reaction Status Date / Time No Known Allergies Allergy Verified 07/20/23 15:21 Medications Home Medications Medication Instructions Recorded Confirmed Last Taken fluoxetine 40 mg capsule (Prozac) 40 mg PO QAM #0 caps 12/17/15 07/29/23 07/28/23 fluticasone propionate 50 2 spray intranasal DAILY PRN 12/03/17 07/29/23 10/24/18 mcg/actuation nasal Allergy Symptoms ##0 spray,suspension (24 Hour Allergy Relief) levothyroxine 25 mcg tablet 25 mcg PO QAM 30 days #30 tabs 12/03/17 07/29/23 07/28/23 (Synthroid) clonazepam 0.5 mg tablet (Klonopin) 0.5 mg PO BID PRN Anxiety 09/25/18 07/29/23 10/24/18 22:00 mecobalamin (vitamin B12) 10,000 10,000 mcg IM Q30D 04/17/20 07/29/23 1 Week Ago mcg solution for injection ~07/22/23 Flutter Valve #1 ea 02/21/21 07/29/23 Unknown Portable Oxygen #1 ea 04/11/22 07/29/23 Unknown ipratropium 0.5 mg-albuterol 3 mg 3 ml inhalation Q8H PRN shortness 11/05/22 07/29/23 Unknown (2.5 mg base)/3 mL nebulization of breath or wheezing #180 mL soln ergocalciferol (vitamin D2) 1,250 1,250 mcg PO Q7D 02/25/23 07/29/23 07/27/23 mcg (50,000 unit) capsule (Vitamin D2) famotidine 40 mg tablet (Pepcid) 40 mg PO HS 02/25/23 07/29/23 07/28/23 magnesium 200 mg tablet 200 mg PO QAM 02/25/23 07/29/23 07/28/23 mirtazapine 30 mg tablet (Remeron) 30 mg PO HS 02/25/23 07/29/23 07/28/23 omeprazole 20 mg capsule,delayed 20 mg PO BID PRN gerd 02/25/23 07/29/23 Unknown release oxybutynin chloride 10 mg 10 mg PO QAM 02/25/23 07/29/23 07/28/23 tablet,extended release 24 hr rosuvastatin 5 mg tablet (Crestor) 5 mg PO HS 02/25/23 07/29/23 07/28/23 albuterol sulfate 90 mcg/actuation 2 puff inhalation Q4H PRN 07/15/23 07/29/23 Unknown aerosol inhaler (Ventolin HFA) Shortness Of Breath Or Wheezing #3 Inhalers fluticasone fur. 100 mcg-umeclid 1 inh inhalation QAM #60 ea 07/15/23 07/29/23 Unknown 62.5 mcg-vilant 25 mcg inhalat.powder (Trelegy Ellipta) Active Medications Generic Name Dose Route Start Last Admin Trade Name Freq PRN Reason Stop Dose Admin Sodium Chloride 1,000 mls @ 125 mls/hr 07/29/23 07:30 07/29/23 08:16 Nss IV 08/28/23 07:29 125 mls/hr .Q8H UBALDO Administration Past Medical History Medical History MOULTON (dyspnea on exertion) Chest pain on exertion pt reports chest pain/sob on exertion x few weeks. pt reported this to pulmonology. per pt, pulm instructed pt to reach out to PCP for EKG. pt awaiting return call from PCP. Former smoker quit in 03/2022 On home oxygen therapy 2L O2 continuously COPD (chronic obstructive pulmonary disease) with chronic bronchitis daily and prn inh. Personal history of nicotine dependence Multiple pulmonary nodules COPD, severe Diverticulosis hx Internal hemorrhoids Pulmonary emphysema f/u dr. godinez, [facility] [place] Tubular adenoma of colon hx History of varicella History of peptic ulcer Hx of juvenile rheumatoid arthritis Abnormal Pap smear of cervix ALEJANDRO favor dysplasia, HGSIL Osteoarthritis GERD (gastroesophageal reflux disease) Hypothyroidism Anxiety Kidney stones had them since she was 13 yrs old Dyslipidemia Depression with anxiety Past Family History Family History Mother Family history of diabetes mellitus Alzheimer disease Diabetes Father Family history of diabetes mellitus Family history of esophageal cancer Brother Family history of diabetes mellitus Sister Family history of diabetes mellitus Family/Other Family history of diabetes mellitus nephew Other No family history of adverse response to anesthesia Past Surgical History Surgical History S/P tooth extraction History of lithotripsy History of dilatation and curettage History of cystoscopy multiple History of colonoscopy History of tooth extraction full upper History of tonsillectomy and adenoidectomy Status post cystoscopy with ureteral stent placement 09/26/18 Hx of cholecystectomy H/O tubal ligation Social History Smoking Status: Never smoker tobacco type: cigarettes Do You Dip or Chew Tobacco: No Hx Alcohol Use: No Hx Substance Use: No substance use type: does not use Physical Exam Vital Signs Last Vital Signs Temp 98.4 F 07/29/23 08:10 Pulse 80 07/29/23 08:10 Resp 17 07/29/23 08:10 BP 158/95 H 07/29/23 08:10 Pulse Ox 98 07/29/23 08:10 O2 Del Method Nasal Cannula 07/29/23 08:10 O2 Flow Rate 3 07/29/23 08:10 Testing Laboratory Results 07/29/23 03:30 07/29/23 03:30 Urine Color Yellow 07/29/23 04:46 Urine Appearance Cloudy (Clear) A 07/29/23 04:46 Urine pH 6.5 (4.5-7.5) 07/29/23 04:46 Ur Specific [place] 1.018 (1.000-1.030) 07/29/23 04:46 Urine Protein 1+ (Negative) H 07/29/23 04:46 Urine Glucose (UA) Negative (Negative) 07/29/23 04:46 Urine Ketones Negative (Negative) 07/29/23 04:46 Urine Nitrite Negative (Negative) 07/29/23 04:46 Ur Leukocyte Esterase 2+ (Negative) H 07/29/23 04:46 Urine WBC (Auto) 5-10 /hpf (0-5) H 07/29/23 04:46 Urine RBC (Auto) >30 /hpf (0-4) H 07/29/23 04:46 U Hyaline Cast (Auto) 1-5 /lpf (0-5) 07/29/23 04:46 U Epithel Cells (Auto) 20-30 /lpf (0-5) H 07/29/23 04:46 Urine Bacteria (Auto) Negative (Negative) 07/29/23 04:46 Electrocardiogram Date: 07/29/23 Normal sinus rhythm, rate 62 bpm When compared with ECG of 22-MAR-2022 08:18, Vent. rate has decreased BY 41 BPM Confirmed by Chan Mcginnis ([id number]) on 07/29/2023 8:48:23 AM
--- NOTE | 2023-07-29 10:02 | Urology Consultation ---
Date of Consultation July 29, 2023 Assessment & Plan (1) Renal colic on right side: (2) Hydronephrosis with renal and ureteral calculus obstruction: Plan 63yo/F admitted with intractable right flank pain secondary to an obstructing 8mm proximal right ureteral stone -We reviewed her CT abdomen pelvis which shows an 8 mm proximal right ureteral stone with severe right-sided hydronephrosis. We discussed options for acute stone management with cystoscopy and stent placement. Ureteral stents were discussed as well as postoperative issues and pain management. She is aware a second procedure will be needed for stone treatment. Risks and benefits were discussed. All questions were answered. She would like to proceed with stent placement. -Will plan to proceed to the OR today for cystoscopy, right retrograde pyelogram, right ureteral stent placement with Dr. Chambers. -Risks and benefits discussed as per consent. -Pt received a dose of Rocephin in the ED this morning. -Keep NPO. -Continue supportive care and pain management as needed. -Continue antibiotics and tailor as culture data becomes available. -Urology will follow. Supervising Physician Co-Signing Physician Notes Discussed patient with WAYNE. Agree with plan. Will plan to go to the OR for cystoscopy with right stent due to size of stone and pain History of Present Illness Attending Physician: Narayan Molina MD History of Present Illness 63-year-old female with a PMHx including nephrolithiasis, chronic hypoxic respiratory failure on home oxygen, hyperlipidemia, hypothyroidism, COPD, hypertension, depression, tobacco use who presented to the ED on 07/29/23 with severe right flank pain with associated nausea and dry heaves. On arrival she was afebrile and hemodynamically stable. Labs showing a WBC of 9.62 and creatinine of 1.24. Urinalysis with 3+ blood, 2+ LE, 5-10WBC, >30RBC, negative nitrite, negative bacteria. CT abdomen pelvis obtained and demonstrated an 8 mm stone in the proximal right ureter with severe hydronephrosis and prominent perinephric stranding. ED course: IV fluids, morphine, Toradol, Zofran, ceftriaxone. Admitted to medicine service for continued care and pain management. Patient examined at bedside this a.m. in the ED. Awake, resting in bed on arrival. No acute distress. Right flank pain currently managed with pain medication. Denies fevers or chills. Some nausea, no vomiting. Denies hematuria or dysuria. Has been NPO. She reports a long history of stones with prior interventions. Allergies Allergy/AdvReac Type Severity Reaction Status Date / Time No Known Allergies Allergy Verified 07/20/23 15:21 Home Medications Medication Instructions Recorded Confirmed Type fluoxetine 40 mg capsule (Prozac) 40 mg PO QAM #0 caps 12/17/15 07/29/23 History fluticasone propionate 50 2 spray intranasal DAILY PRN 12/03/17 07/29/23 History mcg/actuation nasal Allergy Symptoms ##0 spray,suspension (24 Hour Allergy Relief) levothyroxine 25 mcg tablet 25 mcg PO QAM 30 days #30 tabs 12/03/17 07/29/23 History (Synthroid) clonazepam 0.5 mg tablet (Klonopin) 0.5 mg PO BID PRN Anxiety 09/25/18 07/29/23 History mecobalamin (vitamin B12) 10,000 10,000 mcg IM Q30D 04/17/20 07/29/23 History mcg solution for injection Flutter Valve #1 ea 02/21/21 07/29/23 Rx Portable Oxygen #1 ea 04/11/22 07/29/23 Rx ipratropium 0.5 mg-albuterol 3 mg 3 ml inhalation Q8H PRN shortness 11/05/22 07/29/23 Rx (2.5 mg base)/3 mL nebulization of breath or wheezing #180 mL soln ergocalciferol (vitamin D2) 1,250 1,250 mcg PO Q7D 02/25/23 07/29/23 History mcg (50,000 unit) capsule (Vitamin D2) famotidine 40 mg tablet (Pepcid) 40 mg PO HS 02/25/23 07/29/23 History magnesium 200 mg tablet 200 mg PO QAM 02/25/23 07/29/23 History mirtazapine 30 mg tablet (Remeron) 30 mg PO HS 02/25/23 07/29/23 History omeprazole 20 mg capsule,delayed 20 mg PO BID PRN gerd 02/25/23 07/29/23 History release oxybutynin chloride 10 mg 10 mg PO QAM 02/25/23 07/29/23 History tablet,extended release 24 hr rosuvastatin 5 mg tablet (Crestor) 5 mg PO HS 02/25/23 07/29/23 History albuterol sulfate 90 mcg/actuation 2 puff inhalation Q4H PRN 07/15/23 07/29/23 Rx aerosol inhaler (Ventolin HFA) Shortness Of Breath Or Wheezing #3 Inhalers fluticasone fur. 100 mcg-umeclid 1 inh inhalation QAM #60 ea 07/15/23 07/29/23 Rx 62.5 mcg-vilant 25 mcg inhalat.powder (Trelegy Ellipta) Patient History Medical History MOULTON (dyspnea on exertion) Chest pain on exertion pt reports chest pain/sob on exertion x few weeks. pt reported this to pulmonology. per pt, pulm instructed pt to reach out to PCP for EKG. pt awaiting return call from PCP. Former smoker quit in 03/2022 On home oxygen therapy 2L O2 continuously COPD (chronic obstructive pulmonary disease) with chronic bronchitis daily and prn inh. Personal history of nicotine dependence Multiple pulmonary nodules COPD, severe Diverticulosis hx Internal hemorrhoids Pulmonary emphyse[place] [facility] [place] adenoma of colon hx History of varicella History of peptic ulcer Hx of juvenile rheumatoid arthritis Abnormal Pap smear of cervix ALEJANDRO favor dysplasia, HGSIL Osteoarthritis GERD (gastroesophageal reflux disease) Hypothyroidism Anxiety Kidney stones had them since she was 13 yrs old Dyslipidemia Depression with anxiety Surgical History S/P tooth extraction History of lithotripsy History of dilatation and curettage History of cystoscopy multiple History of colonoscopy History of tooth extraction full upper History of tonsillectomy and adenoidectomy Status post cystoscopy with ureteral stent placement 09/26/18 Hx of cholecystectomy H/O tubal ligation Family History Mother Family history of diabetes mellitus Alzheimer disease Diabetes Father Family history of diabetes mellitus Family history of esophageal cancer Brother Family history of diabetes mellitus Sister Family history of diabetes mellitus Family/Other Family history of diabetes mellitus nephew Other No family history of adverse response to anesthesia Social History Smoking Status: Never smoker Smoking End Date: 2022; Second Hand Exposure: No; Do You Dip or Chew Tobacco: No; Tobacco Cessation Education Requested by Patient: No Hx Alcohol Use: No Hx Substance Use: No Preferred Language: Faroese Communication Ability: Effective Visual Impairment: No Limitations Gear Hobber Required: No Beliefs That Will Affect Care: None marital status: Current Living Situation: Spouse Current Living Situation Comment: Lives with daughter and her family How many Children do You have: 3 Feels Safe at Home: Yes Safety Concerns: Feels Safe At This Time Assistive Devices: Denture - Upper and Oxygen - Continuous Review of Systems Review of Systems: All systems reviewed & are unremarkable except as noted in HPI & below Physical Exam Constitutional: no acute distress Neck: normal visual inspection Respiratory: no respiratory distress and no labored breathing O2 via NC Gastrointestinal (Abdomen): Inspection/Auscultation: abdomen normal to inspection Musculoskeletal: Head/Neck/Chest: normocephalic Skin: No visible rashes or lesions to exposed skin areas Neurologic: moves all extremities and awake Psychiatric: Orientation: alert, oriented x 3 and cooperative Results & Data Vital Signs (Past 12 Hours) Vital Signs Temp Pulse Pulse Resp BP BP Pulse Ox 07/29/23 08:10 07/29/23 08:10 36.9 C 80 17 158/95 H 98 07/29/23 07:09 73 07/29/23 05:49 73 16 4 L 07/29/23 03:55 74 20 97 07/29/23 03:55 74 20 97 07/29/23 03:55 74 20 166/92 H 97 07/29/23 03:12 67 O2 Del Method O2 Flow Rate 07/29/23 08:10 Nasal Cannula 3 07/29/23 08:10 Nasal Cannula 3 07/29/23 07:09 07/29/23 05:49 Nasal Cannula 07/29/23 03:55 Nasal Cannula 4 07/29/23 03:55 Nasal Cannula 4 07/29/23 03:55 Nasal Cannula 4 07/29/23 03:12 PG Care Time/CCT Total # of Minutes Spent Total Time Spent with Patient: Total time spent is greater than 50% in coordination of care (as documented) at patient's floor/unit and/or counseling patient: Coding Level of Care Code 41151 IN/OBS CONSULT LVL 4,60M Diagnoses Renal colic on right side N23 Hydronephrosis with renal and ureteral calculus obstruction N13.2
[2023-07-29] MEDS ORDERED: LACTATED RINGER'S 1,000 ML IV SCH (10:45)
[2023-07-29] MEDS ORDERED: ATROPINE SULFATE 0.1 MG/ML 10ML SYR IV PRN (10:52)
[2023-07-29] MEDS ORDERED: fentaNYL citrate PF 100 MCG/2 ML VIAL IV PRN (10:52)
[2023-07-29] MEDS ORDERED: ONDANSETRON INJ 2 MG/ML 2 ML VIAL IV PRN (10:52)
[2023-07-29] MEDS ORDERED: ePHEDrine sulfate 50 MG/ML AMP IV PRN (10:52)
[2023-07-29] MEDS ORDERED: PROPOFOL IV EMULSION 10 MG/ML 20 ML VIAL IV ONE (11:01)
[2023-07-29] MEDS ORDERED: ONDANSETRON INJ 2 MG/ML 2 ML VIAL ONE (11:01)
[2023-07-29] MEDS ORDERED: fentaNYL citrate PF 100 MCG/2 ML VIAL ONE (11:01)
[2023-07-29] MEDS ORDERED: LIDOCAINE 2% 2 ML VIAL/AMP(20MG/ML) INFIL ONE (11:01)
[2023-07-29] MEDS ORDERED: DIATRIZOATE MEGLUMINE 30% 100ML VIAL INSTIL ONE (12:10)
--- NOTE | 2023-07-29 12:13 | Operative Report ---
PG Post Operative Report Pre & Post Diagnosis Right urolithiasis Operation Date: 07/29/23 07:50 <No data on this case meets the specified criteria> Right urolithiasis I identified the patient and participated in the time-out.: Yes Procedure Operation Date: 07/29/23 07:50 Actual Procedures p Cystoscopy, Right Retrograde Pyelogram with radiographic interpretation, Right Ureteral Stent Placement(Not Applicable) - Deuce Chambers MD Surgeon Deuce Chambers MD [place] Operator None Estimated Blood Loss 0 Findings See Below Retrograde showed no extravasation. Stent in appropriate position Specimens None Drains 6 Zimbabwean by 26 cm right ureteral stent Anesthesia Type MAC Complications none Indications 63-year-old female with an 8 mm right proximal ureteral calculus who opted for stent placement due to intractable pain. Description of Procedure After informed consent was obtained, the patient was transported operative suite. MAC anesthesia was induced. The patient was placed in dorsolithotomy p osition prepped and draped in a sterile fashion. They received preoperative ceftriaxone for antibiotic prophylaxis. An appropriate surgical timeout was performed. A 22 Zimbabwean rigid scope was inserted per urethra into the bladder. Jerez cystoscopy revealed no stones or lesions. I turned my attention the right ureteral orifice and intubated this with a 5 Zimbabwean open-ended catheter. A right retrograde pyelogram was shot which showed mild hydronephrosis. A sensor wire was advanced into the kidney and confirmed fluoroscopically. A 6 Zimbabwean by 26 cm right ureteral stent was deployed with a good proximal coil in the renal pelvis and a good distal coil noted in the bladder, confirmed fluoroscopically and under direct visualization, respectively. The bladder was emptied and the scope was removed. This concluded the end of the case. All counts were correct at the end of the case. I was present, scrubbed, and actively participated for the entirety of the procedure. I attest to the content of the Intraoperative Record and any orders documented therein. Any exceptions are noted below.
--- NOTE | 2023-07-29 12:22 | Fluoroscopy Report ---
FL retrograde includes kub CLINICAL HISTORY: Retrograde pyelogram COMPARISON STUDY: CT of the abdomen and pelvis performed earlier today. FLUOROSCOPY TIME: 5 seconds. Ka, r: 2.11 mGy FLUOROSCOPIC IMAGES: 2 FINDINGS: Fluoroscopy was provided during right retrograde exam with right ureteral stent insertion. Initial image demonstrates a filling defect within the proximal right ureter which represents the jose daniel culus shown on CT. The subsequent image demonstrates placement of a right ureteral stent. Proximal as pect of the stent projects over the right collecting system. IMPRESSION: Fluoroscopy provided during right retrograde pyelogram with right ureteral stent inserti on. ACT 112: Negative or not required by law. Electronically signed by: Tevin Kimble M.D. 07/29/2023 12:21 PM
--- NOTE | 2023-07-29 12:47 | Anesthesiology Progress Note ---
Date of Service July 29, 2023 Anesthesia Post Procedure Vital Signs Vital Signs: Temp Pulse Pulse Pulse Resp BP BP 07/29/23 12:35 71 18 07/29/23 12:25 73 16 07/29/23 12:19 98.2 F 77 20 07/29/23 10:30 98.1 F 83 22 07/29/23 08:10 07/29/23 08:10 98.4 F 80 17 158/95 H 07/29/23 07:09 73 07/29/23 05:49 73 16 07/29/23 03:55 74 20 07/29/23 03:55 74 20 07/29/23 03:55 74 20 166/92 H 07/29/23 03:12 67 Pulse Ox O2 Del Method O2 Flow Rate 07/29/23 12:35 98 Nasal Cannula 3 07/29/23 12:25 98 Nasal Cannula 3 07/29/23 12:19 94 Nasal Cannula 3 07/29/23 10:30 99 Nasal Cannula 3 07/29/23 08:10 Nasal Cannula 3 07/29/23 08:10 98 Nasal Cannula 3 07/29/23 07:09 07/29/23 05:49 4 L Nasal Cannula 07/29/23 03:55 97 Nasal Cannula 4 07/29/23 03:55 97 Nasal Cannula 4 07/29/23 03:55 97 Nasal Cannula 4 07/29/23 03:12 Pain Intensity Right Flank: Pain Intensity: 2 Transfer of Care Handoff Completed per policy Notes Mental Status: alert / awake / arousable and participated in evaluation Patient Amnestic to Procedure: Yes Nausea / Vomiting: adequately controlled Pain: adequately controlled Airway Patency, RR, SpO2: stable & adequate BP & HR: stable & adequate Hydration State: stable & adequate Anesthetic Complications: no major complications apparent and Pt Satisfied with anesthetic care
--- NOTE | 2023-07-29 14:27 | Hospitalist Progress Note ---
Date of Service July 29, 2023 Assessment & Plan (1) Renal colic on right side: Plan: 63-year-old female with past med history significant for chronic hypoxic respiratory failure on 3L home oxygen, hyperlipidemia, hypothyroidism, COPD, hypertension, history of calculus of kidney, history of depression, former smoker, presents with right flank pain and pain while passing urine. Associated with nausea and dry heaving. No burning micturition. No fevers. No headaches. Because of dry heaves he had some chest discomfort, admitting troponin was negative. Denies any shortness of breath. She is being managed for the following: Renal colic on right side 8 mm stone in the proximal right ureter with severe associated hydronephrosis and prominent perinephric stranding. Status post Cystoscopy and right ureteral stent placement 07/29/2023. Resume diet, Continue with pain and nausea management. Urology evaluated, appreciate recommendation. Patient reports pain under control at this time. UTI: Rocephin. we will follow cultures Acute kidney injury: Creatinine elevated at 1.24 at presentation, baseline creatinine around 0.6. Hold nephrotoxic's, continue IV fluid, labs in AM. Will follow. Chronic hypoxic respiratory failure on home oxygen History of COPD Continue home inhalers depression and anxiety: continue home meds DVTpx: scds Disposition: med/surg Full code Admission and Anticipated Discharge Date Admission Date: July 29, 2023 Subjective Patient was seen and examined at bedside. Patient was lying in bed, on 3 L oxygen via nasal cannula, resting comfortably, not in any acute distress. Patient denies any pain or headache or dizziness or flulike illness. Patient reports feeling better. Patient reports having pain while passing urine since yesterday. Physical Exam Physical Exam: GENERAL: Alert and oriented x3. NAD, on 3L O2 via NC. HEENT: No pallor, no icterus. Pupils equal, round and reactive to light. Oral mucosa moist. NECK: No JVD, no neck masses. HEART: S1 and S2 heard. Regular rate and rhythm. No murmur, no gallop. RESPIRATORY SYSTEM: Normal AP diameter. No accessory muscle use. No wheezing, no crackles. ABDOMEN: Soft, bowel sounds present, nontender, no distention. CENTRAL NERVOUS SYSTEM: No facial droop. Speech is clear. Obeys simple commands. Moves extremities. EXTREMITIES: No edema, no erythema seen. Results & Data Results & Data Vital Signs (Past 12 Hours) Vital Signs Temp Pulse Pulse Pulse Resp BP BP 07/29/23 13:30 73 15 132/81 07/29/23 13:15 67 16 115/84 07/29/23 13:00 68 13 123/73 07/29/23 12:45 69 14 122/83 07/29/23 12:35 71 18 131/88 07/29/23 12:25 73 16 140/78 07/29/23 12:19 36.8 C 77 20 132/86 07/29/23 10:30 36.7 C 83 22 07/29/23 08:10 07/29/23 08:10 36.9 C 80 17 158/95 H 07/29/23 07:09 73 07/29/23 05:49 73 16 07/29/23 03:55 74 20 07/29/23 03:55 74 20 07/29/23 03:55 74 20 166/92 H 07/29/23 03:12 67 Pulse Ox O2 Del Method O2 Flow Rate 07/29/23 13:30 97 Nasal Cannula 3 07/29/23 13:15 97 Nasal Cannula 3 07/29/23 13:00 97 Nasal Cannula 3 07/29/23 12:45 97 Nasal Cannula 3 07/29/23 12:35 98 Nasal Cannula 3 07/29/23 12:25 98 Nasal Cannula 3 07/29/23 12:19 94 Nasal Cannula 3 07/29/23 10:30 99 Nasal Cannula 3 07/29/23 08:10 Nasal Cannula 3 07/29/23 08:10 98 Nasal Cannula 3 07/29/23 07:09 07/29/23 05:49 4 L Nasal Cannula 07/29/23 03:55 97 Nasal Cannula 4 07/29/23 03:55 97 Nasal Cannula 4 07/29/23 03:55 97 Nasal Cannula 4 07/29/23 03:12
[2023-07-29] MEDS: HYDROmorphone INJ 0.5 MG/0.5 ML SYR IV PRN ×2 (16:52→20:52)
[2023-07-29] MEDS: MIRTAZAPINE TAB 15 MG TAB PO SCH (20:52)
[2023-07-29] MEDS: ROSUVASTATIN CALCIUM 5 MG TAB PO SCH (20:52)
[2023-07-29] MEDS: FAMOTIDINE 40 MG TABLET PO SCH (20:52)
[2023-07-30] MEDS: ONDANSETRON INJ 2 MG/ML 2 ML VIAL IV PRN ×2 (02:47→08:37)
[2023-07-30] MEDS ORDERED: cloNIDine HCL 0.1 MG TAB PO ONE (03:18)
[2023-07-30] MEDS: SODIUM CHLORIDE 0.9% 1,000 ML IV SCH (03:39)
[2023-07-30] MEDS: cefTRIAXone SODIUM 2,000 MG in DEXTROSE 5 % MINI-B 50 ML IV SCH (05:04)
[2023-07-30] MEDS: LEVOTHYROXINE SODIUM 25 MCG TABLET PO SCH (05:06)
[2023-07-30 06:13] LABS: Basophils # (auto) 0.02 K/uL (0.00-0.20); Basophils % (auto) 0.3 %; Eosinophils # (auto) 0.06 K/uL (0.00-0.50); Eosinophils % (auto) 0.9 %; Hematocrit (blood only) 41.8 % (37.0-47.0); Hemoglobin 13.5 g/dl (12.0-16.0); Immature Granulocytes # (auto) 0.02 K/uL (0.01-0.20); Immature Granulocytes % (auto) 0.3 %; Lymphocytes # (auto) 0.58 K/uL (1.20-3.40); Lymphocytes % (auto) 8.3 %; Mean Corpuscular Hemoglobin 30.5 pg (25.0-34.0); Mean Corpuscular Hgb Conc 32.3 g/dL (32.0-36.0); Mean Corpuscular Volume 94.6 fL (80.0-100.0); Mean Platelet Volume 9.4 fL (9.4-12.4); Monocytes # (auto) 0.48 K/uL (0.11-0.59); Monocytes % (auto) 6.9 %; Neutrophils # (auto) 5.82 K/uL (1.40-6.50); Neutrophils % (auto) 83.3 %; Platelet Count 163 K/uL (130-400); RDW Coefficient of Variation 12.2 % (11.5-14.5); RDW Standard Deviation 43.1 fL (36.4-46.3); Red Blood Count 4.42 M/uL (4.20-5.40); White Blood Count 6.98 K/ul (4.8-10.8)
[2023-07-30 06:32] LABS: BUN Creatinine Ratio 19.8 (10-20); Calcium 8.1 mg/dl (8.6-10.3); Creatinine Clr Calc Pharmacy 67.3 ml/min; Est GFR (African American) 83.9 ml/min; Est GFR (Non-African American) 72.4 ml/min; Magnesium 1.7 mg/dl (1.7-2.4); Potassium 3.9 mmol/L (3.5-5.1)
[2023-07-30] MEDS: OXYBUTYNIN CHLORIDE XL 5 MG TABCR PO SCH (08:05)
[2023-07-30] MEDS: UMECLIDINIUM BROMIDE 62.5MCG/BLISTER 7 PUFFS/INHALER INH SCH (08:05)
[2023-07-30] MEDS: FLUoxetine HCL 20 MG CAP PO SCH (08:05)
[2023-07-30] MEDS: FLUTICASONE/VILANTEROL 100/25MCG 14 PUFFS/INHALER INH SCH (08:06)
[2023-07-30] MEDS: MAGNESIUM OXIDE 400 MG TAB PO SCH (10:29)
--- NOTE | 2023-07-30 10:30 | XRay Report ---
XR chest 1V portable CLINICAL HISTORY: ? volume overload COMPARISON STUDY: Chest radiograph March 28, 2022. Chest CT June 18, 2023. FINDINGS: There is no pneumothorax or pleural effusion. There is no consolidation to suggest pneumoni a. Apparent hazy lower lung densities are likely artifactual and related to overlying soft tissues. T here is emphysema. No evidence for pulmonary edema. IMPRESSION: No acute cardiopulmonary findings. Emphysema. ACT 112: Negative or not required by law. Electronically signed by: Tevin Kimble M.D. 07/30/2023 10:27 AM
[2023-07-30] MEDS ORDERED: FUROSEMIDE INJ 20 MG/2 ML VIAL IV ONE (10:57)
[2023-07-30] MEDS ORDERED: ALUMINUM/MAGNESIUM SUSP 30 ML UDC PO PRN (12:43)
[2023-07-30] MEDS: ACETAMINOPHEN 325 MG TAB PO PRN (14:48)
--- NOTE | 2023-07-30 16:17 | Urology Progress Note ---
Date of Service July 30, 2023 Assessment & Plan (1) Renal colic on right side: (2) Hydronephrosis with renal and ureteral calculus obstruction: Plan 63yo/F admitted with intractable right flank pain secondary to an obstructing 8mm proximal right ureteral stone -POD #1 s/p cystoscopy and right ureteral stent placement -Subjectively feeling better, tolerating the ureteral stent with minimal bother -Afebrile and hemodynamically stable -Labs reviewed-WBC 6.98, hemoglobin 13.5, creatinine 0.86 -Urine culture pending, on ceftriaxone -Okay to d/c from perspective when medically stable -Recommend d/c with course of PO antibiotics and prn pain medication for stent management -Expected clinical course reviewed, all questions answered -Will arrange outpatient follow-up with our service -Urology will sign off, please call with any further questions or concerns Admission and Anticipated Discharge Date Admission Date: July 29, 2023 Subjective Patient examined at bedside this afternoon. Awake, resting in bed on arrival. No acute distress. Tolerating the ureteral stent with minimal bother. Denies fevers or chills. Reports some nausea, no vomiting. Denies hematuria or dysuria. Review of Systems Constitutional: as per Subjective / HPI Gastrointestinal: as per Subjective / HPI Genitourinary: as per Subjective / HPI Physical Exam Constitutional: no acute distress Respiratory: no respiratory distress and no labored breathing Neurologic: moves all extremities and awake Psychiatric: A+Ox3, euthymic affect Results & Data Vital Signs (Past 12 Hours) Vital Signs Temp Pulse Pulse Resp BP Pulse Ox O2 Del Method 07/30/23 15:06 36.3 C L 78 18 126/86 97 Nasal Cannula 07/30/23 11:15 36.2 C L 74 18 140/87 97 Nasal Cannula 07/30/23 09:36 Nasal Cannula 07/30/23 07:00 36.9 C 68 18 129/84 98 Nasal Cannula 07/30/23 05:07 70 143/84 H O2 Flow Rate 07/30/23 15:06 3 07/30/23 11:15 2 07/30/23 09:36 3 07/30/23 07:00 3 07/30/23 05:07 PG Care Time/CCT Total # of Minutes Spent Total Time Spent with Patient: Total time spent is greater than 50% in coordination of care (as documented) at patient's floor/unit and/or counseling patient: Coding Level of Care Code 02317 SUB INP/OBS CARE MIN Diagnoses Renal colic on right side N23 Hydronephrosis with renal and ureteral calculus obstruction N13.2
--- NOTE | 2023-07-30 16:56 | Hospitalist Progress Note ---
Date of Service July 30, 2023 Assessment & Plan (1) Renal colic on right side: Plan: 63-year-old female with past med history significant for chronic hypoxic respiratory failure on 3L home oxygen, hyperlipidemia, hypothyroidism, COPD, hypertension, history of calculus of kidney, history of depression, former smoker, presents with right flank pain and pain while passing urine. Associated with nausea and dry heaving. No burning micturition. No fevers. No headaches. Because of dry heaves he had some chest discomfort, admitting troponin was negative. Denies any shortness of breath. She is being managed for the following: Renal colic on right side 8 mm stone in the proximal right ureter with severe associated hydronephrosis and prominent perinephric stranding POD#1 s/p cystoscopy and right ureteral stent placement 07/29/2023 Urology okay to dc from their perspective; recommend PO abx and PRN analgesics for stent mgmt. Will arrange outpatient follow-up UTI: Empiric Rocephin. Preliminary urine culture, continue to follow Acute kidney injury: Creatinine elevated at 1.24 at presentation -> 0.86 post stent placement Baseline creatinine around 0.6 Hold nephrotoxic's Daily BMP Chronic hypoxic respiratory failure on home oxygen History of COPD Continue home inhalers Depression and anxiety: continue home meds DVTpx: scds Disposition: med/surg Full code Patient seen in collaboration with Dr. Molina. Please see addendum. Admission and Anticipated Discharge Date Admission Date: July 29, 2023 Supervising Physician Co-Signing Physician Notes Patient seen and examined at bedside. Patient is still needing oxygen, chest x- ray with possible congestion. Giving single dose of IV Lasix, will follow. Patient is a status post right ureteral stent, no CVA angle tenderness, is on Rocephin for UTI. Acute kidney injury has resolved. DC IV fluid. Encourage patient to mobilize in the hallway. Possible discharge tomorrow. I have seen and examined the patient and have discussed the case with the provider above. I agree with the assessment and plan as stated. Subjective Patient seen in 355-2 in follow up for ureteral stent placement. Patient fatigued but no ureteral discomfort at rest. Having some acid reflux symptoms. Denies fevers or chills, occasional nausea, no N/V, dysuria, hematuria, diarrhea or constipation. Review of Systems Review of Systems: At least ten systems reviewed and negative except as noted in the HPI. Physical Exam Physical Exam: Gen: WD/WN, NAD, resting in bed, A&Ox3 HEENT: Normocephalic, atraumatic, conjunctivae moist, sclerae anicteric, mucous membranes moist Lung: Coarse breath sounds bilaterally Heart: Regular rate, regular rhythm, no murmurs, rubs, or gallops Abdomen: Soft, NT, ND +BS x 4 Extremities: no edema Skin: Warm, no rash Results & Data Results & Data Vital Signs (Past 12 Hours) Vital Signs Temp Pulse Pulse Resp BP Pulse Ox O2 Del Method 07/30/23 15:06 36.3 C L 78 18 126/86 97 Nasal Cannula 07/30/23 11:15 36.2 C L 74 18 140/87 97 Nasal Cannula 07/30/23 09:36 Nasal Cannula 07/30/23 07:00 36.9 C 68 18 129/84 98 Nasal Cannula 07/30/23 05:07 70 143/84 H O2 Flow Rate 07/30/23 15:06 3 07/30/23 11:15 2 07/30/23 09:36 3 07/30/23 07:00 3 07/30/23 05:07 Laboratory Results Short CBC 07/30/23 Range/Units 05:25 WBC 6.98 (4.8-10.8) K/ul Hgb 13.5 (12.0-16.0) g/dl Hct 41.8 (37.0-47.0) % Plt Count 163 (130-400) K/uL BMP 07/30/23 05:25 Sodium 144 Potassium 3.9 Chloride 108 H Carbon Dioxide 32 BUN 17 Creatinine 0.86 D Glucose 114 H Calcium 8.1 L Diagnostic Findings Retrograde Pyelogram 07/29/23 00:00 FL retrograde includes kub CLINICAL HISTORY: Retrograde pyelogram COMPARISON STUDY: CT of the abdomen and pelvis performed earlier today. FLUOROSCOPY TIME: 5 seconds. Ka, r: 2.11 mGy FLUOROSCOPIC IMAGES: 2 FINDINGS: Fluoroscopy was provided during right retrograde exam with right ureteral stent insertion. Initial image demonstrates a filling defect within the proximal right ureter which represents the calculus shown on CT. The subsequent image demonstrates placement of a right ureteral stent. Proximal aspect of the stent projects over the right collecting system. IMPRESSION: Fluoroscopy provided during right retrograde pyelogram with right ureteral stent insertion. ACT 112: Negative or not required by law. Electronically signed by: Tevin Kimble M.D. 07/29/2023 12:21 PM Abdomen/Pelvis CT 07/29/23 03:22 Exam(s): CT ABDOMEN + PELVIS Without Contrast EXAM: CT Abdomen and Pelvis Without Intravenous Contrast CLINICAL HISTORY: Reason for exam: eval right sided stone. TECHNIQUE: Axial computed tomography images of the abdomen and pelvis without intravenous contrast. CTDI is 26.58 mGy and DLP is 1123.93 mGy-cm. Automated exposure control was utilized for the study. A dose lowering technique was utilized adhering to the principles of ALARA. COMPARISON: No relevant prior studies available. FINDINGS: Limitations: Evaluation of the solid and hollow viscera limited due to lack of oral and IV contrast. Within this constraint: Lung bases: Emphysematous changes in the lower lobes of the lungs. No consolidation. Mediastinum: 2 cm hiatal hernia. ABDOMEN: Liver: Unremarkable. Gallbladder and bile ducts: Cholecystectomy. No ductal dilation. Pancreas: Unremarkable. No ductal dilation. Spleen: Unremarkable. No splenomegaly. Adrenals: Unremarkable. No mass. Kidneys and ureters: 8 mm stone in the proximal right ureter with severe associated hydronephrosis and prominent perinephric stranding. Stomach and bowel: Diverticulosis without evidence of diverticulitis. No obstruction. PELVIS: Appendix: No findings to suggest acute appendicitis. Bladder: Unremarkable. No stones. Reproductive: Unremarkable as visualized. ABDOMEN and PELVIS: Intraperitoneal space: No free air. No significant fluid collection. Bones/joints: Degenerative change at the L4 superior endplate. Alignment maintained. No acute fracture. Soft tissues: Small fat-containing umbilical hernia. Vasculature: Mild atherosclerosis. No abdominal aortic aneurysm. Lymph nodes: No enlarged lymph nodes. IMPRESSION: Evaluation of the solid and hollow viscera limited due to lack of oral and IV contrast. Within this constraint: 8 mm stone in the proximal right ureter with severe associated hydronephrosis and prominent perinephric stranding. Diverticulosis without evidence of diverticulitis. Electronically signed by: Foc Donahue M.D. 07/29/23 05:34 AM Chest X-Ray 07/30/23 09:24 XR chest 1V portable CLINICAL HISTORY: ? volume overload COMPARISON STUDY: Chest radiograph March 28, 2022. Chest CT June 18, 2023. FINDINGS: There is no pneumothorax or pleural effusion. There is no consolidation to suggest pneumonia. Apparent hazy lower lung densities are likely artifactual and related to overlying soft tissues. There is emphysema. No evidence for pulmonary edema. IMPRESSION: No acute cardiopulmonary findings. Emphysema. ACT 112: Negative or not required by law. Electronically signed by: Tevin Kimble M.D. 07/30/2023 10:27 AM
[2023-07-30] MEDS: FAMOTIDINE 40 MG TABLET PO SCH (20:13)
[2023-07-30] MEDS: ROSUVASTATIN CALCIUM 5 MG TAB PO SCH (20:13)
[2023-07-30] MEDS: MIRTAZAPINE TAB 15 MG TAB PO SCH (20:13)
[2023-07-31] MEDS: ACETAMINOPHEN 325 MG TAB PO PRN (01:43)
[2023-07-31] MEDS: cefTRIAXone SODIUM 2,000 MG in DEXTROSE 5 % MINI-B 50 ML IV SCH (05:42)
[2023-07-31] MEDS: LEVOTHYROXINE SODIUM 25 MCG TABLET PO SCH (05:42)
[2023-07-31] MEDS: FLUoxetine HCL 20 MG CAP PO SCH (08:19)
[2023-07-31] MEDS: OXYBUTYNIN CHLORIDE XL 5 MG TABCR PO SCH (08:19)
[2023-07-31] MEDS: MAGNESIUM OXIDE 400 MG TAB PO SCH (08:19)
[2023-07-31] MEDS: UMECLIDINIUM BROMIDE 62.5MCG/BLISTER 7 PUFFS/INHALER INH SCH (08:20)
[2023-07-31] MEDS: FLUTICASONE/VILANTEROL 100/25MCG 14 PUFFS/INHALER INH SCH (08:20)
[2023-07-31 10:30] LABS: Hematocrit (blood only) 41.1 % (37.0-47.0); Hemoglobin 13.3 g/dl (12.0-16.0); Mean Corpuscular Hemoglobin 30.4 pg (25.0-34.0); Mean Corpuscular Hgb Conc 32.4 g/dL (32.0-36.0); Mean Corpuscular Volume 94.1 fL (80.0-100.0); Mean Platelet Volume 9.6 fL (9.4-12.4); Platelet Count 155 K/uL (130-400); Red Blood Count 4.37 M/uL (4.20-5.40)
[2023-07-31 10:47] LABS: BUN Creatinine Ratio 13.8 (10-20); Calcium 8.4 mg/dl (8.6-10.3); Creatinine Clr Calc Pharmacy 61.6 ml/min; Est GFR (African American) 75.4 ml/min; Potassium 3.2 mmol/L (3.5-5.1)
[2023-07-31] MEDS ORDERED: POTASSIUM CHLORIDE CRTAB 20 MEQ TABCR PO STA (13:19)
--- NOTE | 2023-07-31 13:20 | Discharge Summary ---
Discharge Summary Date of Service July 31, 2023 Notes For Next Care Provider obstructing ureteral stone s/p stent placement Medication Changes From Visit Cefdinir BID x 3 days, Zofran and Pyridium PRN Admission HPI Per Admitting Provider 63-year-old female with past med history significant for chronic hypoxic respiratory failure on home oxygen hyperlipidemia, hypothyroidism, COPD, hypertension, history of calculus of kidney, history of depression, former smoker, presents with right flank pain. Associated with nausea and dry heaving. No burning micturition. No fevers. No headaches. Because of dry heaves states she has some chest discomfort. Denies any shortness of breath. Currently resting comfortable and hemodynamically stable. Past medical history. As mentioned above Past surgical history. Ligation of oviducts. Laparoscopic cholecystectomy. Open removal of kidney stones left side at age 13 Social history. . As per epic smokes 0.5 packs a day. Alcohol rarely. Family history. Father had COPD. Paternal grandmother had breast cancer. Admission Exam Per Admitting Provider General- Not in distress Head- atraumatic Eyes- EOMI. ENT- oropharynx clear Neck- supple, no JVD. Lungs- clear to auscultation no wheezing or crackles. Heart- regular rhythm; no murmur, no gallop. Abdomen- normal bowel sounds, soft, nontender, no distension Extremities- no pretibial edema, no erythema seen Neuro- alert, oriented x 3;, EOMI; no facial palsy; no dysarthria; moves extremities. Skin- warm & dry Principal Dx & Hospital Course #1 = Principal Diagnosis (1) Renal colic on right side: (2) Hydronephrosis with renal and ureteral calculus obstruction: (3) Chronic bronchitis: This is a 63-year-old female with past med history significant for chronic hypoxic respiratory failure on 3L home oxygen, hyperlipidemia, hypothyroidism, COPD, hypertension, history of calculus of kidney, history of depression, former smoker, presents with right flank pain and pain while passing urine. CT abd/pelvis with 8 mm stone in the proximal right ureter with severe associated hydronephrosis and prominent perinephric stranding. Underwent cystoscopy and right ureteral stent placement 07/29/[address] Leach. Urine culture with less than 1,000 colonies /mL. Will continue cefdinir course per urology given recent instrumentation and follow up in clinic. Initially with ROSALINO on arrival that has since returned to baseline post stent removal. Comfortable and hemodynamically stable at time of discharge home. Discharge Exam Gen: WD/WN, NAD, resting in bed, A&Ox3 HEENT: Normocephalic, atraumatic, conjunctivae moist, sclerae anicteric, mucous membranes moist Lung: Coarse breath sounds bilaterally Heart: Regular rate, regular rhythm, no murmurs, rubs, or gallops Abdomen: Soft, mild suprapubic TTP, ND +BS x 4 Extremities: no edema Skin: Warm, no rash Updated Medication List Medication Instructions Recorded Confirmed Type fluoxetine 40 mg capsule (Prozac) 40 mg PO QAM #0 caps 12/17/15 07/29/23 History fluticasone propionate 50 2 spray intranasal DAILY PRN 12/03/17 07/29/23 History mcg/actuation nasal Allergy Symptoms ##0 spray,suspension (24 Hour Allergy Relief) levothyroxine 25 mcg tablet 25 mcg PO QAM 30 days #30 tabs 12/03/17 07/29/23 History (Synthroid) clonazepam 0.5 mg tablet (Klonopin) 0.5 mg PO BID PRN Anxiety 09/25/18 07/29/23 History mecobalamin (vitamin B12) 10,000 10,000 mcg IM Q30D 04/17/20 07/29/23 History mcg solution for injection Flutter Valve #1 ea 02/21/21 07/29/23 Rx Portable Oxygen #1 ea 04/11/22 07/29/23 Rx ipratropium 0.5 mg-albuterol 3 mg 3 ml inhalation Q8H PRN shortness 11/05/22 07/29/23 Rx (2.5 mg base)/3 mL nebulization of breath or wheezing #180 mL soln ergocalciferol (vitamin D2) 1,250 1,250 mcg PO Q7D 02/25/23 07/29/23 History mcg (50,000 unit) capsule (Vitamin D2) famotidine 40 mg tablet (Pepcid) 40 mg PO HS 02/25/23 07/29/23 History magnesium 200 mg tablet 200 mg PO QAM 02/25/23 07/29/23 History mirtazapine 30 mg tablet (Remeron) 30 mg PO HS 02/25/23 07/29/23 History omeprazole 20 mg capsule,delayed 20 mg PO BID PRN gerd 02/25/23 07/29/23 History release oxybutynin chloride 10 mg 10 mg PO QAM 02/25/23 07/29/23 History tablet,extended release 24 hr rosuvastatin 5 mg tablet (Crestor) 5 mg PO HS 02/25/23 07/29/23 History albuterol sulfate 90 mcg/actuation 2 puff inhalation Q4H PRN 07/15/23 07/29/23 Rx aerosol inhaler (Ventolin HFA) Shortness Of Breath Or Wheezing #3 Inhalers fluticasone fur. 100 mcg-umeclid 1 inh inhalation QAM #60 ea 07/15/23 07/29/23 Rx 62.5 mcg-vilant 25 mcg inhalat.powder (Trelegy Ellipta) cefdinir 300 mg capsule 300 mg PO BID 3 days #6 caps 07/31/23 Rx ondansetron 4 mg disintegrating 4 mg PO Q8H PRN nausea and 07/31/23 Rx tablet vomiting #6 tabs phenazopyridine 200 mg tablet 200 mg PO TID 6 doses #6 tabs 07/31/23 Rx (Pyridium) Hospital Stay Data Consultations 07/29/23 05:47 ED Decision to Admit Stat 07/29/23 08:00 Consult Urology Routine Procedures Performed Operation Date: 07/29/23 07:50 Actual Procedures p Cystoscopy, Right Retrograde Pyelogram, Right Ureteral Stent Placement(Not Applicable) - Deuce Chambers MD Diagnostic Imagining Performed 07/29/23 FL retrograde includes kub Routine 07/29/23 03:22 CT abd pelvis wo con Stat Pending Results Patient Have Any Pending Studies at Discharge: No Discharge Instructions Given to Patient (Per Discharging Provider) MEDICATION CHANGES: Cefdinir 300mg by mouth twice daily x 3 days after urological intervention. Continue oxybutynin daily, PRN Pyridium, PRN Zofran, Tylenol and ibuprofen as needed for pain SUMMARY OF TEST RESULTS: You were admitted to hospital secondary to right flank pain CT abd/pelvis showing 8 mm stone in the proximal right ureter with severe associated hydronephrosis and prominent perinephric stranding S/p cystoscopy and right ureteral stent placement 07/29/[address] Vaca PENDING TEST RESULTS: None RECOMMENDATIONS FOR FOLLOW-UP: Follow up with PCP and urology as scheduled above. Complete antibiotic in its entirety. Continue medication regimen as scheduled aside from changes noted above. OTHER INSTRUCTIONS: Seek medical attention if you have: * temperature above 101 * chest pain or trouble breathing * abdominal pain, nausea, vomiting * diarrhea, dark stools or bloody stools * any unanswered questions or concerns Call 911 if symptoms are severe. Please take good care of yourself. Call if you have any questions or problems. You can reach a [facility] hospitalist on duty at [facility] 24 hours a day by calling [phone]. Total Time Total Time Spent Total Time Spent (In Minutes): 40 Supervising Physician Co-Signing Physician Notes Patient seen and examined at bedside. Patient is still needing oxygen, chest x- ray with possible congestion. patient back to her baseline with respiratory status and reports feeling better. Patient is a status post right ureteral stent, no CVA angle tenderness, is on Rocephin for UTI continue with cefdinir on discharge. Acute kidney injury has resolved. Patient reports eating okay and is hemodynamically stable. Patient being discharged with close follow-up with PCP and urology on discharge. I have seen and examined the patient and have discussed the case with the provider above. I agree with the assessment and plan as stated.
[2023-08-03] MEDS ORDERED: ERGOCALCIFEROL 50,000 UNITS 1250 MCG CAP PO SCH (09:00)
== END 2023-07-31 15:38 | disposition home or self-care (01) | DRG 660 ==
LOC: ED 03:06 → EDINP 06:15 → SUATTDRO 06:15 → EDINP 10:34 → PACUINP 14:03 → 3W 16:05

== ENCOUNTER 2023-12-03 01:23 | Inpatient (IN) ==
[2023-12-03 01:55] LABS: Base Excess VBG 1.6 mEq/L; HCO3 VBG 29 mmol/L; Oxygen Saturation VBG 95.8 %; PCO2 VBG 58 mmHg (38-50); PO2 VBG 73 mmHg; pH VBG 7.31 (7.36-7.41)
[2023-12-03 02:06] LABS: Basophils # (auto) 0.02 K/uL (0.00-0.20); Basophils % (auto) 0.3 %; Eosinophils # (auto) 0.15 K/uL (0.00-0.50); Eosinophils % (auto) 2.2 %; Hematocrit (blood only) 46.3 % (37.0-47.0); Hemoglobin 14.9 g/dl (12.0-16.0); Immature Granulocytes # (auto) 0.02 K/uL (0.01-0.20); Immature Granulocytes % (auto) 0.3 %; Lymphocytes # (auto) 1.73 K/uL (1.20-3.40); Lymphocytes % (auto) 24.8 %; Mean Corpuscular Hemoglobin 29.8 pg (25.0-34.0); Mean Corpuscular Hgb Conc 32.2 g/dL (32.0-36.0); Mean Corpuscular Volume 92.6 fL (80.0-100.0); Mean Platelet Volume 9.4 fL (9.4-12.4); Monocytes # (auto) 0.51 K/uL (0.11-0.59); Monocytes % (auto) 7.3 %; Neutrophils # (auto) 4.54 K/uL (1.40-6.50); Neutrophils % (auto) 65.1 %; Platelet Count 209 K/uL (130-400); RDW Coefficient of Variation 12.5 % (11.5-14.5); RDW Standard Deviation 42.8 fL (36.4-46.3); White Blood Count 6.97 K/ul (4.8-10.8)
--- NOTE | 2023-12-03 02:12 | Emergency Department Note ---
Impression & Plan COPD (chronic obstructive pulmonary disease) ADMIT ED Provider Note HPI: History obtained from patient. The patient is a 63-year-old female who presents the emergency department with a chief complaint of shortness of breath. Patient states she is also felt dizzy over about the past 2 days. Patient states she generally has not felt well. On arrival here to the ED, the patient was placed on CPAP via EMS with good improvement in her oxygen and work of breathing. On my assessment the patient is on BiPAP and appears well, she states that her breathing feels much improved. Patient denies any chest pain, she otherwise appears to be in no acute distress on my initial assessment. ROS: - Per HPI Differential Diagnosis: COPD exacerbation, pulmonary edema, acute CHF exacerbation, pneumonia, pleural effusion, acute bronchitis, viral upper respiratory infection, amongst other potential pathologies. *Outpatient medications and allergy history reviewed. PE: General: Alert HEENT: Normocephalic, trachea midline Eyes: Extraocular eye movement is intact, no scleral erythema Pulmonary: Diminished bilaterally with mild expiratory wheezing Cardio: Regular rate and rhythm GI: Abdomen is soft to palpation : No suprapubic tenderness MSK: No evidence of trauma or malformation of the extremities, no edema Skin: No evidence of rash Neuro: Alert, no focal deficits Psychiatric: Cooperative INDEPENDENT INTERPRETATIONS: night monitor: (As interpreted by myself): - An order was placed for continuous cardiac monitoring - Patient was noted to be in sinus rhythm with a rate of 92 EKG: (As interpreted by myself): Rate: 85 Rhythm: Normal sinus rhythm Intervals: Within normal limits ST changes: No ST elevation Time: 0134 Chest x-ray: (As interpreted by myself): No focal infiltrate Interventions provided in ED: -DuoNeb breathing treatment, IV Solu-Medrol Medical Decision Making: IV was established and lab work obtained, patient was placed on campus monitor. Lab work shows no leukocytosis, hemoglobin is normal, platelet count is normal, CMP does not show any critical findings, venous blood gas shows pH of 7.31 with a pCO2 of 58. Chest x-ray per my interpretation does not show focal infiltrate, EKG does not show any evidence of acute ischemic changes. Troponin is negative. Patient denies any chest pain. Low suspicion for ACS. On my reassessment patient remains comfortable appearing on BiPAP. She states she would like to be admitted to the hospital as she does not feel comfortable for discharge. Case was discussed with the on-call hospitalist, Dr. Power, and the patient was placed for admission in stable condition for further care. Consultants/Discussions held with other healthcare providers: -Hospitalist, Dr. Power Disposition discussion held by myself with: -Patient Diagnosis: 1. Acute on chronic respiratory failure with hypercarbia 2. Respiratory acidosis, acute 3. COPD exacerbation, acute Disposition: Admission Warner Toledo DO Emergency Medicine Past Med/Surg History Medical History MOUL[place] (dyspnea on exertion) Chest pain on exertion 10/19/23- continues to have SOB and CP w/ exertion; to have echo done 10/20/23 at [facility] pt reports chest pain/sob on exertion x few weeks. pt reported this to pulmonology. per pt, pulm instructed pt to reach out to PCP for EKG. Former smoker quit in 03/2022 On home oxygen therapy 2L O2 continuously COPD (chronic obstructive pulmonary disease) with chronic bronchitis daily and prn inh. Personal history of nicotine dependence Multiple pulmonary nodules Diverticulosis hx Internal hemorrhoids Pulmonary emphysema f/u dr. godinez, [facility] [place] Tubular adenoma of colon hx History of varicella History of peptic ulcer Hx of juvenile rheumatoid arthritis Osteoarthritis GERD (gastroesophageal reflux disease) Hypothyroidism Anxiety Kidney stones had them since she was 13 yrs old Dyslipidemia Depression with anxiety Surgical History S/P tooth extraction History of lithotripsy History of dilatation and curettage History of cystoscopy multiple History of colonoscopy History of tooth extraction full upper History of tonsillectomy and adenoidectomy Status post cystoscopy with ureteral stent placement 07/29/23 [place] 09/26/18 Hx of cholecystectomy H/O tubal ligation Family History Mother Family history of diabetes mellitus Alzheimer disease Diabetes Father Family history of diabetes mellitus Family history of esophageal cancer Brother Family history of diabetes mellitus Sister Family history of diabetes mellitus Family/Other Family history of diabetes mellitus nephew Other No family history of adverse response to anesthesia Social History Smoking Status: Former smoker Tobacco Type: Cigarettes Second Hand Exposure: No; Do You Dip or Chew Tobacco: No; Hx Alcohol Use: No Hx Substance Use: No Preferred Language: Iranian Communication Ability: Effective Visual Impairment: No Limitations Office Spec Required: No Beliefs That Will Affect Care: None marital status: Current Living Situation: Spouse Current Living Situation Comment: Lives with daughter and her family How many Children do You have: 3 Feels Safe at Home: Yes Assistive Devices: Denture - Upper, Nebulizer, Oxygen - Continuous and Wheelchair Allergies Allergies Allergy/AdvReac Type Severity Reaction Status Date / Time No Known Allergies Allergy Verified 11/03/23 09:44 Home Meds Home Medications Medication Instructions Recorded Confirmed fluoxetine 40 mg capsule (Prozac) 40 mg PO QAM #0 caps 12/17/15 11/03/23 fluticasone propionate 50 2 spray intranasal DAILY PRN 12/03/17 11/03/23 mcg/actuation nasal Allergy Symptoms ##0 spray,suspension (24 Hour Allergy Relief) clonazepam 0.5 mg tablet (Klonopin) 0.5 mg PO BID PRN Anxiety 09/25/18 11/03/23 mecobalamin (vitamin B12) 10,000 10,000 mcg IM Q30D 04/17/20 11/03/23 mcg solution for injection ergocalciferol (vitamin D2) 1,250 1,250 mcg PO Q7D 02/25/23 11/03/23 mcg (50,000 unit) capsule (Vitamin D2) famotidine 40 mg tablet (Pepcid) 40 mg PO HS 02/25/23 11/03/23 magnesium 200 mg tablet 200 mg PO QAM 02/25/23 11/03/23 mirtazapine 30 mg tablet (Remeron) 30 mg PO HS 02/25/23 11/03/23 omeprazole 20 mg capsule,delayed 20 mg PO BID PRN gerd 02/25/23 11/03/23 release oxybutynin chloride 10 mg 10 mg PO QAM 02/25/23 11/03/23 tablet,extended release 24 hr rosuvastatin 5 mg tablet (Crestor) 5 mg PO HS 02/25/23 11/03/23 Previous Rx's Medication Instructions Recorded Flutter Valve #1 ea 02/21/21 Portable Oxygen E0431 #1 ea 04/11/22 ipratropium 0.5 mg-albuterol 3 mg 3 ml inhalation Q8H PRN shortness 11/05/22 (2.5 mg base)/3 mL nebulization of breath or wheezing #180 mL soln albuterol sulfate 90 mcg/actuation 2 puff inhalation Q4H PRN 07/15/23 aerosol inhaler (Ventolin HFA) Shortness Of Breath Or Wheezing #3 Inhalers fluticasone fur. 100 mcg-umeclid 1 inh inhalation QAM #60 ea 07/15/23 62.5 mcg-vilant 25 mcg inhalat.powder (Trelegy Ellipta) ondansetron 4 mg disintegrating 4 mg PO Q8H PRN nausea and 07/31/23 tablet vomiting #6 tabs phenazopyridine 200 mg tablet 200 mg PO TID 6 doses #6 tabs 07/31/23 (Pyridium) oxycodone 5 mg tablet 5 mg PO Q6H PRN pain #8 tabs 08/21/23 oxybutynin chloride 5 mg 5 mg PO DAILY #10 tabs 11/03/23 tablet,extended release 24 hr tamsulosin 0.4 mg capsule (Flomax) 0.4 mg PO DAILY #10 caps 11/03/23 Results & Data (ED) Vital Signs Vital Signs - 24 hr 12/03/23 01:28 12/03/23 01:35 12/03/23 01:45 Temperature 36.6 C Temperature Source Axillary Pulse Rate 87 86 Respiratory Rate 24 22 Respiratory Effort / Characteristics Labored Short of Breath Respiratory Depth Deep Respiratory Pattern Rapid/Deep Tachypnea Blood Pressure 145/111 H Blood Pressure Mean 122 Blood Pressure Position Sitting Pulse Oximetry 98 98 Oxygen Delivery Method CPAP Fraction of Inspired Oxygen 35 Sepsis Recent Fever Within 48 Hours No Sepsis New/Unexplained Change in Mental Status No Sepsis Action Taken by Nursing No Action Required 12/03/23 03:18 Temperature Temperature Source Pulse Rate 90 Respiratory Rate 18 Respiratory Effort / Characteristics Non-Labored Spontaneous Respiratory Depth Normal Respiratory Pattern Regular Blood Pressure Blood Pressure Mean Blood Pressure Position Pulse Oximetry 96 Oxygen Delivery Method Fraction of Inspired Oxygen 35 Sepsis Recent Fever Within 48 Hours Sepsis New/Unexplained Change in Mental Status Sepsis Action Taken by Nursing Laboratory Data 12/03/23 Unknown 12/03/23 Unknown Lab Results 12/03/23 12/03/23 12/03/23 Range/Units 02:38 04:00 Unknown WBC 6.97 (4.8-10.8) K/ul RBC 5.00 (4.20-5.40) M/uL Hgb 14.9 (12.0-16.0) g/dl Hct 46.3 (37.0-47.0) % MCV 92.6 (80.0-100.0) fL MCH 29.8 (25.0-34.0) pg MCHC 32.2 (32.0-36.0) g/dL RDW Std Deviation 42.8 (36.4-46.3) fL RDW Coeff of Nona 12.5 (11.5-14.5) % Plt Count 209 (130-400) K/uL MPV 9.4 (9.4-12.4) fL Immature Gran % (Auto) 0.3 % Neut % (Auto) 65.1 % Lymph % (Auto) 24.8 % [place] % (Auto) 7.3 % Eos % (Auto) 2.2 % Baso % (Auto) 0.3 % Neut # (Auto) 4.54 (1.40-6.50) K/uL Lymph # (Auto) 1.73 (1.20-3.40) K/uL [place] # (Auto) 0.51 (0.11-0.59) K/uL Eos # (Auto) 0.15 (0.00-0.50) K/uL Baso # (Auto) 0.02 (0.00-0.20) K/uL Immature Gran # (Auto) 0.02 (0.01-0.20) K/uL PT 10.7 (9.0-12.0) Seconds INR 1.0 (0.9-1.1) APTT 30 (21-31) Seconds PTT Ratio 1.1 ABG pH 7.37 (7.35-7.45) ABG pCO2 51 H (35-46) mmHg ABG pO2 108 H (80-95) mmHg ABG HCO3 30 H (19-24) mmol/L ABG O2 Saturation 98.9 H (90-95) % ABG Base Excess 3.1 H (-9-1.8) mEq/L VBG pH 7.31 L (7.36-7.41) VBG pCO2 58 H (38-50) mmHg VBG pO2 73 mmHg VBG HCO3 29 mmol/L VBG O2 Saturation 95.8 % VBG Base Excess 1.6 mEq/L Sodium 143 (136-145) mmol/L Potassium 3.7 (3.5-5.1) mmol/L Chloride 106 (98-107) mmol/L Carbon Dioxide 28 (21-32) mmol/L Anion Gap 9 (3-11) BUN 16 (6-23) mg/dl Creatinine 0.85 (0.6-1.2) mg/dl Est Cr Clr Drug Dosing 72.8 ml/min Est GFR ( Amer) 85.1 ml/min Est GFR (Non-Af Amer) 73.4 ml/min BUN/Creatinine Ratio 18.8 (10-20) Glucose 145 H (70-99(Fasting)) mg/dl Calcium 8.8 (8.6-10.3) mg/dl Magnesium 1.8 (1.7-2.4) mg/dl Total Bilirubin 0.8 (0.2-1.0) mg/dl AST 19 (13-39) U/L ALT 15 (7-52) U/L Alkaline Phosphatase 96 (34-104) U/L Troponin I High Sens 3.4 (0-14) pg/ml Total Protein 6.7 (6.0-8.3) gm/dl Albumin 4.3 (3.4-5.0) gm/dl Globulin 2.4 L (2.5-4.0) gm/dl Albumin/Globulin Ratio 1.8 (0.9-2) Urine Color [place] Urine Appearance Turbid A (Clear) Urine pH 6.5 (4.5-7.5) Ur Specific [place] 1.017 (1.000-1.030) Urine Protein 3+ H (Negative) Urine Glucose (UA) Negative (Negative) Urine Ketones Negative (Negative) Urine Blood 3+ H (Negative) Urine Nitrite Negative (Negative) Urine Bilirubin Negative (Negative) Urine Urobilinogen Negative (Negative) Ur Leukocyte Esterase 3+ H (Negative) Urine WBC (Auto) >50 H (0-5) /hpf Urine RBC (Auto) >20 H (0-2) /hpf U Hyaline Cast (Auto) 0-2 (0-2) /lpf U Epithel Cells (Auto) 6-10 H (0-2) /hpf Urine Bacteria (Auto) 1+ H (None Seen) SARS-CoV-2 (PCR) NEGATIVE (Negative) Influenza Type A (PCR) Negative (Neg) Influenza Type B (PCR) Negative (Neg) RSV (RT-PCR) Negative (Neg) Administered Medications Magnesium Sulfate/Dextrose (Magnesium Sulfate / D5w) 1 gm in 100 mls @ 50 mls/hr IV ONE ONE Stop: 12/03/23 05:44 Last Admin: 12/03/23 03:53 Dose: 50 mls/hr Documented By: DONALD Discontinued Medications Albuterol (Albut/Ipratrop 3mg/0.5mg Neb 3 Ml Vial) 3 ml NEB NOW STA; Protocol Stop: 12/03/23 02:11 Last Admin: 12/03/23 02:17 Dose: Not Given Documented By: DONALD Methylprednisolone (Methylprednisolone 125 Mg/2 Ml Vial) 125 mg IV NOW STA Stop: 12/03/23 02:11 Last Admin: 12/03/23 02:17 Dose: 125 mg Documented By: DONALD Discharge Plan Visit Data Chief Complaint: Illness Stated Complaint: ILLNESS, WEAKNESS, SOB, CP, VIOLET ED Provider: Warner Toledo Discharge Problem: COPD (chronic obstructive pulmonary disease) Forms Stand Alone Forms: [facility] Prescriptions Prescriptions: No Action fluoxetine [Prozac] 40 mg Capsule 40 mg PO QAM Qty: 0 fluticasone propionate [24 Hour Allergy Relief] 50 mcg/actuation [place],Suspension 2 spray INTRANASAL DAILY PRN (Reason: Allergy Symptoms) Qty: 0 ipratropium-albuterol 0.5 mg-3 mg(2.5 mg base)/3 mL solution for nebulization 3 ml inhalation Q8H PRN (Reason: shortness of breath or wheezing) Qty: 180 5RF oxycodone 5 mg tablet 5 mg PO Q6H PRN (Reason: pain) Qty: 8 0RF (DME) Flutter Valve Device See Rx Instructions .Route Qty: 1 0RF Rx Instructions: Use multiple times a day. Lifetime need. (DME) Portable Oxygen E0431 Misc See Rx Instructions .MEDSUPPLY Qty: 1 0RF Rx Instructions: Oxygen 2 liters continuous via nasal cannula on exertion with portable concentrator. LIZZIE 99 mecobalamin (vitamin B12) 10,000 mcg recon soln 10,000 mcg IM Q30D albuterol sulfate [Ventolin HFA] 90 mcg/actuation HFA aerosol inhaler 2 puff INHALATION Q4H PRN (Reason: Shortness Of Breath Or Wheezing) Qty: 3 3RF Trelegy Ellipta 100-62.5-25 mcg blister with device 1 inh inhalation QAM Qty: 60 12RF clonazepam [Klonopin] 0.5 mg tablet 0.5 mg PO BID PRN (Reason: Anxiety) oxybutynin chloride 10 mg tablet extended release 24hr 10 mg PO QAM famotidine [Pepcid] 40 mg tablet 40 mg PO HS ergocalciferol (vitamin D2) [Vitamin D2] 1,250 mcg (50,000 unit) Capsule 1,250 mcg PO Q7D magnesium 200 mg Tablet 200 mg PO QAM rosuvastatin [Crestor] 5 mg Tablet 5 mg PO HS omeprazole 20 mg capsule,delayed release(DR/EC) 20 mg PO BID PRN (Reason: gerd) mirtazapine [Remeron] 30 mg tablet 30 mg PO HS phenazopyridine [Pyridium] 200 mg tablet 200 mg PO TID Qty: 6 0RF Rx Instructions: Take 1 tab up to 3 times daily as needed for urological discomfort ondansetron 4 mg tablet,disintegrating 4 mg PO Q8H PRN (Reason: nausea and vomiting) Qty: 6 0RF Rx Instructions: Take 1 tab up to three times a fay as needed for nausea oxybutynin chloride 5 mg tablet extended release 24hr 5 mg PO DAILY Qty: 10 0RF tamsulosin [Flomax] 0.4 mg capsule 0.4 mg PO DAILY Qty: 10 0RF Referrals Referrals: Ritu Duenas MD [Primary Care Provider] - Discharge Problem: COPD (chronic obstructive pulmonary disease) Qualifiers: COPD type: unspecified COPD Qualified Code(s): J44.9 - Chronic obstructive pulmonary disease, unspecified
[2023-12-03 02:16] LABS: Partial Thromboplastin Ratio 1.1; Partial Thromboplastin Time 30 Seconds (21-31); Prothrombin Time 10.7 Seconds (9.0-12.0)
[2023-12-03] MEDS: methylPREDNISolone 125 MG/2 ML VIAL IV STA (02:17)
[2023-12-03] MEDS: ALBUT/IPRATROP 3MG/0.5MG NEB 3 ML VIAL NEB STA (02:17)
[2023-12-03 02:19] LABS: Albumin Globulin Ratio 1.8 (0.9-2); Albumin Level 4.3 gm/dl (3.4-5.0); BUN Creatinine Ratio 18.8 (10-20); Bilirubin,Total 0.8 mg/dl (0.2-1.0); Calcium 8.8 mg/dl (8.6-10.3); Creatinine Clr Calc Pharmacy 72.8 ml/min; Est GFR (African American) 85.1 ml/min; Est GFR (Non-African American) 73.4 ml/min; Globulin 2.4 gm/dl (2.5-4.0); Potassium 3.7 mmol/L (3.5-5.1); Total Protein 6.7 gm/dl (6.0-8.3)
[2023-12-03 02:25] LABS: Troponin I High Sensitivity 3.4 pg/ml (0-14)
[2023-12-03 02:37] LABS: Influenza A virus by PCR Negative (Neg); Influenza B virus by PCR Negative (Neg); RSV by PCR Negative (Neg); SARS CoV2 RNA(COVID-19) Ceph NEGATIVE (Negative)
[2023-12-03 03:23] LABS: Appearance Urine Turbid (Clear); Bacteria Urine Automated 1+ (None Seen); Bilirubin Urine Negative (Negative); Blood Urine 3+ (Negative); Cast Urine Automated 0-2 /lpf (0-2); Color Urine Orange; Glucose Urine UA Negative (Negative); Ketones Urine Negative (Negative); Leukocyte Esterase Urine 3+ (Negative); Nitrite Urine Negative (Negative); Protein Urine 3+ (Negative); RBC Urine Automated >20 /hpf (0-2); Specific Gravity Urine 1.017 (1.000-1.030); Urobilinogen Urine Negative (Negative); WBC Urine Automated >50 /hpf (0-5); pH Urine 6.5 (4.5-7.5)
[2023-12-03 03:33] LABS: Magnesium 1.8 mg/dl (1.7-2.4)
--- NOTE | 2023-12-03 03:47 | History & Physical Report ---
Date of Service December 03, 2023 Assessment & Plan (1) Acute and chronic respiratory failure with hypercapnia: Plan: hx chronic hypoxemic respiratory failure secondary to COPD on home O2, BRIGITTE on CPA, Secondary to COPD exacerbation rule out PE, atypical pneumonia Patient without overt cough symptoms. hypertension, not on maintenance medications Highest SBP noted to be 180 at the ER Complicated UTI, no sepsis for now History urolithiasis, patient denies abdominal/flank pain complaints hyperlipidemia, on statin Rx hypothyroidism, euthyroid as of outpatient TSH last year, patient currently not on maintenance medications Hyperglycemia rule out DM past tobacco abuse PCU Tweak BiPAP settings ABG to follow initial VBG done at the ER CT chest PE study Lisinopril for BP control Urine CS, Ceftriaxone Check hemoglobin A1c DVT prophylaxis. Lovenox subcu if no bleeding on CT head Full code Total critical care time was 40 minutes. Text document was generated using [employer] voice recognition software. It may contain grammatical or spelling errors. Kindly contact undersigned for clarification of any documentation item in question. History of Present Illness Chief Complaint: SOB, chest pain, dizziness Primary Care Provider: Ritu Duenas MD History obtained from patient and records. Medical history significant for chronic hypoxemic respiratory failure secondary to COPD on home O2, BRIGITTE on CPAP, hypertension, hyperlipidemia, hypothyroidism, urolithiasis, mood disorder, past tobacco abuse. Last confinement July 2023 for obstructive kidney stone status post stent placement. Patient not feeling well the last few days. Dizziness described as lightheadedness. Achy headache symptoms. Dysuria symptoms without fever, chills, abdominal or flank pain. Transient chest pain with shortness of breath. No cough symptoms. Solu-Medrol and neb treatment administered at the ER. SBP noted to be 180s at the ER. Medical History as above Surgical History : BTL, urologic procedures, cholecystectomy Family History : COPD, breast cancer Personal/Social history : Past tobacco abuse, no EtOH intake, retired [employer] employee Allergies Allergy/AdvReac Type Severity Reaction Status Date / Time No Known Allergies Allergy Verified 11/03/23 09:44 Home Medications Medication Instructions Recorded Confirmed Type fluoxetine 40 mg capsule (Prozac) 40 mg PO QAM #0 caps 12/17/15 12/03/23 History clonazepam 0.5 mg tablet (Klonopin) 0.5 mg PO BID PRN Anxiety 09/25/18 12/03/23 History mecobalamin (vitamin B12) 10,000 10,000 mcg IM Q30D 04/17/20 12/03/23 History mcg solution for injection Flutter Valve #1 ea 02/21/21 12/03/23 Rx Portable Oxygen E0431 #1 ea 04/11/22 12/03/23 Rx ipratropium 0.5 mg-albuterol 3 mg 3 ml inhalation Q8H PRN shortness 11/05/22 12/03/23 Rx (2.5 mg base)/3 mL nebulization of breath or wheezing #180 mL soln ergocalciferol (vitamin D2) 1,250 1,250 mcg PO Q7D 02/25/23 12/03/23 History mcg (50,000 unit) capsule (Vitamin D2) famotidine 40 mg tablet (Pepcid) 40 mg PO HS 02/25/23 12/03/23 History magnesium 200 mg tablet 200 mg PO QAM 02/25/23 12/03/23 History mirtazapine 30 mg tablet (Remeron) 15 mg PO HS 02/25/23 12/03/23 History omeprazole 20 mg capsule,delayed 20 mg PO BID PRN gerd 02/25/23 12/03/23 History release oxybutynin chloride 10 mg 10 mg PO QAM 02/25/23 12/03/23 History tablet,extended release 24 hr rosuvastatin 5 mg tablet (Crestor) 5 mg PO HS 02/25/23 12/03/23 History albuterol sulfate 90 mcg/actuation 2 puff inhalation Q4H PRN 07/15/23 12/03/23 Rx aerosol inhaler (Ventolin HFA) Shortness Of Breath Or Wheezing #3 Inhalers ondansetron 4 mg disintegrating 4 mg PO Q8H PRN nausea and 07/31/23 12/03/23 Rx tablet vomiting #6 tabs phenazopyridine 200 mg tablet 200 mg PO TID 6 doses #6 tabs 07/31/23 12/03/23 Rx (Pyridium) oxycodone 5 mg tablet 5 mg PO Q6H PRN pain #8 tabs 08/21/23 12/03/23 Rx oxybutynin chloride 5 mg 5 mg PO DAILY #10 tabs 11/03/23 12/03/23 Rx tablet,extended release 24 hr tamsulosin 0.4 mg capsule (Flomax) 0.4 mg PO DAILY #10 caps 11/03/23 12/03/23 Rx Past Med/Surg History Medical History MOULTON (dyspnea on exertion) Chest pain on exertion 10/19/23- continues to have SOB and CP w/ exertion; to have echo done 10/20/23 at [facility] pt reports chest pain/sob on exertion x few weeks. pt reported this to pulmo nology. per pt, pulm instructed pt to reach out to PCP for EKG. Former smoker quit in 03/2022 On home oxygen therapy 2L O2 continuously COPD (chronic obstructive pulmonary disease) with chronic bronchitis daily and prn inh. Personal history of nicotine dependence Multiple pulmonary nodules Diverticulosis hx Internal hemorrhoids Pulmonary [place] [facility] [place] adenoma of colon hx History of varicella History of peptic ulcer Hx of juvenile rheumatoid arthritis Osteoarthritis GERD (gastroesophageal reflux disease) Hypothyroidism Anxiety Kidney stones had them since she was 13 yrs old Dyslipidemia Depression with anxiety Surgical History S/P tooth extraction History of lithotripsy History of dilatation and curettage History of cystoscopy multiple History of colonoscopy History of tooth extraction full upper History of tonsillectomy and adenoidectomy Status post cystoscopy with ureteral stent placement 07/29/23 [place] 09/26/18 Hx of cholecystectomy H/O tubal ligation Family History Mother Family history of diabetes mellitus Alzheimer disease Diabetes Father Family history of diabetes mellitus Family history of esophageal cancer Brother Family history of diabetes mellitus Sister Family history of diabetes mellitus Family/Other Family history of diabetes mellitus nephew Other No family history of adverse response to anesthesia Social History Smoking Status: Former smoker Tobacco Type: Cigarettes Second Hand Exposure: No; Do You Dip or Chew Tobacco: No; Hx Alcohol Use: No Hx Substance Use: No Preferred Language: Citizen Of [place] Communication Ability: Effective Visual Impairment: No Limitations [employer] Required: No Beliefs That Will Affect Care: None marital status: Current Living Situation: Spouse Current Living Situation Comment: Lives with daughter and her family How many Children do You have: 3 Feels Safe at Home: Yes Safety Concerns: Feels Safe At This Time Assistive Devices: None Review of Systems Review of Systems: As per HPI, all other systems reviewed and negative Physical Exam Physical Exam: GENERAL: Comfortable, obese, slightly anxious, no respiratory distress SKIN: Normal color, warm HEENT: [place] palpebral conjunctivae, no ptosis, dry buccal mucosa, BiPAP in place NECK : Supple, no tenderness CHEST : Decreased breath sounds, no tenderness HEART : RRR, no obvious murmurs ABDOMEN: Some distention, nontender EXTREMITIES : No LE swelling/tenderness, no other conspicuous deformities noted NEUROLOGIC : Coherent, no facial asymmetry, no other gross focality Results & Data Results & Data Vital Signs (Past 12 Hours) Vital Signs Temp Pulse Resp BP Pulse Ox O2 Del Method FiO2 12/03/23 03:18 90 18 96 35 12/03/23 01:45 22 98 35 12/03/23 01:35 86 12/03/23 01:28 36.6 C 87 24 145/111 H 98 CPAP Laboratory Results Laboratory Results WBC 6.97 K/ul (4.8-10.8) 12/03/23 Unknown RBC 5.00 M/uL (4.20-5.40) 12/03/23 Unknown Hgb 14.9 g/dl (12.0-16.0) 12/03/23 Unknown Hct 46.3 % (37.0-47.0) 12/03/23 Unknown MCV 92.6 fL (80.0-100.0) 12/03/23 Unknown MCH 29.8 pg (25.0-34.0) 12/03/23 Unknown MCHC 32.2 g/dL (32.0-36.0) 12/03/23 Unknown RDW Std Deviation 42.8 fL (36.4-46.3) 12/03/23 Unknown RDW Coeff of Nona 12.5 % (11.5-14.5) 12/03/23 Unknown Plt Count 209 K/uL (130-400) 12/03/23 Unknown MPV 9.4 fL (9.4-12.4) 12/03/23 Unknown Immature Gran % (Auto) 0.3 % 12/03/23 Unknown Neut % (Auto) 65.1 % 12/03/23 Unknown Lymph % (Auto) 24.8 % 12/03/23 Unknown Simpson % (Auto) 7.3 % 12/03/23 Unknown Eos % (Auto) 2.2 % 12/03/23 Unknown Baso % (Auto) 0.3 % 12/03/23 Unknown Neut # (Auto) 4.54 K/uL (1.40-6.50) 12/03/23 Unknown Lymph # (Auto) 1.73 K/uL (1.20-3.40) 12/03/23 Unknown Simpson # (Auto) 0.51 K/uL (0.11-0.59) 12/03/23 Unknown Eos # (Auto) 0.15 K/uL (0.00-0.50) 12/03/23 Unknown Baso # (Auto) 0.02 K/uL (0.00-0.20) 12/03/23 Unknown Immature Gran # (Auto) 0.02 K/uL (0.01-0.20) 12/03/23 Unknown PT 10.7 Seconds (9.0-12.0) 12/03/23 Unknown INR 1.0 (0.9-1.1) 12/03/23 Unknown APTT 30 Seconds (21-31) 12/03/23 Unknown PTT Ratio 1.1 12/03/23 Unknown VBG pH 7.31 (7.36-7.41) L 12/03/23 Unknown VBG pCO2 58 mmHg (38-50) H 12/03/23 Unknown VBG pO2 73 mmHg 12/03/23 Unknown VBG HCO3 29 mmol/L 12/03/23 Unknown VBG O2 Saturation 95.8 % 12/03/23 Unknown VBG Base Excess 1.6 mEq/L 12/03/23 Unknown Sodium 143 mmol/L (136-145) 12/03/23 Unknown Potassium 3.7 mmol/L (3.5-5.1) 12/03/23 Unknown Chloride 106 mmol/L (98-107) 12/03/23 Unknown Carbon Dioxide 28 mmol/L (21-32) 12/03/23 Unknown Anion Gap 9 (3-11) 12/03/23 Unknown BUN 16 mg/dl (6-23) 12/03/23 Unknown Creatinine 0.85 mg/dl (0.6-1.2) 12/03/23 Unknown Est Cr Clr Drug Dosing 72.8 ml/min 12/03/23 Unknown Est GFR ( Amer) 85.1 ml/min 12/03/23 Unknown Est GFR (Non-Af Amer) 73.4 ml/min 12/03/23 Unknown BUN/Creatinine Ratio 18.8 (10-20) 12/03/23 Unknown Glucose 145 mg/dl (70-99(Fasting)) H 12/03/23 Unknown Calcium 8.8 mg/dl (8.6-10.3) 12/03/23 Unknown Magnesium 1.8 mg/dl (1.7-2.4) 12/03/23 Unknown Total Bilirubin 0.8 mg/dl (0.2-1.0) 12/03/23 Unknown AST 19 U/L (13-39) 12/03/23 Unknown ALT 15 U/L (7-52) 12/03/23 Unknown Alkaline Phosphatase 96 U/L (34-104) 12/03/23 Unknown Troponin I High Sens 3.4 pg/ml (0-14) 12/03/23 Unknown Total Protein 6.7 gm/dl (6.0-8.3) 12/03/23 Unknown Albumin 4.3 gm/dl (3.4-5.0) 12/03/23 Unknown Globulin 2.4 gm/dl (2.5-4.0) L 12/03/23 Unknown Albumin/Globulin Ratio 1.8 (0.9-2) 12/03/23 Unknown Urine Color Russell 12/03/23 02:38 Urine Appearance Turbid (Clear) A 12/03/23 02:38 Urine pH 6.5 (4.5-7.5) 12/03/23 02:38 Ur Specific [place] 1.017 (1.000-1.030) 12/03/23 02:38 Urine Protein 3+ (Negative) H 12/03/23 02:38 Urine Glucose (UA) Negative (Negative) 12/03/23 02:38 Urine Ketones Negative (Negative) 12/03/23 02:38 Urine Blood 3+ (Negative) H 12/03/23 02:38 Urine Nitrite Negative (Negative) 12/03/23 02:38 Urine Bilirubin Negative (Negative) 12/03/23 02:38 Urine Urobilinogen Negative (Negative) 12/03/23 02:38 Ur Leukocyte Esterase 3+ (Negative) H 12/03/23 02:38 Urine WBC (Auto) >50 /hpf (0-5) H 12/03/23 02:38 Urine RBC (Auto) >20 /hpf (0-2) H 12/03/23 02:38 U Hyaline Cast (Auto) 0-2 /lpf (0-2) 12/03/23 02:38 U Epithel Cells (Auto) 6-10 /hpf (0-2) H 12/03/23 02:38 Urine Bacteria (Auto) 1+ (None Seen) H 12/03/23 02:38 SARS-CoV-2 (PCR) NEGATIVE (Negative) 12/03/23 Unknown Influenza Type A (PCR) Negative (Neg) 12/03/23 Unknown Influenza Type B (PCR) Negative (Neg) 12/03/23 Unknown RSV (RT-PCR) Negative (Neg) 12/03/23 Unknown Diagnostic Findings Chest x-ray as per my interpretation atelectasis EKG as per my interpretation : Rate 90, NSR, normal axis, septal infarct, ST depression lateral leads, low voltage Code Status & VTE Plan VTE Prophylaxis Plan VTE Prophylaxis will be ordered: Yes
[2023-12-03] MEDS: MAGNESIUM SULFATE / D5W 1 GM/100 ML BAG IV ONE ×2 (03:53→20:41)
[2023-12-03 04:15] LABS: Base Excess ABG 3.1 mEq/L (-9-1.8); HCO3 ABG 30 mmol/L (19-24); Oxygen Saturation ABG 98.9 % (90-95); PCO2 ABG 51 mmHg (35-46); PO2 ABG 108 mmHg (80-95); pH ABG 7.37 (7.35-7.45)
[2023-12-03] MEDS: SODIUM CHLOR 0.45% + 20MEQ KCL 20 MEQ/1,000 ML BAG IV ONE (04:31)
[2023-12-03] MEDS: lisinopril 2.5 MG TAB PO STA (04:32)
[2023-12-03 04:38] LABS: Allen Test Pos (Pos)
[2023-12-03] MEDS ORDERED: IPRATROPIUM BROMIDE NEB SOLN 0.02% 0.5MG/2.5ML VIAL INH PRN (05:37)
[2023-12-03] MEDS: traMADol HCL 50 MG TABLET PO PRN (05:45)
[2023-12-03] MEDS: OPTIRAY 320 125ml IV ONE (06:21)
[2023-12-03 06:38] LABS: Base Excess VBG 3.2 mEq/L; HCO3 VBG 31 mmol/L; PCO2 VBG 58 mmHg (38-50); PO2 VBG 40 mmHg; pH VBG 7.33 (7.36-7.41)
--- NOTE | 2023-12-03 06:50 | CT Scan Report ---
CT SCAN OF THE BRAIN WITHOUT IV CONTRAST CLINICAL HISTORY: Headache. Hypertension. COMPARISON STUDY: No priors. TECHNIQUE: Unenhanced axial CT scan of the brain is performed from the vertex to the skull base. A do se lowering technique was utilized adhering to the principles of ALARA. The patient was scanned twice due to motion artifact. CT DOSE: 2239.6 mGy.cm FINDINGS: Brain parenchyma: There is age-related involutional change noting mild subcortical and periventricula r microangiopathic disease. There is no hemorrhage, mass effect, or evidence of acute territorial isc hemia by CT criteria. Christopher-white matter differentiation is preserved. No extra-axial fluid collection is seen. Ventricles, sulci, cisterns: Prominent secondary to involutional change. Intracranial vasculature: There is atherosclerotic calcification of the cavernous carotid arteries. Calvarium: Unremarkable. Sinuses and mastoids: The visualized paranasal sinuses are clear. The mastoid air cells are well pneu matized. Orbits: The bony orbits are grossly intact. IMPRESSION: There is no hemorrhage, mass effect, or evidence of acute territorial ischemia by CT jak chavez. ACT 112: Negative or not required by law. Electronically signed by: Ronen Conway M.D. 12/03/2023 6:48 AM
--- NOTE | 2023-12-03 07:09 | CT Scan Report ---
CT ANGIOGRAM OF THE CHEST CLINICAL HISTORY: Atypical chest pain. Dyspnea. COMPARISON STUDY: Chest x-ray dated 12/03/2023. Chest CT dated 06/18/2023. Abdominal CT dated 07/29/20. TECHNIQUE: Following the IV administration of 100 cc of Optiray 320, CT angiogram of the chest was pe rformed from the upper abdomen to the thoracic inlet utilizing the pulmonary embolus protocol. Images are reviewed in the axial, sagittal, and coronal planes. 3-D MIPS images are created and assessed. I V contrast was administered without complication. A dose lowering technique was utilized adhering to the principles of ALARA. The examination is degraded by streak artifact from the arms which could no t be elevated above the chest. FINDINGS: Thyroid: Imaged portions of the thyroid gland are normal in size and attenuation. Thoracic aorta: The thoracic aorta is normal in caliber and demonstrates standard 3-vessel arch anato my. No dissection is seen. Pulmonary vasculature: The pulmonary trunk is normal in caliber. There are no filling defects identif ied in main, lobar, or segmental pulmonary branches to suggest pulmonary embolus. Heart: The heart is normal in size and without pericardial effusion. There are coronary artery calcif ications. Lungs and pleural spaces: Emphysematous change is noted. There is no airspace consolidation or pleura l effusion. The trachea and central airways are clear. Foci of parenchymal scarring are seen througho ut both lungs. There are scattered calcified granulomas. An 8 mm irregular nodule in the right upper lobe image #174 is unchanged, as is a similar-appearing 6 mm right apical nodule on image #2015 Mediastinum: There is no mediastinal lymphadenopathy. [place]: Clear. Axillae: There is no axillary lymphadenopathy. Upper abdomen: Right-sided hydronephrosis is partially visualized. Cholecystectomy clips are noted. Skeletal structures: The skeletal structures are osteopenic. Mild degenerative change is noted in the shoulders and spine. No lytic or blastic bony lesions are seen. IMPRESSION: 1. There is no evidence of pulmonary embolus in the main, lobar, or segmental pulmonary arteries. 2. There is no airspace consolidation or pleural effusion. 3. Emphysema. 4. Subcentimeter right upper lobe pulmonary nodules are unchanged. Continued attention at lung screen ing follow-up is recommended. 5. Right-sided hydronephrosis is partially visualized. Ureterolithiasis was seen on 07/29/2023. Corre late with the urological history. 6. Additional findings as above. ACT 112: Negative or not required by law. Electronically signed by: Ronen Conway M.D. 12/03/2023 7:08 AM
[2023-12-03 07:14] LABS: Estimated Average Glucose 105 mg/dl; Hemoglobin A1C 5.3 % (4.5-5.6)
--- NOTE | 2023-12-03 07:23 | XRay Report ---
SINGLE VIEW CHEST CLINICAL HISTORY: Atypical chest pain FINDINGS: 2 AP, portable, upright chest radiographs are compared to study dated 10/20/2023 and correla luis with chest CT dated 06/18/2023. The cardiomediastinal silhouette is unremarkable. Advanced emphys eileen and chronic interstitial thickening is similar to previous. There is bibasilar scarring/atelectas is. No airspace consolidation or large pleural effusion is identified. There are scattered calcified granulomas. No pneumothorax is seen. The skeletal structures are osteopenic. The bony thorax is gross ly intact. IMPRESSION: Emphysematous change with no acute cardiopulmonary abnormality identified. ACT 112: Negative or not required by law. Electronically signed by: Ronen Conway M.D. 12/03/2023 7:22 AM
[2023-12-03] MEDS ORDERED: OXYBUTYNIN CHLORIDE XL 5 MG TABCR PO SCH (09:00)
[2023-12-03] MEDS: ENOXAPARIN INJ 40 MG/0.4 ML SYR SQ SCH (09:38)
[2023-12-03] MEDS: FLUoxetine HCL 20 MG CAP PO SCH (09:41)
[2023-12-03] MEDS: PANTOprazole 40 MG TAB PO PRN (09:41)
[2023-12-03] MEDS: TAMSULOSIN HCL 0.4 MG CAP PO SCH (09:42)
[2023-12-03] MEDS: PHENAZOPYRIDINE HCL 200 MG TAB PO SCH (09:42)
[2023-12-03] MEDS: OXYBUTYNIN CHLORIDE XL 5 MG TABCR PO SCH (09:43)
[2023-12-03] MEDS: cefTRIAXone SODIUM 2,000 MG/50 ML BAG IV STA (10:15)
[2023-12-03] MEDS: ACETAMINOPHEN 325 MG TAB PO PRN (10:35)
[2023-12-03] MEDS: IPRATROPIUM BROMIDE NEB SOLN 0.02% 0.5MG/2.5ML VIAL NEB SCH (12:03)
[2023-12-03] MEDS: LEVALBUTEROL 1.25MG/0.5ML NEB NEB SCH (12:03)
[2023-12-03] MEDS: LEVALBUTEROL 1.25 MG/3 ML NEB NEB PRN (12:03)
[2023-12-03] MEDS: predniSONE 20 MG TAB PO SCH (12:20)
[2023-12-03 13:26] LABS: Adenovirus PCR Not Detected (NotDetected); Bordetella parapertussis PCR Not Detected (NotDetected); Bordetella pertussis PCR Not Detected (NotDetected); Chlamydia pneumoniae PCR Not Detected (NotDetected); Coronavirus 229E PCR Not Detected (NotDetected); Coronavirus CoV-2 (COVID19)PCR Not Detected (NotDetected); Coronavirus HKU1 PCR Not Detected (NotDetected); Coronavirus NL63 PCR Not Detected (NotDetected); Coronavirus OC43PCR Not Detected (NotDetected); Human Metapneumovirus PCR Not Detected (NotDetected); Influenza A PCR Not Detected (NotDetected); Influenza B PCR Not Detected (NotDetected); Mycoplasma pneumoniae PCR Not Detected (NotDetected); Parainfluenza Virus 1 PCR Not Detected (NotDetected); Parainfluenza Virus 2 PCR Not Detected (NotDetected); Parainfluenza Virus 3 PCR Not Detected (NotDetected); Parainfluenza Virus 4 PCR Not Detected (NotDetected); Respiratory Syncytial VirusPCR Not Detected (NotDetected); Rhinovirus/Enterovirus PCR Not Detected (NotDetected)
--- NOTE | 2023-12-03 16:23 | Hospitalist Progress Note ---
Date of Service December 03, 2023 Assessment & Plan (1) Acute and chronic respiratory failure with hypercapnia: Plan: per admitting service notes with addendum: Acute on chronic hypoxemic respiratory failure secondary to COPD on home O2, BRIGITTE on CPA, Secondary to COPD exacerbation, Acute Bronchitis CT chest: no pneumonia, PE 1. There is no evidence of pulmonary embolus in the main, lobar, or segmental pulmonary arteries. 2. There is no airspace consolidation or pleural effusion. 3. Emphysema. 4. Subcentimeter right upper lobe pulmonary nodules are unchanged. Continued attention at lung screening follow-up is recommended. 5. Right-sided hydronephrosis is partially visualized. Ureterolithiasis was seen on 07/29/2023. Correlate with the urological history. 6. Additional findings as above. now on 3 L NC, baseline 2L Biofire negative Prednisone 40mg daily Nebs q6h Incentive spirometry, Flutter valve Complicated UTI History urolithiasis, patient denies abdominal/flank pain complaints s/p Ureteral stent placement / ff up urine culture Ceftri IV will consult Urology for possible removal of ureteral stent Hypertension - not on maintenance medications Highest SBP noted to be 180 at the ER - improving monitor closely hyperlipidemia, on statin Rx hypothyroidism, euthyroid as of outpatient TSH last year, patient currently not on maintenance medications Hyperglycemia - a1c 5.3 past tobacco abuse DVT prophylaxis. Lovenox subcu Full code Admission and Anticipated Discharge Date Admission Date: December 03, 2023 Subjective ff up for acute on chronic respiratory failure, etc seen resting in bed, comfortable on 3 L NC states she feels improved compared to yesterday breathing improving denies increased cough, sputum production no chest pain has intermittent dysuria no other symptoms Review of Systems Review of Systems: all noted and negative except for above Physical Exam Physical Exam: General- oriented x 3, not in distress, speaks in sentences with no effort or accessory muscle use Eyes- anicteric Neck- no JVD Lungs- somewhat diminished but clear breath sounds bilaterally Heart- normal rate, regular rhythm; no murmurs Abdomen- normal bowel sounds, nondistended, soft, nontender Extremities- no pretibial edema, no calf tenderness Neuro- alert, oriented x 3; no gross focal neurologic deficits Skin- warm & dry Results & Data Results & Data Vital Signs (Past 12 Hours) Vital Signs Temp Pulse Pulse Resp BP Pulse Ox O2 Del Method 12/03/23 15:51 83 12/03/23 15:11 36.7 C 89 20 119/85 93 Nasal Cannula 12/03/23 12:05 87 18 95 Nasal Cannula 12/03/23 11:56 Nasal Cannula 12/03/23 11:20 36.2 C L 77 19 113/71 95 Nasal Cannula 12/03/23 08:03 81 12/03/23 07:54 36.5 C 75 20 103/66 95 Nasal Cannula 12/03/23 06:07 36.1 C L 75 20 122/88 95 CPAP 12/03/23 06:00 CPAP 12/03/23 06:00 CPAP 12/03/23 05:35 82 O2 Flow Rate 12/03/23 15:51 12/03/23 15:11 12/03/23 12:05 2 12/03/23 11:56 2 12/03/23 11:20 12/03/23 08:03 12/03/23 07:54 12/03/23 06:07 12/03/23 06:00 12/03/23 06:00 12/03/23 05:35 all noted and reviewed including below
[2023-12-03] MEDS: clonazePAM 0.5 MG TAB PO PRN (17:06)
--- NOTE | 2023-12-03 19:49 | Communication Note ---
Date of Service: December 03, 2023 Patient reported sudden onset SOB and substernal pain after breathing treatment. No cough symptoms. Patient pulled off CPAP mask. Breathing treatments make her more short of breath as per patient. Code purple initiated. SBP 120s, heart rate 120s, RR 28, O2 sats 96 on 3 L PPE Obese, anxious, respiratory distress Decreased breath sounds, no wheezes Tachycardic, no obvious murmurs Chest x-ray as per my interpretation atelectasis EKG as per my interpretation : Rate 120, sinus tachycardia, normal axis, septal infarct, T wave abnormalities inferior leads Chest pain relieved by nitroglycerin as per RN. AP Respiratory failure Chest pain relieved by nitroglycerin rule out ACS Anxiety contributory to symptoms Supplemental O2 Facilitate BiPAP ABG now Check troponin Aspirin for CAD prevention until ACS ruled out Beta-cesar, IV heparin if with troponin elevation TTE, Cardiology consult Re: Chest pain relieved by nitroglycerin N.p.o. in anticipation of ischemic workup DC RTC neb treatment for now given patient refusal (patient never had wheezing symptoms from admission.) Vistaril for anxiety not relieved by Klonokateryna
[2023-12-03] MEDS: NITROGLYCERIN SL 0.4 MG/TAB TAB ONE (20:02)
[2023-12-03] MEDS ORDERED: oxyCODONE HCL IR 5 MG TAB (IMMEDIATE RELEASE) PO PRN (20:04)
[2023-12-03] MEDS: NITROGLYCERIN SL 0.4 MG/TAB TAB SL STA (20:11)
[2023-12-03] MEDS: hydrOXYzine HCl 25 MG TAB PO STA (20:16)
[2023-12-03] MEDS: MoRPHine SULFATE 2 MG/ML CARP IV PRN (20:19)
[2023-12-03] MEDS: PROMETHAZINE HCL 6.25 MG in SODIUM CHLORIDE 0.9% 50 ML IV PRN (20:26)
[2023-12-03 20:28] LABS: Allen Test Pos (Pos); Base Excess ABG -1.4 mEq/L (-9-1.8); HCO3 ABG 27 mmol/L (19-24); Oxygen Saturation ABG 97.9 % (90-95); PCO2 ABG 58 mmHg (35-46); PO2 ABG 94 mmHg (80-95); pH ABG 7.27 (7.35-7.45)
[2023-12-03] MEDS: PROMETHAZINE HCL 6.25 MG in SODIUM CHLORIDE 0.9% 50 ML IV STA (20:28)
[2023-12-03 20:30] LABS: Partial Thromboplastin Time 26 Seconds (21-31)
[2023-12-03] MEDS: FAMOTIDINE 40 MG TABLET PO SCH (20:47)
[2023-12-03] MEDS: MIRTAZAPINE TAB 15 MG TAB PO SCH (20:47)
[2023-12-03] MEDS: ROSUVASTATIN CALCIUM 5 MG TAB PO SCH (20:47)
[2023-12-03] MEDS: NSS + 20MEQ KCL 20 MEQ/1,000 ML BAG IV ONE (21:01)
[2023-12-03] MEDS: ASPIRIN 81 MG ECTAB PO STA (21:01)
[2023-12-03 22:50] LABS: Allen Test Pos (Pos); Base Excess ABG 0.6 mEq/L (-9-1.8); HCO3 ABG 27 mmol/L (19-24); Oxygen Saturation ABG 94.1 % (90-95); PCO2 ABG 47 mmHg (35-46); PO2 ABG 63 mmHg (80-95); pH ABG 7.36 (7.35-7.45)
[2023-12-04] MEDS: hydrOXYzine HCl 10 MG TAB PO PRN (01:04)
[2023-12-04 02:18] LABS: Hematocrit (blood only) 41.9 % (37.0-47.0); Hemoglobin 13.5 g/dl (12.0-16.0); Mean Corpuscular Hemoglobin 29.7 pg (25.0-34.0); Mean Corpuscular Hgb Conc 32.2 g/dL (32.0-36.0); Mean Corpuscular Volume 92.3 fL (80.0-100.0); Mean Platelet Volume 9.3 fL (9.4-12.4); Platelet Count 209 K/uL (130-400); RDW Coefficient of Variation 12.4 % (11.5-14.5); RDW Standard Deviation 41.9 fL (36.4-46.3); Red Blood Count 4.54 M/uL (4.20-5.40); White Blood Count 13.27 K/ul (4.8-10.8)
[2023-12-04 02:35] LABS: Basophils # (auto) 0.02 K/uL (0.00-0.20); Basophils % (auto) 0.2 %; Immature Granulocytes # (auto) 0.08 K/uL (0.01-0.20); Immature Granulocytes % (auto) 0.6 %; Lymphocytes % (auto) 3.8 %; Monocytes # (auto) 0.42 K/uL (0.11-0.59); Monocytes % (auto) 3.2 %; Neutrophils # (auto) 12.25 K/uL (1.40-6.50); Neutrophils % (auto) 92.2 %; RBC Morphology Unremarkable
[2023-12-04 02:36] LABS: BUN Creatinine Ratio 20.2 (10-20); Calcium 8.5 mg/dl (8.6-10.3); Chol HDL Ratio 2.4 (0-5); Creatinine Clr Calc Pharmacy 60.7 ml/min; Est GFR (African American) 70.8 ml/min; Est GFR (Non-African American) 61.1 ml/min
[2023-12-04] MEDS: cefTRIAXone SODIUM 2,000 MG/50 ML BAG IV SCH (05:40)
--- NOTE | 2023-12-04 07:40 | XRay Report ---
XR chest 1V portable HISTORY: Hypoxia. COMPARISON: Chest 12/03/2023. FINDINGS: No pneumothorax. The cardiac silhouette is normal in size. Emphysema again noted. No new fo jose daniel lung consolidations to suggest a pneumonia. Stable blunting the right lateral costophrenic sulcus which favor scarring. Mildly tortuous thoracic aorta. No acute fractures. IMPRESSION: No significant change compared to the prior study. No acute process. ACT 112: Negative or not required by law. Electronically signed by: Gerson Toth M.D. 12/04/2023 7:39 AM
--- NOTE | 2023-12-04 08:57 | Cardiology Consultation ---
Date of Consultation December 04, 2023 Assessment & Plan (1) Acute and chronic respiratory failure with hypercapnia: (2) COPD (chronic obstructive pulmonary disease): (3) Chest pain: (4) UTI (urinary tract infection): (5) Dyslipidemia: Plan Assessment: 63 year old female with chronic resp failure in the setting of COPD presents with worsening shortness of breath with associated chest pain and pre- syncopal symptoms. Elevated WBC with Positive UTI. No acute infectious resp. process noted. Cardiology asked to evaluate due to chest pain associated with breathing issues. Plan: 1. Acute on chronic resp. failure with hypercapnia 2. COPD - Known history of known COPD with chronic resp. failure on home O2 - Elevated WBC likely in response to + UTI. chest xray negative for acute process. - Continued management per primary team. 3. chest pain -In the setting of dyspnea. -EKG on admission shows Sinus tachycardia when she was having chest discomfort. Pain resolved with return to sinus rhythm. -Non-specific ST-T wave abnormality prior septal infarct noted on prior EKG dating back to 2021. -Troponin negative x4 -patient had an event last eveving shortly after receiving her nebulizer treatment where she had worsening shortness of breath and developed recurrence of chest pain. Rates were 130's and regular. Event lasted 30-40 minutes and when Heart rates had trended down, her chest pain resolved. -Echocardiogram pending -If not acute findings on echo, we will plan for dobutamine stress echo today to exclude ischemia. -Continue Lisinopril 2.5mg and ASA 81mg Daily. 4. UTI -Per management of primary team. 5. Dyslipidemia -Continue current home regimen with Crestor 5mg HS and ASA 81mg Daily Case has been discussed with Dr. Romero. Further recommendations regarding plan of care as per his assessment. I spent a total of 40 minutes on the date of service in preparation, delivery, documentation of the care provided to the patient excluding any time spent in the performance of separately billed services. MAYA Allen [facility] Cardiology [facility] Supervising Physician Co-Signing Physician Notes I have reviewed the advance practitioner's documentation, and I agree with, and take responsibility for the plan of care. I have personally performed a history and physical examination on the patient. 63-year-old female presenting with shortness of breath and atypical chest discomfort. Pain-free since admission. Cardiac enzymes negative x 4 sets. Resting 2D transthoracic echocardiogram demonstrates normal wall motion without significant valvular pathology. PE: SAO2 93% on 2L. otherwise VSS. Gen: NAD, chronically ill. Heart: Regular rhythm, distant heart sounds, normal S1-S2. No murmur. Lungs: Diminished breath sounds bilaterally. No rales, rhonchi, wheeze per extremities: No edema. A/P: 63-year-old female with underlying COPD presents with respiratory insufficiency and atypical chest discomfort. Recommend dobutamine stress echocardiography for further evaluation. Patient agreeable. Addendum: Dobutamine stress echo performed without complication. Preliminary review demonstrates no evidence of inducible ischemia. No further inpatient cardiac testing recommended at this time. Cardiology will sign off. Please call with additional concerns/questions. I spent a total of 30 minutes on the date of service in preparation, delivery, and documentation of the care provided to this patient, excluding any time spent in the performance of separately billed services. History of Present Illness Reason for Consultation: Chest pain Requesting Physician: Scott aguilar Attending Physician: Cj Castillo MD History of Present Illness HPI: Patient is a pleasent 63 year-old female that presented to the ED with complaints of worseing shortness of breath accompanied by lightheadedness, dizziness and chest pain. Patient carries a history as noted below and denies any recent acute events to cause her symtoms. no fevers, chills or URI symptoms. She personally has no prior history of CAD, with a negative stress test dating back to 2007. patient described her chest pain as sharp mid-sternal with radiating across the chest and through her back, but no pain to the jaw or upper extremities. She states the pain had persistent for hours. EKG 12/03/23: NSR, prior septal infarct. Rate 85bpm review of telemetry demonstrates NSR HR 74 BPM. There was a 30minute period around 8pm where patient had persistent ST rates 130's. Through discussion with patient, she had just had a nebulizer treatment and reported worsening shortness of breath with associated chest discomfort. elevated WBC +Urine Chest xray negative for acute process. Troponin negative x4. Patient is currently resting comfortably in bed without complaint. She is on supplementation O2 which she also wears at home, no increased demand at this time. She is NPO awaiting our consultation and echocardiogram results. Prior Echo 10/2023 demonstrates LVEF 60-65%, mild aortic sclerosis without stenosis PMHx: 1. Chronic hypoxemic resp failure s/t COPD on home O2 2. BRIGITTE 3. HTN 4. HLD 5. Hypothyroidism 6. urolithiasis 7. Mood disorder 8. Prior tobacco use Allergies Allergy/AdvReac Type Severity Reaction Status Date / Time No Known Allergies Allergy Verified 11/03/23 09:44 Home Medications Medication Instructions Recorded Confirmed Type fluoxetine 40 mg capsule (Prozac) 40 mg PO QAM #0 caps 12/17/15 12/03/23 History clonazepam 0.5 mg tablet (Klonopin) 0.5 mg PO BID PRN Anxiety 09/25/18 12/03/23 History mecobalamin (vitamin B12) 10,000 10,000 mcg IM Q30D 04/17/20 12/03/23 History mcg solution for injection Flutter Valve #1 ea 02/21/21 12/03/23 Rx Portable Oxygen E0431 #1 ea 04/11/22 12/03/23 Rx ipratropium 0.5 mg-albuterol 3 mg 3 ml inhalation Q8H PRN shortness 11/05/22 12/03/23 Rx (2.5 mg base)/3 mL nebulization of breath or wheezing #180 mL soln ergocalciferol (vitamin D2) 1,250 1,250 mcg PO Q7D 02/25/23 12/03/23 History mcg (50,000 unit) capsule (Vitamin D2) famotidine 40 mg tablet (Pepcid) 40 mg PO HS 02/25/23 12/03/23 History magnesium 200 mg tablet 200 mg PO QAM 02/25/23 12/03/23 History mirtazapine 30 mg tablet (Remeron) 15 mg PO HS 02/25/23 12/03/23 History omeprazole 20 mg capsule,delayed 20 mg PO BID PRN gerd 02/25/23 12/03/23 History release oxybutynin chloride 10 mg 10 mg PO QAM 02/25/23 12/03/23 History tablet,extended release 24 hr rosuvastatin 5 mg tablet (Crestor) 5 mg PO HS 02/25/23 12/03/23 History albuterol sulfate 90 mcg/actuation 2 puff inhalation Q4H PRN 07/15/23 12/03/23 Rx aerosol inhaler (Ventolin HFA) Shortness Of Breath Or Wheezing #3 Inhalers ondansetron 4 mg disintegrating 4 mg PO Q8H PRN nausea and 07/31/23 12/03/23 Rx tablet vomiting #6 tabs phenazopyridine 200 mg tablet 200 mg PO TID 6 doses #6 tabs 07/31/23 12/03/23 Rx (Pyridium) oxycodone 5 mg tablet 5 mg PO Q6H PRN pain #8 tabs 08/21/23 12/03/23 Rx oxybutynin chloride 5 mg 5 mg PO DAILY #10 tabs 11/03/23 12/03/23 Rx tablet,extended release 24 hr tamsulosin 0.4 mg capsule (Flomax) 0.4 mg PO DAILY #10 caps 11/03/23 12/03/23 Rx Patient History Medical History MOULTON (dyspnea on exertion) Chest pain on exertion 10/19/23- continues to have SOB and CP w/ exertion; to have echo done 10/20/23 at [facility] pt reports chest pain/sob on exertion x few weeks. pt reported this to pulmonology. per pt, pulm instructed pt to reach out to PCP for EKG. Former smoker quit in 03/2022 On home oxygen therapy 2L O2 continuously COPD (chronic obstructive pulmonary disease) with chronic bronchitis daily and prn inh. Personal history of nicotine dependence Multiple pulmonary nodules Diverticulosis hx Internal hemorrhoids Pulmonary emphyse[place] [facility] [place] adenoma of colon hx History of varicella History of peptic ulcer Hx of juvenile rheumatoid arthritis Osteoarthritis GERD (gastroesophageal reflux disease) Hypothyroidism Anxiety Kidney stones had them since she was 13 yrs old Dyslipidemia Depression with anxiety Surgical History S/P tooth extraction History of lithotripsy History of dilatation and curettage History of cystoscopy multiple History of colonoscopy History of tooth extraction full upper History of tonsillectomy and adenoidectomy Status post cystoscopy with ureteral stent placement 07/29/23 [place] 09/26/18 Hx of cholecystectomy H/O tubal ligation Family History Mother Family history of diabetes mellitus Alzheimer disease Diabetes Father Family history of diabetes mellitus Family history of esophageal cancer Brother Family history of diabetes mellitus Sister Family history of diabetes mellitus Family/Other Family history of diabetes mellitus nephew Other No family history of adverse response to anesthesia Social History Smoking Status: Former smoker Tobacco Type: Cigarettes Second Hand Exposure: No; Do You Dip or Chew Tobacco: No; Hx Alcohol Use: No Hx Substance Use: No Preferred Language: Slovenian Communication Ability: Effective Visual Impairment: No Limitations Senior [employer] Developer Required: No Beliefs That Will Affect Care: None marital status: Current Living Situation: Spouse Current Living Situation Comment: Lives with daughter and her family How many Children do You have: 3 Feels Safe at Home: Yes Safety Concerns: Feels Safe At This Time Assistive Devices: BiPap and Oxygen - Continuous Review of Systems Review of Systems: All systems reviewed & are unremarkable except as noted in HPI & below Physical Exam Constitutional: well developed and well nourished; no acute distress Neck: normal visual inspection and trachea midline Respiratory: normal respiratory effort; no respiratory distress Auscultation: + diminished lung sounds (bilateral bases); no crackles, no rales, no rhonchi and no wheezes Cardiovascular: RRR, no murmur, no edema Heart Sounds: normal S1 and normal S2 Vessels: no JVD Extremities: no edema Skin: no rashes, warm and dry Psychiatric: A+Ox3, euthymic affect Results & Data Vital Signs (Past 12 Hours) Vital Signs Temp Pulse Pulse Resp BP BP Pulse Ox 12/04/23 07:38 36.6 C 76 17 125/81 94 12/04/23 07:30 12/04/23 05:17 36.3 C L 76 16 121/78 91 12/04/23 00:52 93 H 12/03/23 22:20 36.6 C 98 H 18 120/85 90 12/03/23 21:06 96 H 20 116/78 94 O2 Del Method O2 Flow Rate 12/04/23 07:38 CPAP 12/04/23 07:30 CPAP 3 12/04/23 05:17 CPAP 12/04/23 00:52 12/03/23 22:20 CPAP 12/03/23 21:06 Nasal Cannula 3 Laboratory Results Cardiac Enzymes 12/03/23 12/04/23 Range/Units 20:04 01:57 Troponin I High Sens 3.6 5.3 (0-14) pg/ml Coagulation 12/03/23 Range/Units 20:04 APTT 26 (21-31) Seconds Lipids 12/04/23 Range/Units 01:57 Triglycerides 93 (0-150) mg/dl Cholesterol 146 (0-200) mg/dl HDL Cholesterol 62 mg/dl Cholesterol/HDL Ratio 2.4 (0-5) CBC 12/04/23 Range/Units 01:57 WBC 13.27 H (4.8-10.8) K/ul RBC 4.54 (4.20-5.40) M/uL Hgb 13.5 (12.0-16.0) g/dl Hct 41.9 (37.0-47.0) % Plt Count 209 (130-400) K/uL Neut # (Auto) 12.25 H (1.40-6.50) K/uL Lymph # (Auto) 0.50 L (1.20-3.40) K/uL [place] # (Auto) 0.42 (0.11-0.59) K/uL Eos # (Auto) 0.00 (0.00-0.50) K/uL Baso # (Auto) 0.02 (0.00-0.20) K/uL Comprehensive Metabolic Panel 12/04/23 Range/Units 01:57 Sodium 140 (136-145) mmol/L Potassium 4.0 (3.5-5.1) mmol/L Chloride 106 (98-107) mmol/L Carbon Dioxide 28 (21-32) mmol/L BUN 20 (6-23) mg/dl Creatinine 0.99 (0.6-1.2) mg/dl Glucose 163 H (70-99(Fasting)) mg/dl Calcium 8.5 L (8.6-10.3) mg/dl Intake and Output 12/03/23 12/04/23 12/04/23 22:59 06:59 14:59 Intake Total 789.417 / 889.417 50 / 889.417 Output Total 550 / 550 Balance 789.417 / 588.417 50 / 588.417 -550 / -550 Intake: IV 789.417 / 889.417 50 / 889.417 Magnesium Sulfate / D5w 1 gm In 100 / 100 100 ml @ 50 mls/hr IV ONE ONE Rx#:[id number] Promethazine HCl 6.25 mg In 50.25 / 50.25 Sodium Chloride 0.9% 50 ml @ 201 mls/hr IV Q6H PRN Rx#: [id number] Sodium Chlor 0.45% + 20Meq KCl 639.167 / 639.167 20 meq In 1,000 ml @ 50 mls/hr IV .Q20H ONE Rx#:[id number] cefTRIAXone SODIUM 2,000 mg In 50 / 50 50 ml @ 100 mls/hr IV Q24H UBALDO Rx#:[id number] Output: Urine 550 / 550 Other: Other Intake Source ICE CHIPS NPO # Unmeasured Voids 1 Weight 90 kg Weight Measurement Method Built in [facility] (2) COPD (chronic obstructive pulmonary disease) COPD type: unspecified COPD Qualified Code(s): J44.9 - Chronic obstructive pulmonary disease, unspecified (3) Chest pain Chest pain type: other chest pain Qualified Code(s): R07.89 - Other chest pain
[2023-12-04] MEDS: ASPIRIN 81 MG ECTAB PO SCH (09:10)
[2023-12-04] MEDS: lisinopril 2.5 MG TAB PO SCH (09:11)
--- NOTE | 2023-12-04 11:23 | Urology Consultation ---
<Statement entered by Steve Vaca MD - 12/04/23 12:48> I have discussed Ms. Hammond's case with MAYA Montalvo and agree with the above documentation. In the setting of possible urinary tract infection, her stent should be providing adequate drainage of the upper tracts and removal could cause transient obstruction. Will plan to maintain her stent for now, treat the infection and stent will be removed as an outpatient. -Steve Vaca MD. Date of Consultation December 04, 2023 Assessment & Plan (1) Ureteral stent present: (2) UTI (urinary tract infection): Plan 63yo/F admitted to medicine service for acute on chronic respiratory failure. Patient underwent ureteroscopy and stone treatment with stent exchange 11/03/2023. She was scheduled for outpatient stent removal in the urology clinic today. Urology was consulted for consideration of stent removal while inpatient. - Afebrile and hemodynamically stable at present - Labs today-WBC 13.27, hemoglobin 13.5, creatinine 0.99. - UA on admission suggestive of infection. Culture pending. On Ceftriaxone. - Voiding spontaneously, continue to monitor. Bladder scan prn. - No plan for urological intervention/stent removal. - Will reschedule outpatient stent removal in the urology clinic following hospital discharge. - Continue antibiotics and tailor as culture data becomes available. - Continue tamsulosin, oxybutynin, and prn pyridium for stent management. - Discussed plan with patient, she verbalized understanding and is agreeable. - Urology will sign-off. Please contact us with any further questions or concerns. History of Present Illness Attending Physician: Cj Castillo MD History of Present Illness 63-year-old female who presented to the ED on 12/03/2023 with shortness of breath and dizziness and is admitted to medicine service for acute on chronic respiratory failure. Urology was consulted for consideration of stent removal. Patient is known to the urology service, follows with Dr. Chambers. She underwent cystoscopy with right ureteroscopy, stone treatment, and stent exchange on 11/03/2023 Dr. Chambers. She was scheduled in the urology clinic today 12/04/2023 for stent removal but this was canceled due to her inpatient status. Patient was seen at bedside today. She is awake and resting in bed on arrival. No acute distress. She is tolerating the stent with minimal bother. Reports some dysuria. Denies significant pain. Denies abdominal and flank pain. Feels she is emptying her bladder well. No fevers. She is asking about stent removal while inpatient. Reports it is difficult for her to get to the office for a morning visit. She would prefer an afternoon appt moving forward. Denies additional concerns Allergies Allergy/AdvReac Type Severity Reaction Status Date / Time No Known Allergies Allergy Verified 11/03/23 09:44 Home Medications Medication Instructions Recorded Confirmed Type fluoxetine 40 mg capsule (Prozac) 40 mg PO QAM #0 caps 12/17/15 12/03/23 History clonazepam 0.5 mg tablet (Klonopin) 0.5 mg PO BID PRN Anxiety 09/25/18 12/03/23 History mecobalamin (vitamin B12) 10,000 10,000 mcg IM Q30D 04/17/20 12/03/23 History mcg solution for injection Flutter Valve #1 ea 02/21/21 12/03/23 Rx Portable Oxygen E0431 #1 ea 04/11/22 12/03/23 Rx ipratropium 0.5 mg-albuterol 3 mg 3 ml inhalation Q8H PRN shortness 11/05/22 12/03/23 Rx (2.5 mg base)/3 mL nebulization of breath or wheezing #180 mL soln ergocalciferol (vitamin D2) 1,250 1,250 mcg PO Q7D 02/25/23 12/03/23 History mcg (50,000 unit) capsule (Vitamin D2) famotidine 40 mg tablet (Pepcid) 40 mg PO HS 02/25/23 12/03/23 History magnesium 200 mg tablet 200 mg PO QAM 02/25/23 12/03/23 History mirtazapine 30 mg tablet (Remeron) 15 mg PO HS 02/25/23 12/03/23 History omeprazole 20 mg capsule,delayed 20 mg PO BID PRN gerd 02/25/23 12/03/23 History release oxybutynin chloride 10 mg 10 mg PO QAM 02/25/23 12/03/23 History tablet,extended release 24 hr rosuvastatin 5 mg tablet (Crestor) 5 mg PO HS 02/25/23 12/03/23 History albuterol sulfate 90 mcg/actuation 2 puff inhalation Q4H PRN 07/15/23 12/03/23 Rx aerosol inhaler (Ventolin HFA) Shortness Of Breath Or Wheezing #3 Inhalers ondansetron 4 mg disintegrating 4 mg PO Q8H PRN nausea and 07/31/23 12/03/23 Rx tablet vomiting #6 tabs phenazopyridine 200 mg tablet 200 mg PO TID 6 doses #6 tabs 07/31/23 12/03/23 Rx (Pyridium) oxycodone 5 mg tablet 5 mg PO Q6H PRN pain #8 tabs 08/21/23 12/03/23 Rx oxybutynin chloride 5 mg 5 mg PO DAILY #10 tabs 11/03/23 12/03/23 Rx tablet,extended release 24 hr tamsulosin 0.4 mg capsule (Flomax) 0.4 mg PO DAILY #10 caps 11/03/23 12/03/23 Rx Patient History Medical History MOULTON (dyspnea on exertion) Chest pain on exertion 10/19/23- continues to have SOB and CP w/ exertion; to have echo done 10/20/23 at [facility] pt reports chest pain/sob on exertion x few weeks. pt reported this to pulmonology. per pt, pulm instructed pt to reach out to PCP for EKG. Former smoker quit in 03/2022 On home oxygen therapy 2L O2 continuously COPD (chronic obstructive pulmonary disease) with chronic bronchitis daily and prn inh. Personal history of nicotine dependence Multiple pulmonary nodules Diverticulosis hx Internal hemorrhoids Pulmonary emphysema f/u dr. [place] [facility] [place]ular adenoma of colon hx History of varicella History of peptic ulcer Hx of juvenile rheumatoid arthritis Osteoarthritis GERD (gastroesophageal reflux disease) Hypothyroidism Anxiety Kidney stones had them since she was 13 yrs old Dyslipidemia Depression with anxiety Surgical History S/P tooth extraction History of lithotripsy History of dilatation and curettage History of cystoscopy multiple History of colonoscopy History of tooth extraction full upper History of tonsillectomy and adenoidectomy Status post cystoscopy with ureteral stent placement 07/29/23 [place] 09/26/18 Hx of cholecystectomy H/O tubal ligation Family History Mother Family history of diabetes mellitus Alzheimer disease Diabetes Father Family history of diabetes mellitus Family history of esophageal cancer Brother Family history of diabetes mellitus Sister Family history of diabetes mellitus Family/Other Family history of diabetes mellitus nephew Other No family history of adverse response to anesthesia Social History Smoking Status: Former smoker Tobacco Type: Cigarettes Second Hand Exposure: No; Do You Dip or Chew Tobacco: No; Hx Alcohol Use: No Hx Substance Use: No Preferred Language: Puerto Rican Communication Ability: Effective Visual Impairment: No Limitations Brewery Representative Required: No Beliefs That Will Affect Care: None marital status: Current Living Situation: Spouse Current Living Situation Comment: Lives with daughter and her family How many Children do You have: 3 Feels Safe at Home: Yes Safety Concerns: Feels Safe At This Time Assistive Devices: BiPap and Oxygen - Continuous Review of Systems Review of Systems: All systems reviewed & are unremarkable except as noted in HPI & below Physical Exam Constitutional: no acute distress Respiratory: no respiratory distress and no labored breathing Musculoskeletal: Head/Neck/Chest: normocephalic Skin: No visible rashes or lesions to exposed skin areas Neurologic: moves all extremities and awake Psychiatric: A+Ox3, euthymic affect Results & Data Vital Signs (Past 12 Hours) Vital Signs Temp Pulse Pulse Resp BP Pulse Ox O2 Del Method 12/04/23 07:38 36.6 C 76 17 125/81 94 CPAP 12/04/23 07:30 CPAP 12/04/23 05:17 36.3 C L 76 16 121/78 91 CPAP 12/04/23 00:52 93 H O2 Flow Rate 12/04/23 07:38 12/04/23 07:30 3 12/04/23 05:17 12/04/23 00:52 PG Care Time/CCT Total # of Minutes Spent Total Time Spent with Patient: Total time spent is greater than 50% in coordination of care (as documented) at patient's floor/unit and/or counseling patient: Coding Level of Care Code 95047 IN/OBS CONSULT LVL 3,45M Diagnoses Ureteral stent present Z96.0 UTI (urinary tract infection) N39.0
--- NOTE | 2023-12-04 12:40 | Electrocardiogram Report ---
Test Reason : Blood Pressure : / mmHG Vent. Rate : 118 BPM Atrial Rate : 118 BPM P-R Int : 152 ms QRS Dur : 072 ms QT Int : 324 ms P-R-T Axes : 076 073 072 degrees QTc Int : 454 ms Sinus tachycardia Possible Left atrial enlargement Septal infarct (cited on or before 03-DEC-2023) Nonspecific ST abnormality Inferior leads Abnormal ECG When compared with ECG of 03-DEC-2023 01:34, (unconfirmed) No significant change was found Confirmed by Jermaine Renee ([id number]) on 12/04/2023 12:40:21 PM Referred By: REFERRED SELF Confirmed By:Jermaine Renee
[2023-12-04] MEDS: DOBUTamine HCL 12.5 MG/ML 20 ML VIAL IV ONE (14:22)
[2023-12-04] MEDS: ATROPINE SULFATE 0.1 MG/ML 10ML SYR IV ONE (14:22)
[2023-12-04] MEDS: NITROGLYCERIN SL 0.4 MG/TAB TAB ONE (14:23)
[2023-12-04] MEDS: METOPROLOL TARTRATE 1 MG/ML VIAL IV ONE (14:23)
--- NOTE | 2023-12-04 18:09 | Pulmonary Consultation ---
Date of Consultation December 04, 2023 Assessment & Plan (1) Acute exacerbation of chronic obstructive pulmonary disease: Patient has recurrent COPD exacerbations. Recommend consideration for evaluation of bronchoscopic lung volume reduction as an outpatient if the patient is able to completely abstain from cigarette smoking for 4 months. Continue prednisone therapy for 7 days total. Continue nebulizer treatments as needed. Continue ICS/LABA/LAMA. Follow-up with Dr. Barakat in the outpatient clinic. (2) Acute and chronic respiratory failure with hypercapnia: Continue eval in the evenings. Patient has AVAPS device at home which she brought with her. (3) Anxiety: Patient with significant anxiety related to chronic breathlessness from COPD. Recommend palliative care outpatient evaluation given very advanced COPD. Plan Patient is basically at her baseline with oxygen requirements. History of Present Illness Reason for Consultation: COPD exacerbation Attending Physician: Cj Castillo MD History of Present Illness 63-year-old female with a past medical history of chronic hypoxic and hypercapnic respiratory failure who was admitted to the hospital 12/03/2023 due to ongoing shortness of breath that was worsening. 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 Godinez who last saw her 07/15/2023. She has a history of gold class C COPD and is maintained on Trelegy. FEV1 is 21% predicted. She has very significant air trapping with an RV of 240% predicted on prior PFTs. Chest CTA was completed 12/03/2023 which revealed severe emphysematous change, no pulmonary embolism and subcentimeter pulmonary nodules. Right-sided hydronephrosis was noted. Patient was seen by urology who did not recommend any acute intervention. She had a dobutamine stress echo earlier today which was negative for ischemic changes. She is currently on 40 mg prednisone daily. She endorses shortness of breath cough. Patient on home AVAPS and brought the device with her to the hospital. Allergies Allergy/AdvReac Type Severity Reaction Status Date / Time No Known Allergies Allergy Verified 11/03/23 09:44 Home Medications Medication Instructions Recorded Confirmed Type fluoxetine 40 mg capsule (Prozac) 40 mg PO QAM #0 caps 12/17/15 12/03/23 History clonazepam 0.5 mg tablet (Klonopin) 0.5 mg PO BID PRN Anxiety 09/25/18 12/03/23 History mecobalamin (vitamin B12) 10,000 10,000 mcg IM Q30D 04/17/20 12/03/23 History mcg solution for injection Flutter Valve #1 ea 02/21/21 12/03/23 Rx Portable Oxygen E0431 #1 ea 04/11/22 12/03/23 Rx ipratropium 0.5 mg-albuterol 3 mg 3 ml inhalation Q8H PRN shortness 11/05/22 12/03/23 Rx (2.5 mg base)/3 mL nebulization of breath or wheezing #180 mL soln ergocalciferol (vitamin D2) 1,250 1,250 mcg PO Q7D 02/25/23 12/03/23 History mcg (50,000 unit) capsule (Vitamin D2) famotidine 40 mg tablet (Pepcid) 40 mg PO HS 02/25/23 12/03/23 History magnesium 200 mg tablet 200 mg PO QAM 02/25/23 12/03/23 History mirtazapine 30 mg tablet (Remeron) 15 mg PO HS 02/25/23 12/03/23 History omeprazole 20 mg capsule,delayed 20 mg PO BID PRN gerd 02/25/23 12/03/23 History release oxybutynin chloride 10 mg 10 mg PO QAM 02/25/23 12/03/23 History tablet,extended release 24 hr rosuvastatin 5 mg tablet (Crestor) 5 mg PO HS 02/25/23 12/03/23 History albuterol sulfate 90 mcg/actuation 2 puff inhalation Q4H PRN 07/15/23 12/03/23 Rx aerosol inhaler (Ventolin HFA) Shortness Of Breath Or Wheezing #3 Inhalers ondansetron 4 mg disintegrating 4 mg PO Q8H PRN nausea and 07/31/23 12/03/23 Rx tablet vomiting #6 tabs phenazopyridine 200 mg tablet 200 mg PO TID 6 doses #6 tabs 07/31/23 12/03/23 Rx (Pyridium) oxycodone 5 mg tablet 5 mg PO Q6H PRN pain #8 tabs 08/21/23 12/03/23 Rx oxybutynin chloride 5 mg 5 mg PO DAILY #10 tabs 11/03/23 12/03/23 Rx tablet,extended release 24 hr tamsulosin 0.4 mg capsule (Flomax) 0.4 mg PO DAILY #10 caps 11/03/23 12/03/23 Rx Patient History Medical History MOULTON (dyspnea on exertion) Chest pain on exertion 10/19/23- continues to have SOB and CP w/ exertion; to have echo done 10/20/23 at [facility] pt reports chest pain/sob on exertion x few weeks. pt reported this to pulmonology. per pt, pulm instructed pt to reach out to PCP for EKG. Former smoker quit in 03/2022 On home oxygen therapy 2L O2 continuously COPD (chronic obstructive pulmonary disease) with chronic bronchitis daily and prn inh. Personal history of nicotine dependence Multiple pulmonary nodules Diverticulosis hx Internal hemorrhoids Pulmonary emphysema f/u dr. godinez[place] [facility] [place] Tubular adenoma of colon hx History of varicella History of peptic ulcer Hx of juvenile rheumatoid arthritis Osteoarthritis GERD (gastroesophageal reflux disease) Hypothyroidism Anxiety Kidney stones had them since she was 13 yrs old Dyslipidemia Depression with anxiety Surgical History S/P tooth extraction History of lithotripsy History of dilatation and curettage History of cystoscopy multiple History of colonoscopy History of tooth extraction full upper History of tonsillectomy and adenoidectomy Status post cystoscopy with ureteral stent placement 07/29/23 [place] 09/26/18 Hx of cholecystectomy H/O tubal ligation Family History Mother Family history of diabetes mellitus Alzheimer disease Diabetes Father Family history of diabetes mellitus Family history of esophageal cancer Brother Family history of diabetes mellitus Sister Family history of diabetes mellitus Family/Other Family history of diabetes mellitus nephew Other No family history of adverse response to anesthesia Social History Smoking Status: Former smoker Tobacco Type: Cigarettes Second Hand Exposure: No; Do You Dip or Chew Tobacco: No; Hx Alcohol Use: No Hx Substance Use: No Preferred Language: Japanese Communication Ability: Effective Visual Impairment: No Limitations Engineering Writer Required: No Beliefs That Will Affect Care: None marital status: Current Living Situation: Spouse Current Living Situation Comment: Lives with daughter and her family How many Children do You have: 3 Feels Safe at Home: Yes Safety Concerns: Feels Safe At This Time Assistive Devices: BiPap and Oxygen - Continuous Review of Systems Review of Systems: All systems reviewed & are unremarkable except as noted in HPI & below Physical Exam Physical Exam: Constitutional: No acute distress HEENT: EOMI, PERRLA Respiratory system: Decreased air entry bilaterally, no wheeze, no rhonchi, no crackles CVS: S1-S2 positive, no murmurs or gallops Abdomen: Soft, nontender, nondistended, positive bowel sounds x4 Extremities: +2 pulses bilaterally radialis, no cyanosis, no edema Neuro: Awake alert oriented x3 Psych: Normal mood and affect Skin: no rashes, warm and dry Lymphatic: no cervical or axillary lymphadenopathy Results & Data Results & Data Vital Signs (Past 12 Hours) Vital Signs Temp Pulse Pulse Resp BP BP Pulse Ox 12/04/23 15:06 36.3 C L 87 22 134/85 91 12/04/23 15:04 87 134/85 12/04/23 12:12 36.6 C 88 19 122/83 93 12/04/23 07:38 36.6 C 76 17 125/81 94 12/04/23 07:30 O2 Del Method O2 Flow Rate 12/04/23 15:06 Nasal Cannula 2 12/04/23 15:04 12/04/23 12:12 Nasal Cannula 2 12/04/23 07:38 CPAP 12/04/23 07:30 CPAP 3 PG Care Time/CCT Total # of Minutes Spent Total Time Spent with Patient: Total time spent is greater than 50% in coordination of care (as documented) at patient's floor/unit and/or counseling patient: Coding Level of Care Code 22300 INT INP/OBS CARE 2/55MIN Diagnoses Acute exacerbation of chronic obstructive pulmonary disease J44.1 Acute and chronic respiratory failure with hypercapnia J96.22 Anxiety F41.9
[2023-12-04] MEDS ORDERED: methylPREDNISolone 40 MG in SYRINGE 0 ML IV SCH (18:30)
[2023-12-04] MEDS: guaiFENesin 600 MG TABCR PO SCH (18:38)
[2023-12-04] MEDS: ADVANCED PROBIOTIC 625 MG CAPSULE PO SCH (18:38)
[2023-12-04] MEDS: FLUTICASONE/VILANTEROL 100/25MCG 14 PUFFS/INHALER INH SCH (18:38)
[2023-12-04] MEDS ORDERED: BUDESONIDE 0.5 MG/2 ML VIAL (PULMICORT) NEB SCH (19:00)
--- NOTE | 2023-12-04 19:20 | Hospitalist Progress Note ---
Date of Service December 04, 2023 Assessment & Plan (1) Acute and chronic respiratory failure with hypercapnia: Plan: per admitting service notes with addendum: Acute on chronic hypoxemic respiratory failure secondary to COPD on home O2, BRIGITTE on CPA, Secondary to COPD exacerbation, Acute Bronchitis CT chest: no pneumonia, PE 1. There is no evidence of pulmonary embolus in the main, lobar, or segmental pulmonary arteries. 2. There is no airspace consolidation or pleural effusion. 3. Emphysema. 4. Subcentimeter right upper lobe pulmonary nodules are unchanged. Continued attention at lung screening follow-up is recommended. 5. Right-sided hydronephrosis is partially visualized. Ureterolithiasis was seen on 07/29/2023. Correlate with the urological history. 6. Additional findings as above. now on 3 L NC, baseline 2L Biofire negative Prednisone 40mg daily Nebs q6h Incentive spirometry, Flutter valve 12/03 Levalbuterol discontinued due to patient's intolerance Start Breo Continue ipratropium nebs Additional prednisone 40 mg this evening Add doxycycline, continue ceftriaxone Add Mucinex Pulmonology service consulted Monitor closely Chest pain Acute coronary syndrome ruled out Dobutamine stress test negative Appreciate cardiology service recommendations Complicated UTI History urolithiasis, patient denies abdominal/flank pain complaints s/p Ureteral stent placement 11/02 ff up urine culture Ceftri IV will consult Urology for possible removal of ureteral stent: No plans for stent removal while inpatient Will need to continue antibiotics until ureteral stent has been removed Hypertension - not on maintenance medications Highest SBP noted to be 180 at the ER - improving monitor closely hyperlipidemia, on statin Rx hypothyroidism, euthyroid as of outpatient TSH last year, patient currently not on maintenance medications Hyperglycemia - a1c 5.3 past tobacco abuse DVT prophylaxis. Lovenox subcu Full code Disposition Discharge to home when medically stable Admission and Anticipated Discharge Date Admission Date: December 03, 2023 Subjective Follow-up for COPD exacerbation, etc. Events overnight noted Patient seen resting in bed, sitting up, patient's at the bedside visiting States she feels somewhat improved compared to yesterday Chest pain has resolved Shortness of breath seems to be improving, minimal cough, no sputum production, reports frontal sinus/nasal congestion No other new symptoms Review of Systems Review of Systems: all noted and negative except for above Physical Exam Physical Exam: General- oriented x 3, not in distress, speaks in sentences with no effort or a ccessory muscle use Eyes- anicteric Neck- no JVD Lungs-diminished but clear breath sounds bilaterally, no crackles or wheezing Heart- normal rate, regular rhythm; no murmurs Abdomen- normal bowel sounds, nondistended, soft, no tenderness Extremities- no pretibial edema, no calf tenderness Neuro- alert, oriented x 3; no gross focal neurologic deficits Skin- warm & dry Results & Data Results & Data Vital Signs (Past 12 Hours) Vital Signs Temp Pulse Pulse Resp BP BP Pulse Ox 12/04/23 15:06 36.3 C L 87 22 134/85 91 12/04/23 15:04 87 134/85 12/04/23 12:12 36.6 C 88 19 122/83 93 12/04/23 07:38 36.6 C 76 17 125/81 94 12/04/23 07:30 O2 Del Method O2 Flow Rate 12/04/23 15:06 Nasal Cannula 2 12/04/23 15:04 12/04/23 12:12 Nasal Cannula 2 12/04/23 07:38 CPAP 12/04/23 07:30 CPAP 3 all noted and reviewed including below
[2023-12-04] MEDS: DOXYCYCLINE HYCLATE 100 MG CAP PO SCH (20:50)
--- OUTSIDE RECORDS SUMMARY | 2023-12-05 07:03 | External Medical Summary | Summary of Care ---
Author Name Unknown Organization [facility] Address [address] [place] [address] Phone [phone] Care Team Providers Care Entry Clerk Name Role Phone Alicja De La Paz MD Primary Care Provid er Reason for Visit * Reason Comments eRx-Medication Refill Encounter Details Date Type Department Care Team (Late st Contact Info) Description 11/24/2023 Refill [facility] [address] [place] [address] Alicja De La Paz MD [address] [place] [address] Hypovitaminosis D Allergies No known active allergiesdocumented as of this encounter (statuses as of 11/24/2023) Medications Medication Sig Dispensed Refills Start Date End Date Status ALBUTEROL SULFATE HFA 108 MCG/ACT IN AERSIndications:CO PD, severity to be determined (HCC) Use two puffs four times a day as needed 1 11 09/16/2007 Active FLUoxetine HCl 40 MG Capsule Take 1 Capsule by mouth in the morning. 0 04/18/2016 Active Trelegy Ellipta 100-62.5-25 MCG/ACT Aerosol Powder Breath Activated TAKE 1 PUFF BY MOUTH EVERY DAY 0 08/07/2022 Active Ipratropium-Albute rol 0.5-2.5 (3) MG/3ML Inhalation Solution (Duoneb) USE 1 VIAL VIA NUBULIZER EVERY 8 HOURS NEEDED FOR SHORTNESS OF BREATH OR WHEEZING 0 07/03/2022 Active Mirtazapine 15 MG Oral Tablet (Remeron) Take 1 Tablet by mouth at bedtime. 0 06/28/2022 Active clonazePAM 0.5 MG Oral Tablet (KlonoPIN) Take 1 Tablet by mouth 2 times a day as needed. 0 07/31/2022 Active Cyanocobalamin 1000 MCG/ML Injection Solution (Cyanocobalamin)In dications:H/O non anemic vitamin B12 deficiency Inject 1,000 mcg as directed every 30 days. 3 mL 3 12/05/2022 Active Famotidine 40 MG Oral Tablet (Pepcid) TAKE 1 TABLET BY MOUTH EVERYDAY AT BEDTIME 90 Tablet 3 05/09/2023 Active Magnesium 200 MG Oral Tablet Take 1 Tablet by mouth in the morning. 90 Tablet 3 06/30/2023 Active Rosuvastatin Calcium 5 MG Oral Tablet (Crestor) TAKE 1 TABLET BY MOUTH EVERYDAY AT BEDTIME 90 Tablet 3 07/13/2023 Active oxyBUTYnin Chloride ER 10 MG Oral Tablet Extended Release 24 Hour (Ditropan XL)Indications:Urg e incontinence of urine TAKE 1 TABLET BY MOUTH EVERY DAY IN THE MORNING 90 Tablet 3 08/13/2023 Active Vitamin D (Ergocalciferol) 1.25 MG (63649 UT) Oral Capsule (Drisdol)Indicatio ns:Hypovitaminosis D TAKE 1 CAPSULE BY MOUTH ONE TIME PER WEEK 12 Capsule 1 11/24/2023 Active Vitamin D (Ergocalciferol) 1.25 MG (39117 UT) Oral Capsule (Drisdol)Indicatio ns:Hypovitaminosis D TAKE 1 CAPSULE BY MOUTH ONE TIME PER WEEK 12 Capsule 1 06/08/2023 Discontinued documented as of this encounter (statuses as of 11/24/2023) Active Problems Problem Noted Date Diagnosed Date H/O non anemic vitamin B12 deficiency 12/05/2022 Chronic hypoxemic respiratory failure 08/29/2022 Former smoker 08/29/2022 Acquired hypothyroidism 08/29/2022 H/O abnormal cervical Papanicolaou smear 023 H/O colonoscopy with polypectomy 08/29/2022 HTN, goal below 140/90 08/29/2022 Dyslipidemia, goal to be determined 11/03/2007 Calculus of kidney 05/30/2002 COPD, group D, by GOLD 2017 classification 05/30 Tobacco use disorder 06/01/2000 Major depressive disorder 06/01/2000 Overview: ICD-10 update of inactive term DYSFUNCT EUSTACHIAN TUBE 06/01/2000 documented as of this encounter (statuses as of 11/24/2023) Immunizations Name Administration Dates Next Due Pneumococcal Conjugate Vaccine, 20-valent (Prevn ar20) 08/29/2022 Seasonal Influenza, PF, 6 M & above, IM , (FluLaval or Fluzone) 08/29/2022 TDAP (age 11 and older)(Adacel) 02/02/2008 documented as of this encounter Social History Tobacco Use Types Packs/Day Years Used Date Smoking Tobacco: Every Day Cigarettes Alcohol Use Standard Drinks/Week Comments Yes 0 (1 standard drink = 0.6 oz pur e alcohol) rare Hunger Vital Sign Answer Date Recorded Within the past 12 months, y ou worried that your food would run out before you got the money to buy more. Never true 08/13/19 24 Within the past 12 months, t he food you bought just didn't last and you didn't have money to get more. Never true 08/13/2023 Sex and Gender Information Value Date Recorded Sex Assigned at Female 08/13/2023 7:23 PM EST Gender Identity Female 08/13/2023 7:23 PM EST Sexual Orientation Straight 08/13/2023 7: 23 PM EST Job Start Date Occupation Industry Not on file Not on file Not on file documented as of this encounter Miscellaneous Notes * Telephone Encounter - Alicja De La Paz MD - 11/24/2023 7:50 AM EDT Signed Prescriptions: Disp Refills Vitamin D (Ergocalciferol) 1.25 MG (55077 *12 Cap*1 Sig: TAKE 1 CAPSULE BY MOUTH ONE TIME PER WEEK Authorizing Provider: ALICJA DE LA PAZ * Telephone Encounter - Trish Olmedo LPN - 11/24/2023 7:03 AM EDTPending Prescriptions: Disp Refills Vitamin D (Ergocalciferol) 1.25 MG (75203 *12 Cap*1 Sig: TAKE 1 CAPSULE BY MOUTH ONE TIME PER WEEK * Telephone Encounter - Timothy Woods - 11/24/2023 4:15 AM EDTPending Prescriptions: Disp Refills Vitamin D (Ergocalciferol) 1.25 MG (48648 *12 Cap*1 Sig: TAKE 1CAPSULE BY MOUTH ONE TIME PER WEEK documented in this encounter Plan of Treatment Upcoming Encounters Date Type Department Care Team (Late st Contact Info) Description 02/23/2024 3:00 PM EDT Office Visit [facility] [address] [place] [address] Alicja De La Paz MD [address] [place] [address] Health Maintenance Due Date Last Done Comments DISCUSS TOBACCO CESSATION (REFER TO SMARTSET #8928) 1961 HIV Screening 1976 Alpha-1 Antitrypsin 1979 Hepatitis C Screening 1979 HPV/Co-Test 1991 Mammogram 08/19/2003 08/19/2002 Cologuard 2006 Fecal Occult Blood Test 2006 Sigmoidoscopy 2006 Cervical Cancer Screening 09/16/2010 Pap Smear 09/16/2010 09/16/2007, 09/03, 05/30/2002, Additional history exists Zoster Vaccines (1 of 2) 2011 DTaP,Tdap,and Td Vaccines (2 - Td or Tdap) 02/01/2018 02/02/2008 COVID-19 Vaccine ( - season) 2023 GFR 08/29/2023 08/29/2022, 09/03, 05/30/2002, Additional history exists Influenza Vaccine (FLU shot) (Season Ended) 2024 08/29/2022, 06/20/2020, 09/27/2018, Additional history exists O2 ASSESSMENT COMPLETED IN PAST YEAR FOR COPD 08/25/2024 08/25/2023 Albumin/Creatinine Ratio 08/29/2025 08/29/2022 Diabetes Screening 08/29/2025 08/29/2022, 0 09/16/2007, 05/30/2002, Additional history exists Lipid Panel 08/29/2027 08/29/2022, 01/02, 09/16/2007, Additional history exists Colonoscopy 12/18/2027 12/17/2017 Colorectal Cancer Screening 12/18/2027 Pneumococcal Vaccine: Pediatrics (0 to 5 Years) and At-Risk Patients (6 to 64 Years) Completed 08/29/2022, 09/27/2018, 09/26/2018, Additional history exists GARDASIL-HPV IMMUNIZATION SERIES Aged Out No longer [...] as of this encounter Visit Diagnoses Diagnosis Hypovitaminosis D Unspecified vitamin D deficiency documented in this encounter Care Teams Entry Clerk Relationship Specialty Start Date End Date Alicja De La Paz MD [address] [address] PCP - General Family Medicine 08/29/22 documented as of this encounter
--- OUTSIDE RECORDS SUMMARY | 2023-12-05 07:03 | External Medical Summary | Summary of Care ---
Author Name Unknown Organization [facility] Address [address] [place] [address] Phone [phone] Care Team Providers Care Heat Curer Name Role Phone Ritu Duenas MD Primary Care Provid er Reason for Visit * Reason Onset Date Comments Health Maintenance 11/30/2023 Encounter Details Date Type Department Care Team (Late st Contact Info) Description 11/30/2023 Telephone [facility] [address] [place] [facility] [place] [address] Ritu Duenas MD [address] [place] [address] Health Maintenance Allergies No known active allergiesdocumented as of this encounter (statuses as of 11/30/2023) Medications Medication Sig Dispensed Refills Start Date [...] 07/31/2022 Active Cyanocobalamin 1000 MCG/ML Injection Solution (Cyanocobalamin)Tina [...] 24 Hour (Ditropan XL)Indications:Urge incontinence of urine TAKE 1 TABLET BY MOUTH EVERY DAY IN THE MORNING 90 Tablet 3 08/13/2023 Active Vitamin D (Ergocalciferol) 1.25 MG (61535 UT) Oral Capsule (Drisdol)Indications :Hypovitaminosis D TAKE 1 CAPSULE BY MOUTH ONE TIME PER WEEK 12 Capsule 1 11/24/2023 Active documented as of this encounter (statuses as of 11/30/2023) Active Problems Problem Noted Date Diagnosed Date [...] as of this encounter (statuses as of 11/30/2023) Immunizations Name Administration Dates Next Due Pneumococcal [...] encounter Miscellaneous Notes * Telephone Encounter - Halley Henderson NICHOLAS - 11/30/2023 10:00 AM EDT Care Gaps Comprehensive Care Outreach Last Office/Telemedicine Visit: 08/25/2023 (in office), Visit date not found (telemedicine) Next Office Visit: 02/23/2024 Hemoglobin AIC Results: No results found for: "HEMOGLOBIN A1C" BP Readings from Last 1 Encounters: 08/25/23 138/88 Reviewed Health Maintenance below: Health Maintenance Topic Date Due DISCUSS TOBACCO CESSATION (REFER TO SMARTSET #8494) Never done HIV Screening Never done Alpha-1 Antitrypsin Never done Hepatitis C Screening Never done Mammogram 08/19/2003 Cervical Cancer Screening 09/16/2010 Zoster Vaccines (1 of 2) Never done DTaP,Tdap,and Td Vaccines (2 - Td or Tdap) 02/01/2018 COVID-19 Vaccine (1 - ) Never done GFR 08/29/2023 Mamm Pap Lab already ordered Care Gap Outreach Action Taken: Left message documented in this encounter Plan of Treatment Upcoming Encounters Date Type Department Care Team (Elizabeth st Contact Info) Description 02/23/2024 3:00 PM EDT Office Visit [facility] [address] [place] [address] Ritu Duenas MD [address] [place] [address] Health Maintenance Due Date Last Done Comments DISCUSS TOBACCO CESSATION (REFER TO SMARTSET #4402) 1961 HIV Screening 1976 Alpha-1 Antitrypsin 1979 Hepatitis C Screening 1979 HPV/Co-Test 1991 Mammogram 08/19/2003 08/19/2002 Cologuard 2006 Fecal Occult Blood Test 2006 Sigmoidoscopy 2006 Cervical Cancer Screening 09/16/2010 Pap Smear 09/16/2010 09/16/2007, 09/03, 05/30/2002, Additional history exists Zoster Vaccines (1 of 2) 2011 DTaP,Tdap,and Td Vaccines (2 - Td or Tdap) 02/01/2018 02/02/2008 COVID-19 Vaccine ( season) 2023 GFR 08/29/2023 08/29/2022, 09/03, 05/30/2002, [...] Not on filedocumented as of this encounter Care Teams Heat Curer Relationship Specialty Start Date End Date Ritu Duenas MD [address] [place] [address] PCP - General Family Medicine 08/29/22 documented as of this encounter
--- NOTE | 2023-12-05 11:10 | Pulmonology Progress Note ---
Date of Service December 05, 2023 Assessment & Plan (1) Acute exacerbation of chronic obstructive pulmonary disease: Plan: Patient has recurrent COPD exacerbations. Recommend consideration for evaluation of bronchoscopic lung volume reduction as an outpatient if the patient is able to completely abstain from cigarette smoking for 4 months. Continue prednisone therapy for 7 days total. Continue nebulizer treatments as needed. Continue ICS/LABA/LAMA. Follow-up with Dr. Webster in the outpatient clinic. (2) Acute and chronic respiratory failure with hypercapnia: Plan: Continue AVAPS in the evenings. Patient has AVAPS device at home which she brought with her. (3) Anxiety: Plan: Patient with significant anxiety related to chronic breathlessness from COPD. Recommend palliative care outpatient evaluation given very advanced COPD. Plan Patient is basically at her baseline with oxygen requirements. Patient can be dismissed from the hospital from a pulmonary perspective. No further recommendations. Thank you for the consult. Admission and Anticipated Discharge Date Admission Date: December 03, 2023 Subjective Symptoms relatively unchanged from yesterday. No worsening shortness of breath. Cough minimal today. Review of Systems Review of Systems: All systems reviewed & are unremarkable except as noted in HPI & below Physical Exam Physical Exam: Constitutional: No acute distress HEENT: EOMI, PERRLA Respiratory system: Decreased air entry bilaterally, no wheeze, no rhonchi, no crackles CVS: S1-S2 positive, no murmurs or gallops Abdomen: Soft, nontender, nondistended, positive bowel sounds x4 Extremities: +2 pulses bilaterally radialis, no cyanosis, no edema Neuro: Awake alert oriented x3 Psych: Normal mood and affect Skin: no rashes, warm and dry Lymphatic: no cervical or axillary lymphadenopathy Results & Data Results & Data Vital Signs (Past 12 Hours) Vital Signs Temp Pulse Pulse Resp BP Pulse Ox O2 Del Method 12/05/23 09:55 Nasal Cannula 12/05/23 07:49 70 12/05/23 07:48 36.6 C 74 19 124/80 94 CPAP 12/05/23 03:34 36.4 C L 83 19 124/76 94 CPAP 12/04/23 23:35 36.4 C L 69 20 124/78 94 CPAP O2 Flow Rate 12/05/23 09:55 3 12/05/23 07:49 12/05/23 07:48 12/05/23 03:34 12/04/23 23:35 PG Care Time/CCT Total # of Minutes Spent Total Time Spent with Patient: Total time spent is greater than 50% in coordination of care (as documented) at patient's floor/unit and/or counseling patient: Coding Level of Care Code 33103 SUB INP/OBS CARE 08/27MIN Diagnoses Acute exacerbation of chronic obstructive pulmonary disease J44.1 Acute and chronic respiratory failure with hypercapnia J96.22 Anxiety F41.9
--- NOTE | 2023-12-05 16:15 | Hospitalist Progress Note ---
Date of Service December 05, 2023 Assessment & Plan (1) Acute and chronic respiratory failure with hypercapnia: Plan: per admitting service notes with addendum: Acute on chronic hypoxemic respiratory failure secondary to COPD on home O2, BRIGITTE on CPA, Secondary to COPD exacerbation, Acute Bronchitis CT chest: no pneumonia, PE 1. There is no evidence of pulmonary embolus in the main, lobar, or segmental pulmonary arteries. 2. There is no airspace consolidation or pleural effusion. 3. Emphysema. 4. Subcentimeter right upper lobe pulmonary nodules are unchanged. Continued attention at lung screening follow-up is recommended. 5. Right-sided hydronephrosis is partially visualized. Ureterolithiasis was seen on 07/29/2023. Correlate with the urological history. 6. Additional findings as above. now on 3 L NC, baseline 2L Biofire negative Prednisone 40mg daily Nebs q6h Incentive spirometry, Flutter valve 12/03 Levalbuterol discontinued due to patient's intolerance Start Breo Continue ipratropium nebs Additional prednisone 40 mg this evening Add doxycycline, continue ceftriaxone Add Mucinex Pulmonology service consulted Monitor closely 12/04 Improved today Continue prednisone, Breo, ceftriaxone plus doxycycline, Mucinex Appreciate pulmonary service recommendation "Patient has recurrent COPD exacerbations. Recommend consideration for evaluation of bronchoscopic lung volume reduction as an outpatient if the patient is able to completely abstain from cigarette smoking for 4 months. Continue prednisone therapy for 7 days total. Continue nebulizer treatments as needed. Continue ICS/LABA/LAMA. Follow-up with Dr. Webster in the outpatient clinic. Continue AVAPS in the evenings. Patient has AVAPS device at home which she brought with her." Chest pain Acute coronary syndrome ruled out Dobutamine stress test negative Appreciate cardiology service recommendations Complicated UTI History urolithiasis, patient denies abdominal/flank pain complaints s/p Ureteral stent placement 11/02 ff up urine culture: Negative will consult Urology for possible removal of ureteral stent: No plans for stent removal while inpatient Will need to continue antibiotics until ureteral stent has been removed Hypertension - not on maintenance medications Highest SBP noted to be 180 at the ER - improving monitor closely hyperlipidemia, on statin Rx hypothyroidism, euthyroid as of outpatient TSH last year, patient currently not on maintenance medications Hyperglycemia - a1c 5.3 past tobacco abuse DVT prophylaxis. Lovenox subcu Full code Disposition Anticipate discharge to home tomorrow Admission and Anticipated Discharge Date Admission Date: December 03, 2023 Subjective Follow-up for COPD exacerbation, etc. Seen resting in bed, comfortable, not in distress States she is feeling better today compared to yesterday Breathing is improving, less cough Less sinus congestion No chest pain No other new symptoms Review of Systems Review of Systems: all noted and negative except for above Physical Exam Physical Exam: General- oriented x 3, not in distress, speaks in sentences with no effort or accessory muscle use Eyes- anicteric Neck- no JVD Lungs-diminished but clear breath sounds bilaterally, no crackles or wheezing noted Heart- normal rate, regular rhythm; no murmurs Abdomen- normal bowel sounds, nondistended, soft, no tenderness Extremities- no pretibial edema, no calf tenderness Neuro- alert, oriented x 3; no gross focal neurologic deficits Skin- warm & dry Results & Data Results & Data Vital Signs (Past 12 Hours) Vital Signs Temp Pulse Pulse Resp BP Pulse Ox O2 Del Method 12/05/23 15:28 74 12/05/23 11:35 36.8 C 72 19 144/86 H 93 Nasal Cannula 12/05/23 09:55 Nasal Cannula 12/05/23 07:49 70 12/05/23 07:48 36.6 C 74 19 124/80 94 CPAP O2 Flow Rate 12/05/23 15:28 12/05/23 11:35 2 12/05/23 09:55 3 12/05/23 07:49 12/05/23 07:48 all noted and reviewed including below
[2023-12-06 05:28] LABS: Creatinine Clr Calc Pharmacy 75.1 ml/min; Est GFR (African American) 90.2 ml/min; Est GFR (Non-African American) 77.8 ml/min
--- NOTE | 2023-12-06 16:17 | Discharge Summary ---
Discharge Summary Date of Service December 06, 2023 Notes For Next Care Provider Medication Changes From Visit Prednisone-steroid taper for COPD exacerbation, to be taken as follows 40 mg daily x 1 day, then 30 mg daily x 2 days, then 20 mg daily x 2 days, then 10 mg daily x 2 days, then stop Doxycycline-antibiotic for COPD exacerbation, possible sinusitis Please take a probiotic daily for at least 2 weeks. Mucinex-for cough Admission HPI Per Admitting Provider History obtained from patient and records. Medical history significant for chronic hypoxemic respiratory failure secondary to COPD on home O2, BRIGITTE on CPAP, hypertension, hyperlipidemia, hypothyroidism, urolithiasis, mood disorder, past tobacco abuse. Last confinement July 2023 for obstructive kidney stone status post stent placement. Patient not feeling well the last few days. Dizziness described as lightheadedness. Achy headache symptoms. Dysuria symptoms without fever, chills, abdominal or flank pain. Transient chest pain with shortness of breath. No cough symptoms. Solu-Medrol and neb treatment administered at the ER. SBP noted to be 180s at the ER. Medical History as above Surgical History : BTL, urologic procedures, cholecystectomy Family History : COPD, breast cancer Personal/Social history : Past tobacco abuse, no EtOH intake, retired [employer] employee Admission Exam Per Admitting Provider GENERAL: Comfortable, obese, slightly anxious, no respiratory distress SKIN: Normal color, warm HEENT: [place] palpebral conjunctivae, no ptosis, dry buccal mucosa, BiPAP in place NECK : Supple, no tenderness CHEST : Decreased breath sounds, no tenderness HEART : RRR, no obvious murmurs ABDOMEN: Some distention, nontender EXTREMITIES : No LE swelling/tenderness, no other conspicuous deformities noted NEUROLOGIC : Coherent, no facial asymmetry, no other gross focality Principal Dx & Hospital Course #1 = Principal Diagnosis (1) Acute and chronic respiratory failure with hypercapnia: per admitting service notes with addendum: Acute on chronic hypoxemic respiratory failure secondary to COPD on home O2, BRIGITTE on CPA, Secondary to COPD exacerbation, Acute Bronchitis CT chest: no pneumonia, PE 1. There is no evidence of pulmonary embolus in the main, lobar, or segmental pulmonary arteries. 2. There is no airspace consolidation or pleural effusion. 3. Emphysema. 4. Subcentimeter right upper lobe pulmonary nodules are unchanged. Continued attention at lung screening follow-up is recommended. 5. Right-sided hydronephrosis is partially visualized. Ureterolithiasis was seen on 07/29/2023. Correlate with the urological history. 6. Additional findings as above. on 3 L NC, baseline 2L Biofire negative Pulmonary service consulted Continue prednisone, Breo, ceftriaxone plus doxycycline, Mucinex Appreciate pulmonary service recommendation "Patient has recurrent COPD exacerbations. Recommend consideration for evaluation of bronchoscopic lung volume reduction as an outpatient if the patient is able to completely abstain from cigarette smoking for 4 months. Continue prednisone therapy for 7 days total. Continue nebulizer treatments as needed. Continue ICS/LABA/LAMA. Follow-up with Dr. Webster in the outpatient clinic. Continue AVAPS in the evenings. Patient has AVAPS device at home which she brought with her." 12/05 improved significantly discharge on Prednisone taper, Doxycycline BID to complete 7 days, Mucinex ff up with Pulm as outpatient ff up pulmonary nodules Chest pain Acute coronary syndrome ruled out Dobutamine stress test negative Appreciate cardiology service recommendations History urolithiasis, patient denies abdominal/flank pain complaints s/p Ureteral stent placement 11/02 ff up urine culture: Negative will consult Urology for possible removal of ureteral stent: No plans for stent removal while inpatient Abnormal CT Head Finding There is age-related involutional change noting mild subcortical and periventricular microangiopathic disease. - consider ASA 81m po daily Hypertension - not on maintenance medications Highest SBP noted to be 180 at the ER - improved monitor closely hyperlipidemia, on statin Rx hypothyroidism, euthyroid as of outpatient TSH last year, patient currently not on maintenance medications Hyperglycemia - a1c 5.3 past tobacco abuse DVT prophylaxis. Lovenox subcu Full code Disposition d/c home PCP in 1 week Pulm in 2 weeks Discharge Exam General- oriented x 3, not in distress, speaks in sentences with no effort or accessory muscle use Eyes- anicteric Neck- no JVD Lungs- clear breath sounds bilaterally, no rales/wheezes Heart- normal rate, regular rhythm; no murmurs Abdomen- normal bowel sounds, nondistended, soft, nontender Extremities- no pretibial edema, no calf tenderness Neuro- alert, oriented x 3; no gross focal neurologic deficits Skin- warm & dry Updated Medication List Medication Instructions Recorded Confirmed Type fluoxetine 40 mg capsule (Prozac) 40 mg PO QAM #0 caps 12/16/12/03/23 History clonazepam 0.5 mg tablet (Klonopin) 0.5 mg PO BID PRN Anxiety 09/25/18 12/03/23 History mecobalamin (vitamin B12) 10,000 10,000 mcg IM Q30D 04/17/20 12/03/23 History mcg solution for injection Flutter Valve #1 ea 02/21/21 12/03/23 Rx Portable Oxygen E0431 #1 ea 04/11/22 12/03/23 Rx ipratropium 0.5 mg-albuterol 3 mg 3 ml inhalation Q8H PRN shortness 11/05/22 12/03/23 Rx (2.5 mg base)/3 mL nebulization of breath or wheezing #180 mL soln ergocalciferol (vitamin D2) 1,250 1,250 mcg PO Q7D 02/25/23 12/03/23 History mcg (50,000 unit) capsule (Vitamin D2) famotidine 40 mg tablet (Pepcid) 40 mg PO HS 02/25/23 12/03/23 History magnesium 200 mg tablet 200 mg PO QAM 02/25/23 12/03/23 History mirtazapine 30 mg tablet (Remeron) 15 mg PO HS 02/25/23 12/03/23 History omeprazole 20 mg capsule,delayed 20 mg PO BID PRN gerd 02/25/23 12/03/23 History release oxybutynin chloride 10 mg 10 mg PO QAM 02/25/23 12/03/23 History tablet,extended release 24 hr rosuvastatin 5 mg tablet (Crestor) 5 mg PO HS 02/25/23 12/03/23 History albuterol sulfate 90 mcg/actuation 2 puff inhalation Q4H PRN 07/15/23 12/03/23 Rx aerosol inhaler (Ventolin HFA) Shortness Of Breath Or Wheezing #3 Inhalers ondansetron 4 mg disintegrating 4 mg PO Q8H PRN nausea and 07/31/23 12/03/23 Rx tablet vomiting #6 tabs phenazopyridine 200 mg tablet 200 mg PO TID 6 doses #6 tabs 07/31/23 12/03/23 Rx (Pyridium) oxycodone 5 mg tablet 5 mg PO Q6H PRN pain #8 tabs 08/21/23 12/03/23 Rx oxybutynin chloride 5 mg 5 mg PO DAILY #10 tabs 11/03/23 12/03/23 Rx tablet,extended release 24 hr tamsulosin 0.4 mg capsule (Flomax) 0.4 mg PO DAILY #10 caps 11/03/23 12/03/23 Rx L.acidop,casei,lactis,rham-B.lact,ghazala 1 cap PO DAILY 14 days #14 caps 12/06/23 Rx 625 mg (10 billion cell) capsule (Advanced Probiotic) doxycycline hyclate 100 mg capsule 100 mg PO BID 4 days #8 caps 12/06/23 Rx guaifenesin 600 mg tablet, 1,200 mg (2 x 600 mg) PO Q12 4 12/06/23 Rx extended release 12 hr (Mucinex) days #16 tabs prednisone 10 mg tablet 10 mg PO DAILY #12 tabs 12/06/23 Rx Hospital Stay Data Consultations 12/03/23 02:54 ED Decision to Admit Stat 12/03/23 22:12 Consult Urology Routine 12/04/23 01:02 Consult Cardiology Routine 12/04/23 07:19 Consult Pulmonology Routine Diagnostic Imagining Performed Laboratory Results WBC 13.27 K/ul (4.8-10.8) H 12/04/23 01:57 RBC 4.54 M/uL (4.20-5.40) 12/04/23 01:57 Hgb 13.5 g/dl (12.0-16.0) 12/04/23 01:57 Hct 41.9 % (37.0-47.0) 12/04/23 01:57 MCV 92.3 fL (80.0-100.0) 12/04/23 01:57 MCH 29.7 pg (25.0-34.0) 12/04/23 01:57 MCHC 32.2 g/dL (32.0-36.0) 12/04/23 01:57 RDW Std Deviation 41.9 fL (36.4-46.3) 12/04/23 01:57 RDW Coeff of Nona 12.4 % (11.5-14.5) 12/04/23 01:57 Plt Count 209 K/uL (130-400) 12/04/23 01:57 MPV 9.3 fL (9.4-12.4) L 12/04/23 01:57 Immature Gran % (Auto) 0.6 % 12/04/23 01:57 Neut % (Auto) 92.2 % 12/04/23 01:57 Lymph % (Auto) 3.8 % 12/04/23 01:57 [place] % (Auto) 3.2 % 12/04/23 01:57 Eos % (Auto) 0.0 % 12/04/23 01:57 Baso % (Auto) 0.2 % 12/04/23 01:57 Neut # (Auto) 12.25 K/uL (1.40-6.50) H 12/04/23 01:57 Lymph # (Auto) 0.50 K/uL (1.20-3.40) L 12/04/23 01:57 [place] # (Auto) 0.42 K/uL (0.11-0.59) 12/04/23 01:57 Eos # (Auto) 0.00 K/uL (0.00-0.50) 12/04/23 01:57 Baso # (Auto) 0.02 K/uL (0.00-0.20) 12/04/23 01:57 Immature Gran # (Auto) 0.08 K/uL (0.01-0.20) 12/04/23 01:57 RBC Morphology Unremarkable 12/04/23 01:57 PT 10.7 Seconds (9.0-12.0) 12/03/23 Unknown INR 1.0 (0.9-1.1) 12/03/23 Unknown APTT 30 Seconds (21-31) 12/03/23 Unknown PTT Ratio 1.1 12/03/23 Unknown ABG pH 7.36 (7.35-7.45) 12/03/23 22:39 ABG pCO2 47 mmHg (35-46) H 12/03/23 22:39 ABG pO2 63 mmHg (80-95) L 12/03/23 22:39 ABG HCO3 27 mmol/L (19-24) H 12/03/23 22:39 ABG O2 Saturation 94.1 % (90-95) 12/03/23 22:39 ABG Base Excess 0.6 mEq/L (-9-1.8) 12/03/23 22:39 Tae Test Pos (Pos) 12/03/23 22:39 VBG pH 7.31 (7.36-7.41) L 12/03/23 Unknown VBG pCO2 58 mmHg (38-50) H 12/03/23 Unknown VBG pO2 73 mmHg 12/03/23 Unknown VBG HCO3 29 mmol/L 12/03/23 Unknown VBG O2 Saturation 95.8 % 12/03/23 Unknown VBG Base Excess 1.6 mEq/L 12/03/23 Unknown Oxygen Given 3L 12/03/23 22:39 Sodium 140 mmol/L (136-145) 12/04/23 01:57 Potassium 4.0 mmol/L (3.5-5.1) 12/04/23 01:57 Chloride 106 mmol/L (98-107) 12/04/23 01:57 Carbon Dioxide 28 mmol/L (21-32) 12/04/23 01:57 Anion Gap 6 (3-11) 12/04/23 01:57 BUN 20 mg/dl (6-23) 12/04/23 01:57 Creatinine 0.81 mg/dl (0.6-1.2) 12/06/23 04:47 Est Cr Clr Drug Dosing 75.1 ml/min 12/06/23 04:47 Est GFR ( Amer) 90.2 ml/min 12/06/23 04:47 Est GFR (Non-Af Amer) 77.8 ml/min 12/06/23 04:47 BUN/Creatinine Ratio 20.2 (10-20) H 12/04/23 01:57 Glucose 163 mg/dl (70-99(Fasting)) H 12/04/23 01:57 POC Glucose 136 mg/dl (70-99) H 12/03/23 19:50 Estimat Average Glucose 105 mg/dl 12/03/23 Unknown Hemoglobin A1c 5.3 % (4.5-5.6) 12/03/23 Unknown Calcium 8.5 mg/dl (8.6-10.3) L 12/04/23 01:57 Magnesium 1.8 mg/dl (1.7-2.4) 12/03/23 Unknown Total Bilirubin 0.8 mg/dl (0.2-1.0) 12/03/23 Unknown AST 19 U/L (13-39) 12/03/23 Unknown ALT 15 U/L (7-52) 12/03/23 Unknown Alkaline Phosphatase 96 U/L (34-104) 12/03/23 Unknown Troponin I High Sens 5.3 pg/ml (0-14) 12/04/23 01:57 Total Protein 6.7 gm/dl (6.0-8.3) 12/03/23 Unknown Albumin 4.3 gm/dl (3.4-5.0) 12/03/23 Unknown Globulin 2.4 gm/dl (2.5-4.0) L 12/03/23 Unknown Albumin/Globulin Ratio 1.8 (0.9-2) 12/03/23 Unknown Triglycerides 93 mg/dl (0-150) 12/04/23 01:57 Cholesterol 146 mg/dl (0-200) 12/04/23 01:57 LDL Cholesterol, Calc 65 mg/dl 12/04/23 01:57 VLDL Cholesterol, Calc 19 mg/dl (0-30) 12/04/23 01:57 HDL Cholesterol 62 mg/dl 12/04/23 01:57 Cholesterol/HDL Ratio 2.4 (0-5) 12/04/23 01:57 Urine Color [place] 12/03/23 02:38 Urine Appearance Turbid (Clear) A 12/03/23 02:38 Urine pH 6.5 (4.5-7.5) 12/03/23 02:38 Ur Specific [place] 1.017 (1.000-1.030) 12/03/23 02:38 Urine Protein 3+ (Negative) H 12/03/23 02:38 Urine Glucose (UA) Negative (Negative) 12/03/23 02:38 Urine Ketones Negative (Negative) 12/03/23 02:38 Urine Blood 3+ (Negative) H 12/03/23 02:38 Urine Nitrite Negative (Negative) 12/03/23 02:38 Urine Bilirubin Negative (Negative) 12/03/23 02:38 Urine Urobilinogen Negative (Negative) 12/03/23 02:38 Ur Leukocyte Esterase 3+ (Negative) H 12/03/23 02:38 Urine WBC (Auto) >50 /hpf (0-5) H 12/03/23 02:38 Urine RBC (Auto) >20 /hpf (0-2) H 12/03/23 02:38 U Hyaline Cast (Auto) 0-2 /lpf (0-2) 12/03/23 02:38 U Epithel Cells (Auto) 6-10 /hpf (0-2) H 12/03/23 02:38 Urine Bacteria (Auto) 1+ (None Seen) H 12/03/23 02:38 Adenovirus (PCR) Not Detected (NotDetected) 12/03/23 12:20 B. pertussis DNA (PCR) Not Detected (NotDetected) 12/03/23 12:20 B.parapertussis DNA PCR Not Detected (NotDetected) 12/03/23 12:20 C. pneumoniae DNA (PCR) Not Detected (NotDetected) 12/03/23 12:20 Coronavirus OC43 (PCR) Not Detected (NotDetected) 12/03/23 12:20 Coronavirus HKU1 (PCR) Not Detected (NotDetected) 12/03/23 12:20 Coronavirus 229E (PCR) Not Detected (NotDetected) 12/03/23 12:20 SARS-CoV-2 (PCR) NEGATIVE (Negative) 12/03/23 Unknown Coronavirus NL63 (PCR) Not Detected (NotDetected) 12/03/23 12:20 Human Metapneumovir PCR Not Detected (NotDetected) 12/03/23 12:20 Influenza Type A (PCR) Negative (Neg) 12/03/23 Unknown Influenza Type B (PCR) Negative (Neg) 12/03/23 Unknown M. pneumoniae (PCR) Not Detected (NotDetected) 12/03/23 12:20 Parainfluenza 1 (PCR) Not Detected (NotDetected) 12/03/23 12:20 Parainfluenza 2 (PCR) Not Detected (NotDetected) 12/03/23 12:20 Parainfluenza 3 (PCR) Not Detected (NotDetected) 12/03/23 12:20 Parainfluenza 4 (PCR) Not Detected (NotDetected) 12/03/23 12:20 RSV (RT-PCR) Negative (Neg) 12/03/23 Unknown RSV (PCR) Not Detected (NotDetected) 12/03/23 12:20 Entero/Rhino (PCR) Not Detected (NotDetected) 12/03/23 12:20 Impressions Chest CTA 12/03/23 03:36 CT ANGIOGRAM OF THE CHEST CLINICAL HISTORY: Atypical chest pain. Dyspnea. COMPARISON STUDY: Chest x-ray dated 12/03/2023. Chest CT dated 06/18/2023. Abdominal CT dated 07/29/2023. TECHNIQUE: Following the IV administration of 100 cc of Optiray 320, CT angiogram of the chest was performed from the upper abdomen to the thoracic inlet utilizing the pulmonary embolus protocol. Images are reviewed in the axial, sagittal, and coronal planes. 3-D MIPS images are created and assessed. IV contrast was administered without complication. A dose lowering technique was utilized adhering to the principles of ALARA. The examination is degraded by streak artifact from the arms which could not be elevated above the chest. FINDINGS: Thyroid: Imaged portions of the thyroid gland are normal in size and attenuation. Thoracic aorta: The thoracic aorta is normal in caliber and demonstrates standard 3-vessel arch anatomy. No dissection is seen. Pulmonary vasculature: The pulmonary trunk is normal in caliber. There are no filling defects identified in main, lobar, or segmental pulmonary branches to suggest pulmonary embolus. Heart: The heart is normal in size and without pericardial effusion. There are coronary artery calcifications. Lungs and pleural spaces: Emphysematous change is noted. There is no airspace consolidation or pleural effusion. The trachea and central airways are clear. Foci of parenchymal scarring are seen throughout both lungs. There are scattered calcified granulomas. An 8 mm irregular nodule in the right upper lobe image #174 is unchanged, as is a similar-appearing 6 mm right apical nodule on image #2015 Mediastinum: There is no mediastinal lymphadenopathy. [place]: Clear. Axillae: There is no axillary lymphadenopathy. Upper abdomen: Right-sided hydronephrosis is partially visualized. Cholecystectomy clips are noted. Skeletal structures: The skeletal structures are osteopenic. Mild degenerative change is noted in the shoulders and spine. No lytic or blastic bony lesions are seen. IMPRESSION: 1. There is no evidence of pulmonary embolus in the main, lobar, or segmental pulmonary arteries. 2. There is no airspace consolidation or pleural effusion. 3. Emphysema. 4. Subcentimeter right upper lobe pulmonary nodules are unchanged. Continued attention at lung screening follow-up is recommended. 5. Right-sided hydronephrosis is partially visualized. Ureterolithiasis was seen on 07/29/2023. Correlate with the urological history. 6. Additional findings as above. ACT 112: Negative or not required by law. Electronically signed by: Ronen Conway M.D. 12/03/2023 7:[address] 12/03/23 03:36 CT SCAN OF THE BRAIN WITHOUT IV CONTRAST CLINICAL HISTORY: Headache. Hypertension. COMPARISON STUDY: No priors. TECHNIQUE: Unenhanced axial CT scan of the brain is performed from the vertex to the skull base. A dose lowering technique was utilized adhering to the principles of ALARA. The patient was scanned twice due to motion artifact. CT DOSE: 2239.6 mGy.cm FINDINGS: Brain parenchyma: There is age-related involutional change noting mild subcortical and periventricular microangiopathic disease. There is no hemorrhage, mass effect, or evidence of acute territorial ischemia by CT criteria. Christopher-white matter differentiation is preserved. No extra-axial fluid collection is seen. Ventricles, sulci, cisterns: Prominent secondary to involutional change. Intracranial vasculature: There is atherosclerotic calcification of the cavernous carotid arteries. Calvarium: Unremarkable. Sinuses and mastoids: The visualized paranasal sinuses are clear. The mastoid air cells are well pneumatized. Orbits: The bony orbits are grossly intact. IMPRESSION: There is no hemorrhage, mass effect, or evidence of acute territorial ischemia by CT criteria. ACT 112: Negative or not required by law. Electronically signed by: Ronen Conway M.D. 12/03/2023 6:48 AM Chest X-Ray 12/03/23 20:02 XR chest 1V portable HISTORY: Hypoxia. COMPARISON: Chest 12/03/2023. FINDINGS: No pneumothorax. The cardiac silhouette is normal in size. Emphysema again noted. No new focal lung consolidations to suggest a pneumonia. Stable blunting the right lateral costophrenic sulcus which favor scarring. Mildly tortuous thoracic aorta. No acute fractures. IMPRESSION: No significant change compared to the prior study. No acute process. ACT 112: Negative or not required by law. Electronically signed by: Gerson Toth M.D. 12/04/2023 7:39 AM 12/03/23 03:36 CT angio chest PE protocol Stat CT head/brain wo con Stat Pending Results Patient Have Any Pending Studies at Discharge: No Discharge Instructions Given to Patient (Per Discharging Provider) PLEASE REFER TO YOUR NEW MEDICATION LIST AND FOLLOW INSTRUCTIONS CAREFULLY. YOUR NEW MEDICATIONS INCLUDE: Prednisone-steroid taper for COPD exacerbation, to be taken as follows 40 mg daily x 1 day, then 30 mg daily x 2 days, then 20 mg daily x 2 days, then 10 mg daily x 2 days, then stop Doxycycline-antibiotic for COPD exacerbation, possible sinusitis Please take a probiotic daily for at least 2 weeks. Mucinex-for cough PLEASE CALL YOUR PRIMARY CARE PHYSICIAN OR RETURN TO THE ER IF WITH WORSENING OF SYMPTOMS, INCLUDING Shortness of breath, fevers or chills, increasing cough, sputum production, chest pain, weakness, etc. FOLLOW UP WITH PRIMARY CARE PHYSICIAN OUTLINED ABOVE. Total Time Total Time Spent Total Time Spent (In Minutes): 40 minutes
--- NOTE | 2023-12-06 19:25 | Electrocardiogram Report ---
Test Reason : Blood Pressure : / mmHG Vent. Rate : 085 BPM Atrial Rate : 085 BPM P-R Int : 154 ms QRS Dur : 074 ms QT Int : 400 ms P-R-T Axes : 082 071 038 degrees QTc Int : 476 ms Normal sinus rhythm Low voltage QRS Septal infarct (cited on or before 03-DEC-2023) Abnormal ECG When compared with ECG of 29-JUL-2023 03:12, No significant change was found Confirmed by Jermaine Renee ([id number]) on 12/06/2023 7:24:39 PM Referred By: REFERRED SELF Confirmed By:Jermaine Renee
== END 2023-12-06 11:03 | disposition home or self-care (01) | DRG 189 ==
LOC: ED 01:23 → 4W 03:42